=== PATIENT | male | born 1960 | race Caucasian/White ===

== ENCOUNTER 2017-08-26 15:30 | Outpatient (CLI) | payer MEDICAID ==
[~2017-08-26] VITALS: Ht 188 cm; Wt 138.8 kg
[~2017-08-26 15:30] MED LIST: ATEN100T88 PO; DCS100C PO; GLIM4TAB PO; HYDR-3454 PO; LEVO100C2 PO; LISI40TA PO; METF-380 PO
[2017-08-26] MEDS ORDERED: LISI40TA PO (16:13)
[2017-08-26] MEDS ORDERED: HYDR-3820 PO (16:13)
[2017-08-26] MEDS ORDERED: LEVO125T6 PO (16:13)
[2017-08-26] MEDS ORDERED: METF1000 PO (16:13)
[2017-08-26] MEDS ORDERED: DICL75TA2 PO (16:13)
[2017-08-26] MEDS ORDERED: GABA600T2 PO (16:13)
[2017-08-26] MEDS ORDERED: ATEN100T PO (16:13)
[2017-08-26] MEDS ORDERED: GLIM4TAB PO (16:13)
[2017-08-26] MEDS ORDERED: SIMV20TA3 PO (16:13)
== END 2017-08-26 16:14 ==
LOC: PREOP 15:30
PROVIDERS: ATTEND Surgery
DX: Z01.818 Encounter for other preprocedural examination (principal); K92.1 Melena

== ENCOUNTER 2017-08-31 08:32 | Day surgery (SDC) | payer MEDICAID ==
[~2017-08-31] VITALS: Ht 188 cm; Wt 138.8 kg
[~2017-08-31 08:32] MED LIST changes: +ATEN100T PO; +DICL75TA2 PO; +GABA600T2 PO; +HYDR-3820 PO; +LEVO125T6 PO; +METF1000 PO; +SIMV20TA3 PO
[2017-08-31 08:55] VITALS: BP 145/86
[2017-08-31] MEDS ORDERED: NS IV 500 ML 500 ML IV ONE (09:00)
[2017-08-31] MEDS ORDERED: MIDAZOLAM 2 MG/2 ML (VERSED) VIAL ONE ×4 (09:28)
[2017-08-31] MEDS ORDERED: fentaNYL INJECTION 100 MCG/2 ML AMP ONE ×2 (09:28→09:37)
[2017-08-31] MEDS: MIDAZOLAM 2 MG/2 ML (VERSED) VIAL IVP PRN ×4 (09:30→09:39)
[2017-08-31] MEDS: fentaNYL INJECTION 100 MCG/2 ML AMP IVP PRN ×2 (09:31→09:35)
--- NOTE | 2017-08-31 09:32 | Conscious Sedation/ASA ---
Conscious Sedation Pre-Proced Time Reviewed: 09:32 ASA Class: 2 Airway Mallampati Classification: ([place] appropriate class) I. II. III, IV Lungs Heart ASA score ASA 1: a normal healthy patient ASA 2: a patient with a mild systemic disease (mid diabetes, controlled hypertension, obesity ASA 3: a patient with a severe systemic disease that limits activity (angina , COPD, prior Myocardial infarction) ASA 4: a patient with an incapacitating disease that is a constant threat to life (CHF, renal failure) ASA 5: a moribund patient not expected to survive 24 hrs. (ruptured aneurysm) ASA 6: a declared brain patient whose organs are being harvested. For emergent operations, add the letter E after the classification Grade 2 Sedation Plan: Discussed options with patient/fam Note The patient is an appropriate candidate to undergo the planned procedure, sedation, and anesthesia. The patient immediately re-assessed prior to indication. KRISTY LANE MD Aug 31, 2017 9:32 am
--- NOTE | 2017-08-31 09:32 | History & Physicial ---
History of Present Illness History of Present Illness Reason for visit/HPI to undergo colonoscopy regarding heme-positive stools Date of Admission 08/31/17 Date Seen by Provider: Aug 31, 2017 Time Seen by Provider: 09:30 I consulted on this patient on 08/31/17 09:[address] MD Admitting Physician No,Local Physician Consult Allergies and Home Medications Allergies Coded Allergies: No Known Drug Allergies (Unverified , 08/26/17) Home Medications Atenolol 100 Mg Tablet, 100 MG PO DAILY, (Reported) Diclofenac Sodium 75 Mg Tablet.dr, 75 MG PO BID PRN for PAIN-MILD TO MODERATE, ( Reported) Gabapentin 600 Mg Tablet, 600 MG PO TID, (Reported) Glimepiride 4 Mg Tablet, 4 MG PO BID, (Reported) Hydrocodone/Acetaminophen 1 Each Tablet, 1 EACH PO TID PRN for PAIN-MILD TO MODERATE, (Reported) Levothyroxine Sodium 125 Mcg Tablet, 125 MCG PO DAILY, (Reported) Lisinopril 40 Mg Tablet, 40 MG PO DAILY, (Reported) Metformin HCl 1,000 Mg Tablet, 1,000 MG PO BID, (Reported) Simvastatin 20 Mg Tablet, 20 MG PO DAILY, (Reported) Past G[place]wyi-Ifksho-Foy[place] Hx Patient Social History Marrital Status: single Employed/Student: unemployed Type Used: Cigarettes Recent Foreign Travel: No Contact w/other who traveled: No Recent Hopitalizations: No Immunizations Up To Date Date of Influenza Vaccine: Jun 01, 2017 Seasonal Allergies Seasonal Allergies: Yes Surgeries No Respiratory Yes Chronic Bronchitis Cardiovascular Yes Hypertension Neurological No Reproductive System Hx Reproductive Disorders: No Sexually Transmitted Disease: No HIV/AIDS: No Gastrointestinal Yes Gastroesophageal Reflux Musculoskeletal Yes Arthritis, Chronic Back Pain Endocrine History of Endocrine Disorders: No HEENT Loss of Vision: Bilateral Hearing Impairment: Denies Cancer No Psychosocial History of Psychiatric Problem: Yes Behavioral Health Disorders: Anxiety Blood Transfusions Adverse Reaction to a Blood Tr: No Constitutional: no symptoms reported EENTM: no symptoms reported Respiratory: cough Cardiovascular: no symptoms reported Gastrointestinal: see HPI Genitourinary: hematuria Musculoskeletal: no symptoms reported Skin: no symptoms reported Psychiatric/Neurological: Anxiety Physical Exam Vital Signs Capillary Refill : General Appearance: Anxious HEENT: Normal ENT Inspection Neck: Normal Inspection Respiratory: Lungs Clear Cardiovascular: Regular Rate, Rhythm Gastrointestinal: Non Tender, Soft Rectal: Deferred Back: Normal Inspection Extremity: Normal Inspection Neurologic/Psychiatric: Alert, Oriented x3 Skin: Warm/Dry Assessment/Plan Assessment and Plan gentleman with heme-positive stools. No family history of colon cancer. For colonoscopy. Problems: KRISTY LANE MD Aug 31, 2017 9:32 am
--- NOTE | 2017-08-31 09:55 | Endo Procedure Record ---
Endo Procedure Report Date of Procedure Aug 31, 2017 Surgeon (s) KRISTY LANE MD Post Procedure/Op Diagnosis Internal hemorrhoids. Very few sigmoid diverticula Procedure Performed Colonoscopy to cecum Description of Procedure Anesthesia Type: Conscious Sedation Specimen(s) collected/removed none Description of the Procedure Indication for procedure: This gentleman came in for colonoscopy to evaluate heme-positive stools. He denied any family history of colon cancer. Informed consent was obtained after reviewing the procedure in detail. Description of the procedure: He was placed in left lateral decubitus position and his vital signs were monitored. Conscious sedation was achieved using Versed and fentanyl. Examination of the perianal area revealed skin tags and some anal condylomata. The colonoscope was then introduced into the rectum and advanced all the way up to the cecum.the scope was then withdrawn slowly and the mucosa examined in a systematic fashion. Findings: 1. Internal hemorrhoids with some prominent submucosal veins within the distal rectum. There was no active bleeding. 2. Very few sigmoid diverticula. He tolerated the procedure well and was taken back to the nursing area in a stable condition. Impression: Heme-positive stools. Hemorrhoids. No polyps. Note: During the pre-colonoscopy visit, the patient reported noticing blood in his urine. I have therefore recommended that he follows up with his primary care provider with several arrangements for a urology evaluation. Copies To: CORY IGLESIAS MD, XAVIER M MD Aug 31, 2017 9:54 am
[2017-08-31 10:05] VITALS: BP 143/93
[2017-08-31 10:40] VITALS: BP 127/80
[2017-08-31 10:50] VITALS: BP 127/80
== END 2017-08-31 10:50 | disposition home or self-care (01) ==
LOC: ENDO 08:32
PROVIDERS: ATTEND Surgery
DX: K64.8 Other hemorrhoids (principal); K57.30 Diverticulosis of large intestine without perforation or abscess without bleeding; R31.9 Hematuria, unspecified; I10 Essential (primary) hypertension; K21.9 Gastro-esophageal reflux disease without esophagitis; F17.210 Nicotine dependence, cigarettes, uncomplicated; Z79.899 Other long term (current) drug therapy
CPT/HCPCS: 82962

== ENCOUNTER 2018-01-29 15:18 | Emergency (ER) | payer MEDICAID ==
[~2018-01-29] VITALS: Ht 185.4 cm; Wt 135.2 kg
[~2018-01-29 15:18] MED LIST changes: -METF1000 PO; +METF10002 PO
--- OUTSIDE RECORDS SUMMARY | 2018-01-29 15:23 | XMS REPORT ---
Author Author GLADIS KESSLER Organization [facility] Address [address] [place] [address] Care Team Providers Care Stiff Leg Operator Name Role Phone GLADIS KESSLER Unavailable PROBLEMS Type Condition ICD9-CM Code VUY20-HY Code Onset Dates Condition Status SNOMED Code Problem Anxiety disorder, unspecified F41.9 Active 779510419 Problem Other chronic pain G89.29 Active 15888330 Problem Diabetes E11.9 Active 700568826 Problem Hypercholesterolemia E78.00 Active 86211609 Problem Type 2 diabetes mellitus with diabetic autonomic neuropathy, without long-term current use of insulin E11.43 Active 86244889 Problem Essential hypertension I10 Active 97954800 Problem Acute recurrent maxillary sinusitis J01.01 Active 79712092 Problem Cough R05 Active 67150882 Problem Hypothyroidism, unspecified E03.9 Active 69405849 Problem COPD exacerbation J44.1 Active 157946940 Problem Cannabis use disorder, moderate, dependence F12.20 Active 03761239 Problem Type 2 diabetes mellitus with complication E11.8 Active 314028393 ALLERGIES Substance Reaction Event Type Date Status Meloxicam urinary problems Drug Allergy May, Active Diclofenac Sodium urinary problems Drug Allergy May, Active Crestor Unknown reaction Came from previous clinic Drug Allergy May, Active Actos kidney pain Drug Allergy May, Active Niaspan Extended-release Unknown reaction. Came from previous clinic Non Drug Allergy May, Active ENCOUNTERS Encounter Location Date Diagnosis [facility] [address] [facility] [id number] [address] Jan, [facility] [id number] [address] Nov, Seasonal allergic rhinitis, unspecified trigger J30.2 and BMI 40.0-44.9, adult Z68.41 [facility] [id number] [place] [address] Nov, Acute recurrent maxillary sinusitis J01.01 ; Cough R05 and BMI 40.0-44.9, adult Z68.41 [facility] [address] [place] [address] Oct, Cannabis use disorder, moderate, dependence F12.20 [facility] [address] [place] [address] Oct, Cannabis use disorder, moderate, dependence F12.20 [facility] [address] [place] [address] Oct, Cannabis use disorder, moderate, dependence F12.20 [facility] [address] [place] [address] Oct, Cannabis use disorder, moderate, dependence F12.20 [facility] [address] [place] [address] Oct, Cannabis use disorder, moderate, dependence F12.20 [facility] [address] [place] [address] Sep, Cannabis use disorder, moderate, dependence F12.20 [facility] [address] [id number] [place] [address] Sep, Anxiety disorder, unspecified F41.9 and Other chronic pain G89.29 [facility] [address] [place] [id number] [place] [address] Sep, Bronchitis J40 [facility] [address] [place] [address] Sep, Cannabis use disorder, moderate, dependence F12.20 [facility] [address] [place] [address] Sep, Cannabis use disorder, moderate, dependence F12.20 [facility] [address] [place] [id number] [place] [address] Aug, Other chronic pain G89.29 [facility] [address] [place] [address] Aug, Cannabis use disorder, moderate, dependence F12.20 [facility] [address] [place] [address] Aug, Cannabis use disorder, moderate, dependence F12.20 [facility] [address] [place] [address] Aug, Cannabis use disorder, moderate, dependence F12.20 [facility] [address] [place] [address] Aug, Cannabis use disorder, moderate, dependence F12.20 [facility] [address] [id number] [place] [address] Aug, Anxiety disorder, unspecified F41.9 [facility] [address] [address] Jul, Other chronic pain G89.29 [facility] [place] [address] [place] [address] Jul, Cannabis use disorder, moderate, dependence F12.20 [facility] [address] [place] [address] Jul, Cannabis use disorder, moderate, dependence F12.20 [place] [address] [address] Jul, Diabetes E11.9 ; Blood in stool K92.1 ; Arthralgia, unspecified joint M25.50 and BMI 40.0-44.9, adult Z68.[address] [address] Jun, Other chronic pain G89.29 [place] [address] [address] Jun, [facility] [address] [place] [address] Jun, [facility] [address] [address] Jun, Other chronic pain G89.29 [place] [address] [address] Jun, [facility] [address] [place] [address] Jun, Cannabis use disorder, moderate, dependence F12.20 [place] [address] [address] May, Anxiety disorder, unspecified F41.9 [facility] [address] [place] [address] May, Cannabis use disorder, moderate, dependence F12.20 [facility] [id number] [place] [address] May, [facility] [address] [place] [address] May, Cannabis use disorder, moderate, dependence F12.20 [facility] [address] [place] [address] May, [facility] [address] [place] [address] May, [facility] [address] [place] [address] May, [facility] [address] [place] [address] May, Other chronic pain G89.29 [facility] [address] [place] [address] May, [facility] [address] [place] [address] May, Type 2 diabetes mellitus with complication E11.8 and Encounter for immunization Z23 [facility] [place] [address] [place] [address] May, Cannabis use disorder, moderate, dependence F12.20 [facility] [id number] [place] [address] May, Essential hypertension I10 [facility] [address] [place] [id number] [place] [address] 30 Apr, 2017 Essential hypertension I10 [facility] [address] [place] [address] 29 Apr, 2017 Diabetes E11.9 [facility] [address] [place] [address]73[address] 59[address] 18 Apr, 2017 [facility] [address] [address] 15 Apr, 2017 [facility] [id number] [place] [address] 15 Apr, 2017 [facility] [address] [place] [address] 13 Apr, 2017 Other psychoactive substance abuse, uncomplicated F19.10 [facility] [address] [place] [address] 13 Apr, 2017 [facility] [id number] [place] [address] 6[address] 12 Apr, 2017 [facility] [id number] [place] [address]33- 8436 12 Apr, 2017 Anxiety disorder, unspecified F41.9 [facility] [address] [place] [id number] [place] [address] 23090- 3652 08 Apr, 2017 [facility] [id number] [place] [address] 89905- [address] 06 Apr, 2017 Diabetes E11.9 and [facility] (current) use of opiate analgesic Z79.891 [facility] [address] [id number] [place] [address]59- 74[address] 16 Mar, 2017 Other chronic pain G89.29 and Diabetes E11.9 [facility] [address] [place] [address]78- 9887 14 Mar, 2017 Diabetes E11.9 [facility] [id number] [place] [address]90[address] Feb, Anxiety disorder, unspecified F41.9 [facility] [id number] [place] [address]47 Jan, [facility] [id number] [place] [address]30- 5985 Jan, [facility] [address] [place] [address] 46[address]- 4[address] December, Anxiety disorder, unspecified F41.9 [facility] [id number] [place] [address]60[address] Oct, Diabetes E11.9 and Hypothyroidism, unspecified E03.9 [place] [address] [id number] [place] [address] Oct, Anxiety disorder, unspecified F41.9 [facility] [id number] [place] [address] Aug, Bronchitis J40 and Shortness of breath R06.02 [place] [address] [place] [id number] [place] [address] 85972- 6899 Jul, [place] [address] [address] Jul, Back pain, unspecified back location, unspecified back pain laterality, unspecified chronicity M54.9 [place] [address] [address] Jul, Anxiety disorder, unspecified F41.9 [place] [address] [place] [id number] [place] [address] 01590- 9115 Jul, Essential hypertension I10 [place] [address] [address]- [address] Jun, [facility] [id number] [place] [address] Jun, Bronchitis J40 [place] [address] [place] [id number] [place] [address] 19468- 5466 Jun, [place] [address] [address] [id number] [place] [address] 69435- 0578 Jun, Diabetes E11.9 ; Dorsalgia, unspecified M54.9 ; Other chronic pain G89.29 and 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 [place] [address] [place] [id number] [place] [address] 70249- 8485 May, Anxiety disorder, unspecified F41.9 [place] [address] [place] [id number] [place] [address] 44148- 1533 Apr, Type 2 diabetes mellitus with complication E11.8 ; Essential hypertension I10 ; Tooth pain K08.8 and Back pain, unspecified back location, unspecified back pain laterality, unspecified chronicity M54.9 [place] [address] [place] [id number] [place] [address] 17686- 6047 Feb, Anxiety disorder, unspecified F41.9 [place] [address] [id number] [place] [address] 44254- 4676 December, [place] [address] [place] [id number] [place] [address] 95597- 8576 December, [place] [address] [place] [id number] [place] [address] 60335- 3443 December, Diabetes E11.9 ; Insect bite (nonvenomous) of abdominal wall , initial encounter S30.861A and Bitten or stung by nonvenomous insect and other nonvenomous arthropods, initial encounter W57.XXXA [place] [address] [address] [id number] [place] [address] 18176- 3148 Nov, [place] [address] [place] [id number] [place] [address] 33875- 9616 Sep, Genital warts A63.0 [place] [address] [place] [address] 40257- 5457 Aug, [place] [address] [place] [id number] [place] [id number] Aug, Diabetes type 2, uncontrolled 250.02 and Hypothyroid 244.9 [place] [address] [place] [id number] [place] [address] 50733- 7967 Jul, Anogenital (venereal) warts A63.0 [place] [address] [place] [id number] [place] [address] 94355- 7149 Jul, [place] [address] [place] [id number] [place] [address] 54744- 8025 Jul, Diabetes E11.9 [facility] [address] [address] Jun, Genital warts A63.0 [facility] [address] [address] Jun, [facility] [address] [place] [address] 25318- 4306 Jun, [facility] [address] [address] May, [facility] [address] [place] [address] 73519- 3542 May, [facility] [address] [address] May, Type 2 diabetes mellitus with complication E11.8 and Upper respiratory tract infection, unspecified upper respiratory infection J06.9 [facility] [address] [address] 55[address] Apr, Genital warts 078.11 [facility] [address] [address] Feb, Hypothyroid 244.9 and Diabetes type 2, uncontrolled 250.02 [place] [id number] [id number] Feb, Diabetes type 2, uncontrolled 250.02 and Hypothyroid 244.9 [facility] [address] [id number] [address] Feb, Diabetes type 2, uncontrolled 250.02 and Hypothyroid 244.9 [facility] [address] [address] 2555 Jan, [facility] [address] [address] Jan, [facility] [address] [address] 4[address] Nov, [facility] [place] [facility] [address] [id number] [place] [address]- 1553 Nov, [facility] [place] [facility] [address] [facility] [id number] [place] [address]- 8084 Nov, [facility] [place] [facility] [address] [facility] [id number] [place] [address]- 5700 Oct, [facility] [place] [facility] [address] [facility] [id number] [place] [address]- 3646 Oct, [facility] [place] [facility] [address] [facility] [id number] [place] [address]- 0147 Oct, [facility] [place] [facility] [address] [facility] [id number] [place] [address]- 1096 Sep, [facility] [place] [facility] [address] [facility] [id number] [place] [address]- 2919 Sep, [facility] [place] [facility] [address] [id number] [place] [address]- 7137 Sep, [facility] [place] [facility] [address] [facility] [id number] [place] [address]- 3535 Sep, [facility] [place] [facility] [address] [facility] [id number] [place] [address]- 3722 Sep, [facility] [place] [facility] [address] [facility] [id number] [place] [address]- 7461 Sep, [facility] [place] [facility] [address] [facility] [id number] [place] [address]- 9627 Aug, [facility] [place] [facility] [address] [id number] [place] [address]- 5228 Aug, [facility] [place] [facility] [address] [facility] [id number] [place] [address]- 0686 Aug, [facility] [place] [facility] [address] [facility] [id number] [place] [address]- 2838 Aug, [facility] [place] [facility] [address] [id number] [place] [address]- 1377 Aug, [facility] [place] [facility] [address] [id number] [place] [address]- 0187 Aug, [facility] [place] [facility] [address] [id number] [place] [address]- 8742 Aug, [facility] [place] [facility] [address] [id number] [place] [address]- 4937 Aug, [facility] [place] [facility] [address] [id number] [place] [address]- 3076 Jun, [facility] [place] [facility] [address] [id number] [place] [address]- 6929 Jun, [facility] [place] [facility] [address] [id number] [place] [address]- 0881 Jun, [facility] [place] [facility] [address] [id number] [place] [address]- 5668 Jun, [facility] [place] [facility] [address] [id number] [place] [address]- 1814 Jun, [facility] [place] [facility] [address] [id number] [place] [address]- 7717 May, [facility] [place] [facility] [address] [id number] [place] [address]- 1355 May, [facility] [place] [facility] [address] [id number] [place] [address]- 7222 Apr, [facility] [place] [facility] [address] [id number] [place] [address]- 4255 Apr, [facility] [place] [facility] [address] [id number] [place] [address]- 2222 Apr, [facility] [place] [facility] [address] [id number] [place] [address]- 2285 Apr, [facility] [place] [facility] [address] [id number] [place] [address]- 8108 Mar, [facility] [place] [facility] [address] [id number] [place] [address]- 9842 Mar, [facility] [place] [facility] [address] [id number] [place] [address]- 0832 Mar, [facility] [place] [facility] [address] [id number] [place] [address]- 8975 Mar, [facility] [place] [facility] [address] [id number] [place] [address]- 9313 Mar, [facility] [place] [facility] [address] [id number] [place] [address]- 5288 Mar, [facility] [place] [facility] [address] [id number] [place] [address]- 2319 Feb, [facility] [place] [facility] [address] [id number] [place] [address]- 1421 Feb, [facility] [place] [facility] [address] [id number] [place] [address]- 2109 Jan, [facility] [place] [facility] [address] [id number] [place] [address]- 0197 Jan, [facility] [place] [facility] [address] [id number] [place] [address]- 5641 Jan, [facility] [place] [facility] [address] [id number] [place] [address]- 7884 Jan, [facility] [place] [facility] [address] [id number] [place] [address]- 9330 December, [facility] [place] [facility] [address] [id number] [place] [address]- 8726 December, [facility] [place] [facility] [address] [id number] [place] [address]- 6356 December, [facility] [place] [facility] [address] [id number] [place] [address]- 8338 December, [facility] [place] [facility] [address] [id number] [place] [address]- 8762 December, [facility] [place] [facility] [address] [id number] [place] [address]- 4722 Nov, [facility] [place] [facility] [address] [id number] [place] [address]- 9029 Nov, [facility] [place] [facility] [address] [id number] [place] [address]- 6468 Oct, [facility] [place] [facility] [address] [id number] [place] [address]- 1355 Oct, [facility] [place] [facility] [address] [id number] [place] [address] Oct, [facility] [place] [facility] [address] [id number] [place] [address]- 3034 Oct, [facility] [place] [facility] [address] [id number] [place] [address]- 6548 Oct, [facility] [place] [facility] [address] [id number] [place] [address]- 5606 Oct, [facility] [place] [facility] [address] [id number] [place] [address]- 1149 Sep, [facility] [place] [facility] [address] [id number] [place] [address]- 7822 Sep, [facility] [place] [facility] [address] [id number] [place] [address]- 2983 Jul, [facility] [place] [facility] [address] [id number] [place] [address]- 9941 Jul, [facility] [place] [facility] [address] [id number] [place] [address]- 1209 Jul, [facility] [place] [facility] [address] [id number] [place] [address]- 7015 Jul, [facility] [place] [facility] [address] [id number] [place] [address]- 5979 Jun, [facility] [id number] [address]- 2546 Jun, [facility] [address], [place] [address]- 9266 Jun, [facility] [address] [address]- 2546 Jun, [facility] [id number] [address]- 2543 Jun, [facility] [address] [address]- 2540 Jun, [facility] [address] [address]- [address] May, [facility] [address] [address]- 7456 May, [facility] [address], [place] [address]- 8796 Mar, IMMUNIZATIONS Vaccine Route Administration Date Status FLUARIX QUAD (3 AND UP) 2016 IM Intramuscular May 27, 2017 Administered SOCIAL HISTORY Never Assessed REASON FOR VISIT Diabetes, no new concerns- Dany [facility] PLAN OF CARE Activity Details Follow Up 3 Months Reason:DM and pain mgmt VITAL SIGNS Height 71 in 2017-05-27 Weight 304.5 lbs 2017-05-27 Temperature 97.7 degrees Fahrenheit 2017-05-27 Heart Rate 76 bpm 2017-05-27 Respiratory Rate 20 2017-05-27 BMI 42.46 kg/m2 2017-05-27 Blood pressure systolic 140 mmHg 2017-05-27 Blood pressure diastolic 82 mmHg 2017-05-27 MEDICATIONS Medication Instructions Dosage Frequency Start Date End Date Duration Status Hydrocodone-Acetaminophen 10-325 MG Orally 3 times a day 1 tablet as needed 8h Mar, 28 days Active Metoprolol Tartrate 50 MG Orally Twice a day (Replacing Atenolol during shortage) 1 tablet with food May, 30 days Active Norvasc 10 mg Orally Once a day 1 tablet 24h 21 Apr, 2016 90 days Active Atenolol 100 MG Orally Once a day 1 tablet 24h 90 days Active Glucophage 1000 MG TAKE 1 TABLET BY ORAL ROUTE 2 TIMES PER DAY WITH MORNING AND EVENING MEALS 90 Active pantoprazole 40 mg take 1 tablet (40 mg) by oral route once daily Mar, Active [place]-3 Fatty Acids 500 mg 3 Capsule 1 time per day Jan, Active Ativan 0.5 MG Orally Twice a day 1 tablet as needed 12h 28 days Active Levothyroxine Sodium 125 MCG 1 TABLET BY ORAL ROUTE 1 TIME PER DAY 90 Active Gabapentin 600 MG Orally Three times a day 1 tablet 8h 16 Mar, 2017 30 days Active Vitamin D3 1,000 unit 1 Capsule 1 time per day Jun, Active Lisinopril 40 MG Orally Once a day 1 tablet 24h 90 days Active Amaryl 4 MG Orally 2 times a day 1 tablet with meals 12h 90 days Active Vitamin E 1,000 unit 1 Capsule 1 time per day Jun, Active Cyclobenzaprine HCl 10 mg Orally every 8 hours, PRN 1 tablet Apr, 30 Active RESULTS No Results PROCEDURES Procedure Date Ordered Result Body Site FLUARIX QUAD (3 & UP)-[id number] May 27, 2017 SINGLE IMMUNIZATION ADMIN May 27, 2017 INSTRUCTIONS MEDICATIONS ADMINISTERED No Known Medications MEDICAL (GENERAL) HISTORY Type Description Date Medical History hypertension Medical History gastroesophageal reflux disease (GERD) Medical History erectile dysfunction Medical History hyperlipidemia Medical History thyroid disorder-hypothyroid Medical History type II diabetes Medical History chronic pain-multiple accidents when younger Medical History Other psychoactive substance abuse, uncomplicated Surgical History wart removal
--- OUTSIDE RECORDS SUMMARY | 2018-01-29 15:23 | XMS REPORT ---
Author Author GLADIS KESSLER Organization [facility] Address [address] [place] [address] Care Team Providers Care Transportation Department Supervisor Name Role Phone GLADIS KESSLER Unavailable PROBLEMS Type Condition ICD9-CM Code TTM45-XS Code Onset Dates Condition Status SNOMED Code Problem Anxiety disorder, unspecified F41.9 Active 173135218 Problem Other chronic pain G89.29 Active 46445089 Problem Diabetes E11.9 Active 069928857 Problem Hypercholesterolemia E78.00 Active 51064649 Problem Type 2 diabetes mellitus with diabetic autonomic neuropathy, without long-term current use of insulin E11.43 Active 54963446 Problem Essential hypertension I10 Active 60625788 Problem Acute recurrent maxillary sinusitis J01.01 Active 83486538 Problem Cough R05 Active 41857950 Problem Hypothyroidism, unspecified E03.9 Active 08122735 Problem COPD exacerbation J44.1 Active 530904696 Problem Cannabis use disorder, moderate, dependence F12.20 Active 38055793 Problem Type 2 diabetes mellitus with complication E11.8 Active [id number] ALLERGIES No Information ENCOUNTERS Encounter Location Date Diagnosis [facility] [address], [place] [address] Jan, [facility] [address] [place] [address] 16 Nov, 2017 Acute recurrent maxillary sinusitis J01.01 ; Cough R05 and BMI 40.0-44.9, adult Z68.41 [facility] [address] [place] [address] Oct, Cannabis use disorder, moderate, dependence F12.20 [facility] [address] [place] [address] Oct, Cannabis use disorder, moderate, dependence F12.20 [facility] [address] [place] [address] Oct, Cannabis use disorder, moderate, dependence F12.20 [facility] [address] [place] [address] Oct, Cannabis use disorder, moderate, dependence F12.20 [facility] [address] [place] [address] Oct, Cannabis use disorder, moderate, dependence F12.20 [facility] [address] [place] [address] Sep, Cannabis use disorder, moderate, dependence F12.20 [facility] [address] [place] [address] Sep, Anxiety disorder, unspecified F41.9 and Other chronic pain G89.29 [facility] [address] [place] [address] Sep, Bronchitis J40 [facility] [address] [place] [id number] Sep, Cannabis use disorder, moderate, dependence F12.20 [facility] [address] [place] [address] Sep, Cannabis use disorder, moderate, dependence F12.20 [facility] [address] [place] [address] Aug, Other chronic pain G89.29 [facility] [address] [place] [address] Aug, Cannabis use disorder, moderate, dependence F12.20 [facility] [address] [place] [address] Aug, Cannabis use disorder, moderate, dependence F12.20 [facility] [address] [place] [address] Aug, Cannabis use disorder, moderate, dependence F12.20 [facility] [address] [place] [address] Aug, Cannabis use disorder, moderate, dependence F12.20 [facility] [address] [place] [address] Aug, Anxiety disorder, unspecified F41.9 [facility] [address] [place] [address] Jul, Other chronic pain G89.29 [facility] [address] [place] [address] Jul, Cannabis use disorder, moderate, dependence F12.20 [facility] [address] [place] [address] Jul, Cannabis use disorder, moderate, dependence F12.20 [facility] [address] [place] [address] Jul, Diabetes E11.9 ; Blood in stool K92.1 ; Arthralgia, unspecified joint M25.50 and BMI 40.0-44.9, adult Z68.[address] [address] Jun, Other chronic pain G89.[address] [address] Jun, [facility] [address] [place] [address] Jun, [facility] [address] [place] [address] Jun, Other chronic pain G89.[address] [address] Jun, [facility] [address] [place] [address] Jun, Cannabis use disorder, moderate, dependence F12.[address] [address] May, Anxiety disorder, unspecified F41.9 [facility] [address] [place] [address] May, Cannabis use disorder, moderate, dependence F12.[address] [address] May, [facility] [address] [place] [address] May, Cannabis use disorder, moderate, dependence F12.20 [facility] [address] [place] [address] May, [facility] [address] [place] [address] May, [facility] [address] [place] [address] May, [facility] [address] [id number] [place] [address] May, Other chronic pain G89.29 [facility] [address] [address] May, [facility] [address] [address] May, Type 2 diabetes mellitus with complication E11.8 and Encounter for immunization Z23 [facility] [address] [place] [address] May, Cannabis use disorder, moderate, dependence F12.20 [facility] [address] [address] 02 May, 2017 Essential hypertension I10 [facility] [address] [address] 30 Sep, 2016 Essential hypertension I10 [facility] [address] [address] 29 Sep, 2016 Diabetes E11.9 [facility] [address] [address] 18 Sep, 2016 [facility] [address] [address] 15 Apr, 2016 [facility] [address] [address] 15 Sep, 2016 [facility] [address] [place] [address] 13 Sep, 2017 Other psychoactive substance abuse, uncomplicated F19.10 [facility] [id number] [place] [address] 13 Apr, 2016 [facility] [address] [address] Apr, [facility] [address], [place] [address] Apr, Anxiety disorder, unspecified F41.9 [facility] [id number] [place] [address] 08 Apr, 2017 [facility] [id number] [place] [address] Apr, Diabetes E11.9 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 [facility] [id number] [place] [address] 16 Mar, 2017 Other chronic pain G89.29 and Diabetes E11.9 [facility] [address] [place] [address] [id number] [place] [address] Mar, Diabetes E11.9 [facility] [address] [id number] [place] [address] Feb, Anxiety disorder, unspecified F41.9 [facility] [id number] [place] [address] Jan, [facility] [address] [id number] [place] [address] 27[address] Jan, [facility] [address] [place] [address] December, Anxiety disorder, unspecified F41.9 [facility] [id number] [place] [address] Oct, Diabetes E11.9 and Hypothyroidism, unspecified E03.9 [facility] [id number] [place] [address] Oct, Anxiety disorder, unspecified F41.9 [facility] [address], [place] [address] Aug, Bronchitis J40 and Shortness of breath R06.02 [facility] [id number] [place] [address] Jul, [facility] [id number] [place] [address] 06994[address] Jul, Back pain, unspecified back location, unspecified back pain laterality, unspecified chronicity M54.9 [place] [id number] [place] [address]- 8687 Jul, Anxiety disorder, unspecified F41.9 [facility] [address] [id number] [place] [address] 71478- 8[address] Jul, Essential hypertension I10 [place] [address] [address] Jun, [facility] [id number] [place] [address] Jun, Bronchitis J40 [place] [address] [address] Jun, [place] [address] [place] [id number] [place] [address] 76035- 9357 Jun, Diabetes E11.9 ; Dorsalgia, unspecified M54.9 ; Other chronic pain G89.29 and 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 [place] [address] [id number] [place] [address] 89006[address] 4734 May, Anxiety disorder, unspecified F41.9 [place] [address] [place] [id number] [place] [address] 03464- 5237 Apr, Type 2 diabetes mellitus with complication E11.8 ; Essential hypertension I10 ; Tooth pain K08.8 and Back pain, unspecified back location, unspecified back pain laterality, unspecified chronicity M54.9 [place] [address] [place] [id number] [place] [address] 82537- 0828 Feb, Anxiety disorder, unspecified F41.9 [place] [address] [place] [id number] [place] [address] 32982- 9805 December, [facility] [address] [place] [address] 63924- 2211 December, [facility] [address] [place] [address] [id number] [place] [address] 03622- 8630 December, Diabetes E11.9 ; Insect bite (nonvenomous) of abdominal wall , initial encounter S30.861A and Bitten or stung by nonvenomous insect and other nonvenomous arthropods, initial encounter W57.XXXA [facility] [id number] [place] [address] 75457- 7676 Nov, [facility] [address] [id number] [place] [address] 21215- 1777 Sep, Genital warts A63.0 [facility] [address] [id number] [place] [address] 69592- 6764 Aug, [place] [address] [id number] [place] [id number] Aug, Diabetes type 2, uncontrolled 250.02 and Hypothyroid 244.9 [facility] [id number] [place] [address] 15006- 0703 Jul, Anogenital (venereal) warts A63.0 [facility] [address] [place] [address] 48749- 9502 Jul, [facility] [id number] [place] [address] 64030- 9458 Jul, Diabetes E11.9 [facility] [address] [place] [address] 87411- 6456 Jun, Genital warts A63.0 [facility] [address] [id number] [place] [address] 27006- 9135 Jun, [facility] [address] [place] [address] 61488- 3737 Jun, [facility] [address] [place] [address]- 18[address] May, [facility] [address] [place] [address] 76079- 7878 May, [facility] [address] May, Type 2 diabetes mellitus with complication E11.8 and Upper respiratory tract infection, unspecified upper respiratory infection J06.9 [facility] [address] [place] [address] 11146- 7811 Apr, Genital warts 078.11 [facility] [address] [place] [address] 71787- 4303 Feb, Hypothyroid 244.9 and Diabetes type 2, uncontrolled 250.02 [address] [address] Feb, Diabetes type 2, uncontrolled 250.02 and Hypothyroid 244.9 [facility] [address] [place] [address] 97406- 6004 Feb, Diabetes type 2, uncontrolled 250.02 and Hypothyroid 244.9 [facility] [address] [place] [address] 01755- 1891 Jan, [facility] [address], [place] [address] Jan, [facility] [address], [place] [address] 1657 Nov, [facility] [address] [place] [address] 85101- 7646 Nov, [facility] [address] [id number] [place] [address] 19377- 4006 Nov, [facility] [address] [address] Oct, [facility] [address] [place] [address] 23578- 1314 Oct, [facility] [place] [facility] [address] [id number] [place] [address]- 1675 Oct, [facility] [place] [facility] [address] [id number] [place] [address]- 4437 Sep, [facility] [place] [facility] [address] [id number] [place] [address] Sep, [facility] [place] [facility] [address] [id number] [place] [address]- 1606 Sep, [facility] [place] [facility] [address] [id number] [place] [address]- 4638 Sep, [facility] [place] [facility] [address] [id number] [place] [address]- 8758 Sep, [facility] [place] [facility] [address] [id number] [place] [address]- 3395 Sep, [facility] [place] [facility] [address] [id number] [place] [address]- 0349 Aug, [facility] [place] [facility] [address] [id number] [place] [address]- 6265 Aug, [facility] [place] [facility] [address] [id number] [place] [address]- 2947 Aug, [facility] [place] [facility] [address] [id number] [place] [address]- 6912 Aug, [facility] [place] [facility] [address] [id number], [place] [address]- 6873 Aug, [facility] [place] [facility] [address] [id number] [place] [address]- 1655 Aug, [facility] [place] [facility] [address] [id number] [place] [address]- 4521 Aug, [facility] [place] [facility] [address] [id number] [place] [address]- 4207 Aug, [facility] [place] [facility] [address] [id number] [place] [address]- 4569 Jun, [facility] [place] [facility] [address] [id number] [place] [address]- 6355 Jun, [facility] [place] [facility] [address] [id number] [place] [address]- 3567 Jun, [facility] [place] [facility] [address] [id number] [place] [address]- 8993 Jun, [facility] [place] [facility] [address] [id number] [place] [address]- 3720 Jun, [facility] [place] [facility] [address] [id number] [place] [address]- 3386 May, [facility] [place] [facility] [address] [id number] [place] [address]- 0463 May, [facility] [place] [facility] [address] [id number] [place] [address]- 2587 Apr, [facility] [place] [facility] [address] [id number] [place] [address]- 8745 Apr, [facility] [place] [facility] [address] [id number] [place] [address]- 4511 Apr, [facility] [place] [facility] [address] [id number] [place] [address]- 1480 Apr, [facility] [place] [facility] [address] [id number] [place] [address]- 4892 Mar, [facility] [place] [facility] [address] [id number] [place] [address]- 9457 Mar, [facility] [place] [facility] [address] [id number] [place] [address]- 9830 Mar, [facility] [place] [facility] [address] [id number] [place] [address]- 0318 Mar, [facility] [place] [facility] [address] [id number] [place] [address]- 5247 Mar, [facility] [place] [facility] [address] [id number] [place] [address]- 8182 Mar, [facility] [place] [facility] [address] [id number] [place] [address]- 7510 Feb, [facility] [place] [facility] [address] [id number] [place] [address]- 1096 Feb, [facility] [place] [facility] [address] [id number] [place] [address]- 1942 Jan, [facility] [place] [facility] [address] [id number] [place] [address]- 1517 Jan, [facility] [place] [facility] [address] [id number] [place] [address]- 7308 Jan, [facility] [place] [facility] [address] [id number] [place] [address]- 4980 Jan, [facility] [place] [facility] [address] [id number] [place] [address]- 3481 December, [facility] [place] [facility] [address] [id number] [place] [address]- 5490 December, [facility] [place] [facility] [address] [id number] [place] [address]- 5704 December, [facility] [place] [facility] [address] [id number] [place] [address]- 9796 December, [facility] [place] [facility] [address] [id number] [place] [address]- 8810 December, [facility] [place] [facility] [address] [id number] [place] [address]- 6027 Nov, [facility] [place] [facility] [address] [id number] [place] [address]- 2690 Nov, [facility] [place] [facility] [address] [id number] [place] [address]- 7059 Oct, [facility] [place] [facility] [address] [id number], [place] [address]- 1143 Oct, [facility] [place] [facility] [address] [id number] [place] [address]- 2318 Oct, [facility] [place] [facility] [address] [id number] [place] [address]- 0288 Oct, [facility] [place] [facility] [address] [facility] [id number] [place] [address]- 4986 Oct, [facility] [place] [facility] [address] [id number] [place] [address]- 4170 Oct, [facility] [place] [facility] [address] [id number] [place] [address]- 2041 Sep, [facility] [place] [facility] [address] [id number] [place] [address]- 9591 Sep, [facility] [address] [facility] [id number] [place] [address]- 1562 Jul, [facility] [place] [facility] [address] [id number] [place] [address]- 6927 Jul, [facility] [place] [facility] [address] [facility] [id number] [place] [address]- 9638 Jul, [facility] [place] [facility] [address] [facility] [id number] [place] [address]- 4689 Jul, [facility] [place] [facility] [address] [facility] [id number], [place] [address]- 5597 Jun, [facility] [place] [facility] [address] [facility] [id number], [place] [address]- 2229 Jun, [facility] [place] [facility] [address] [id number] [place] [address]- 7035 Jun, [facility] [place] [facility] [address] [facility] [id number] [place] [address]- 7485 Jun, [facility] [place] [facility] [address] [facility] [id number], [place] [address]- 3780 Jun, [facility] [place] [facility] [address] [facility] [id number] [place] [address]- 6486 Jun, [facility] [address] [facility] [id number], [place] [address]- 0736 May, [facility] [address] [facility] [id number] [place] [address]- 0351 May, [facility] [address] [facility] [id number], [place] [address]- 9923 Mar, IMMUNIZATIONS No Known Immunizations SOCIAL HISTORY Never Assessed REASON FOR VISIT Refill request PLAN OF CARE VITAL SIGNS MEDICATIONS Unknown Medications RESULTS No Results PROCEDURES No Known procedures INSTRUCTIONS MEDICATIONS ADMINISTERED No Known Medications MEDICAL (GENERAL) HISTORY Type Description Date Medical History hypertension Medical History gastroesophageal reflux disease (GERD) Medical History erectile dysfunction Medical History hyperlipidemia Medical History thyroid disorder-hypothyroid Medical History type II diabetes Medical History chronic pain-multiple accidents when younger Medical History Other psychoactive substance abuse, uncomplicated Surgical History wart removal
--- OUTSIDE RECORDS SUMMARY | 2018-01-29 15:24 | XMS REPORT ---
Author Author GLADIS KESSLER Organization [employer] Address Unknown Phone Unavailable Care Team Providers Care Butter Printer Name Role Phone GLADIS KESSLER CP Unavailable Allergies No Known Allergies Problems Problem Type Condition Code Onset Dates Condition Status Problem Other and unspecified hyperlipidemia 272.4 Active Problem Unspecified hereditary and idiopathic peripheral neuropathy 356.9 Active Problem Diabetes mellitus without mention of complication, type II or unspecified type, not stated as uncontrolled 250.00 Active Problem Anxiety state, unspecified 300.00 Active Problem Condyloma acuminatum 078.11 Active Problem Diabetes mellitus without mention of complication, type II or unspecified type, uncontrolled 250.02 Active Problem Pure hypercholesterolemia 272.0 Active Problem Generalized anxiety disorder 300.02 Active Problem Essential hypertension, benign 401.1 Active Medications Medication Code System Code Instructions Start Date End Date Status Dosage Guillermina [facility] [address]-56 2 MG Subcutaneous Once a week Jun 13, 2015 as directed Results No Known Results Summary Purpose [employer] Submission
--- OUTSIDE RECORDS SUMMARY | 2018-01-29 15:24 | XMS REPORT ---
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 Name Role Phone GLADIS KESSLER Unavailable PROBLEMS Type Condition ICD9-CM Code XPH88-EE Code Onset Dates Condition Status SNOMED Code Problem Anxiety disorder, unspecified F41.9 Active 781570505 Problem Other chronic pain G89.29 Active 88434265 Problem Diabetes E11.9 Active 563944984 Problem Hypercholesterolemia E78.00 Active 78244121 Problem Type 2 diabetes mellitus with diabetic autonomic neuropathy, without long-term current use of insulin E11.43 Active 81969302 Problem Essential hypertension I10 Active 85581025 Problem Acute recurrent maxillary sinusitis J01.01 Active 75851754 Problem Cough R05 Active 07273372 Problem Hypothyroidism, unspecified E03.9 Active 81957999 Problem COPD exacerbation J44.1 Active 319018328 Problem Cannabis use disorder, moderate, dependence F12.20 Active 18665526 Problem Type 2 diabetes mellitus with complication E11.8 Active [id number] ALLERGIES No Information ENCOUNTERS Encounter Location Date Diagnosis [facility] [address], [place] [address] Jan, [facility] [address], [place] [address] 16 Nov, 2017 Acute recurrent maxillary sinusitis J01.01 ; Cough R05 and BMI 40.0-44.9, adult Z68.41 [facility] [address] [place] [address] Oct, Cannabis use disorder, moderate, dependence F12.20 [facility] [address] [place] [address] Oct, Cannabis use disorder, moderate, dependence F12.20 [facility] [address] [place] [address] Oct, Cannabis use disorder, moderate, dependence F12.20 [facility] [place] [address] [place] [address] Oct, Cannabis use disorder, moderate, dependence F12.20 [facility] [address] [place] [address] Oct, Cannabis use disorder, moderate, dependence F12.20 [facility] [address] [place] [address] Sep, Cannabis use disorder, moderate, dependence F12.20 [facility] [address] [place] [address] Sep, Anxiety disorder, unspecified F41.9 and Other chronic pain G89.29 [facility] [address] [place] [address] Sep, Bronchitis J40 [facility] [place] [address] [place] [id number] Sep, Cannabis use disorder, moderate, dependence F12.20 [facility] [address] [place] [address] Sep, Cannabis use disorder, moderate, dependence F12.20 [facility] [address] [place] [address] Aug, Other chronic pain G89.29 [facility] [place] [address] [place] [address] Aug, Cannabis use disorder, moderate, dependence F12.20 [facility] [address] [place] [address] Aug, Cannabis use disorder, moderate, dependence F12.20 [facility] [address] [place] [address] Aug, Cannabis use disorder, moderate, dependence F12.20 [facility] [address] [place] [address] Aug, Cannabis use disorder, moderate, dependence F12.20 [facility] [address] [place] [address] Aug, Anxiety disorder, unspecified F41.9 [facility] [address] [place] [address] Jul, Other chronic pain G89.29 [facility] [place] [address] [place] [address] Jul, Cannabis use disorder, moderate, dependence F12.20 [facility] [place] [address] [place] [address] Jul, Cannabis use disorder, moderate, dependence F12.20 [facility] [address] [place] [address] Jul, Diabetes E11.9 ; Blood in stool K92.1 ; Arthralgia, unspecified joint M25.50 and BMI 40.0-44.9, adult Z68.[address] [address] Jun, Other chronic pain G89.[address] [address] Jun, [facility] [place] [address] [place] [address] Jun, [facility] [address] [place] [address] Jun, Other chronic pain G89.[address] [address] Jun, [facility] [place] [address] [place] [address] Jun, Cannabis use disorder, moderate, dependence F12.[address] [address] May, Anxiety disorder, unspecified F41.9 [facility] [place] [address] [place] [address] May, Cannabis use disorder, moderate, dependence F12.[address] [address] May, [facility] [address] [place] [address] May, Cannabis use disorder, moderate, dependence F12.20 [facility] [place] [address] [place] [address] May, [facility] [place] [address] [place] [address] May, [facility] [address] [place] [address] May, [facility] [address] [place] [place] [id number] [place] [address] May, Other chronic pain G89.29 [facility] [address] [address] May, [facility] [address] [address] May, Type 2 diabetes mellitus with complication E11.8 and Encounter for immunization Z23 [facility] [place] [address] [place] [address] May, Cannabis use disorder, moderate, dependence F12.20 [facility] [address] [address] 02 May, 2017 Essential hypertension I10 [facility] [address] [address] 30 Sep, 2016 Essential hypertension I10 [facility] [address] [address] 29 Sep, 2016 Diabetes E11.9 [facility] [address] [address] 18 Sep, 2016 [facility] [address] [address] 15 Apr, 2016 [facility] [address] [address] 15 Sep, 2016 [facility] [address] [place] [address] 13 Sep, 2017 Other psychoactive substance abuse, uncomplicated F19.10 [facility] [address] [place] [id number] [place] [address] 13 Apr, 2016 [facility] [address] [address] Apr, [facility] [address], [place] [address] Apr, Anxiety disorder, unspecified F41.9 [facility] [id number] [place] [address] 08 Apr, 2017 [facility] [id number] [place] [address] Apr, Diabetes E11.9 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 [facility] [id number] [place] [address] 16 Mar, 2017 Other chronic pain G89.29 and Diabetes E11.9 [facility] [address] [place] [id number] [place] [address] Mar, Diabetes E11.9 [facility] [address] [place] [place] [id number] [place] [address] Feb, Anxiety disorder, unspecified F41.9 [facility] [id number] [place] [address] Jan, [facility] [address] [place] [place] [id number] [place] [address] 54[address] Jan, [facility] [address] [place] [address] December, Anxiety disorder, unspecified F41.9 [facility] [id number] [place] [address] Oct, Diabetes E11.9 and Hypothyroidism, unspecified E03.9 [facility] [address] [id number] [place] [address] 116[address] Oct, Anxiety disorder, unspecified F41.9 [facility] [address], [place] [address] Aug, Bronchitis J40 and Shortness of breath R06.02 [facility] [id number] [place] [address] Jul, [facility] [id number] [place] [address] 87[address] Jul, Back pain, unspecified back location, unspecified back pain laterality, unspecified chronicity M54.9 [place] [address] [id number] [place] [address] 8570 Jul, Anxiety disorder, unspecified F41.9 [facility] [address] [id number] [place] [address] 20810- 3183 Jul, Essential hypertension I10 [place] [address] [address]- [address] Jun, [facility] [address] [id number] [place] [address] Jun, Bronchitis J40 [place] [address] [address]- [address] Jun, [place] [address] [place] [id number] [place] [address] 15643- 3982 Jun, Diabetes E11.9 ; Dorsalgia, unspecified M54.9 ; Other chronic pain G89.29 and 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 [place] [address] [place] [id number] [place] [address] 88345- 2423 May, Anxiety disorder, unspecified F41.9 [place] [address] [id number] [place] [address] 36528- 2552 Apr, Type 2 diabetes mellitus with complication E11.8 ; Essential hypertension I10 ; Tooth pain K08.8 and Back pain, unspecified back location, unspecified back pain laterality, unspecified chronicity M54.9 [place] [address] [place] [id number] [place] [address] 70395- 5832 Feb, Anxiety disorder, unspecified F41.9 [place] [address] [place] [id number] [place] [address] 23789- 0104 December, [facility] [address] [place] [address] 75316- 0538 December, [facility] [address] [place] [id number] [place] [address] 60261- 5208 December, Diabetes E11.9 ; Insect bite (nonvenomous) of abdominal wall , initial encounter S30.861A and Bitten or stung by nonvenomous insect and other nonvenomous arthropods, initial encounter W57.XXXA [facility] [id number] [place] [address] 89871- 4077 Nov, [facility] [address] [place] [id number] [place] [address] 02949- 4567 Sep, Genital warts A63.0 [facility] [address] [place] [id number] [place] [address] 15169- 7324 Aug, [place] [address] [place] [id number] [place] [id number] Aug, Diabetes type 2, uncontrolled 250.02 and Hypothyroid 244.9 [facility] [address] [place] [id number] [place] [address] 90053- 0599 Jul, Anogenital (venereal) warts A63.0 [facility] [address] [place] [address] 18159- 9675 Jul, [facility] [id number] [place] [address] 54537- 0947 Jul, Diabetes E11.9 [facility] [address] [place] [address] 40934- 6203 Jun, Genital warts A63.0 [facility] [address] [id number] [place] [address] 27165- 4490 Jun, [facility] [address] [place] [address] 40686- 4231 Jun, [facility] [address] [place] [address]- 8[address] May, [facility] [address] [place] [address] 24856- 8312 May, [facility] [address] May, Type 2 diabetes mellitus with complication E11.8 and Upper respiratory tract infection, unspecified upper respiratory infection J06.9 [facility] [address] [place] [address] 09659- 2933 Apr, Genital warts 078.11 [facility] [address] [place] [address] 22188- 8946 Feb, Hypothyroid 244.9 and Diabetes type 2, uncontrolled 250.02 [address] [address] Feb, Diabetes type 2, uncontrolled 250.02 and Hypothyroid 244.9 [facility] [address] [place] [address] 71606- 8908 Feb, Diabetes type 2, uncontrolled 250.02 and Hypothyroid 244.9 [facility] [address] [place] [address] 00567- 1295 Jan, [facility] [address], [place] [address]- 5086 Jan, [facility] [address], [place] [address]- 9348 Nov, [facility] [address] [place] [address] 40937- 7702 Nov, [facility] [id number] [place] [address] 59562- 0851 Nov, [facility] [address]1 Oct, [facility] [address] [place] [address] 06740- 5871 Oct, [facility] [place] [facility] [address] [id number] [place] [address]- [address]32 Oct, [facility] [place] [facility] [address] [id number] [place] [address]- 3864 Sep, [facility] [place] [facility] [address] [id number] [place] [address] Sep, [facility] [place] [facility] [address] [id number] [place] [address]- 1268 Sep, [facility] [place] [facility] [address] [id number] [place] [address]- 8041 Sep, [facility] [place] [facility] [address] [id number] [place] [address]- 7754 Sep, [facility] [place] [facility] [address] [id number] [place] [address]- 0223 Sep, [facility] [place] [facility] [address] [id number] [place] [address]- 8564 Aug, [facility] [place] [facility] [address] [id number] [place] [address]- 4224 Aug, [facility] [place] [facility] [address] [id number] [place] [address]- 1636 Aug, [facility] [place] [facility] [address] [id number] [place] [address]- 9977 Aug, [facility] [place] [facility] [address] [id number], [place] [address]- 4233 Aug, [facility] [place] [facility] [address] [id number] [place] [address]- 7798 Aug, [facility] [place] [facility] [address] [id number] [place] [address]- 4756 Aug, [facility] [place] [facility] [address] [id number] [place] [address]- 2571 Aug, [facility] [place] [facility] [address] [id number] [place] [address]- 7644 Jun, [facility] [place] [facility] [address] [id number] [place] [address]- 5346 Jun, [facility] [place] [facility] [address] [id number] [place] [address]- 9638 Jun, [facility] [place] [facility] [address] [id number] [place] [address]- 2083 Jun, [facility] [place] [facility] [address] [id number] [place] [address]- 2003 Jun, [facility] [place] [facility] [address] [id number] [place] [address]- 7636 May, [facility] [place] [facility] [address] [id number] [place] [address]- 8772 May, [facility] [place] [facility] [address] [id number] [place] [address]- 9147 Apr, [facility] [place] [facility] [address] [id number] [place] [address]- 1405 Apr, [facility] [place] [facility] [address] [id number] [place] [address]- 7070 Apr, [facility] [place] [facility] [address] [id number] [place] [address]- 2704 Apr, [facility] [place] [facility] [address] [id number] [place] [address]- 0963 Mar, [facility] [place] [facility] [address] [id number] [place] [address]- 3131 Mar, [facility] [place] [facility] [address] [id number] [place] [address]- 2446 Mar, [facility] [place] [facility] [address] [id number] [place] [address]- 5562 Mar, [facility] [place] [facility] [address] [id number] [place] [address]- 8849 Mar, [facility] [place] [facility] [address] [id number] [place] [address]- 7803 Mar, [facility] [place] [facility] [address] [id number] [place] [address]- 2702 Feb, [facility] [place] [facility] [address] [id number] [place] [address]- 1104 Feb, [facility] [place] [facility] [address] [id number] [place] [address]- 0081 Jan, [facility] [place] [facility] [address] [id number] [place] [address]- 1437 Jan, [facility] [place] [facility] [address] [id number] [place] [address]- 8557 Jan, [facility] [place] [facility] [address] [id number] [place] [address]- 4026 Jan, [facility] [place] [facility] [address] [id number] [place] [address]- 7627 December, [facility] [place] [facility] [address] [id number] [place] [address]- 5969 December, [facility] [place] [facility] [address] [id number] [place] [address]- 5830 December, [facility] [place] [facility] [address] [id number] [place] [address]- 8791 December, [facility] [place] [facility] [address] [id number] [place] [address]- 5785 December, [facility] [place] [facility] [address] [id number] [place] [address]- 0501 Nov, [facility] [place] [facility] [address] [id number] [place] [address]- 5222 Nov, [facility] [place] [facility] [address] [id number] [place] [address]- 3607 Oct, [facility] [place] [facility] [address] [id number], [place] [address]- 5764 Oct, [facility] [place] [facility] [address] [id number] [place] [address]- 8608 Oct, [facility] [place] [facility] [address] [id number] [place] [address]- 1702 Oct, [facility] [place] [facility] [address] [facility] [id number] [place] [address]- 9867 Oct, [facility] [place] [facility] [address] [id number] [place] [address]- 2108 Oct, [facility] [place] [facility] [address] [id number] [place] [address]- 8757 Sep, [facility] [place] [facility] [address] [id number] [place] [address]- 9176 Sep, [facility] [address] [facility] [id number] [place] [address]- 4377 Jul, [facility] [place] [facility] [address] [id number] [place] [address]- 8972 Jul, [facility] [place] [facility] [address] [facility] [id number] [place] [address]- 8771 Jul, [facility] [place] [facility] [address] [facility] [id number] [place] [address]- 4823 Jul, [facility] [place] [facility] [address] [facility] [id number], [place] [address]- 1855 Jun, [facility] [place] [facility] [address] [facility] [id number], [place] [address]- 9167 Jun, [facility] [place] [facility] [address] [id number] [place] [address]- 7420 Jun, [facility] [place] [facility] [address] [facility] [id number] [place] [address]- 6591 Jun, [facility] [place] [facility] [address] [facility] [id number], [place] [address]- 1189 Jun, [facility] [place] [facility] [address] [facility] [id number] [place] [address]- 8606 Jun, [facility] [address] [facility] [id number], [place] [address]- 5635 May, [facility] [address] [facility] [id number][place] [address] 2259 May, [facility] [address] [facility] [id number][place] [address]- [address]056 Mar, IMMUNIZATIONS No Known Immunizations SOCIAL HISTORY Never Assessed REASON FOR VISIT [place] PA/Denied PLAN OF CARE VITAL SIGNS MEDICATIONS Unknown [...]
--- OUTSIDE RECORDS SUMMARY | 2018-01-29 15:24 | XMS REPORT ---
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 Name Role Phone GLADIS KESSLER Unavailable PROBLEMS Type Condition ICD9-CM Code SGW18-ZQ Code Onset Dates Condition Status SNOMED Code Problem Anxiety disorder, unspecified F41.9 Active 210807566 Problem Other chronic pain G89.29 Active 95151934 Problem Diabetes E11.9 Active 588192194 Problem Hypercholesterolemia E78.00 Active 64262625 Problem Type 2 diabetes mellitus with diabetic autonomic neuropathy, without long-term current use of insulin E11.43 Active 54686837 Problem Essential hypertension I10 Active 58837165 Problem Acute recurrent maxillary sinusitis J01.01 Active 41223600 Problem Cough R05 Active 77828604 Problem Hypothyroidism, unspecified E03.9 Active 79580679 Problem COPD exacerbation J44.1 Active 691861809 Problem Cannabis use disorder, moderate, dependence F12.20 Active 08930819 Problem Type 2 diabetes mellitus with complication E11.8 Active 815979021 ALLERGIES No Information ENCOUNTERS Encounter Location Date Diagnosis [facility] [id number], [place] [address] Jan, [facility] [id number] [place] [address] 16566- 5229 December, [facility] [id number] [place] [address]290 [address]148 Nov, Seasonal allergic rhinitis, unspecified trigger J30.2 and BMI 40.0-44.9, adult Z68.41 [facility] [id number] [place] [address] 89988 -8642 16 Nov, 2017 Acute recurrent maxillary sinusitis J01.01 ; Cough R05 and BMI 40.0-44.9, adult Z68.41 [facility] [address] [id number] Oct, Cannabis use disorder, moderate, dependence F12.20 [facility] [address] [address] Oct, Cannabis use disorder, moderate, dependence F12.20 [facility] [address] [id number] Oct, Cannabis use disorder, moderate, dependence F12.20 [facility] [address] [address]365[address] Oct, Cannabis use disorder, moderate, dependence F12.20 [facility] [address] [place] [address] Oct, Cannabis use disorder, moderate, dependence F12.20 [facility] [address] Sep, Cannabis use disorder, moderate, dependence F12.20 [facility] [address] [place] [address] 05961- [address] Sep, Anxiety disorder, unspecified F41.9 and Other chronic pain G89.29 [facility] [address] [place] [address] 90689- 8879 Sep, Bronchitis J40 [facility] [address] [address] Sep, Cannabis use disorder, moderate, dependence F12.20 [facility] [address] [place] [address] Sep, Cannabis use disorder, moderate, dependence F12.20 [facility] [address] [place] [address] 42286- 9071 Aug, Other chronic pain G89.29 [facility] [address] [place] [address] Aug, Cannabis use disorder, moderate, dependence F12.20 [facility] [address] [place] [address] Aug, Cannabis use disorder, moderate, dependence F12.20 [facility] [address] [place] [address] Aug, Cannabis use disorder, moderate, dependence F12.20 [facility] [address] [id number] Aug, Cannabis use disorder, moderate, dependence F12.20 [facility] [address] [address]- [address]36 Aug, Anxiety disorder, unspecified F41.9 [facility] [address] 63154- 8353 Jul, Other chronic pain G89.29 [facility] [address] [place] [address] Jul, Cannabis use disorder, moderate, dependence F12.20 [facility] [address] [place] [address] Jul, Cannabis use disorder, moderate, dependence F12.20 [place] [address] [address] 2354 Jul, Diabetes E11.9 ; Blood in stool K92.1 ; Arthralgia, unspecified joint M25.50 and BMI 40.0-44.9, adult Z68.41 [facility] [address] [address]- 1162 Jun, Other chronic pain G89.29 [place] [address] 04456- 2905 Jun, [facility] [place] [address] [place] [address] Jun, [place] [address] 14030- 6542 Jun, Other chronic pain G89.29 [facility] [address] 43898- 3517 Jun, [facility] [address] [place] [address] Jun, Cannabis use disorder, moderate, dependence F12.20 [facility] [address] 81865- 5539 May, Anxiety disorder, unspecified F41.9 [facility] [address] [place] [address] May, Cannabis use disorder, moderate, dependence F12.20 [facility] [id number] [place] [address] 95556- 2718 May, [facility] [address] [place] [address] May, Cannabis use disorder, moderate, dependence F12.20 [facility] [address] [place] [address] May, [facility] [address] [place] [address] May, [facility] [address] [place] [address] May, [facility] [address] 33761- 3717 May, Other chronic pain G89.29 [facility] [address] 21637- 5386 May, [facility] [address] 48714- 4417 May, Type 2 diabetes mellitus with complication E11.8 and Encounter for immunization Z23 [facility] [place] [address] [place] [address] May, Cannabis use disorder, moderate, dependence F12.20 [facility] [id number] [place] [address] 34840- 5945 May, Essential hypertension I10 [facility] [id number] [place] [address] 90844- 2636 30 Apr, 2017 Essential hypertension I10 [facility] [id number] [place] [address] 17639- 5226 29 Apr, 2017 Diabetes E11.9 [facility] [address] 90773- 7535 18 Apr, 2017 [facility] [id number] [place] [address] 76917- 7081 15 Apr, 2017 [facility] [address] 09547- 5117 15 Apr, 2017 [facility] [address] [place] [address] 13 Apr, 2017 Other psychoactive substance abuse, uncomplicated F19.10 [facility] [id number] [place] [address] 66477- 2729 13 Apr, 2017 [facility] [id number] [place] [address] 65501- 5364 12 Apr, 2017 [facility] [id number] [place] [address] 58226- 9398 12 Apr, 2017 Anxiety disorder, unspecified F41.9 [facility] [id number] [place] [address] 75112- 8815 08 Apr, 2017 [place] [id number] [place] [address] 82662- 5496 06 Apr, 2017 Diabetes E11.9 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 [place] [id number] [place] [address] 25635- 1732 Mar, Other chronic pain G89.29 and Diabetes E11.9 [place] [id number] [place] [address] 18185- 4449 Mar, Diabetes E11.9 [facility] [id number] [place] [address] 35065- 6078 Feb, Anxiety disorder, unspecified F41.9 [facility] [id number] [place] [address] 89785- 4678 Jan, [facility] [id number] [place] [address] 81585- 0920 Jan, [facility] [id number] [place] [address] 13136- 5833 December, Anxiety disorder, unspecified F41.9 [facility] [id number] [place] [address] 23864- 5620 Oct, Diabetes E11.9 and Hypothyroidism, unspecified E03.9 [facility] [id number] [place] [address] 75941- 9459 Oct, Anxiety disorder, unspecified F41.9 [facility] [address] 06978 [address]9980 Aug, Bronchitis J40 and Shortness of breath R06.02 [place] [address] 35378- 2709 Jul, [place] [address] 50162- 2468 Jul, Back pain, unspecified back location, unspecified back pain laterality, unspecified chronicity M54.9 [place] [address] 67685- 5556 Jul, Anxiety disorder, unspecified F41.9 [place] [address] 40307- 1575 Jul, Essential hypertension I10 [place] [address] 08241- 5826 Jun, [facility] [address] 44219 -4181 Jun, Bronchitis J40 [place] [address] 32250- 9111 Jun, [place] [address] 12640- 0424 Jun, Diabetes E11.9 ; Dorsalgia, unspecified M54.9 ; Other chronic pain G89.29 and 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 [place] [address] 23147- 3013 May, Anxiety disorder, unspecified F41.9 [place] [id number] [place] [address] 04639- 7704 Apr, Type 2 diabetes mellitus with complication E11.8 ; Essential hypertension I10 ; Tooth pain K08.8 and Back pain, unspecified back location, unspecified back pain laterality, unspecified chronicity M54.9 [place] [id number] [place] [address] 05946- 0097 Feb, Anxiety disorder, unspecified F41.9 [place] [id number] [place] [address] 08048- 6659 December, [place] [address] 83741- 3062 December, [place] [id number] [place] [address] 40039- 3130 December, Diabetes E11.9 ; Insect bite (nonvenomous) of abdominal wall , initial encounter S30.861A and Bitten or stung by nonvenomous insect and other nonvenomous arthropods, initial encounter W57.XXXA [place] [id number] [place] [address] 09809- 1476 Nov, [place] [id number] [place] [address] 41718- 6399 Sep, Genital warts A63.0 [place] [id number] [place] [address] 28336- 1654 Aug, [facility] [id number] [place] [address] [id number] Aug, Diabetes type 2, uncontrolled 250.02 and Hypothyroid 244.9 [place] [id number] [place] [address] 69914- 4298 Jul, Anogenital (venereal) warts A63.[address] 36811- 9101 Jul, [place] [id number] [place] [address] 69573- 5993 Jul, Diabetes E11.9 [place] [address] 60139- 9457 Jun, Genital warts A63.0 [facility] [address], [place] [address]- 4016 Jun, [facility] [address], [place] [address]- 9410 Jun, [facility] [address], [place] [address]- 7724 May, [facility] [address] [place] [address] 35753- 8436 May, [facility] [address], [place] [address]- 4174 May, Type 2 diabetes mellitus with complication E11.8 and Upper respiratory tract infection, unspecified upper respiratory infection J06.9 [facility] [address], [place] [address]- 0781 Apr, Genital warts 078.11 [facility] [address], [place] [address]- 0811 Feb, Hypothyroid 244.9 and Diabetes type 2, uncontrolled 250.02 [address] [id number] Feb, Diabetes type 2, uncontrolled 250.02 and Hypothyroid 244.9 [facility] [id number] [address]- 5320 Feb, Diabetes type 2, uncontrolled 250.02 and Hypothyroid 244.9 [facility] [address], [place] [address]- 4291 Jan, [facility] [address], [place] [address]- 9438 Jan, [facility] [address], [place] [address]- 3228 Nov, [facility] [address], [place] [address]- 9660 Nov, [facility] [place] [facility] [address] [id number] [place] [address]- 0732 Nov, [facility] [place] [facility] [address] [id number] [place] [address]- 9557 Oct, [facility] [place] [facility] [address] [id number] [place] [address]- 5608 Oct, [facility] [place] [facility] [address] [id number] [place] [address]- 3232 Oct, [facility] [place] [facility] [address] [id number] [place] [address]- 8115 Sep, [facility] [place] [facility] [address] [id number] [place] [address]- 6355 Sep, [facility] [place] [facility] [address] [id number] [place] [address]- 8717 Sep, [facility] [place] [facility] [address] [id number] [place] [address]- 2326 Sep, [facility] [place] [facility] [address] [id number] [place] [address]- 6072 Sep, [facility] [place] [facility] [address] [id number] [place] [address]- 5292 Sep, [facility] [place] [facility] [address] [id number] [place] [address]- 1820 Aug, [facility] [place] [facility] [address] [id number] [place] [address]- 5981 Aug, [facility] [place] [facility] [address] [id number] [place] [address]- 0557 Aug, [facility] [place] [facility] [address] [id number] [place] [address]- 9248 Aug, [facility] [place] [facility] [address] [id number] [place] [address]- 1008 Aug, [facility] [place] [facility] [address] [id number], [place] [address]- 3751 Aug, [facility] [place] [facility] [address] [id number] [place] [address]- 4970 Aug, [facility] [place] [facility] [address] [id number] [place] [address]- 7609 Aug, [facility] [place] [facility] [address] [id number] [place] [address]- 3184 Jun, [facility] [place] [facility] [address] [id number] [place] [address]- 6880 Jun, [facility] [place] [facility] [address] [id number] [place] [address]- 0889 Jun, [facility] [place] [facility] [address] [id number] [place] [address]- 5538 Jun, [facility] [place] [facility] [address] [id number] [place] [address]- 0786 Jun, [facility] [place] [facility] [address] [id number] [place] [address]- 1894 May, [facility] [place] [facility] [address] [id number] [place] [address]- 2527 May, [facility] [place] [facility] [address] [id number] [place] [address]- 1636 Apr, [facility] [place] [facility] [address] [id number] [place] [address]- 2479 Apr, [facility] [place] [facility] [address] [id number], [place] [address]- 1436 Apr, [facility] [place] [facility] [address] [id number] [place] [address]- 9312 Apr, [facility] [place] [facility] [address] [id number], [place] [address]- 8111 Mar, [facility] [place] [facility] [address] [id number], [place] [address]- 3575 Mar, [facility] [place] [facility] [address] [id number] [place] [address]- 2858 Mar, [facility] [place] [facility] [address] [id number] [place] [address]- 8269 Mar, [facility] [place] [facility] [address] [id number] [place] [address]- 3027 Mar, [facility] [place] [facility] [address] [id number] [place] [address]- 1885 Mar, [facility] [place] [facility] [address] [id number] [place] [address]- 7851 Feb, [facility] [place] [facility] [address] [id number] [place] [address]- 8559 Feb, [facility] [place] [facility] [address] [id number] [place] [address]- 0880 Jan, [facility] [place] [facility] [address] [id number] [place] [address]- 4356 Jan, [facility] [place] [facility] [address] [id number] [place] [address]- 0273 Jan, [facility] [place] [facility] [address] [id number] [place] [address]- 9653 Jan, [facility] [place] [facility] [address] [id number] [place] [address]- 8138 December, [facility] [place] [facility] [address] [id number] [place] [address]- 0120 December, [facility] [place] [facility] [address] [id number] [place] [address]- 1249 December, [facility] [place] [facility] [address] [id number] [place] [address]- 2042 December, [facility] [place] [facility] [address] [id number] [place] [address]- 5348 December, [facility] [place] [facility] [address] [id number] [place] [address]- 1438 Nov, [facility] [place] [facility] [address] [id number] [place] [address]- 8743 Nov, [facility] [place] [facility] [address] [id number] [place] [address]- 7710 Oct, [facility] [place] [facility] [address] [facility] [id number] [place] [address]- 1420 Oct, [facility] [place] [facility] [address] [id number] [place] [address]- 6422 Oct, [facility] [place] [facility] [address] [id number] [place] [address]- 6106 Oct, [facility] [place] [facility] [address] [id number] [place] [address]- 2103 Oct, [facility] [place] [facility] [address] [id number] [place] [address]- 9586 Oct, [facility] [place] [facility] [address] [id number] [place] [address]- 8920 Sep, [facility] [place] [facility] [address] [id number] [place] [address]- 3511 Sep, [facility] [place] [facility] [address] [id number] [place] [address]- 4779 Jul, [facility] [place] [facility] [address] [id number], [place] [address]- 6664 Jul, [facility] [place] [facility] [address] [id number], [place] [address]- 4964 Jul, [facility] [place] [facility] [address] [id number] [place] [address]80 Jul, [facility] [place] [facility] [address] [facility] [id number] [place] [address]- 8496 Jun, [facility] [place] [facility] [address] [facility] [id number] [place] [address]- 9161 Jun, [facility] [place] [facility] [address] [facility] [id number], [place] [address]- 2546 Jun, [facility] [id number], [place] [address]- 0206 Jun, [facility] [id number], [place] [address]- 2546 Jun, [facility] [id number], [place] [address]- 0536 Jun, [facility] [id number], [place] [address]- 6006 May, [facility] [address], [place] [address]- 3250 May, [facility] [id number], [place] [address]- 2726 Mar, IMMUNIZATIONS No Known Immunizations SOCIAL HISTORY Never Assessed REASON FOR VISIT Controlled Med Refill-07/24/17 PLAN OF CARE VITAL SIGNS MEDICATIONS Medication Instructions Dosage Frequency Start Date End Date Duration Status Hydrocodone-Acetaminophen 10-325 MG Orally 3 times a day 1 tablet as needed 8h Jun, 28 days Active RESULTS No Results PROCEDURES No Known procedures [...]
--- OUTSIDE RECORDS SUMMARY | 2018-01-29 15:25 | XMS REPORT ---
Author Author GLADIS KESSLER Organization [facility] Address [address] [place] [address] Care Team Providers Care Accounts Payable Clerk Name Role Phone GLADIS KESSLER Unavailable PROBLEMS Type Condition ICD9-CM Code AFQ67-AR Code Onset Dates Condition Status SNOMED Code Problem Anxiety disorder, unspecified F41.9 Active 531868295 Problem Other chronic pain G89.29 Active 69691201 Problem Diabetes E11.9 Active 072766846 Problem Hypercholesterolemia E78.00 Active 81923147 Problem Type 2 diabetes mellitus with diabetic autonomic neuropathy, without long-term current use of insulin E11.43 Active 42400192 Problem Essential hypertension I10 Active 28938974 Problem Acute recurrent maxillary sinusitis J01.01 Active 07446152 Problem Cough R05 Active 69824250 Problem Hypothyroidism, unspecified E03.9 Active 24364513 Problem COPD exacerbation J44.1 Active 413300850 Problem Cannabis use disorder, moderate, dependence F12.20 Active 68611355 Problem Type 2 diabetes mellitus with complication E11.8 Active 395437853 ALLERGIES No Information ENCOUNTERS Encounter Location Date Diagnosis [facility] [id number] [place] [address]29[address]696 Jan, [facility] [id number] [place] [address]13 [address] 30 Nov, 2017 Seasonal allergic rhinitis, unspecified trigger J30.2 and BMI 40.0-44.9, adult Z68.41 [facility] [address] [address] 16 Nov, 2017 Acute recurrent maxillary sinusitis J01.01 ; Cough R05 and BMI 40.0-44.9, adult Z68.41 [facility] [address] [place] [address] Oct, Cannabis use disorder, moderate, dependence F12.20 [facility] [address] [place] [address] Oct, Cannabis use disorder, moderate, dependence F12.20 [facility] [address] [place] [address] Oct, Cannabis use disorder, moderate, dependence F12.20 [facility] [address] [place] [address] 08 Oct, 2017 Cannabis use disorder, moderate, dependence F12.20 [facility] [address] [address] Oct, Cannabis use disorder, moderate, dependence F12.20 [facility] [address] [place] [address] Sep, Cannabis use disorder, moderate, dependence F12.20 [facility] [address] [place] [address]2632- 450 Sep, Anxiety disorder, unspecified F41.9 and Other chronic pain G89.29 [facility] [address] [place] [id number] [place] [address] 881012- 276 Sep, Bronchitis J40 [facility] [address] [place] [address] 08 Sep, 2017 Cannabis use disorder, moderate, dependence F12.20 [facility] [address] [place] [address] Sep, Cannabis use disorder, moderate, dependence F12.20 [facility] [address] [place] [id number] [place] [address] 28833- 476 Aug, Other chronic pain G89.29 [facility] [address] [place] [address] Aug, Cannabis use disorder, moderate, dependence F12.20 [facility] [address] [place] [address] Aug, Cannabis use disorder, moderate, dependence F12.20 [facility] [address] [place] [address] Aug, Cannabis use disorder, moderate, dependence F12.20 [facility] [address] [place] [address] Aug, Cannabis use disorder, moderate, dependence F12.20 [facility] [address] [place] [id number] [place] [address]93- 0611 Aug, Anxiety disorder, unspecified F41.[address] [address]58 Jul, Other chronic pain G89.29 [facility] [address] [place] [address] Jul, Cannabis use disorder, moderate, dependence F12.20 [facility] [address] [place] [address] Jul, Cannabis use disorder, moderate, dependence F12.[address] [address] Jul, Diabetes E11.9 ; Blood in stool K92.1 ; Arthralgia, unspecified joint M25.50 and BMI 40.0-44.9, adult Z68.[address] [address] Jun, Other chronic pain G89.[address] [address] Jun, [facility] [place] [address] [place] [address] Jun, [address] [address] 2691 Jun, Other chronic pain G89.[address] [address]1338- 0826 Jun, [facility] [place] [address] [place] [address] Jun, Cannabis use disorder, moderate, dependence F12.[address] 17765- 3369 May, Anxiety disorder, unspecified F41.9 [facility] [address] [place] [address] May, Cannabis use disorder, moderate, dependence F12.[address] [address]76- 9444 May, [facility] [address] [place] [address] May, Cannabis use disorder, moderate, dependence F12.20 [facility] [address] [place] [address] May, [facility] [address] [place] [address] May, [facility] [address] [place] [address] May, [facility] [id number] [place] [address] 77060- 5925 May, Other chronic pain G89.29 [facility] [address] [address]- [address] May, [facility] [id number] [place] [address]77- 2533 May, Encounter for immunization Z23 and Type 2 diabetes mellitus with complication E11.8 [facility] [address] [place] [address] 04 May, 2017 Cannabis use disorder, moderate, dependence F12.20 [facility] [id number] [place] [address] 67627- 5720 02 May, 2017 Essential hypertension I10 [facility] [id number] [place] [address] 60724- 4306 30 Apr, 2017 Essential hypertension I10 [facility] [address] 29348- 9504 29 Apr, 2016 Diabetes E11.9 [facility] [id number] [place] [address] 96543- 9774 18 Apr, 2017 [facility] [address] 47709- 9008 15 Apr, 2017 [facility] [id number] [place] [address] 96874- 5568 15 Apr, 2017 [facility] [address] [place] [address] 13 Apr, 2016 Other psychoactive substance abuse, uncomplicated F19.10 [facility] [address] [place] [address] 13 Apr, 2017 [facility] [id number] [place] [address] 07442- 9774 12 Apr, 2017 [facility] [id number] [place] [address] 38909- 7412 12 Apr, 2017 Anxiety disorder, unspecified F41.9 [facility] [id number] [place] [address] 47062- 2184 08 Apr, 2017 [facility] [id number] [place] [address] 59072- 5926 06 Apr, 2017 Diabetes E11.9 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 [place] [id number] [place] [address] 18058- 1464 16 Mar, 2017 Other chronic pain G89.29 and Diabetes E11.9 [facility] [id number] [place] [address] 89603- 1977 Mar, Diabetes E11.9 [facility] [id number] [place] [address] 33380- 3887 Feb, Anxiety disorder, unspecified F41.9 [facility] [id number] [place] [address] 70916- 9188 Jan, [facility] [id number] [place] [address] 68968- 7794 Jan, [facility] [address] [place] [address] 75999- 9834 December, Anxiety disorder, unspecified F41.9 [facility] [id number] [place] [address] 23866- 0717 Oct, Diabetes E11.9 and Hypothyroidism, unspecified E03.9 [facility] [id number] [place] [address] 07560- 6030 Oct, Anxiety disorder, unspecified F41.9 [facility] [id number] [place] [address] 52785 [address]8643 Aug, Bronchitis J40 and Shortness of breath R06.02 [place] [place] [id number] [place] [address] 63488- 4306 Jul, [address] [address] 21551- 6165 Jul, Back pain, unspecified back location, unspecified back pain laterality, unspecified chronicity M54.9 [address] [address] 38266- 4199 Jul, Anxiety disorder, unspecified F41.9 [place] [address] 06357- 9851 Jul, Essential hypertension I10 [place] [address] 63534- 0268 Jun, 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 [place] [id number] [place] [address] 33804- 9400 May, Anxiety disorder, unspecified F41.9 [place] [id number] [place] [address] 01659- 5476 Apr, Type 2 diabetes mellitus with complication E11.8 ; Essential hypertension I10 ; Tooth pain K08.8 and Back pain, unspecified back location, unspecified back pain laterality, unspecified chronicity M54.9 [place] [address] [address]- 4296 Feb, Anxiety disorder, unspecified F41.9 [facility] [address] [place] [address] 07553- 3228 December, [facility] [address] [place] [address] 36238- 1610 December, [facility] [id number] [place] [address] 07237- 1911 December, Diabetes E11.9 ; Insect bite (nonvenomous) of abdominal wall , initial encounter S30.861A and Bitten or stung by nonvenomous insect and other nonvenomous arthropods, initial encounter W57.XXXA [facility] [address] [place] [address] 03525- 0569 Nov, [facility] [id number] [place] [address] 05749- 4929 Sep, Genital warts A63.0 [facility] [address] [place] [address]- 9833 Aug, [place] [id number] [place] [address] [id number] Aug, Diabetes type 2, uncontrolled 250.02 and Hypothyroid 244.9 [facility] [address] [place] [address]- 4536 Jul, Anogenital (venereal) warts A63.0 [facility] [address] [place] [address]- 6607 Jul, [facility] [id number] [place] [address] 17582- 4555 Jul, Diabetes E11.9 [facility] [address] [place] [address]- 8232 Jun, Genital warts A63.0 [facility] [id number] [place] [address] 43652- 1861 Jun, [facility] [address] [place] [address]- 3582 Jun, [facility] [address] [place] [address]- 5146 May, [facility] [address] [place] [address]- 0049 May, [facility] [address] [place] [address] 14993- 2657 May, Type 2 diabetes mellitus with complication E11.8 and Upper respiratory tract infection, unspecified upper respiratory infection J06.9 [facility] [address] [place] [address]- 0498 Apr, Genital warts 078.11 [facility] [address] [place] [address]- 6923 Feb, Hypothyroid 244.9 and Diabetes type 2, uncontrolled 250.02 [address] [id number] Feb, Diabetes type 2, uncontrolled 250.02 and Hypothyroid 244.9 [facility] [address] [place] [address]- 7445 Feb, Diabetes type 2, uncontrolled 250.02 and Hypothyroid 244.9 [facility] [address] [place] [address]- 3319 Jan, [facility] [address] [place] [address]- 5895 Jan, [facility] [address] [place] [address]- 0734 Nov, [facility] [address] [place] [address]- 6872 Nov, [facility] [address] [place] [address]- 4110 Nov, [facility] [place] [facility] [address] [id number] [place] [address]- 3902 Oct, [facility] [place] [facility] [address] [id number] [place] [address]- 3013 Oct, [facility] [place] [facility] [address] [id number] [place] [address]- 5485 Oct, [facility] [place] [facility] [address] [id number] [place] [address]- 5576 Sep, [facility] [place] [facility] [address] [id number] [place] [address]- 6929 Sep, [facility] [place] [facility] [address] [id number] [place] [address]- 2730 Sep, [facility] [place] [facility] [address] [id number] [place] [address]- 1560 Sep, [facility] [place] [facility] [address] [id number] [place] [address]- 4003 Sep, [facility] [place] [facility] [address] [id number] [place] [address]- 3293 Sep, [facility] [place] [facility] [address] [id number] [place] [address]- 8533 Aug, [facility] [place] [facility] [address] [id number] [place] [address]- 4844 Aug, [facility] [place] [facility] [address] [id number] [place] [address]- 6318 Aug, [facility] [place] [facility] [address] [id number] [place] [address]- 9356 Aug, [facility] [place] [facility] [address] [id number] [place] [address]- 4569 Aug, [facility] [place] [facility] [address] [id number] [place] [address]- 1458 Aug, [facility] [place] [facility] [address] [id number] [place] [address]- 4026 Aug, [facility] [place] [facility] [address] [id number] [place] [address]- 3436 Aug, [facility] [place] [facility] [address] [id number] [place] [address]- 2777 Jun, [facility] [place] [facility] [address] [id number] [place] [address]- 6710 Jun, [facility] [place] [facility] [address] [id number] [place] [address]- 2190 Jun, [facility] [place] [facility] [address] [id number] [place] [address]- 1009 Jun, [facility] [place] [facility] [address] [id number] [place] [address]- 3771 Jun, [facility] [place] [facility] [address] [id number] [place] [address]- 3877 May, [facility] [place] [facility] [address] [id number] [place] [address]- 9584 May, [facility] [place] [facility] [address] [id number] [place] [address]- 9688 Apr, [facility] [place] [facility] [address] [id number] [place] [address]- 9898 Apr, [facility] [place] [facility] [address] [id number] [place] [address]- 4209 Apr, [facility] [place] [facility] [address] [id number], [place] [address]- 5025 Apr, [facility] [place] [facility] [address] [id number] [place] [address]- 1042 Mar, [facility] [place] [facility] [address] [id number] [place] [address]- 7350 Mar, [facility] [place] [facility] [address] [id number] [place] [address]- 1377 Mar, [facility] [place] [facility] [address] [id number] [place] [address]- 1482 Mar, [facility] [place] [facility] [address] [id number] [place] [address]- 6375 Mar, [facility] [place] [facility] [address] [id number] [place] [address]- 8244 Mar, [facility] [place] [facility] [address] [id number] [place] [address]- 7432 Feb, [facility] [place] [facility] [address] [id number] [place] [address]- 4314 Feb, [facility] [place] [facility] [address] [id number] [place] [address]- 7061 Jan, [facility] [place] [facility] [address] [id number] [place] [address]- 3943 Jan, [facility] [place] [facility] [address] [id number] [place] [address]- 5499 Jan, [facility] [place] [facility] [address] [id number] [place] [address]- 6133 Jan, [facility] [place] [facility] [address] [id number] [place] [address]- 9566 December, [facility] [place] [facility] [address] [id number] [place] [address]- 6441 December, [facility] [place] [facility] [address] [id number] [place] [address]- 9958 December, [facility] [place] [facility] [address] [id number] [place] [address]- 3084 December, [facility] [place] [facility] [address] [id number] [place] [address]- 9617 December, [facility] [place] [facility] [address] [id number] [place] [address]- 7061 Nov, [facility] [place] [facility] [address] [id number] [place] [address]- 7011 Nov, [facility] [place] [facility] [address] [id number] [place] [address]- 6900 Oct, [facility] [place] [facility] [address] [id number] [place] [address]- 7331 Oct, [facility] [place] [facility] [address] [facility] [id number] [place] [address]- 2613 Oct, [facility] [place] [facility] [address] [id number] [place] [address]- 5604 Oct, [facility] [place] [facility] [address] [id number] [place] [address]- 6375 Oct, [facility] [place] [facility] [address] [id number] [place] [address]- 9952 Oct, [facility] [place] [facility] [address] [facility] [id number] [place] [address]- 0238 Sep, [facility] [place] [facility] [address] [id number] [place] [address]- 7718 Sep, [facility] [place] [facility] [address] [id number] [place] [address]- 4718 Jul, [facility] [place] [facility] [address] [id number] [place] [address]- 0484 Jul, [facility] [place] [facility] [address] [id number], [place] [address]- 3826 Jul, [facility] [place] [facility] [address] [id number], [place] [address]- 6428 Jul, [facility] [place] [facility] [address] [id number] [place] [address]- 2422 Jun, [facility] [place] [facility] [address] [facility] [id number] [place] [address]- 3170 Jun, [facility] [place] [facility] [address] [facility] [id number] [place] [address]- 8766 Jun, [facility] [place] [facility] [address] [facility] [id number] [place] [address]- 2546 Jun, [facility] [id number] [address]- 6126 Jun, [facility] [id number], [place] [address]- 2546 Jun, [facility] [address] [facility] [id number], [place] [address]- 2546 May, [facility] [id number], [place] [address]- 3806 May, [facility] [id number], [place] [address]- 3442 Mar, IMMUNIZATIONS No Known Immunizations SOCIAL HISTORY Never Assessed REASON FOR VISIT Refill request PLAN OF CARE VITAL SIGNS MEDICATIONS Medication Instructions Dosage Frequency Start Date End Date Duration Status Toprol XL 50 MG Orally Once a day (Replacing Atenolol during shortage) 1 tablet May, 30 days Active RESULTS No Results PROCEDURES No [...]
--- OUTSIDE RECORDS SUMMARY | 2018-01-29 15:25 | XMS REPORT ---
Author Author GLADIS KESSLER Organization [facility] Address [address] [place] [address] Care Team Providers Care Drying And Winding Supervisor Name Role Phone GLADIS KESSLER Unavailable PROBLEMS Type Condition ICD9-CM Code TCI50-AJ Code Onset Dates Condition Status SNOMED Code Problem Anxiety disorder, unspecified F41.9 Active 962051133 Problem Other chronic pain G89.29 Active 00570903 Problem Diabetes E11.9 Active 747075221 Problem Hypercholesterolemia E78.00 Active 24532293 Problem Type 2 diabetes mellitus with diabetic autonomic neuropathy, without long-term current use of insulin E11.43 Active 39629282 Problem Essential hypertension I10 Active 41258505 Problem Acute recurrent maxillary sinusitis J01.01 Active 67524475 Problem Cough R05 Active 23894382 Problem Hypothyroidism, unspecified E03.9 Active 07837787 Problem COPD exacerbation J44.1 Active 150519881 Problem Cannabis use disorder, moderate, dependence F12.20 Active 95159224 Problem Type 2 diabetes mellitus with complication E11.8 Active 574818040 ALLERGIES No Information ENCOUNTERS Encounter Location Date Diagnosis [facility] [id number] [place] [address]66- 6334 Jan, [facility] [id number] [place] [address]66 [address]6660 30 Nov, 2017 Seasonal allergic rhinitis, unspecified trigger J30.2 and BMI 40.0-44.9, adult Z68.41 [facility] [address] [address] 16 Nov, 2017 Acute recurrent maxillary sinusitis J01.01 ; Cough R05 and BMI 40.0-44.9, adult Z68.41 [facility] [address] [place] [address] Oct, Cannabis use disorder, moderate, dependence F12.20 [facility] [address] [place] [address] Oct, Cannabis use disorder, moderate, dependence F12.20 [facility] [address] [place] [address] Oct, Cannabis use disorder, moderate, dependence F12.20 [facility] [address] [place] [address] 08 Oct, 2017 Cannabis use disorder, moderate, dependence F12.20 [facility] [address] [address] Oct, Cannabis use disorder, moderate, dependence F12.20 [facility] [address] [place] [address] Sep, Cannabis use disorder, moderate, dependence F12.20 [facility] [address] [place] [address]3240- 595 Sep, Anxiety disorder, unspecified F41.9 and Other chronic pain G89.29 [facility] [address] [place] [id number] [place] [address] 703678- 850 Sep, Bronchitis J40 [facility] [address] [place] [address] 08 Sep, 2017 Cannabis use disorder, moderate, dependence F12.20 [facility] [address] [place] [address] Sep, Cannabis use disorder, moderate, dependence F12.20 [facility] [address] [place] [id number] [place] [address] 89286- 098 Aug, Other chronic pain G89.29 [facility] [address] [place] [address] Aug, Cannabis use disorder, moderate, dependence F12.20 [facility] [address] [place] [address] Aug, Cannabis use disorder, moderate, dependence F12.20 [facility] [address] [place] [address] Aug, Cannabis use disorder, moderate, dependence F12.20 [facility] [address] [place] [address] Aug, Cannabis use disorder, moderate, dependence F12.20 [facility] [address] [place] [id number] [place] [address] 44756- 1019 Aug, Anxiety disorder, unspecified F41.[address] [address] Jul, Other chronic pain G89.29 [facility] [address] [place] [address] Jul, Cannabis use disorder, moderate, dependence F12.20 [facility] [address] [place] [address] Jul, Cannabis use disorder, moderate, dependence F12.[address] [address]279 Jul, Diabetes E11.9 ; Blood in stool K92.1 ; Arthralgia, unspecified joint M25.50 and BMI 40.0-44.9, adult Z68.[address] [address] Jun, Other chronic pain G89.[address] [address]- 8486 Jun, [facility] [address] [place] [address] Jun, [address] [address] 8138 Jun, Other chronic pain G89.[address] [address]- 8146 Jun, [facility] [address] [place] [address] Jun, Cannabis use disorder, moderate, dependence F12.[address] [address]46- 6378 May, Anxiety disorder, unspecified F41.9 [facility] [address] [place] [address] May, Cannabis use disorder, moderate, dependence F12.[address] [address]- [address]234 May, [facility] [address] [place] [address] May, Cannabis use disorder, moderate, dependence F12.20 [facility] [address] [place] [address] May, [facility] [address] [place] [address] May, [facility] [address] [place] [address] May, [facility] [id number] [place] [address]5848- 7465 May, Other chronic pain G89.29 [facility] [address] 082304- 5513 May, [facility] [id number] [place] [address] 34157- 8432 May, Type 2 diabetes mellitus with complication E11.8 and Encounter for immunization Z23 [facility] [address] [place] [address] May, Cannabis use disorder, moderate, dependence F12.20 [facility] [id number] [place] [address] 69006- 5291 02 May, 2017 Essential hypertension I10 [facility] [id number] [place] [address] 64312- 0885 30 Apr, 2017 Essential hypertension I10 [facility] [address] 46667- 9873 29 Apr, 2016 Diabetes E11.9 [facility] [id number] [place] [address] 45567- 3185 18 Apr, 2017 [facility] [address] 53957- 1553 15 Apr, 2017 [facility] [id number] [place] [address] 47259- 1117 15 Apr, 2016 [facility] [address] [place] [address] 13 Apr, 2016 Other psychoactive substance abuse, uncomplicated F19.10 [facility] [address] [address] 25[address] 13 Apr, 2017 [facility] [id number] [place] [address] 44069- 8725 12 Apr, 2017 [facility] [id number] [place] [address] 79370- 0933 12 Apr, 2017 Anxiety disorder, unspecified F41.9 [facility] [id number] [place] [address] 64392- 2005 08 Apr, 2017 [facility] [id number] [place] [address] 53793- 8447 06 Apr, 2017 Diabetes E11.9 and 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 [place] [id number] [place] [address] 91281- 6006 16 Mar, 2017 Other chronic pain G89.29 and Diabetes E11.9 [facility] [id number] [place] [address] 49547- 8426 Mar, Diabetes E11.9 [facility] [id number] [place] [address] 62552- 5522 Feb, Anxiety disorder, unspecified F41.9 [facility] [id number] [place] [address] 50380- 7425 Jan, [facility] [id number] [place] [address] 56842- 0314 Jan, [facility] [address] [place] [address] 74580- 3776 December, Anxiety disorder, unspecified F41.9 [facility] [id number] [place] [address] 66077- 0214 Oct, Diabetes E11.9 and Hypothyroidism, unspecified E03.9 [facility] [id number] [place] [address] 46246- 5217 Oct, Anxiety disorder, unspecified F41.9 [facility] [id number] [place] [address]60 [address]4183 Aug, Bronchitis J40 and Shortness of breath R06.02 [place] [id number] [place] [address] 18857- 0037 Jul, [place] [address] 83714- 1285 Jul, Back pain, unspecified back location, unspecified back pain laterality, unspecified chronicity M54.9 [place] [address] 33123- 1885 Jul, Anxiety disorder, unspecified F41.9 [place] [address] 94043- 1563 Jul, Essential hypertension I10 [place] [address] 85117- 5001 Jun, [facility] [id number] [place] [address] 16571 -6221 Jun, Bronchitis J40 [place] [address] 02805- 2722 Jun, [place] [id number] [place] [address] 99321- 1654 Jun, Diabetes E11.9 ; Dorsalgia, unspecified M54.9 ; Other chronic pain G89.29 and 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 [place] [id number] [place] [address] 44218- 3577 May, Anxiety disorder, unspecified F41.9 [place] [id number] [place] [address] 44066- 6725 Apr, Type 2 diabetes mellitus with complication E11.8 ; Essential hypertension I10 ; Tooth pain K08.8 and Back pain, unspecified back location, unspecified back pain laterality, unspecified chronicity M54.9 [place] [address] [address]- 9748 Feb, Anxiety disorder, unspecified F41.9 [facility] [address] [place] [address] 30974- 4953 December, [facility] [address] [place] [address] 65430- 0669 December, [facility] [id number] [place] [address] 80728- 8987 December, Diabetes E11.9 ; Insect bite (nonvenomous) of abdominal wall , initial encounter S30.861A and Bitten or stung by nonvenomous insect and other nonvenomous arthropods, initial encounter W57.XXXA [facility] [address] [place] [address] 95273- 6728 Nov, [facility] [id number] [place] [address] 29091- 6527 Sep, Genital warts A63.0 [facility] [address] [address]- 3638 Aug, [place] [id number] [place] [id number] Aug, Diabetes type 2, uncontrolled 250.02 and Hypothyroid 244.9 [facility] [address] [address]- 3271 Jul, Anogenital (venereal) warts A63.0 [facility] [address] [address]- 3752 Jul, [facility] [id number] [place] [address] 18260- 2962 Jul, Diabetes E11.9 [facility] [address] [address]- 5982 Jun, Genital warts A63.0 [facility] [id number] [place] [address] 63229- 9596 Jun, [facility] [address] [address]- 7977 Jun, [facility] [address] [address]- 9030 May, [facility] [address] [address]- 4234 May, [facility] [address] [place] [address] 33379- 4160 May, Type 2 diabetes mellitus with complication E11.8 and Upper respiratory tract infection, unspecified upper respiratory infection J06.9 [facility] [address] [address]- 7768 Apr, Genital warts 078.11 [facility] [address] [address]- 1041 Feb, Hypothyroid 244.9 and Diabetes type 2, uncontrolled 250.02 [address] [address] Feb, Diabetes type 2, uncontrolled 250.02 and Hypothyroid 244.9 [facility] [address] [address]- 3423 Feb, Diabetes type 2, uncontrolled 250.02 and Hypothyroid 244.9 [facility] [address] [address]- 4154 Jan, [facility] [address] [address]- 8575 Jan, [facility] [address] [address]- 5247 Nov, [facility] [address] [address]- 5974 Nov, [facility] [address] [address]- 9141 Nov, [facility] [place] [facility] [address] [id number] [place] [address]- 0466 Oct, [facility] [place] [facility] [address] [id number] [place] [address]- 0816 Oct, [facility] [place] [facility] [address] [id number] [place] [address]- 8330 Oct, [facility] [place] [facility] [address] [id number] [place] [address]- 8605 Sep, [facility] [place] [facility] [address] [id number] [place] [address]- 6144 Sep, [facility] [place] [facility] [address] [id number] [place] [address]- 9928 Sep, [facility] [place] [facility] [address] [id number] [place] [address]- 2362 Sep, [facility] [place] [facility] [address] [id number] [place] [address]- 9128 Sep, [facility] [place] [facility] [address] [id number] [place] [address]- 0934 Sep, [facility] [place] [facility] [address] [id number] [place] [address]- 3149 Aug, [facility] [place] [facility] [address] [id number] [place] [address]- 2746 Aug, [facility] [place] [facility] [address] [id number] [place] [address]- 2339 Aug, [facility] [place] [facility] [address] [id number] [place] [address]- 3128 Aug, [facility] [place] [facility] [address] [id number] [place] [address]- 2343 Aug, [facility] [place] [facility] [address] [id number] [place] [address]- 3296 Aug, [facility] [place] [facility] [address] [id number] [place] [address]- 0651 Aug, [facility] [place] [facility] [address] [id number] [place] [address]- 8724 Aug, [facility] [place] [facility] [address] [id number] [place] [address]- 1815 Jun, [facility] [place] [facility] [address] [id number] [place] [address]- 3593 Jun, [facility] [place] [facility] [address] [id number] [place] [address]- 3764 Jun, [facility] [place] [facility] [address] [id number] [place] [address]- 3195 Jun, [facility] [place] [facility] [address] [id number] [place] [address]- 5205 Jun, [facility] [place] [facility] [address] [id number] [place] [address]- 6861 May, [facility] [place] [facility] [address] [id number] [place] [address]- 2710 May, [facility] [place] [facility] [address] [id number] [place] [address]- 0332 Apr, [facility] [place] [facility] [address] [id number] [place] [address]- 0863 Apr, [facility] [place] [facility] [address] [id number] [place] [address]- 7862 Apr, [facility] [place] [facility] [address] [id number] [place] [address]- 8742 Apr, [facility] [place] [facility] [address] [id number] [place] [address]- 9372 Mar, [facility] [place] [facility] [address] [id number] [place] [address]- 1527 Mar, [facility] [place] [facility] [address] [id number] [place] [address]- 1426 Mar, [facility] [place] [facility] [address] [id number] [place] [address]- 5394 Mar, [facility] [place] [facility] [address] [id number] [place] [address]- 4276 Mar, [facility] [place] [facility] [address] [id number] [place] [address]- 4644 Mar, [facility] [place] [facility] [address] [id number] [place] [address]- 8030 Feb, [facility] [place] [facility] [address] [id number] [place] [address]- 4006 Feb, [facility] [place] [facility] [address] [id number] [place] [address]- 8682 Jan, [facility] [place] [facility] [address] [id number] [place] [address]- 0461 Jan, [facility] [place] [facility] [address] [id number] [place] [address]- 4531 Jan, [facility] [place] [facility] [address] [id number] [place] [address]- 4275 Jan, [facility] [place] [facility] [address] [id number] [place] [address]- 5606 December, [facility] [place] [facility] [address] [id number] [place] [address]- 4118 December, [facility] [place] [facility] [address] [id number] [place] [address]- 6654 December, [facility] [place] [facility] [address] [id number] [place] [address]- 7372 December, [facility] [place] [facility] [address] [id number] [place] [address]- 0398 December, [facility] [place] [facility] [address] [id number] [place] [address]- 4787 Nov, [facility] [place] [facility] [address] [id number] [place] [address]- 6908 Nov, [facility] [place] [facility] [address] [id number] [place] [address]- 4980 Oct, [facility] [place] [facility] [address] [id number] [place] [address]- 6963 Oct, [facility] [place] [facility] [address] [facility] [id number] [place] [address]- 6252 Oct, [facility] [place] [facility] [address] [id number] [place] [address]- 0338 Oct, [facility] [place] [facility] [address] [id number] [place] [address]- 4365 Oct, [facility] [place] [facility] [address] [id number] [place] [address]- 5402 Oct, [facility] [place] [facility] [address] [facility] [id number] [place] [address]- 7667 Sep, [facility] [place] [facility] [address] [id number] [place] [address]- 8511 Sep, [facility] [place] [facility] [address] [id number] [place] [address]- 3837 Jul, [facility] [place] [facility] [address] [id number] [place] [address]- 1976 Jul, [facility] [place] [facility] [address] [id number] [address]- 2161 Jul, [facility] [place] [facility] [address] [id number] [place] [address]- 5488 Jul, [facility] [place] [facility] [address] [id number] [place] [address]- 7780 Jun, [facility] [place] [facility] [address] [facility] [id number] [place] [address]- 8666 Jun, [facility] [place] [facility] [address] [facility] [id number] [place] [address]- 3456 Jun, [facility] [place] [facility] [address] [facility] [id number] [place] [address]- 2546 Jun, [facility] [id number] [address]- 0266 Jun, [facility] [id number] [address]- 2546 Jun, [facility] [address] [facility] [id number] [address]- 2546 May, [facility] [id number] [address]- 0365 May, [facility] [id number] [address]- 3363 Mar, IMMUNIZATIONS No Known Immunizations SOCIAL HISTORY Never Assessed REASON FOR VISIT Controlled Med Refill 05/29/2017 PLAN OF CARE VITAL SIGNS MEDICATIONS Medication Instructions Dosage Frequency Start Date End Date Duration Status Hydrocodone-Acetaminophen 10-325 MG Orally 3 times a day 1 tablet as needed 8h May, 28 days Active RESULTS No Results PROCEDURES [...]
--- OUTSIDE RECORDS SUMMARY | 2018-01-29 15:26 | XMS REPORT ---
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 Name Role Phone GLADIS KESSLER Unavailable PROBLEMS Type Condition ICD9-CM Code QFE95-HG Code Onset Dates Condition Status SNOMED Code Problem Anxiety disorder, unspecified F41.9 Active 362432321 Problem Other chronic pain G89.29 Active 39916465 Problem Diabetes E11.9 Active 598265477 Problem Hypercholesterolemia E78.00 Active 75054141 Problem Type 2 diabetes mellitus with diabetic autonomic neuropathy, without long-term current use of insulin E11.43 Active 19253778 Problem Essential hypertension I10 Active 19900057 Problem Acute recurrent maxillary sinusitis J01.01 Active 51120274 Problem Cough R05 Active 41581024 Problem Hypothyroidism, unspecified E03.9 Active 61349963 Problem COPD exacerbation J44.1 Active 041482337 Problem Cannabis use disorder, moderate, dependence F12.20 Active 74900685 Problem Type 2 diabetes mellitus with complication E11.8 Active 313303874 ALLERGIES No Information ENCOUNTERS Encounter Location Date Diagnosis [facility] [address] [address] Jan, [facility] [id number] [place] [address]2657- [address]32 December, [facility] [id number] [place] [address]2358 -[address]35 Nov, Seasonal allergic rhinitis, unspecified trigger J30.2 and BMI 40.0-44.9, adult Z68.41 [facility] [id number] [place] [address] 78380 -2912 16 Nov, 2017 Acute recurrent maxillary sinusitis J01.01 ; Cough R05 and BMI 40.0-44.9, adult Z68.41 [facility] [address] [id number] Oct, Cannabis use disorder, moderate, dependence F12.20 [facility] [address] [address] Oct, Cannabis use disorder, moderate, dependence F12.20 [facility] [address] [id number] Oct, Cannabis use disorder, moderate, dependence F12.20 [facility] [address] [address]16[address] Oct, Cannabis use disorder, moderate, dependence F12.20 [facility] [address] [place] [address] Oct, Cannabis use disorder, moderate, dependence F12.20 [facility] [address] Sep, Cannabis use disorder, moderate, dependence F12.20 [facility] [address] [place] [address]29- 557 Sep, Anxiety disorder, unspecified F41.9 and Other chronic pain G89.29 [facility] [address] [place] [address] 88626- 7622 Sep, Bronchitis J40 [facility] [address] [address]16[address] Sep, Cannabis use disorder, moderate, dependence F12.20 [facility] [address] [place] [address] Sep, Cannabis use disorder, moderate, dependence F12.20 [facility] [address] [place] [address] 21051- 5802 Aug, Other chronic pain G89.29 [facility] [address] [place] [address] Aug, Cannabis use disorder, moderate, dependence F12.20 [facility] [address] [place] [address] Aug, Cannabis use disorder, moderate, dependence F12.20 [facility] [address] [place] [address] Aug, Cannabis use disorder, moderate, dependence F12.20 [facility] [address] [id number] Aug, Cannabis use disorder, moderate, dependence F12.20 [facility] [address] [address] Aug, Anxiety disorder, unspecified F41.9 [facility] [address] [address]86- 5038 Jul, Other chronic pain G89.29 [facility] [address] [place] [address] Jul, Cannabis use disorder, moderate, dependence F12.20 [facility] [address] [place] [address] Jul, Cannabis use disorder, moderate, dependence F12.20 [place] [address] [address]- 7281 Jul, Diabetes E11.9 ; Blood in stool K92.1 ; Arthralgia, unspecified joint M25.50 and BMI 40.0-44.9, adult Z68.41 [facility] [address] 8[address]- 1009 Jun, Other chronic pain G89.29 [place] [address] 9[address]00- 5980 Jun, [facility] [address] [place] [address] Jun, [place] [address] [address]63 Jun, Other chronic pain G89.29 [facility] [address] 15571- 7461 Jun, [facility] [address] [place] [address] Jun, Cannabis use disorder, moderate, dependence F12.20 [facility] [address] [address]- 4420 May, Anxiety disorder, unspecified F41.9 [facility] [place] [address] [place] [address] May, Cannabis use disorder, moderate, dependence F12.20 [facility] [id number] [place] [address] 25055- 5713 May, [facility] [address] [place] [address] May, Cannabis use disorder, moderate, dependence F12.20 [facility] [address] [place] [address] May, [facility] [address] [place] [address] May, [facility] [address] [place] [address] May, [facility] [address] 29939- 1694 May, Other chronic pain G89.29 [facility] [address] 42683- 2656 May, [facility] [address] 50091- 0379 May, Type 2 diabetes mellitus with complication E11.8 and Encounter for immunization Z23 [facility] [address] [place] [address] May, Cannabis use disorder, moderate, dependence F12.20 [facility] [id number] [place] [address] 08939- 9791 May, Essential hypertension I10 [facility] [id number] [place] [address] 24374- 1500 30 Apr, 2017 Essential hypertension I10 [facility] [id number] [place] [address] 16867- 9110 29 Apr, 2017 Diabetes E11.9 [facility] [address] 75794- 0288 18 Apr, 2017 [facility] [id number] [place] [address] 31218- 0968 15 Apr, 2017 [facility] [address] 29794- 5918 15 Apr, 2017 [facility] [address] [place] [address] 13 Apr, 2017 Other psychoactive substance abuse, uncomplicated F19.10 [facility] [id number] [place] [address] 68377- 0671 13 Apr, 2017 [facility] [id number] [place] [address] 45435- 2191 12 Apr, 2017 [facility] [id number] [place] [address] 93077- 4530 12 Apr, 2017 Anxiety disorder, unspecified F41.9 [facility] [id number] [place] [address] 59737- 2150 08 Apr, 2017 [place] [id number] [place] [address] 95367- 2211 06 Apr, 2017 Diabetes E11.9 and meterman (current) use of opiate analgesic Z79.891 [place] [id number] [place] [address] 10608- 2508 Mar, Other chronic pain G89.29 and Diabetes E11.9 [place] [id number] [place] [address] 60151- 3745 Mar, Diabetes E11.9 [facility] [id number] [place] [address] 44616- 4695 Feb, Anxiety disorder, unspecified F41.9 [facility] [id number] [place] [address] 88278- 6855 Jan, [facility] [id number] [place] [address] 76858- 0289 Jan, [facility] [id number] [place] [address] 28280- 3671 December, Anxiety disorder, unspecified F41.9 [facility] [id number] [place] [address] 08581- 6702 Oct, Diabetes E11.9 and Hypothyroidism, unspecified E03.9 [facility] [id number] [place] [address] 55556- 2232 Oct, Anxiety disorder, unspecified F41.9 [facility] [address] 78429 [address]200 Aug, Bronchitis J40 and Shortness of breath R06.02 [place] [address] 91159- 1466 Jul, [place] [address] 36294- 2460 Jul, Back pain, unspecified back location, unspecified back pain laterality, unspecified chronicity M54.9 [place] [address] 54085- 9674 Jul, Anxiety disorder, unspecified F41.9 [place] [address] 90357- 0491 Jul, Essential hypertension I10 [place] [address] 41497- 4995 Jun, [facility] [address] 03392 -5391 Jun, Bronchitis J40 [place] [address] 61863- 9003 Jun, [place] [address] 73841- 0794 Jun, Diabetes E11.9 ; Dorsalgia, unspecified M54.9 ; Other chronic pain G89.29 and 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 [place] [address] 50024- 1120 May, Anxiety disorder, unspecified F41.9 [place] [id number] [place] [address] 40092- 5482 Apr, Type 2 diabetes mellitus with complication E11.8 ; Essential hypertension I10 ; Tooth pain K08.8 and Back pain, unspecified back location, unspecified back pain laterality, unspecified chronicity M54.9 [place] [id number] [place] [address] 46907- 5751 Feb, Anxiety disorder, unspecified F41.9 [place] [id number] [place] [address] 26205- 1585 December, [place] [address] 83501- 0675 December, [place] [id number] [place] [address] 33964- 6241 December, Diabetes E11.9 ; Insect bite (nonvenomous) of abdominal wall , initial encounter S30.861A and Bitten or stung by nonvenomous insect and other nonvenomous arthropods, initial encounter W57.XXXA [place] [id number] [place] [address] 87033- 9120 Nov, [place] [id number] [place] [address] 25955- 5601 Sep, Genital warts A63.0 [place] [id number] [place] [address] 16146- 8490 Aug, [facility] [id number] [place] [address] [id number] Aug, Diabetes type 2, uncontrolled 250.02 and Hypothyroid 244.9 [place] [id number] [place] [address] 59130- 5112 Jul, Anogenital (venereal) warts A63.[address] 24611- 3322 Jul, [place] [id number] [place] [address] 78604- 9453 Jul, Diabetes E11.9 [place] [address] 01796- 4626 Jun, Genital warts A63.0 [facility] [address] [address]- 8590 Jun, [facility] [address] [address]- 0186 Jun, [facility] [address] [address]- 8436 May, [facility] [address] [place] [address] 96958- 5376 May, [facility] [address] [address]- 4662 May, Type 2 diabetes mellitus with complication E11.8 and Upper respiratory tract infection, unspecified upper respiratory infection J06.9 [facility] [address] [address]- 3455 Apr, Genital warts 078.11 [facility] [address] [address]- 1945 Feb, Hypothyroid 244.9 and Diabetes type 2, uncontrolled 250.02 [address] [id number] Feb, Diabetes type 2, uncontrolled 250.02 and Hypothyroid 244.9 [facility] [id number] [address]- 3450 Feb, Diabetes type 2, uncontrolled 250.02 and Hypothyroid 244.9 [facility] [address] [address]- 8110 Jan, [facility] [address] [address]- 2755 Jan, [facility] [address] [address]- 8104 Nov, [facility] [address] [address]- 6088 Nov, [facility] [place] [facility] [address] [id number] [place] [address]- 8052 Nov, [facility] [place] [facility] [address] [id number] [place] [address]- 3221 Oct, [facility] [place] [facility] [address] [id number] [place] [address]- 2978 Oct, [facility] [place] [facility] [address] [id number] [place] [address]- 9646 Oct, [facility] [place] [facility] [address] [id number] [place] [address]- 8079 Sep, [facility] [place] [facility] [address] [id number] [place] [address]- 8026 Sep, [facility] [place] [facility] [address] [id number] [place] [address]- 2061 Sep, [facility] [place] [facility] [address] [id number] [place] [address]- 0329 Sep, [facility] [place] [facility] [address] [id number] [place] [address]- 6697 Sep, [facility] [place] [facility] [address] [id number] [place] [address]- 4419 Sep, [facility] [place] [facility] [address] [id number] [place] [address]- 9815 Aug, [facility] [place] [facility] [address] [id number] [place] [address]- 5125 Aug, [facility] [place] [facility] [address] [id number] [place] [address]- 8232 Aug, [facility] [place] [facility] [address] [id number] [place] [address]- 6285 Aug, [facility] [place] [facility] [address] [id number] [place] [address]- 6937 Aug, [facility] [place] [facility] [address] [id number] [address]- 1637 Aug, [facility] [place] [facility] [address] [id number] [place] [address]- 1892 Aug, [facility] [place] [facility] [address] [id number] [place] [address]- 4079 Aug, [facility] [place] [facility] [address] [id number] [place] [address]- 5977 Jun, [facility] [place] [facility] [address] [id number] [place] [address]- 1164 Jun, [facility] [place] [facility] [address] [id number] [place] [address]- 0552 Jun, [facility] [place] [facility] [address] [id number] [place] [address]- 7003 Jun, [facility] [place] [facility] [address] [id number] [place] [address]- 8557 Jun, [facility] [place] [facility] [address] [id number] [place] [address]- 2413 May, [facility] [place] [facility] [address] [id number] [place] [address]- 5520 May, [facility] [place] [facility] [address] [id number] [place] [address]- 9856 Apr, [facility] [place] [facility] [address] [id number] [place] [address]- 4722 Apr, [facility] [place] [facility] [address] [id number] [place] [address]- 6361 Apr, [facility] [place] [facility] [address] [id number] [place] [address]- 4544 Apr, [facility] [place] [facility] [address] [id number] [place] [address]- 2862 Mar, [facility] [place] [facility] [address] [id number] [place] [address]- 4902 Mar, [facility] [place] [facility] [address] [id number] [place] [address]- 4738 Mar, [facility] [place] [facility] [address] [id number] [place] [address]- 9881 Mar, [facility] [place] [facility] [address] [id number] [place] [address]- 7021 Mar, [facility] [place] [facility] [address] [id number] [place] [address]- 6991 Mar, [facility] [place] [facility] [address] [id number] [place] [address]- 0684 Feb, [facility] [place] [facility] [address] [id number] [place] [address]- 3413 Feb, [facility] [place] [facility] [address] [id number] [place] [address]- 1758 Jan, [facility] [place] [facility] [address] [id number] [place] [address]- 2940 Jan, [facility] [place] [facility] [address] [id number] [place] [address]- 7466 Jan, [facility] [place] [facility] [address] [id number] [place] [address]- 5342 Jan, [facility] [place] [facility] [address] [id number] [place] [address]- 5087 December, [facility] [place] [facility] [address] [id number] [place] [address]- 7619 December, [facility] [place] [facility] [address] [id number] [place] [address]- 1583 December, [facility] [place] [facility] [address] [id number] [place] [address]- 3516 December, [facility] [place] [facility] [address] [id number] [place] [address]- 0232 December, [facility] [place] [facility] [address] [id number] [place] [address]- 9728 Nov, [facility] [place] [facility] [address] [id number] [place] [address]- 7605 Nov, [facility] [place] [facility] [address] [id number] [place] [address]- 6593 Oct, [facility] [place] [facility] [address] [facility] [id number] [place] [address]- 9865 Oct, [facility] [place] [facility] [address] [id number] [place] [address]- 4629 Oct, [facility] [place] [facility] [address] [id number] [place] [address]- 3854 Oct, [facility] [place] [facility] [address] [id number] [place] [address]- 9349 Oct, [facility] [place] [facility] [address] [id number] [place] [address]- 0790 Oct, [facility] [place] [facility] [address] [id number] [place] [address]- 8089 Sep, [facility] [place] [facility] [address] [id number] [place] [address]- 9361 Sep, [facility] [place] [facility] [address] [id number] [place] [address]- 7724 Jul, [facility] [place] [facility] [address] [id number] [place] [address]- 4483 Jul, [facility] [place] [facility] [address] [id number] [place] [address]- 5909 Jul, [facility] [place] [facility] [address] [id number] [place] [address] Jul, [facility] [place] [facility] [address] [facility] [id number] [place] [address]- 8274 Jun, [facility] [place] [facility] [address] [facility] [id number] [place] [address]- 0573 Jun, [facility] [place] [facility] [id number] [address]- 1906 Jun, [facility] [id number] [address]- 4934 Jun, [facility] [address] [address]- 0577 Jun, [facility] [address] 9097 Jun, [facility] [address] [address]- 3007 May, [facility] [address] [address]- 8628 May, [facility] [id number] [address]- 2115 Mar, IMMUNIZATIONS No Known Immunizations SOCIAL HISTORY Never Assessed REASON FOR VISIT PS f/u PLAN OF CARE VITAL SIGNS MEDICATIONS Unknown Medications RESULTS No Results PROCEDURES Procedure Date Ordered Result Body Site Alcohol and/or drug services Jun 25, 2017 INSTRUCTIONS MEDICATIONS ADMINISTERED No Known Medications MEDICAL (GENERAL) HISTORY Type Description Date Medical History hypertension Medical History gastroesophageal reflux disease (GERD) Medical History erectile dysfunction Medical History hyperlipidemia Medical History thyroid disorder-hypothyroid Medical History type II diabetes Medical History chronic pain-multiple accidents when younger Medical History Other psychoactive substance abuse, uncomplicated Surgical History wart removal
--- OUTSIDE RECORDS SUMMARY | 2018-01-29 15:26 | XMS REPORT ---
Author Author ABIGAIL DENNIS [facility] Address [address] [place] [address] Care Team Providers Care Distribution Operation Supervisor Name Role Phone ABIGAIL DENNIS Unavailable PROBLEMS Type Condition ICD9-CM Code UUB94-YX Code Onset Dates Condition Status SNOMED Code Problem Anxiety disorder, unspecified F41.9 Active 583058409 Problem Other chronic pain G89.29 Active 38284560 Problem Diabetes E11.9 Active 556872310 Problem Hypercholesterolemia E78.00 Active 85728484 Problem Type 2 diabetes mellitus with diabetic autonomic neuropathy, without long-term current use of insulin E11.43 Active 86841618 Problem Essential hypertension I10 Active 66243131 Problem Acute recurrent maxillary sinusitis J01.01 Active 90816030 Problem Cough R05 Active 12641215 Problem Hypothyroidism, unspecified E03.9 Active 92159491 Problem COPD exacerbation J44.1 Active 326028640 Problem Cannabis use disorder, moderate, dependence F12.20 Active 30732759 Problem Type 2 diabetes mellitus with complication E11.8 Active 721800600 ALLERGIES No Information ENCOUNTERS Encounter Location Date Diagnosis [place] [id number] [place] [address]38- 8681 Jan, [facility] [address] [address] December, [facility] [id number] [place] [address]209 [address] 30 Nov, 2017 Seasonal allergic rhinitis, unspecified trigger J30.2 and BMI 40.0-44.9, adult Z68.41 [facility] [id number] [place] [address] 9[address]10 [address]8593 16 Nov, 2017 Acute recurrent maxillary sinusitis J01.01 ; Cough R05 and BMI 40.0-44.9, adult Z68.41 [facility] [address] [place] [address] Oct, Cannabis use disorder, moderate, dependence F12.20 [facility] [address] [place] [address] Oct, Cannabis use disorder, moderate, dependence F12.20 [facility] [address] [address] Oct, Cannabis use disorder, moderate, dependence F12.20 [facility] [address] [place] [address] Oct, Cannabis use disorder, moderate, dependence F12.20 [facility] [address] [place] [address] Oct, Cannabis use disorder, moderate, dependence F12.20 [facility] [address] [place] [address] Sep, Cannabis use disorder, moderate, dependence F12.20 [facility] [address] [place] [address]99- 9476 Sep, Anxiety disorder, unspecified F41.9 and Other chronic pain G89.29 [facility] [address] [place] [address] 62336- 573 Sep, Bronchitis J40 [facility] [address] [place] [address] 08 Sep, 2017 Cannabis use disorder, moderate, dependence F12.20 [facility] [address] [place] [address] Sep, Cannabis use disorder, moderate, dependence F12.20 [facility] [address] [place] [address] 61016- 2470 Aug, Other chronic pain G89.29 [facility] [address] [place] [address] Aug, Cannabis use disorder, moderate, dependence F12.20 [facility] [address] [place] [address] Aug, Cannabis use disorder, moderate, dependence F12.20 [facility] [address] [place] [address] Aug, Cannabis use disorder, moderate, dependence F12.20 [facility] [address] [place] [address] Aug, Cannabis use disorder, moderate, dependence F12.20 [facility] [id number] [place] [address] 65358- 2803 Aug, Anxiety disorder, unspecified F41.9 [facility] [id number] [place] [address] 81057- 2370 Jul, Other chronic pain G89.29 [facility] [address] [place] [address] Jul, Cannabis use disorder, moderate, dependence F12.20 [facility] [address] [place] [address] Jul, Cannabis use disorder, moderate, dependence F12.[address] [address] Jul, Diabetes E11.9 ; Blood in stool K92.1 ; Arthralgia, unspecified joint M25.50 and BMI 40.0-44.9, adult Z68.[address] [address] Jun, Other chronic pain G89.[address] [address] Jun, [facility] [address] [place] [address] Jun, [address] [address] 6[address] Jun, Other chronic pain G89.29 [facility] [id number] [place] [address] 82203- 6407 Jun, [facility] [address] [place] [address] Jun, Cannabis use disorder, moderate, dependence F12.20 [facility] [id number] [place] [address] 25821- 9347 May, Anxiety disorder, unspecified F41.9 [facility] [address] [place] [address] May, Cannabis use disorder, moderate, dependence F12.20 [facility] [id number] [place] [address] 99973- 0105 May, [facility] [address] [place] [address] May, Cannabis use disorder, moderate, dependence F12.20 [facility] [address] [place] [address] May, [facility] [address] [place] [address] May, [facility] [address] [place] [address] May, [facility] [address] [address] May, Other chronic pain G89.29 [facility] [address] [address]2083[address] 4689 May, [facility] [address] [place] [address] May, Type 2 diabetes mellitus with complication E11.8 and Encounter for immunization Z23 [facility] [address] [place] [address] May, Cannabis use disorder, moderate, dependence F12.20 [facility] [id number] [place] [address] 99730- 0658 02 May, 2017 Essential hypertension I10 [facility] [address] [place] [address] 80782- 6055 30 Apr, 2017 Essential hypertension I10 [facility] [address] [address] 3[address] 29 Apr, 2017 Diabetes E11.9 [facility] [address] [address]30- 8982 18 Apr, 2017 [facility] [address] 69531- 7436 15 Apr, 2017 [facility] [address] 51289- 7892 15 Apr, 2017 [facility] [address] [place] [address] 13 Apr, 2017 Other psychoactive substance abuse, uncomplicated F19.10 [facility] [id number] [place] [address] 32742- 7454 13 Apr, 2017 [facility] [id number] [place] [address] 08124- 5051 Apr, [facility] [id number] [place] [address] 06730- 7168 Apr, Anxiety disorder, unspecified F41.9 [facility] [id number] [place] [address] 76936- 6563 08 Apr, 2017 [place] [id number] [place] [address] 62475- 5903 Apr, Diabetes E11.9 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 [place] [id number] [place] [address] 31469- 0529 Mar, Other chronic pain G89.29 and Diabetes E11.9 [place] [id number] [place] [address] 38740- 1449 Mar, Diabetes E11.9 [facility] [id number] [place] [address] 85506- 7986 Feb, Anxiety disorder, unspecified F41.9 [facility] [id number] [place] [address] 06787- 2594 Jan, [facility] [id number] [place] [address] 67264- 9443 Jan, [facility] [id number] [place] [address] 72474- 6169 December, Anxiety disorder, unspecified F41.9 [facility] [id number] [place] [address] 66930- 0287 Oct, Diabetes E11.9 and Hypothyroidism, unspecified E03.9 [facility] [id number] [place] [address] 60397- 4182 Oct, Anxiety disorder, unspecified F41.9 [facility] [address] [address] Aug, Bronchitis J40 and Shortness of breath R06.02 [facility] [address] 41815- 8521 Jul, [place] [address] 77657- 5555 Jul, Back pain, unspecified back location, unspecified back pain laterality, unspecified chronicity M54.9 [place] [address] 59915- 5069 Jul, Anxiety disorder, unspecified F41.9 [place] [address] 18124- 7200 Jul, Essential hypertension I10 [place] [address] 87003- 9745 Jun, [facility] [address] 02[address] Jun, Bronchitis J40 [place] [id number] [place] [address] 13835- 7495 Jun, [place] [address] 91675- 1659 Jun, Diabetes E11.9 ; Dorsalgia, unspecified M54.9 ; Other chronic pain G89.29 and 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 [place] [address] 41330- 9720 May, Anxiety disorder, unspecified F41.9 [place] [id number] [place] [address] 59910- 9442 Apr, Type 2 diabetes mellitus with complication E11.8 ; Essential hypertension I10 ; Tooth pain K08.8 and Back pain, unspecified back location, unspecified back pain laterality, unspecified chronicity M54.9 [place] [id number] [place] [address] 52426- 4495 Feb, Anxiety disorder, unspecified F41.9 [place] [id number] [place] [address] 92339- 5669 December, [place] [address] 45824- 1385 December, [place] [id number] [place] [address] 87083- 5305 December, Diabetes E11.9 ; Insect bite (nonvenomous) of abdominal wall , initial encounter S30.861A and Bitten or stung by nonvenomous insect and other nonvenomous arthropods, initial encounter W57.XXXA [place] [id number] [place] [address] 59401- 1817 Nov, [place] [id number] [place] [address] 27072- 4752 Sep, Genital warts A63.0 [place] [id number] [place] [address] 66153- 0437 Aug, [address] [place] [id number] Aug, Diabetes type 2, uncontrolled 250.02 and Hypothyroid 244.9 [place] [id number] [place] [address] 63887- 4379 Jul, Anogenital (venereal) warts A63.0 [place] [id number] [place] [address] 56977- 7498 Jul, [place] [id number] [place] [address] 67300- 2817 Jul, Diabetes E11.9 [place] [address] 74026- 2264 Jun, Genital warts A63.0 [facility] [address] [address]- 3829 Jun, [facility] [address] [address]- 7780 Jun, [facility] [address] [address]- 7650 May, [facility] [address] [place] [address] 26226- 4276 May, [facility] [address] [address]- 2384 May, Type 2 diabetes mellitus with complication E11.8 and Upper respiratory tract infection, unspecified upper respiratory infection J06.9 [facility] [address] [address]- 2545 Apr, Genital warts 078.11 [facility] [address] [place] [address]- 6962 Feb, Hypothyroid 244.9 and Diabetes type 2, uncontrolled 250.02 [address] [address] Feb, Diabetes type 2, uncontrolled 250.02 and Hypothyroid 244.9 [facility] [address] [address]- 7365 Feb, Diabetes type 2, uncontrolled 250.02 and Hypothyroid 244.9 [facility] [address], [place] [address]- 0221 Jan, [facility] [address] [address]- 2116 Jan, [facility] [address], [place] [address]- 2491 Nov, [facility] [address] [place] [address]- 1352 Nov, [facility] [place] [facility] [address] [facility] [id number] [place] [address]- 7209 Nov, [facility] [place] [facility] [address] [id number] [place] [address]- 9471 Oct, [facility] [place] [facility] [address] [id number] [place] [address]- 3786 Oct, [facility] [place] [facility] [address] [id number] [place] [address]- 2147 Oct, [facility] [place] [facility] [address] [id number] [place] [address]- 4900 Sep, [facility] [place] [facility] [address] [id number] [place] [address]- 8658 Sep, [facility] [place] [facility] [address] [facility] [id number] [place] [address]- 2029 Sep, [facility] [place] [facility] [address] [id number] [place] [address]- 5466 Sep, [facility] [place] [facility] [address] [id number] [place] [address]- 4172 Sep, [facility] [place] [facility] [address] [facility] [id number] [place] [address]- 9699 Sep, [facility] [place] [facility] [address] [facility] [id number] [place] [address]- 8168 Aug, [facility] [place] [facility] [address] [id number] [place] [address]- 8514 Aug, [facility] [place] [facility] [address] [id number] [place] [address]- 4078 Aug, [facility] [place] [facility] [address] [id number] [place] [address]- 0605 Aug, [facility] [place] [facility] [address] [id number] [place] [address]- 2939 Aug, [facility] [place] [facility] [address] [id number] [place] [address]- 5683 Aug, [facility] [place] [facility] [address] [id number] [place] [address]- 3024 Aug, [facility] [place] [facility] [address] [id number] [place] [address]- 3803 Aug, [facility] [place] [facility] [address] [id number] [place] [address]- 8274 Jun, [facility] [place] [facility] [address] [id number] [place] [address]- 8838 Jun, [facility] [place] [facility] [address] [id number] [place] [address]- 5050 Jun, [facility] [place] [facility] [address] [id number] [place] [address]- 7266 Jun, [facility] [place] [facility] [address] [id number] [place] [address]- 0710 Jun, [facility] [place] [facility] [address] [id number] [place] [address]- 0308 May, [facility] [place] [facility] [address] [id number] [place] [address]- 9013 May, [facility] [place] [facility] [address] [id number] [place] [address]- 6602 Apr, [facility] [place] [facility] [address] [id number] [place] [address]- 0277 Apr, [facility] [place] [facility] [address] [id number] [place] [address]- 4922 Apr, [facility] [place] [facility] [address] [id number] [place] [address]- 6216 Apr, [facility] [place] [facility] [address] [id number] [place] [address]- 4993 Mar, [facility] [place] [facility] [address] [id number] [place] [address]- 5789 Mar, [facility] [place] [facility] [address] [id number] [place] [address]- 6531 Mar, [facility] [place] [facility] [address] [id number] [place] [address]- 3102 Mar, [facility] [place] [facility] [address] [id number] [place] [address]- 8928 Mar, [facility] [place] [facility] [address] [id number] [place] [address]- 3531 Mar, [facility] [place] [facility] [address] [id number] [place] [address]- 3894 Feb, [facility] [place] [facility] [address] [id number] [place] [address]- 8291 Feb, [facility] [place] [facility] [address] [id number] [place] [address]- 9816 Jan, [facility] [place] [facility] [address] [id number] [place] [address]- 3495 Jan, [facility] [place] [facility] [address] [id number] [place] [address]- 3003 Jan, [facility] [place] [facility] [address] [id number] [place] [address]- 6636 Jan, [facility] [place] [facility] [address] [id number] [place] [address]- 6926 December, [facility] [place] [facility] [address] [id number] [place] [address]- 6523 December, [facility] [place] [facility] [address] [id number] [place] [address]- 9447 December, [facility] [place] [facility] [address] [id number] [place] [address]- 3169 December, [facility] [place] [facility] [address] [id number] [place] [address]- 6074 December, [facility] [place] [facility] [address] [id number] [place] 3113 Nov, [facility] [address] [id number] [place] [address]- 6165 Nov, [facility] [place] [facility] [address] [id number] [place] [address]- 2705 Oct, [facility] [place] [facility] [address] [id number] [place] [address]- 4626 Oct, [facility] [place] [facility] [address] [id number] [place] [address]- 4808 Oct, [facility] [place] [facility] [address] [id number] [place] [address]- 8476 Oct, [facility] [place] [facility] [address] [id number] [place] [address]- 6750 Oct, [facility] [place] [facility] [address] [id number] [place] [address]- 1104 Oct, [facility] [place] [facility] [address] [id number] [place] [address]- 7702 Sep, [facility] [place] [facility] [address] [id number] [place] [address]- 8477 Sep, [facility] [place] [facility] [address] [id number] [place] [address]- 7948 Jul, [facility] [place] [facility] [address] [id number] [place] [address]- 1359 Jul, [facility] [place] [facility] [address] [id number], [place] [address]- 1665 Jul, [facility] [place] [facility] [address] [id number] [place] [address]- 9791 Jul, [facility] [place] [facility] [address] [id number] [place] [address]- 0640 Jun, [facility] [place] [facility] [address] [id number] [place] [address]- 2806 Jun, [facility] [place] [facility] [address] [facility] [id number], [place] [address]- 2546 Jun, [facility] [id number], [place] [address]- 7099 Jun, [facility] [id number], [place] [address]- 5539 Jun, [facility] [id number], [place] [address]- 2546 Jun, [facility] [id number], [place] [address]- 0971 May, [facility] [id number], [place] [address]- 6848 May, [facility] [id number], [place] [address]- 9334 Mar, IMMUNIZATIONS No Known Immunizations SOCIAL HISTORY Never Assessed REASON FOR VISIT [facility] Assessment PLAN OF CARE Activity Details Follow Up 1 Week Reason: VITAL SIGNS MEDICATIONS Unknown Medications RESULTS No Results PROCEDURES Procedure Date Ordered Result Body Site ALCOHOL AND/OR DRUG ASSESSMENT Jun 15, 2017 INSTRUCTIONS MEDICATIONS ADMINISTERED No Known Medications MEDICAL (GENERAL) HISTORY Type Description Date Medical History hypertension Medical History gastroesophageal reflux disease (GERD) Medical History erectile dysfunction Medical History hyperlipidemia Medical History thyroid disorder-hypothyroid Medical History type II diabetes Medical History chronic pain-multiple accidents when younger Medical History Other psychoactive substance abuse, uncomplicated Surgical History wart removal
--- OUTSIDE RECORDS SUMMARY | 2018-01-29 15:26 | XMS REPORT ---
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 Name Role Phone GLADIS KESSLER Unavailable PROBLEMS Type Condition ICD9-CM Code LFE62-AV Code Onset Dates Condition Status SNOMED Code Problem Anxiety disorder, unspecified F41.9 Active 039777932 Problem Other chronic pain G89.29 Active 09778913 Problem Diabetes E11.9 Active 149273470 Problem Hypercholesterolemia E78.00 Active 55007069 Problem Type 2 diabetes mellitus with diabetic autonomic neuropathy, without long-term current use of insulin E11.43 Active 52387603 Problem Essential hypertension I10 Active 52825251 Problem Acute recurrent maxillary sinusitis J01.01 Active 75570023 Problem Cough R05 Active 85362870 Problem Hypothyroidism, unspecified E03.9 Active 28172109 Problem COPD exacerbation J44.1 Active 177065490 Problem Cannabis use disorder, moderate, dependence F12.20 Active 75963857 Problem Type 2 diabetes mellitus with complication E11.8 Active 026227679 ALLERGIES No Information ENCOUNTERS Encounter Location Date Diagnosis [facility] [address] [address] Jan, [facility] [id number] [place] [address]197[address] 9557 December, [facility] [id number] [place] [address]07 [address]182 Nov, Seasonal allergic rhinitis, unspecified trigger J30.2 and BMI 40.0-44.9, adult Z68.41 [facility] [id number] [place] [address]52 [address]57 16 Nov, 2017 Acute recurrent maxillary sinusitis J01.01 ; Cough R05 and BMI 40.0-44.9, adult Z68.41 [facility] [address] [id number] Oct, Cannabis use disorder, moderate, dependence F12.20 [facility] [address] [address] Oct, Cannabis use disorder, moderate, dependence F12.20 [facility] [address] [id number] Oct, Cannabis use disorder, moderate, dependence F12.20 [facility] [address] [address] Oct, Cannabis use disorder, moderate, dependence F12.20 [facility] [address] [place] [address] Oct, Cannabis use disorder, moderate, dependence F12.20 [facility] [address] Sep, Cannabis use disorder, moderate, dependence F12.20 [facility] [address] [place] [address]- [address] Sep, Anxiety disorder, unspecified F41.9 and Other chronic pain G89.29 [facility] [address] [place] [address] 12055- 1074 Sep, Bronchitis J40 [facility] [address] [address] Sep, Cannabis use disorder, moderate, dependence F12.20 [facility] [address] [place] [address] Sep, Cannabis use disorder, moderate, dependence F12.20 [facility] [address] [place] [address]681- 3055 Aug, Other chronic pain G89.29 [facility] [address] [place] [address] Aug, Cannabis use disorder, moderate, dependence F12.20 [facility] [address] [place] [address] Aug, Cannabis use disorder, moderate, dependence F12.20 [facility] [address] [place] [address] Aug, Cannabis use disorder, moderate, dependence F12.20 [facility] [address] [id number] Aug, Cannabis use disorder, moderate, dependence F12.20 [facility] [address] [address] Aug, Anxiety disorder, unspecified F41.9 [facility] [address] [address] Jul, Other chronic pain G89.29 [facility] [address] [place] [address] Jul, Cannabis use disorder, moderate, dependence F12.20 [facility] [address] [place] [address] Jul, Cannabis use disorder, moderate, dependence F12.20 [place] [address] [address] Jul, Diabetes E11.9 ; Blood in stool K92.1 ; Arthralgia, unspecified joint M25.50 and BMI 40.0-44.9, adult Z68.41 [facility] [address] [address]1905- 8981 Jun, Other chronic pain G89.29 [place] [address] 17185- 5047 Jun, [facility] [address] [place] [address] Jun, [place] [address] [address]- 5746 Jun, Other chronic pain G89.29 [facility] [address] [address]337- 1712 Jun, [facility] [address] [place] [address] Jun, Cannabis use disorder, moderate, dependence F12.20 [facility] [address] [address]- 2214 May, Anxiety disorder, unspecified F41.9 [facility] [address] [place] [address] May, Cannabis use disorder, moderate, dependence F12.20 [facility] [id number] [place] [address] 90572- 2089 May, [facility] [address] [place] [address] May, Cannabis use disorder, moderate, dependence F12.20 [facility] [address] [place] [address] May, [facility] [address] [place] [address] May, [facility] [address] [place] [address] May, [facility] [address] [address]10 May, Other chronic pain G89.29 [facility] [address] 84539- 1009 May, [facility] [address] 02345- 0896 May, Type 2 diabetes mellitus with complication E11.8 and Encounter for immunization Z23 [facility] [address] [place] [address] May, Cannabis use disorder, moderate, dependence F12.20 [facility] [id number] [place] [address] 40481- 4457 May, Essential hypertension I10 [facility] [id number] [place] [address] 31200- 9374 30 Apr, 2017 Essential hypertension I10 [facility] [id number] [place] [address] 11061- 8078 29 Apr, 2017 Diabetes E11.9 [facility] [address] 7[address]89- 5963 18 Apr, 2017 [facility] [id number] [place] [address] 28242- 4336 15 Apr, 2017 [facility] [address] 21818- 0711 15 Apr, 2017 [facility] [address] [place] [address] 13 Apr, 2017 Other psychoactive substance abuse, uncomplicated F19.10 [facility] [id number] [place] [address] 08214- 4555 13 Apr, 2017 [facility] [id number] [place] [address] 49219- 4293 12 Apr, 2017 [facility] [id number] [place] [address] 24381- 9542 12 Apr, 2017 Anxiety disorder, unspecified F41.9 [facility] [id number] [place] [address] 61967- 7564 08 Apr, 2017 [place] [id number] [place] [address] 92839- 8809 06 Apr, 2017 Diabetes E11.9 and 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 [place] [id number] [place] [address] 94337- 3518 Mar, Other chronic pain G89.29 and Diabetes E11.9 [place] [id number] [place] [address] 03459- 8859 Mar, Diabetes E11.9 [facility] [id number] [place] [address] 81116- 9955 Feb, Anxiety disorder, unspecified F41.9 [facility] [id number] [place] [address] 17494- 6835 Jan, [facility] [id number] [place] [address] 76148- 5591 Jan, [facility] [id number] [place] [address] 18457- 6583 December, Anxiety disorder, unspecified F41.9 [facility] [id number] [place] [address] 95827- 2144 Oct, Diabetes E11.9 and Hypothyroidism, unspecified E03.9 [facility] [id number] [place] [address] 12572- 2813 Oct, Anxiety disorder, unspecified F41.9 [facility] [address] [address] Aug, Bronchitis J40 and Shortness of breath R06.02 [place] [address] 16273- 1011 Jul, [place] [address] 67090- 9114 Jul, Back pain, unspecified back location, unspecified back pain laterality, unspecified chronicity M54.9 [place] [address] 26478- 4070 Jul, Anxiety disorder, unspecified F41.9 [place] [address] 09930- 0883 Jul, Essential hypertension I10 [place] [address] 63384- 3827 Jun, [facility] [address] 17203 -0763 Jun, Bronchitis J40 [place] [address] 33018- 2465 Jun, [place] [address] 37282- 7020 Jun, Diabetes E11.9 ; Dorsalgia, unspecified M54.9 ; Other chronic pain G89.29 and 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 [place] [address] 18606- 4825 May, Anxiety disorder, unspecified F41.9 [place] [id number] [place] [address] 93017- 3740 Apr, Type 2 diabetes mellitus with complication E11.8 ; Essential hypertension I10 ; Tooth pain K08.8 and Back pain, unspecified back location, unspecified back pain laterality, unspecified chronicity M54.9 [place] [id number] [place] [address] 83662- 0776 Feb, Anxiety disorder, unspecified F41.9 [place] [id number] [place] [address] 05929- 9411 December, [place] [address] 91238- 5391 December, [place] [id number] [place] [address] 04315- 8130 December, Diabetes E11.9 ; Insect bite (nonvenomous) of abdominal wall , initial encounter S30.861A and Bitten or stung by nonvenomous insect and other nonvenomous arthropods, initial encounter W57.XXXA [place] [id number] [place] [address] 26908- 8566 Nov, [place] [id number] [place] [address] 91990- 6816 Sep, Genital warts A63.0 [place] [id number] [place] [address] 75296- 5256 Aug, [facility] [id number] [place] [address] [id number] Aug, Diabetes type 2, uncontrolled 250.02 and Hypothyroid 244.9 [place] [id number] [place] [address] 01435- 8620 Jul, Anogenital (venereal) warts A63.[address] 81600- 0020 Jul, [place] [id number] [place] [address] 05606- 4164 Jul, Diabetes E11.9 [place] [address] 97553- 9212 Jun, Genital warts A63.0 [facility] [address] [address]- 9744 Jun, [facility] [address] [address]- 0708 Jun, [facility] [address] [address]- 9590 May, [facility] [address] [place] [address] 89535- 0886 May, [facility] [address] [address]- 2815 May, Type 2 diabetes mellitus with complication E11.8 and Upper respiratory tract infection, unspecified upper respiratory infection J06.9 [facility] [address] [address]- 8230 Apr, Genital warts 078.11 [facility] [address] [address]- 1176 Feb, Hypothyroid 244.9 and Diabetes type 2, uncontrolled 250.02 [address] [id number] Feb, Diabetes type 2, uncontrolled 250.02 and Hypothyroid 244.9 [facility] [id number] [address]- 8091 Feb, Diabetes type 2, uncontrolled 250.02 and Hypothyroid 244.9 [facility] [address] [address]- 1714 Jan, [facility] [address] [address]- 9394 Jan, [facility] [address] [address]- 4774 Nov, [facility] [address] [address]- 0295 Nov, [facility] [place] [facility] [address] [id number] [place] [address]- 3574 Nov, [facility] [place] [facility] [address] [id number] [place] [address]- 3444 Oct, [facility] [place] [facility] [address] [id number] [place] [address]- 5617 Oct, [facility] [place] [facility] [address] [id number] [place] [address]- 9922 Oct, [facility] [place] [facility] [address] [id number] [place] [address]- 8317 Sep, [facility] [place] [facility] [address] [id number] [place] [address]- 8696 Sep, [facility] [place] [facility] [address] [id number] [place] [address]- 2748 Sep, [facility] [place] [facility] [address] [id number] [place] [address]- 7467 Sep, [facility] [place] [facility] [address] [id number] [place] [address]- 2704 Sep, [facility] [place] [facility] [address] [id number] [place] [address]- 4516 Sep, [facility] [place] [facility] [address] [id number] [place] [address]- 3891 Aug, [facility] [place] [facility] [address] [id number] [place] [address]- 7927 Aug, [facility] [place] [facility] [address] [id number] [place] [address]- 4515 Aug, [facility] [place] [facility] [address] [id number] [place] [address]- 9658 Aug, [facility] [place] [facility] [address] [id number] [place] [address]- 8024 Aug, [facility] [place] [facility] [address] [id number] [address]- 0527 Aug, [facility] [place] [facility] [address] [id number] [place] [address]- 9058 Aug, [facility] [place] [facility] [address] [id number] [place] [address]- 8268 Aug, [facility] [place] [facility] [address] [id number] [place] [address]- 6056 Jun, [facility] [place] [facility] [address] [id number] [place] [address]- 5561 Jun, [facility] [place] [facility] [address] [id number] [place] [address]- 7343 Jun, [facility] [place] [facility] [address] [id number] [place] [address]- 4284 Jun, [facility] [place] [facility] [address] [id number] [place] [address]- 2378 Jun, [facility] [place] [facility] [address] [id number] [place] [address]- 3686 May, [facility] [place] [facility] [address] [id number] [place] [address]- 3782 May, [facility] [place] [facility] [address] [id number] [place] [address]- 6022 Apr, [facility] [place] [facility] [address] [id number] [place] [address]- 1734 Apr, [facility] [place] [facility] [address] [id number] [address]- 8179 Apr, [facility] [place] [facility] [address] [id number] [place] [address]- 4618 Apr, [facility] [place] [facility] [address] [id number] [address]- 8581 Mar, [facility] [place] [facility] [address] [id number] [address]- 4812 Mar, [facility] [place] [facility] [address] [id number] [place] [address]- 6631 Mar, [facility] [place] [facility] [address] [id number] [place] [address]- 5296 Mar, [facility] [place] [facility] [address] [id number] [place] [address]- 2568 Mar, [facility] [place] [facility] [address] [id number] [place] [address]- 7559 Mar, [facility] [place] [facility] [address] [id number] [place] [address]- 7261 Feb, [facility] [place] [facility] [address] [id number] [place] [address]- 4767 Feb, [facility] [place] [facility] [address] [id number] [place] [address]- 3202 Jan, [facility] [place] [facility] [address] [id number] [place] [address]- 6208 Jan, [facility] [place] [facility] [address] [id number] [place] [address]- 3793 Jan, [facility] [place] [facility] [address] [id number] [place] [address]- 2074 Jan, [facility] [place] [facility] [address] [id number] [place] [address]- 7973 December, [facility] [place] [facility] [address] [id number] [place] [address]- 1376 December, [facility] [place] [facility] [address] [id number] [place] [address]- 0277 December, [facility] [place] [facility] [address] [id number] [place] [address]- 2728 December, [facility] [place] [facility] [address] [id number] [place] [address]- 0849 December, [facility] [place] [facility] [address] [id number] [place] [address]- 1410 Nov, [facility] [place] [facility] [address] [id number] [place] [address]- 9976 Nov, [facility] [place] [facility] [address] [id number] [place] [address]- 4285 Oct, [facility] [place] [facility] [address] [facility] [id number] [place] [address]- 8351 Oct, [facility] [place] [facility] [address] [id number] [place] [address]- 6622 Oct, [facility] [place] [facility] [address] [id number] [place] [address]- 5940 Oct, [facility] [place] [facility] [address] [id number] [place] [address]- 9920 Oct, [facility] [place] [facility] [address] [id number] [place] [address]- 2067 Oct, [facility] [place] [facility] [address] [id number] [place] [address]- 9041 Sep, [facility] [place] [facility] [address] [id number] [place] [address]- 0586 Sep, [facility] [place] [facility] [address] [id number] [place] [address]- 4809 Jul, [facility] [place] [facility] [address] [id number] [address]- 4430 Jul, [facility] [place] [facility] [address] [id number] [address]- 3844 Jul, [facility] [place] [facility] [address] [id number] [place] 4868 Jul, [facility] [place] [facility] [address] [facility] [id number] [place] [address]- 7470 Jun, [facility] [place] [facility] [address] [facility] [id number] [place] [address]- 9933 Jun, [facility] [place] [facility] [address] [facility] [id number] [address]- 2546 Jun, [facility] [id number] [address]- 0232 Jun, [facility] [id number] [address]- 5503 Jun, [facility] [id number] [address]- 5252 Jun, [facility] [id number] [address]- 2739 May, [facility] [address] [address]- 7479 May, [facility] [id number] [address]- 1909 Mar, IMMUNIZATIONS No Known Immunizations SOCIAL HISTORY Never Assessed REASON FOR VISIT Controlled Med Refill 06/26/2017 PLAN OF CARE VITAL SIGNS MEDICATIONS Medication [...]
--- OUTSIDE RECORDS SUMMARY | 2018-01-29 15:27 | XMS REPORT ---
Author Author GLADIS KESSLER Organization [employer] Address Unknown Phone Unavailable Care Team Providers Care Senior Sql Developer Name Role Phone GLADIS KESSLER CP Unavailable [...] Instructions Start Date End Date [facility] D[facility] [address]13 0.5 MG Orally Twice a day 1 tablet as needed Results No Known Results Summary Purpose [employer] Submission
--- OUTSIDE RECORDS SUMMARY | 2018-01-29 15:27 | XMS REPORT ---
Author Author GLADIS KESSLER Organization [employer] Address Unknown Phone Unavailable Care Team Providers Care Assembler Name Role Phone GLADIS KESSLER CP Unavailable [...] Instructions Start Date End Date Status Dosage Promethazine-Codeine [facility] [address]-81 6.25-10 MG/5ML Orally every 6 hrs Jun 19, 2015 5-10 ml as needed Gabapentin [facility] [address]-07 300 MG Orally at HS for 7 days the 2 times a day Jun 19, 2015 1 capsule Results No Known Results Summary Purpose [employer] Submission
--- OUTSIDE RECORDS SUMMARY | 2018-01-29 15:27 | XMS REPORT ---
Author Author ABIGAIL DENNIS [facility] Address [address] [place] [address] Care Team Providers Care Rice Field Worker Name Role Phone ABIGAIL DENNIS Unavailable PROBLEMS Type Condition ICD9-CM Code UDO46-EG Code Onset Dates Condition Status SNOMED Code Problem Anxiety disorder, unspecified F41.9 Active 309517130 Problem Other chronic pain G89.29 Active 65237060 Problem Diabetes E11.9 Active 924645648 Problem Hypercholesterolemia E78.00 Active 06457475 Problem Type 2 diabetes mellitus with diabetic autonomic neuropathy, without long-term current use of insulin E11.43 Active 48922953 Problem Essential hypertension I10 Active 14829355 Problem Acute recurrent maxillary sinusitis J01.01 Active 89581413 Problem Cough R05 Active 26013963 Problem Hypothyroidism, unspecified E03.9 Active 23035347 Problem COPD exacerbation J44.1 Active 952032197 Problem Cannabis use disorder, moderate, dependence F12.20 Active 06843811 Problem Type 2 diabetes mellitus with complication E11.8 Active 801400911 ALLERGIES No Information ENCOUNTERS Encounter Location Date Diagnosis [facility] [address] [address] Jan, [facility] [address] [address] 30 Nov, 2017 Seasonal allergic rhinitis, unspecified trigger J30.2 and BMI 40.0-44.9, adult Z68.41 [facility] [address] [address] 16 Nov, 2017 Acute recurrent maxillary sinusitis J01.01 ; Cough R05 and BMI 40.0-44.9, adult Z68.41 [facility] [address] [place] [address] Oct, Cannabis use disorder, moderate, dependence F12.20 [facility] [address] [place] [address] Oct, Cannabis use disorder, moderate, dependence F12.20 [facility] [address] [place] [address] Oct, Cannabis use disorder, moderate, dependence F12.20 [facility] [address] [place] [address] Oct, Cannabis use disorder, moderate, dependence F12.20 [facility] [address] [place] [address] Oct, Cannabis use disorder, moderate, dependence F12.20 [facility] [address] [place] [address] Sep, Cannabis use disorder, moderate, dependence F12.[address] [facility] [address] [place] [address] Sep, Anxiety disorder, unspecified F41.9 and Other chronic pain G89.29 [facility] [address] [place] [address] Sep, Bronchitis J40 [facility] [address] [place] [address] 08 Sep, 2017 Cannabis use disorder, moderate, dependence F12.20 [facility] [address] [place] [address] Sep, Cannabis use disorder, moderate, dependence F12.20 [facility] [address] [place] [address] Aug, Other chronic pain G89.29 [facility] [address] [place] [address] Aug, Cannabis use disorder, moderate, dependence F12.20 [facility] [address] [place] [address] Aug, Cannabis use disorder, moderate, dependence F12.20 [facility] [address] [place] [address] Aug, Cannabis use disorder, moderate, dependence F12.20 [facility] [address] [place] [address] Aug, Cannabis use disorder, moderate, dependence F12.20 [facility] [address] [place] [address] [address] Aug, Anxiety disorder, unspecified F41.9 [place] [facility] [address] [address] Jul, Other chronic pain G89.29 [facility] [address] [place] [address] Jul, Cannabis use disorder, moderate, dependence F12.20 [facility] [address] [place] [address] Jul, Cannabis use disorder, moderate, dependence F12.20 [place] [facility] [address] [address] Jul, Diabetes E11.9 ; Blood in stool K92.1 ; Arthralgia, unspecified joint M25.50 and BMI 40.0-44.9, adult Z68.[address] [address] Jun, Other chronic pain G89.29 [place] [address] [address] Jun, [facility] [address] [place] [address] Jun, [place] [address] [address] Jun, Other chronic pain G89.[address] [address] Jun, [facility] [address] [place] [address] Jun, Cannabis use disorder, moderate, dependence F12.20 [place] [address] [address] May, Anxiety disorder, unspecified F41.9 [facility] [address] [place] [address] May, Cannabis use disorder, moderate, dependence F12.20 [place] [address] [address] May, [facility] [address] [place] [address] May, Cannabis use disorder, moderate, dependence F12.20 [facility] [address] [place] [address] May, [facility] [address] [place] [address] May, [facility] [address] [place] [address] May, [facility] [address] [address] May, Other chronic pain G89.29 [facility] [address] [address] May, [facility] [address] [address] May, Type 2 diabetes mellitus with complication E11.8 and Encounter for immunization Z23 [facility] [address] [place] [address] May, Cannabis use disorder, moderate, dependence F12.20 [facility] [address] [address] 02 May, 2017 Essential hypertension I10 [facility] [address] [address] 30 Apr, 2017 Essential hypertension I10 [facility] [address] [address] 29 Apr, 2016 Diabetes E11.9 [facility] [address] [place] [address] [id number] [place] [address] 18 Apr, 2016 [facility] [address] [address] 15 Apr, 2017 [facility] [address] [address] 15 Apr, [address] [facility] [address] [place] [address] 13 Apr, 2016 Other psychoactive substance abuse, uncomplicated F19.10 [facility] [address] [address] 13 Apr, 2017 [facility] [id number] [place] [address] 12 Apr, 2017 [facility] [id number] [place] [address] 12 Apr, 2017 Anxiety disorder, unspecified F41.9 [facility] [id number] [place] [address] 08 Apr, 2017 [facility] [id number] [place] [address] 06 Apr, 2017 Diabetes E11.9 and 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 [facility] [address] [id number] [place] [address] 16 Mar, 2017 Other chronic pain G89.29 and Diabetes E11.9 [facility] [id number] [place] [address] Mar, Diabetes E11.9 [facility] [address] [id number] [place] [address] Feb, Anxiety disorder, unspecified F41.9 [place] [address] [place] [address] Jan, [place] [address] [place] [id number] [place] [address] Jan, [facility] [address] [place] [address] December, Anxiety disorder, unspecified F41.9 [facility] [id number] [place] [address] Oct, Diabetes E11.9 and Hypothyroidism, unspecified E03.9 [facility] [address] [address] Oct, Anxiety disorder, unspecified F41.9 [facility] [address] [place] [address] Aug, Bronchitis J40 and Shortness of breath R06.02 [facility] [id number] [place] [address] Jul, [facility] [id number] [place] [address] Jul, Back pain, unspecified back location, unspecified back pain laterality, unspecified chronicity M54.9 [facility] [address] [id number] [place] [address]- [address] Jul, Anxiety disorder, unspecified F41.9 [place] [address] [place] [id number] [place] [address] 110[address] Jul, Essential hypertension I10 [place] [address] [place] [id number] [place] [address]- 3[address] Jun, 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 [place] [address] [id number] [place] [address] 8730 May, Anxiety disorder, unspecified F41.9 [place] [address] [id number] [place] [address]- 87[address] Apr, Type 2 diabetes mellitus with complication E11.8 ; Essential hypertension I10 ; Tooth pain K08.8 and Back pain, unspecified back location, unspecified back pain laterality, unspecified chronicity M54.9 [place] [address] [id number] [place] [address]40- 2004 Feb, Anxiety disorder, unspecified F41.9 [facility] [id number] [place] [address] 20784- [address] December, [facility] [id number] [place] [address]- 3554 December, [facility] [address] [id number] [place] [address] 42382- 3816 December, Diabetes E11.9 ; Insect bite (nonvenomous) of abdominal wall , initial encounter S30.861A and Bitten or stung by nonvenomous insect and other nonvenomous arthropods, initial encounter W57.XXXA [facility] [id number] [place] [address]20- 5831 Nov, [place] [address] [place] [id number] [place] [address]53- 0152 Sep, Genital warts A63.0 [facility] [address] [place] [address]89- 7290 Aug, [facility] [id number] [place] [id number] Aug, Diabetes type 2, uncontrolled 250.02 and Hypothyroid 244.9 [facility] [address] [place] [address] 95191- 8397 Jul, Anogenital (venereal) warts A63.0 [facility] [address] [place] [address]29- 0256 Jul, [facility] [address] [place] [id number] [place] [address] 53870- 7733 Jul, Diabetes E11.9 [facility] [address] [place] [id number] [place] [address] 91050- 3594 Jun, Genital warts A63.0 [facility] [address] [place] [id number] [place] [address] 23245- 9852 Jun, [facility] [address] [id number] [address] Jun, [facility] [address] [address] May, [facility] [address] [address] May, [facility] [address] [address] May, Type 2 diabetes mellitus with complication E11.8 and Upper respiratory tract infection, unspecified upper respiratory infection J06.9 [facility] [address] [address] 480[address] Apr, Genital warts 078.11 [facility] [address] [address]- 65[address] Feb, Hypothyroid 244.9 and Diabetes type 2, uncontrolled 250.02 [address] [id number] Feb, Diabetes type 2, uncontrolled 250.02 and Hypothyroid 244.9 [facility] [address] [address]- 46[address] Feb, Diabetes type 2, uncontrolled 250.02 and Hypothyroid 244.9 [facility] [address] [id number] [address] Jan, [facility] [id number] [address] 1799 Jan, [facility] [address] [address]- 7007 Nov, [facility] [address] [address]- [address] Nov, [facility] [id number] [address]- 6983 Nov, [facility] [address] [facility] [id number] [place] [address]- [address] Oct, [facility] [place] [facility] [address] [id number] [place] [address]- 6959 Oct, [facility] [place] [facility] [address] [id number] [place] [address]- 9844 Oct, [facility] [place] [facility] [address] [id number] [place] [address]- 5055 Sep, [facility] [place] [facility] [address] [id number] [place] [address]- 1759 Sep, [facility] [place] [facility] [address] [id number] [place] [address]- 2464 Sep, [facility] [place] [facility] [address] [id number] [place] [address]- 0621 Sep, [facility] [place] [facility] [address] [id number] [place] [address]- 4488 Sep, [facility] [place] [facility] [address] [id number] [place] [address]- 8803 Sep, [facility] [place] [facility] [address] [facility] [id number] [place] [address]- 9663 Aug, [facility] [place] [facility] [address] [id number] [place] [address]- 1924 Aug, [facility] [place] [facility] [address] [id number] [place] [address]- 0726 Aug, [facility] [place] [facility] [address] [id number] [place] [address]- 3169 Aug, [facility] [place] [facility] [address] [id number] [place] [address]- 5671 Aug, [facility] [place] [facility] [address] [id number] [place] [address]- 9201 Aug, [facility] [place] [facility] [address] [id number] [place] [address]- 6866 Aug, [facility] [place] [facility] [address] [id number] [place] [address]- 6812 Aug, [facility] [place] [facility] [address] [id number] [place] [address]- 9736 Jun, [facility] [place] [facility] [address] [id number] [place] [address]- 2898 Jun, [facility] [place] [facility] [address] [id number] [place] [address]- 0779 Jun, [facility] [place] [facility] [address] [id number] [place] [address]- 5099 Jun, [facility] [place] [facility] [address] [id number] [place] [address]- 3996 Jun, [facility] [place] [facility] [address] [id number] [place] [address]- 6760 May, [facility] [place] [facility] [address] [id number] [place] [address]- 6966 May, [facility] [place] [facility] [address] [id number] [place] [address]- 6975 Apr, [facility] [place] [facility] [address] [id number] [place] [address]- 4374 Apr, [facility] [place] [facility] [address] [id number] [place] [address]- 5064 Apr, [facility] [place] [facility] [address] [id number] [place] [address]- 6370 Apr, [facility] [place] [facility] [address] [id number] [place] [address]- 3678 Mar, [facility] [place] [facility] [address] [id number] [place] [address]- 1240 Mar, [facility] [place] [facility] [address] [id number] [place] [address]- 6139 Mar, [facility] [place] [facility] [address] [id number] [place] [address]- 6952 Mar, [facility] [address] [id number] [place] [address]- 5864 Mar, [facility] [place] [facility] [address] [id number] [place] [address]- 7204 Mar, [facility] [place] [facility] [address] [id number] [place] [address]- 5167 Feb, [facility] [place] [facility] [address] [id number] [place] [address]- 8459 Feb, [facility] [place] [facility] [address] [id number] [place] [address]- 0453 Jan, [facility] [place] [facility] [address] [id number] [place] [address]- 7246 Jan, [facility] [place] [facility] [address] [id number] [place] [address]- 9896 Jan, [facility] [address] [id number] [place] [address]- 3892 Jan, [facility] [place] [facility] [address] [id number] [place] [address]- 7022 December, [facility] [address] [id number] [place] [address]- 0261 December, [facility] [place] [facility] [address] [id number] [place] [address]- 7843 December, [facility] [place] [facility] [address] [id number] [place] [address]- 3125 December, [facility] [place] [facility] [address] [id number] [place] [address]- 3181 December, [facility] [place] [facility] [address] [id number] [place] [address]- 5108 Nov, [facility] [place] [facility] [address] [id number] [place] [address] Nov, [facility] [address] [id number] [place] [address]- 4647 Oct, [facility] [place] [facility] [address] [id number] [place] [address]- 3367 Oct, [facility] [place] [facility] [address] [id number] [place] [address]- 8371 Oct, [facility] [place] [facility] [address] [id number] [place] [address]- 9857 Oct, [facility] [place] [facility] [address] [id number] [place] [address]- 8012 Oct, [facility] [place] [facility] [address] [id number] [place] [address]- 2187 Oct, [facility] [place] [facility] [address] [id number] [place] [address]- 2589 Sep, [facility] [place] [facility] [address] [id number] [place] [address]- 4866 Sep, [facility] [place] [facility] [address] [id number] [place] [address]- 2942 Jul, [facility] [place] [facility] [address] [id number] [place] [address]- 2680 Jul, [facility] [place] [facility] [address] [id number] [place] [address]- 4151 Jul, [facility] [place] [facility] [address] [id number] [address]- 0495 Jul, [facility] [place] [facility] [address] [id number] [place] [address]- 5937 Jun, [facility] [place] [facility] [address] [id number] [place] [address]- 3250 Jun, [facility] [place] [facility] [address] [id number] [place] [address] Jun, [facility] [place] [facility] [address] [facility] [id number] [address]- 2546 Jun, [facility] [address] [id number] [address]- 0166 Jun, [facility] [id number] [address] 2546 Jun, [facility] [id number] [address] 2547 May, [facility] [id number] [address]- 5464 May, [facility] [id number] [address]- 6305 Mar, IMMUNIZATIONS No Known Immunizations SOCIAL HISTORY Never Assessed REASON FOR VISIT Inform Pt. of prescription, [facility] tx PLAN OF CARE VITAL SIGNS MEDICATIONS Unknown [...]
--- OUTSIDE RECORDS SUMMARY | 2018-01-29 15:27 | XMS REPORT ---
Author Author GLADIS KESSLER [facility] eClinical[employer] Address Unknown Phone Unavailable Care Team Providers Care Rickshaw Driver Name Role Phone GLADIS KESSLER CP Unavailable Allergies, Adverse Reactions, Alerts Substance Reaction Event Type Crestor Unknown reaction Came from previous clinic Drug Allergy Niaspan Extended-release Unknown reaction. Came from previous clinic Non Drug Allergy Problems Problem Type Condition Code Onset Dates Condition Status Assessment Diabetes E11.9 Active Problem Other and unspecified hyperlipidemia 272.4 Active [...] Instructions Start Date End Date Status Dosage pantoprazole ND 0 40 mg Apr 19, 2013 take 1 tablet (40 mg) by oral route once daily Vitamin E [facility] [address] 1,000 unit Jun 27, 2013 1 Capsule 1 time per day Bydureon [facility] [address]-41 2 MG Subcutaneous Once a week Jun 13, 2015 as directed Imiquimod [facility] [address]-78 5 % Externally twice weekly with 3 days between shampoos Jul 17, 2015 1 application to affected area at bedtime Lipitor [facility] [address]-61 40 MG Orally Once a day March 23, [address] [facility] 21032321480 1000 MG TAKE 1 TABLET BY ORAL ROUTE 2 TIMES PER DAY WITH MORNING AND EVENING MEALS Gabapentin [facility] [address]-16 300 MG Orally at HS for 7 days the 2 times a day Jun 19, 2015 [address] [facility] 50414639273 40 MG TAKE 1 TABLET BY ORAL ROUTE 1 TIME PER DAY Amaryl [facility] [address]-51 4 MG 2 times a day 1 TABLET BY ORAL ROUTE Neurontin [facility] [address]-71 300 MG Orally Three times a day 1 capsule Levothyroxine Sodium [facility] [address]-68 125 MCG Orally 1 TABLET BY ORAL ROUTE 1 TIME PER DAY Ativan [facility] [address]-36 0.5 MG Orally Twice a day 1 tablet as needed Vitamin D3 [facility] 27866-[address]19 1,000 unit Jun 27, 2013 1 Capsule 1 time per day Atenolol [facility] 00998844956 100 Orally Once a day 1 tablet Procedures Procedure Coding System Code Date Office Visit, Est Pt., Level 3 CPT-4 98624 Jul 26, 2015 MICROALBUMIN, SEMIQUANT CPT-4 44415 Jul 26, 2015 Vital Signs Date/Time: Jul 26, 2015 Temperature 97.5 F Weight 301.6 lbs Height 71 in BMI 42.06 Index Blood Pressure Diastolic 76 mmHg Blood Pressure Systolic 140 mmHg Cardiac Monitoring Heart Rate 88 bpm Results No Known Results Summary Purpose eClinicalWorks Submission
--- OUTSIDE RECORDS SUMMARY | 2018-01-29 15:27 | XMS REPORT ---
Author THONY Chavez [facility] eClinicalWorks Address Unknown Phone Unavailable Care Team Providers Care Sanitation Officer Name Role Phone THONY PEREZ CP Unavailable Allergies, Adverse Reactions, Alerts Substance Reaction Event Type Crestor Unknown reaction Came from previous clinic Drug Allergy Niaspan Extended-release Unknown reaction. Came from previous clinic Non Drug Allergy Problems Problem Type Condition Code Onset Dates Condition Status Assessment Anogenital (venereal) warts A63.0 Active Problem Other and unspecified hyperlipidemia 272.4 [...] Instructions Start Date End Date Status Dosage Ativan [facility] [address]-63 0.5 MG Orally Twice a day 1 tablet as needed Glucophage [facility] 92386537845 1000 MG TAKE 1 TABLET BY ORAL ROUTE 2 TIMES PER DAY WITH MORNING AND EVENING MEALS [place]-3 Fatty Acids NDC 0 500 mg January 30, 2014 3 Capsule 1 time per day Levothyroxine Sodium [facility] [address]-20 125 MCG Orally 1 TABLET BY ORAL ROUTE 1 TIME PER DAY Vitamin E [facility] 18238-99871 1,000 unit Jun 27, 2013 1 Capsule 1 time per day Imiquimod [facility] [address]-25 5 % Externally twice weekly with 3 days between shampoos Jul 17, 2015 1 application to affected area at bedtime Vitamin D3 [facility] 48887-[address]2320 1,000 unit Jun 27, 2013 1 Capsule 1 time per day Lipitor [facility] [address]-54 40 MG Orally Once a day March 23, 2015 1 tablet pantoprazole [place] 0 40 mg Apr 19, 2013 take 1 tablet (40 mg) by oral route once daily Lisinopril [facility] 24290811231 40 MG TAKE 1 TABLET BY ORAL ROUTE 1 TIME PER DAY Gabapentin [facility] [address]-21 300 MG Orally 2 times a day Jun 19, 2015 1 capsule Atenolol [facility] 36114436082 100 Orally Once a day 1 tablet Amaryl [facility] [address]-29 4 MG 2 times a day 1 TABLET BY ORAL ROUTE Bydureon [facility] [address]-85 2 MG Subcutaneous Once a week Jun 13, 2015 as directed Procedures Procedure Coding System Code Date DESTRUCT LESION, 09-06 CPT-4 52239 Aug 21, 2015 Vital Signs Date/Time: Aug 21, 2015 Temperature 97.6 F Weight 306.7 lbs Height 71 in BMI 42.77 Index Blood Pressure Diastolic 82 mmHg Blood Pressure Systolic 160 mmHg Cardiac Monitoring Heart Rate 80 bpm Results Name Result Date Reference Range Unit Abnormality Flag WART DESTRUCT 09-06 ([facility]) Summary Purpose eClinicalWorks Submission
--- OUTSIDE RECORDS SUMMARY | 2018-01-29 15:27 | XMS REPORT ---
Author THONY Chavez [facility] eClinical[employer] Address Unknown Phone Unavailable Care Team Providers Care Purchasing Contracting Clerk Name Role Phone THONY PEREZ CP Unavailable Allergies, Adverse Reactions, Alerts Substance Reaction Event Type Crestor Unknown reaction Came from previous clinic Drug Allergy Actos kidney pain Drug Allergy Niaspan Extended-release Unknown reaction. Came from previous clinic Non Drug Allergy Problems Problem Type Condition Code Onset Dates Condition Status Problem Pure hypercholesterolemia 272.0 Active Problem Essential hypertension, benign 401.1 Active Problem Diabetes mellitus without mention of complication, type II or unspecified type, uncontrolled 250.02 Active Problem Other chronic pain G89.29 Active Problem Anxiety disorder, unspecified F41.9 Active Problem Diabetes E11.9 Active Problem Anxiety state, unspecified 300.00 Active Problem Generalized anxiety disorder 300.02 Active Problem Condyloma acuminatum 078.11 Active Problem Diabetes mellitus without mention of complication, type II or unspecified type, not stated as uncontrolled 250.00 Active Assessment Bronchitis J40 Active Problem Unspecified hereditary and idiopathic peripheral neuropathy 356.9 Active Problem Other and unspecified hyperlipidemia 272.4 Active Medications Medication Code System Code Instructions Start Date End Date Status Dosage pantoprazole NDC 0 40 mg Apr 19, 2013 take 1 tablet (40 mg) by oral route once daily Gabapentin [facility] 47523372923 300 TAKE 1 CAPSULE BY MOUTH EVERY NIGHT AT BEDTIME FOR 7 DAYS, THEN TAKE 1 CAPSULE BY MOUTH TWICE DAILY Glucophage [facility] 06381056707 1000 MG TAKE 1 TABLET BY ORAL ROUTE 2 TIMES PER DAY WITH MORNING AND EVENING MEALS Amaryl [facility] 00446214846 4 MG 2 times a day 1 TABLET BY ORAL ROUTE 1 TIME PER DAY Atenolol [facility] [address]-56 100 TAKE 1 TABLET BY MOUTH DAILY Vitamin E [facility] [address]67 1,000 unit Jun 27, 2013 1 Capsule 1 time per day Cyclobenzaprine HCl [facility] [address]-99 10 mg Orally every 8 hours, PRN May 14, 2016 1 tablet Levothyroxine Sodium [facility] 80384001387 125 MCG Orally 1 TABLET BY ORAL ROUTE 1 TIME PER DAY Ativan [facility] [address]-77 0.5 MG Orally Twice a day 1 tablet as needed Actos [facility] [address]-46 30 MG Orally Once a day May 14, 2016 1 tablet Lipitor [facility] [address]-90 40 MG Orally Once a day March 23, 2015 1 tablet PredniSONE [facility] [address]-77 20 mg Orally Once a day Jul 19, 2016 Jul 24, 2016 2 tablets Lisinopril [facility] 51199527576 40 MG TAKE 1 TABLET BY ORAL ROUTE 1 TIME PER DAY Amoxicillin [facility] [address]-34 500 MG Orally 3 times a day Jul 19, 2016 Jul 29, 2016 1 capsule Glentana-3 Fatty Acids [facility] 0 500 mg January 30, 2014 3 Capsule 1 time per day Vitamin D3 [facility] 65471-[address]42 1,000 unit Jun 27, 2013 1 Capsule 1 time per day Norvasc [facility] [address]-92 10 mg Orally Once a day May 14, 2016 1 tablet Procedures Procedure Coding System Code Date Office Visit, Est Pt., Level 3 CPT-4 32616 Jul 19, 2016 Vital Signs Date/Time: Jul 19, 2016 Cardiac Monitoring Heart Rate 88 bpm Weight 301.4 lbs Height 71 in BMI 42.03 Index Blood Pressure Diastolic 84 mmHg Blood Pressure Systolic 142 mmHg Results No Known Results Summary Purpose eClinicalWorks Submission
--- OUTSIDE RECORDS SUMMARY | 2018-01-29 15:28 | XMS REPORT ---
Author Author ABIGAIL DENNIS [facility] Address [address] [place] [address] Care Team Providers Care Surgery Aide Name Role Phone ABIGAIL DENNIS Unavailable PROBLEMS Type Condition ICD9-CM Code XIM74-RX Code Onset Dates Condition Status SNOMED Code Problem Anxiety disorder, unspecified F41.9 Active 785260902 Problem Other chronic pain G89.29 Active 98232306 Problem Diabetes E11.9 Active 305368316 Problem Hypercholesterolemia E78.00 Active 40867604 Problem Type 2 diabetes mellitus with diabetic autonomic neuropathy, without long-term current use of insulin E11.43 Active 85204537 Problem Essential hypertension I10 Active 04631507 Problem Acute recurrent maxillary sinusitis J01.01 Active 31031871 Problem Cough R05 Active 70729508 Problem Hypothyroidism, unspecified E03.9 Active 43247546 Problem COPD exacerbation J44.1 Active 832007877 Problem Cannabis use disorder, moderate, dependence F12.20 Active 95720973 Problem Type 2 diabetes mellitus with complication E11.8 Active 111409682 ALLERGIES No Information ENCOUNTERS Encounter Location Date Diagnosis [facility] [address] [address] Jan, [facility] [address] [address] 30 Nov, 2017 Seasonal allergic rhinitis, unspecified trigger J30.2 and BMI 40.0-44.9, adult Z68.41 [facility] [address] [address] 16 Nov, 2017 Acute recurrent maxillary sinusitis J01.01 ; Cough R05 and BMI 40.0-44.9, adult Z68.41 [facility] [address] [place] [address] Oct, Cannabis use disorder, moderate, dependence F12.20 [facility] [address] [place] [address] Oct, Cannabis use disorder, moderate, dependence F12.20 [facility] [address] [place] [address] Oct, Cannabis use disorder, moderate, dependence F12.20 [facility] [address] [place] [address] Oct, Cannabis use disorder, moderate, dependence F12.20 [facility] [address] [place] [address] Oct, Cannabis use disorder, moderate, dependence F12.20 [facility] [address] [place] [address] Sep, Cannabis use disorder, moderate, dependence F12.20 [facility] [address] [place] [address] Sep, Anxiety disorder, unspecified F41.9 and Other chronic pain G89.29 [facility] [address] [place] [address] Sep, Bronchitis J40 [facility] [address] [place] [address] 08 Sep, 2017 Cannabis use disorder, moderate, dependence F12.20 [facility] [address] [place] [address] Sep, Cannabis use disorder, moderate, dependence F12.20 [facility] [address] [place] [address] Aug, Other chronic pain G89.29 [facility] [address] [place] [address] Aug, Cannabis use disorder, moderate, dependence F12.20 [facility] [address] [place] [address] Aug, Cannabis use disorder, moderate, dependence F12.20 [facility] [address] [place] [address] Aug, Cannabis use disorder, moderate, dependence F12.20 [facility] [address] [place] [address] Aug, Cannabis use disorder, moderate, dependence F12.20 [facility] [address] [place] [address] [address] Aug, Anxiety disorder, unspecified F41.9 [place] [address] [address] Jul, Other chronic pain G89.29 [facility] [address] [place] [address] Jul, Cannabis use disorder, moderate, dependence F12.20 [facility] [address] [place] [address] Jul, Cannabis use disorder, moderate, dependence F12.20 [facility] [facility] [address] [address] Jul, Diabetes E11.9 ; Blood in stool K92.1 ; Arthralgia, unspecified joint M25.50 and BMI 40.0-44.9, adult Z68.[address] [address] Jun, Other chronic pain G89.29 [place] [address] [address] Jun, [facility] [address] [place] [address] Jun, [place] [address] [address] Jun, Other chronic pain G89.[address] [address] Jun, [facility] [address] [place] [address] Jun, Cannabis use disorder, moderate, dependence F12.20 [place] [address] [address] May, Anxiety disorder, unspecified F41.9 [facility] [address] [place] [address] May, Cannabis use disorder, moderate, dependence F12.20 [place] [address] [address] May, [facility] [address] [place] [address] May, Cannabis use disorder, moderate, dependence F12.20 [facility] [address] [place] [address] May, [facility] [address] [place] [address] May, [facility] [address] [place] [address] May, [facility] [address] [address] May, Other chronic pain G89.29 [facility] [address] [address] May, [facility] [address] [address] May, Type 2 diabetes mellitus with complication E11.8 and Encounter for immunization Z23 [facility] [address] [place] [address] May, Cannabis use disorder, moderate, dependence F12.20 [facility] [address] [address] 02 May, 2017 Essential hypertension I10 [facility] [address] [address] 30 Apr, 2017 Essential hypertension I10 [facility] [address] [address] 29 Apr, 2016 Diabetes E11.9 [facility] [id number] [place] [address] 18 Apr, 2016 [facility] [address] [address] 15 Apr, 2017 [facility] [address] [address] 15 Apr, 2016 [facility] [address] [place] [address] 13 Apr, 2016 Other psychoactive substance abuse, uncomplicated F19.10 [facility] [address] [address] 13 Apr, 2017 [facility] [id number] [place] [address] 12 Apr, 2017 [facility] [id number] [place] [address] 270[address] 12 Apr, 2017 Anxiety disorder, unspecified F41.9 [facility] [id number] [place] [address] 08 Apr, 2017 [facility] [address] [id number] [place] [address] 06 Apr, 2017 Diabetes E11.9 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 [facility] [facility] [id number] [place] [address] 16 Mar, 2017 Other chronic pain G89.29 and Diabetes E11.9 [facility] [id number] [place] [address] Mar, Diabetes E11.9 [facility] [id number] [place] [address] Feb, Anxiety disorder, unspecified F41.9 [place] [address] [place] [address] Jan, [facility] [id number] [place] [address] Jan, [facility] [address] [place] [address] December, Anxiety disorder, unspecified F41.9 [facility] [id number] [place] [address]- 2558 Oct, Diabetes E11.9 and Hypothyroidism, unspecified E03.9 [facility] [address] [address] Oct, Anxiety disorder, unspecified F41.9 [facility] [address] [place] [address] Aug, Bronchitis J40 and Shortness of breath R06.02 [facility] [id number] [place] [address] Jul, [facility] [id number] [place] [address] Jul, Back pain, unspecified back location, unspecified back pain laterality, unspecified chronicity M54.9 [facility] [id number] [place] [address]- 0627 Jul, Anxiety disorder, unspecified F41.9 [facility] [id number] [place] [address]- 5467 Jul, Essential hypertension I10 [place] [id number] [place] [address]- 2604 Jun, [facility] [id number] [place] [address] Jun, Bronchitis J40 [facility] [id number] [place] [address] 13085- 6361 Jun, [facility] [id number] [place] [address] 80[address]- 8381 Jun, Diabetes E11.9 ; Dorsalgia, unspecified M54.9 ; Other chronic pain G89.29 and 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 [facility] [id number] [place] [address] 3630 May, Anxiety disorder, unspecified F41.9 [facility] [id number] [place] [address]- 2397 Apr, Type 2 diabetes mellitus with complication E11.8 ; Essential hypertension I10 ; Tooth pain K08.8 and Back pain, unspecified back location, unspecified back pain laterality, unspecified chronicity M54.9 [place] [id number] [place] [address] 71767- 0865 Feb, Anxiety disorder, unspecified F41.9 [facility] [id number] [place] [address] 30775- 5[address] December, [facility] [id number] [place] [address] 57729- 6376 December, [facility] [id number] [place] [address] 90552- 8960 December, Diabetes E11.9 ; Insect bite (nonvenomous) of abdominal wall , initial encounter S30.861A and Bitten or stung by nonvenomous insect and other nonvenomous arthropods, initial encounter W57.XXXA [facility] [id number] [place] [address] 42420- 2310 Nov, [facility] [id number] [place] [address] 6[address]- 8538 Sep, Genital warts A63.0 [facility] [address] [place] [address] 47861- 9681 Aug, [facility] [id number] [place] [id number] Aug, Diabetes type 2, uncontrolled 250.02 and Hypothyroid 244.9 [facility] [address] [place] [address] 98427- 7127 Jul, Anogenital (venereal) warts A63.0 [facility] [address] [place] [address] 82825- 7995 Jul, [facility] [address] [place] [address] [id number] [place] [address] 15736- 7071 Jul, Diabetes E11.9 [facility] [address] [id number] [place] [address] 92001- 1011 Jun, Genital warts A63.0 [facility] [address] [address] [id number] [place] [address] 18266- 7051 Jun, [facility] [id number] [address] Jun, [facility] [address] [address] May, [facility] [address] [address]- [address] May, [facility] [address] [address] May, Type 2 diabetes mellitus with complication E11.8 and Upper respiratory tract infection, unspecified upper respiratory infection J06.9 [facility] [address] [address] Apr, Genital warts 078.11 [facility] [address] [address] Feb, Hypothyroid 244.9 and Diabetes type 2, uncontrolled 250.02 [address] [id number] Feb, Diabetes type 2, uncontrolled 250.02 and Hypothyroid 244.9 [facility] [address] [address]- 0[address] Feb, Diabetes type 2, uncontrolled 250.02 and Hypothyroid 244.9 [facility] [id number] [address]- [address] Jan, [facility] [id number] [address]- [address] Jan, [facility] [address] [place] [address] Nov, [facility] [address] [address]- [address] Nov, [facility] [id number] [address]- [address] Nov, [facility] [address] [facility] [id number] [place] [address] Oct, [facility] [place] [facility] [address] [id number] [place] [address]- 7451 Oct, [facility] [place] [facility] [address] [id number] [place] [address]- 4451 Oct, [facility] [place] [facility] [address] [id number] [place] [address]- 5175 Sep, [facility] [place] [facility] [address] [id number] [place] [address]- 0165 Sep, [facility] [place] [facility] [address] [id number] [place] [address]- 4013 Sep, [facility] [place] [facility] [address] [id number] [place] [address]- 2055 Sep, [facility] [place] [facility] [address] [id number] [place] [address]- 6089 Sep, [facility] [place] [facility] [address] [id number] [place] [address]- 1769 Sep, [facility] [place] [facility] [address] [facility] [id number] [place] [address]- 5343 Aug, [facility] [place] [facility] [address] [id number] [place] [address]- 1718 Aug, [facility] [place] [facility] [address] [id number] [place] [address]- 6319 Aug, [facility] [place] [facility] [address] [id number] [place] [address]- 6604 Aug, [facility] [place] [facility] [address] [id number] [place] [address]- 4357 Aug, [facility] [place] [facility] [address] [id number] [place] [address]- 8737 Aug, [facility] [place] [facility] [address] [id number] [place] [address]- 4762 Aug, [facility] [place] [facility] [address] [id number] [place] [address]- 2587 Aug, [facility] [place] [facility] [address] [id number] [place] [address]- 2719 Jun, [facility] [place] [facility] [address] [id number] [place] [address]- 8975 Jun, [facility] [place] [facility] [address] [id number] [place] [address]- 0306 Jun, [facility] [place] [facility] [address] [id number] [place] [address]- 0920 Jun, [facility] [place] [facility] [address] [id number] [place] [address]- 9978 Jun, [facility] [place] [facility] [address] [id number] [place] [address]- 4179 May, [facility] [place] [facility] [address] [id number] [place] [address]- 7837 May, [facility] [place] [facility] [address] [id number] [place] [address]- 3362 Apr, [facility] [place] [facility] [address] [id number] [place] [address]- 8494 Apr, [facility] [place] [facility] [address] [id number] [place] [address]- 4176 Apr, [facility] [place] [facility] [address] [id number] [place] [address]- 9922 Apr, [facility] [place] [facility] [address] [id number] [place] [address]- 3795 Mar, [facility] [place] [facility] [address] [id number] [place] [address]- 7675 Mar, [facility] [place] [facility] [address] [id number] [place] [address]- 3753 Mar, [facility] [place] [facility] [address] [id number] [place] [address]- 1042 Mar, [facility] [address] [id number] [place] [address]- 8084 Mar, [facility] [place] [facility] [address] [id number] [place] [address]- 5673 Mar, [facility] [place] [facility] [address] [id number] [place] [address]- 6326 Feb, [facility] [place] [facility] [address] [id number] [place] [address]- 5651 Feb, [facility] [place] [facility] [address] [id number] [place] [address]- 1628 Jan, [facility] [place] [facility] [address] [id number] [place] [address]- 7825 Jan, [facility] [place] [facility] [address] [id number] [place] [address]- 5329 Jan, [facility] [address] [id number] [place] [address]- 5168 Jan, [facility] [place] [facility] [address] [id number] [place] [address]- 0173 December, [facility] [address] [id number] [place] [address]- 6471 December, [facility] [place] [facility] [address] [id number] [place] [address]- 6335 December, [facility] [place] [facility] [address] [id number] [place] [address]- 5093 December, [facility] [place] [facility] [address] [id number] [place] [address]- 5602 December, [facility] [place] [facility] [address] [id number] [place] [address]- 6302 Nov, [facility] [place] [facility] [address] [id number] [place] 132[address] Nov, [facility] [address] [id number] [place] [address]- 8308 Oct, [facility] [place] [facility] [address] [id number] [place] [address]- 1457 Oct, [facility] [place] [facility] [address] [id number] [place] [address]- 9164 Oct, [facility] [place] [facility] [address] [id number] [place] [address]- 4120 Oct, [facility] [place] [facility] [address] [id number] [place] [address]- 3315 Oct, [facility] [place] [facility] [address] [id number] [place] [address]- 9440 Oct, [facility] [place] [facility] [address] [id number] [place] [address]- 3050 Sep, [facility] [place] [facility] [address] [id number] [place] [address]- 3756 Sep, [facility] [place] [facility] [address] [id number] [place] [address]- 7471 Jul, [facility] [place] [facility] [address] [id number] [place] [address]- 2568 Jul, [facility] [place] [facility] [address] [id number] [place] [address]- 8495 Jul, [facility] [place] [facility] [address] [id number], [place] [address]- 6902 Jul, [facility] [place] [facility] [address] [id number] [place] [address]- 4506 Jun, [facility] [place] [facility] [address] [id number] [place] [address]- 3288 Jun, [facility] [place] [facility] [address] [id number] [place] [id number] Jun, [facility] [place] [facility] [address] [facility] [place] [id number], [place] [address] Jun, [facility] [address] [id number] [address] Jun, [facility] [address] [id number], [place] [address] Jun, [facility] [address] [facility] [id number], [place] [address] May, [facility] [address] [id number], [place] [address] May, [facility] [address] [id number], [place] [address] Mar, IMMUNIZATIONS No Known Immunizations SOCIAL HISTORY Never Assessed REASON FOR VISIT SUBAB INTAKE PLAN OF CARE Activity Details Follow Up 1 Week Reason: VITAL SIGNS MEDICATIONS Unknown Medications RESULTS No Results PROCEDURES Procedure Date Ordered Result Body Site Alcohol and/or drug services May 27, 2017 INSTRUCTIONS MEDICATIONS ADMINISTERED No [...]
--- OUTSIDE RECORDS SUMMARY | 2018-01-29 15:28 | XMS REPORT ---
Author Author ABIGAIL DENNIS [facility] Address [address] [place] [address] Care Team Providers Care Statistics Professor Name Role Phone ABIGAIL DENNIS Unavailable PROBLEMS Type Condition ICD9-CM Code TUY10-WN Code Onset Dates Condition Status SNOMED Code Problem Anxiety disorder, unspecified F41.9 Active 668974686 Problem Other chronic pain G89.29 Active 65834909 Problem Diabetes E11.9 Active 603858715 Problem Hypercholesterolemia E78.00 Active 36721634 Problem Type 2 diabetes mellitus with diabetic autonomic neuropathy, without long-term current use of insulin E11.43 Active 69092673 Problem Essential hypertension I10 Active 82370161 Problem Acute recurrent maxillary sinusitis J01.01 Active 24606440 Problem Cough R05 Active 94807357 Problem Hypothyroidism, unspecified E03.9 Active 28112571 Problem COPD exacerbation J44.1 Active 832955232 Problem Cannabis use disorder, moderate, dependence F12.20 Active 61042315 Problem Type 2 diabetes mellitus with complication E11.8 Active 993905650 ALLERGIES No Information ENCOUNTERS Encounter Location Date Diagnosis [facility] [address] [address] Jan, [facility] [address] [address] 30 Nov, 2017 Seasonal allergic rhinitis, unspecified trigger J30.2 and BMI 40.0-44.9, adult Z68.41 [facility] [address] [address] 16 Nov, 2017 Acute recurrent maxillary sinusitis J01.01 ; Cough R05 and BMI 40.0-44.9, adult Z68.41 [facility] [address] [place] [address] Oct, Cannabis use disorder, moderate, dependence F12.20 [facility] [address] [place] [address] Oct, Cannabis use disorder, moderate, dependence F12.20 [facility] [address] [place] [address] Oct, Cannabis use disorder, moderate, dependence F12.20 [facility] [address] [place] [address] Oct, Cannabis use disorder, moderate, dependence F12.20 [facility] [address] [place] [address] Oct, Cannabis use disorder, moderate, dependence F12.20 [facility] [address] [place] [address] Sep, Cannabis use disorder, moderate, dependence F12.20 [facility] [address] [place] [address] Sep, Anxiety disorder, unspecified F41.9 and Other chronic pain G89.29 [facility] [address] [place] [address] Sep, Bronchitis J40 [facility] [address] [place] [address] 08 Sep, 2017 Cannabis use disorder, moderate, dependence F12.20 [facility] [address] [place] [address] Sep, Cannabis use disorder, moderate, dependence F12.20 [facility] [address] [place] [address] Aug, Other chronic pain G89.29 [facility] [address] [place] [address] Aug, Cannabis use disorder, moderate, dependence F12.20 [facility] [address] [place] [address] Aug, Cannabis use disorder, moderate, dependence F12.20 [facility] [address] [place] [address] Aug, Cannabis use disorder, moderate, dependence F12.20 [facility] [address] [place] [address] Aug, Cannabis use disorder, moderate, dependence F12.20 [facility] [address] [place] [address] [address] Aug, Anxiety disorder, unspecified F41.9 [facility] [address] [address] Jul, Other chronic pain G89.29 [facility] [address] [place] [address] Jul, Cannabis use disorder, moderate, dependence F12.20 [facility] [address] [place] [address] Jul, Cannabis use disorder, moderate, dependence F12.20 [facility] [address] [address] Jul, Diabetes E11.9 ; Blood in stool K92.1 ; Arthralgia, unspecified joint M25.50 and BMI 40.0-44.9, adult Z68.[address] [address] Jun, Other chronic pain G89.29 [facility] [address] [address] Jun, [facility] [address] [place] [address] Jun, [facility] [address] [address] Jun, Other chronic pain G89.[address] [address] Jun, [facility] [address] [place] [address] Jun, Cannabis use disorder, moderate, dependence F12.20 [facility] [address] [address] May, Anxiety disorder, unspecified F41.9 [facility] [address] [place] [address] May, Cannabis use disorder, moderate, dependence F12.20 [facility] [address] [address] May, [facility] [address] [place] [address] May, Cannabis use disorder, moderate, dependence F12.20 [facility] [address] [place] [address] May, [facility] [address] [place] [address] May, [facility] [address] [place] [address] May, [facility] [address] [address] May, Other chronic pain G89.29 [facility] [address] [address] May, [facility] [address] [address] May, Type 2 diabetes mellitus with complication E11.8 and Encounter for immunization Z23 [facility] [address] [place] [address] May, Cannabis use disorder, moderate, dependence F12.20 [facility] [address] [address] 02 May, 2017 Essential hypertension I10 [facility] [address] [address] 30 Apr, 2017 Essential hypertension I10 [facility] [address] [address] 29 Apr, 2016 Diabetes E11.9 [facility] [address] [place] [id number] [place] [address] 18 Apr, 2016 [facility] [address] [address] 15 Apr, 2017 [facility] [address] [address] 15 Apr, 2016 [facility] [address] [place] [address] 13 Apr, 2016 Other psychoactive substance abuse, uncomplicated F19.10 [facility] [address] [address] 13 Apr, 2017 [facility] [address] [place] [id number] [place] [address] 12 Apr, 2017 [facility] [address] [id number] [place] [address] 12 Apr, 2017 Anxiety disorder, unspecified F41.9 [facility] [address] [place] [id number] [place] [address] 08 Apr, 2017 [facility] [address] [place] [id number] [place] [address] 06 Apr, 2017 Diabetes E11.9 and emt intermediate (current) use of opiate analgesic Z79.891 [facility] [address] [place] [id number] [place] [address] 16 Mar, 2017 Other chronic pain G89.29 and Diabetes E11.9 [facility] [address] [place] [id number] [place] [address] Mar, Diabetes E11.9 [facility] [address] [place] [id number] [place] [address] Feb, Anxiety disorder, unspecified F41.9 [facility] [address] [place] [address] Jan, [facility] [address] [place] [id number] [place] [address] Jan, [facility] [address] [place] [address] December, Anxiety disorder, unspecified F41.9 [facility] [address] [place] [id number] [place] [address]96[address] Oct, Diabetes E11.9 and Hypothyroidism, unspecified E03.9 [facility] [address], [place] [address] Oct, Anxiety disorder, unspecified F41.9 [facility] [address] [place] [address] Aug, Bronchitis J40 and Shortness of breath R06.02 [facility] [address] [place] [id number] [place] [address] 279[address] Jul, [facility] [address] [place] [id number] [place] [address]88- [address] Jul, Back pain, unspecified back location, unspecified back pain laterality, unspecified chronicity M54.9 [facility] [address] [place] [id number] [place] [address]- 4[address] Jul, Anxiety disorder, unspecified F41.9 [facility] [address] [place] [id number] [place] [address]42[address] 89[address] Jul, Essential hypertension I10 [facility] [address] [place] [id number] [place] [address] 55208- [address]227 Jun, [facility] [address] [id number] [place] [address] Jun, Bronchitis J40 [facility] [address] [place] [id number] [place] [address] 84255- 5687 Jun, [facility] [address] [place] [address] [place] [address] 55054- 1716 Jun, Diabetes E11.9 ; Dorsalgia, unspecified M54.9 ; Other chronic pain G89.29 and 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 [facility] [address] [place] [id number] [place] [address] 80[address]- 20[address] May, Anxiety disorder, unspecified F41.9 [facility] [address] [place] [address] [place] [address] 78656- 4071 Apr, Type 2 diabetes mellitus with complication E11.8 ; Essential hypertension I10 ; Tooth pain K08.8 and Back pain, unspecified back location, unspecified back pain laterality, unspecified chronicity M54.9 [facility] [address] [place] [place] [id number] [place] [address] 47746- 6792 Feb, Anxiety disorder, unspecified F41.9 [facility] [address] [place] [id number] [place] [address] 8[address]40- 1206 December, [facility] [address] [place] [id number] [place] [address] 46902- 3339 December, [facility] [address] [place] [address] [place] [address] 47270- 9660 December, Diabetes E11.9 ; Insect bite (nonvenomous) of abdominal wall , initial encounter S30.861A and Bitten or stung by nonvenomous insect and other nonvenomous arthropods, initial encounter W57.XXXA [facility] [address] [place] [address] [place] [address] 67679- 7941 Nov, [facility] [address] [place] [id number] [place] [address] 77463- 6009 Sep, Genital warts A63.0 [facility] [address] [place] [address] 13720- 5447 Aug, [facility] [id number] [place] [id number] Aug, Diabetes type 2, uncontrolled 250.02 and Hypothyroid 244.9 [facility] [address] [place] [address] 92934- 9490 Jul, Anogenital (venereal) warts A63.0 [facility] [address] [place] [address] 11838- 9945 Jul, [facility] [address] [place] [id number] [place] [address] 34859- 0420 Jul, Diabetes E11.9 [facility] [address] [place] [id number] [place] [address] 29787- 7598 Jun, Genital warts A63.0 [facility] [address] [place] [id number] [place] [address] 95815- 7418 Jun, [facility] [address] [id number], [place] [address] Jun, [facility] [address], [place] [address] May, [facility] [address], [place] [address]- [address] May, [facility] [address] [address] May, Type 2 diabetes mellitus with complication E11.8 and Upper respiratory tract infection, unspecified upper respiratory infection J06.9 [facility] [address], [place] [address]- 8361 Apr, Genital warts 078.11 [facility] [address], [place] [address] 5[address] Feb, Hypothyroid 244.9 and Diabetes type 2, uncontrolled 250.02 [address] [address] Feb, Diabetes type 2, uncontrolled 250.02 and Hypothyroid 244.9 [facility] [address], [place] [address]- 2620 Feb, Diabetes type 2, uncontrolled 250.02 and Hypothyroid 244.9 [facility] [address] [id number] [address] Jan, [facility] [id number] [address]- 8[address] Jan, [facility] [address], [place] [address]- 750[address] Nov, [facility] [address], [place] [address]- 0[address] Nov, [facility] [address] [address] [id number], [place] [address] 1439 Nov, [facility] [address] [facility] [id number] [place] [address]- [address] Oct, [facility] [place] [facility] [address] [id number] [place] [address]- 9794 Oct, [facility] [place] [facility] [address] [id number] [place] [address]- 3895 Oct, [facility] [place] [facility] [address] [id number] [place] [address]- 3035 Sep, [facility] [place] [facility] [address] [id number] [place] [address]- 1759 Sep, [facility] [place] [facility] [address] [id number] [place] [address]- 8543 Sep, [facility] [place] [facility] [address] [id number] [place] [address]- 8522 Sep, [facility] [place] [facility] [address] [id number] [place] [address]- 4502 Sep, [facility] [place] [facility] [address] [id number] [place] [address]- 2919 Sep, [facility] [place] [facility] [address] [facility] [id number] [place] [address]- 3620 Aug, [facility] [place] [facility] [address] [id number] [place] [address]- 7024 Aug, [facility] [place] [facility] [address] [id number] [place] [address]- 6587 Aug, [facility] [place] [facility] [address] [id number] [place] [address]- 6303 Aug, [facility] [place] [facility] [address] [id number] [place] [address]- 0683 Aug, [facility] [place] [facility] [address] [id number] [place] [address]- 2271 Aug, [facility] [place] [facility] [address] [id number] [place] [address]- 9774 Aug, [facility] [place] [facility] [address] [id number] [place] [address]- 8081 Aug, [facility] [place] [facility] [address] [id number] [place] [address]- 8526 Jun, [facility] [place] [facility] [address] [id number] [place] [address]- 0680 Jun, [facility] [place] [facility] [address] [id number] [place] [address]- 3178 Jun, [facility] [place] [facility] [address] [id number] [place] [address]- 5494 Jun, [facility] [place] [facility] [address] [id number] [place] [address]- 6740 Jun, [facility] [place] [facility] [address] [id number] [place] [address]- 1868 May, [facility] [place] [facility] [address] [id number] [place] [address]- 5436 May, [facility] [place] [facility] [address] [id number] [place] [address]- 5240 Apr, [facility] [place] [facility] [address] [id number] [place] [address]- 3422 Apr, [facility] [place] [facility] [address] [id number] [place] [address]- 5424 Apr, [facility] [place] [facility] [address] [id number] [place] [address]- 1683 Apr, [facility] [place] [facility] [address] [id number] [place] [address]- 1953 Mar, [facility] [place] [facility] [address] [id number] [place] [address]- 6014 Mar, [facility] [place] [facility] [address] [id number] [place] [address]- 3016 Mar, [facility] [place] [facility] [address] [id number] [place] [address]- 8208 Mar, [facility] [address] [id number] [place] [address]- 6730 Mar, [facility] [place] [facility] [address] [id number] [place] [address]- 0355 Mar, [facility] [place] [facility] [address] [id number] [place] [address]- 8381 Feb, [facility] [place] [facility] [address] [id number] [place] [address]- 8097 Feb, [facility] [place] [facility] [address] [id number] [place] [address]- 8882 Jan, [facility] [place] [facility] [address] [id number] [place] [address]- 4961 Jan, [facility] [place] [facility] [address] [id number] [place] [address]- 1810 Jan, [facility] [address] [id number] [place] [address]- 2408 Jan, [facility] [place] [facility] [address] [id number] [place] [address]- 5743 December, [facility] [address] [id number] [place] [address]- 5068 December, [facility] [place] [facility] [address] [id number] [place] [address]- 4448 December, [facility] [place] [facility] [address] [id number] [place] [address]- 2939 December, [facility] [place] [facility] [address] [id number] [place] [address]- 9378 December, [facility] [place] [facility] [address] [id number] [place] [address]- 7454 Nov, [facility] [place] [facility] [address] [id number] [place] [address] Nov, [facility] [address] [id number] [place] [address]- 0404 Oct, [facility] [place] [facility] [address] [id number] [place] [address]- 5782 Oct, [facility] [place] [facility] [address] [id number] [place] [address]- 7809 Oct, [facility] [place] [facility] [address] [id number] [place] [address]- 4650 Oct, [facility] [place] [facility] [address] [id number] [place] [address]- 7127 Oct, [facility] [place] [facility] [address] [id number] [place] [address]- 2905 Oct, [facility] [place] [facility] [address] [id number] [place] [address]- 3573 Sep, [facility] [place] [facility] [address] [id number] [place] [address]- 8910 Sep, [facility] [place] [facility] [address] [id number] [place] [address]- 3575 Jul, [facility] [place] [facility] [address] [id number] [place] [address]- 4703 Jul, [facility] [place] [facility] [address] [id number] [place] [address]- 2944 Jul, [facility] [place] [facility] [address] [id number] [address]- 8416 Jul, [facility] [place] [facility] [address] [id number] [place] [address]- 5917 Jun, [facility] [place] [facility] [address] [id number] [place] [address]- 7370 Jun, [facility] [place] [facility] [address] [id number] [place] [address]27 Jun, [facility] [place] [facility] [address] [facility] [id number], [place] [address]- 2546 Jun, [facility] [id number], [place] [address]- 4826 Jun, [facility] [id number], [place] [address]- 2546 Jun, [facility] [id number], [place] [address]- 2546 May, [facility] [id number], [place] [address]- 7321 May, [facility] [id number], [place] [address] 1990 Mar, IMMUNIZATIONS No Known Immunizations SOCIAL HISTORY Never Assessed REASON FOR VISIT Rx information, schedule for next eric't. PLAN OF CARE VITAL SIGNS MEDICATIONS Unknown [...]
--- OUTSIDE RECORDS SUMMARY | 2018-01-29 15:28 | XMS REPORT ---
Author Author GLADIS KESSLER [facility] [employer] Address Unknown Phone Unavailable Care Team Providers Care Press Washer Name Role Phone GLADIS KESSLER CP Unavailable Allergies No Known Allergies Problems Problem Type Condition Code Onset Dates Condition Status Problem Unspecified hereditary and idiopathic peripheral neuropathy 356.9 Active Problem Pure hypercholesterolemia 272.0 Active Problem Other and unspecified hyperlipidemia 272.4 Active Assessment Anxiety disorder, unspecified F41.9 Active Problem Condyloma acuminatum 078.11 Active Problem Diabetes mellitus without mention of complication, type II or unspecified type, not stated as uncontrolled 250.00 Active Problem Anxiety disorder, unspecified F41.9 Active Problem Essential hypertension, benign 401.1 Active Problem Diabetes mellitus without mention of complication, type II or unspecified type, uncontrolled 250.02 Active Problem Anxiety state, unspecified 300.00 Active Problem Generalized anxiety disorder 300.02 Active Medications Medication Code System Code Instructions Start Date End Date Status Dosage Atenolol [facility] 60913675075 100 Orally Once a day 1 tablet Gabapentin [facility] 09813066668 300 TAKE 1 CAPSULE BY MOUTH EVERY NIGHT AT BEDTIME FOR 7 DAYS, THEN TAKE 1 CAPSULE BY MOUTH TWICE DAILY pantoprazole [facility] 0 40 mg Apr 19, 2013 take 1 tablet (40 mg) by oral route once daily Levothyroxine Sodium [facility] 14356190456 125 MCG Orally 1 TABLET BY ORAL ROUTE 1 TIME PER DAY Lipitor [facility] [address]-07 40 MG Orally Once a day March 23, 2015 1 tablet Atenolol [facility] 78998287508 100 MG Orally Once a day 1 tablet Amaryl [facility] [address]-36 4 MG 2 times a day 1 TABLET BY ORAL ROUTE Ativan [facility] [address]-43 0.5 MG Orally Twice a day 1 tablet as needed Invokana [facility] [address]-88 100 MG Orally Once a day January 22, 2016 Apr 21, 2016 1 tablet Lisinopril [facility] [id number] 40 MG TAKE 1 TABLET BY ORAL ROUTE 1 TIME PER DAY Vitamin E [facility] 31221-[address]70 1,000 unit Jun 27, 2013 1 Capsule 1 time per day Vitamin D3 [facility] 27446-[address]423 1,000 unit Jun 27, 2013 1 Capsule 1 time per day Glucophage [facility] [id number] 1000 MG TAKE 1 TABLET BY ORAL ROUTE 2 TIMES PER DAY WITH MORNING AND EVENING MEALS Gabapentin [facility] [address]-78 300 MG Orally 2 times a day January 07, 2016 1 capsule [place]-3 Fatty Acids [facility] 0 500 mg January 30, 2014 3 Capsule 1 time per day Results No Known Results Summary Purpose eClinicalWorks Submission
--- OUTSIDE RECORDS SUMMARY | 2018-01-29 15:29 | XMS REPORT ---
Author Author GLADIS KESSLER Organization [facility] Address [address] [place] [address] Care Team Providers Care Office Technologist Name Role Phone GLADIS KESSLER Unavailable PROBLEMS Type Condition ICD9-CM Code DSA93-WE Code Onset Dates Condition Status SNOMED Code Problem Anxiety disorder, unspecified F41.9 Active 056699958 Problem Other chronic pain G89.29 Active 76124398 Problem Diabetes E11.9 Active 104611558 Problem Hypercholesterolemia E78.00 Active 36741714 Problem Type 2 diabetes mellitus with diabetic autonomic neuropathy, without long-term current use of insulin E11.43 Active 08800598 Problem Essential hypertension I10 Active 85969723 Problem Acute recurrent maxillary sinusitis J01.01 Active 72763741 Problem Cough R05 Active 83115517 Problem Hypothyroidism, unspecified E03.9 Active 88995526 Problem COPD exacerbation J44.1 Active 088421737 Problem Cannabis use disorder, moderate, dependence F12.20 Active 34047691 Problem Type 2 diabetes mellitus with complication E11.8 Active 184295184 ALLERGIES No Information ENCOUNTERS Encounter Location Date Diagnosis [facility] [id number] [place] [address]93- 0482 Jan, [facility] [id number] [place] [address] 83487 -8764 30 Nov, 2017 Seasonal allergic rhinitis, unspecified trigger J30.2 and BMI 40.0-44.9, adult Z68.41 [facility] [address] [address] 16 Nov, 2017 Acute recurrent maxillary sinusitis J01.01 ; Cough R05 and BMI 40.0-44.9, adult Z68.41 [facility] [address] [place] [address] Oct, Cannabis use disorder, moderate, dependence F12.20 [facility] [address] [place] [address] Oct, Cannabis use disorder, moderate, dependence F12.20 [facility] [address] [place] [address] Oct, Cannabis use disorder, moderate, dependence F12.20 [facility] [address] [place] [address] 08 Oct, 2017 Cannabis use disorder, moderate, dependence F12.20 [facility] [address] [address] Oct, Cannabis use disorder, moderate, dependence F12.20 [facility] [address] [place] [address] Sep, Cannabis use disorder, moderate, dependence F12.20 [facility] [address] [place] [address]356- 966 Sep, Anxiety disorder, unspecified F41.9 and Other chronic pain G89.29 [facility] [address] [place] [id number] [place] [address] 484699- 595 Sep, Bronchitis J40 [facility] [address] [place] [address] 08 Sep, 2017 Cannabis use disorder, moderate, dependence F12.20 [facility] [address] [place] [address] Sep, Cannabis use disorder, moderate, dependence F12.20 [facility] [address] [place] [id number] [place] [address]117- 091 Aug, Other chronic pain G89.29 [facility] [address] [place] [address] Aug, Cannabis use disorder, moderate, dependence F12.20 [facility] [address] [place] [address] Aug, Cannabis use disorder, moderate, dependence F12.20 [facility] [address] [place] [address] Aug, Cannabis use disorder, moderate, dependence F12.20 [facility] [address] [place] [address] Aug, Cannabis use disorder, moderate, dependence F12.20 [facility] [address] [place] [address] [place] [address]384- 9770 Aug, Anxiety disorder, unspecified F41.[address] [address]42 Jul, Other chronic pain G89.29 [facility] [address] [place] [address] Jul, Cannabis use disorder, moderate, dependence F12.20 [facility] [address] [place] [address] Jul, Cannabis use disorder, moderate, dependence F12.[address] [address]149 Jul, Diabetes E11.9 ; Blood in stool K92.1 ; Arthralgia, unspecified joint M25.50 and BMI 40.0-44.9, adult Z68.[address] [address] 2631 Jun, Other chronic pain G89.[address] [address]- [address]79 Jun, [facility] [place] [address] [place] [address] Jun, [address] [address]012 Jun, Other chronic pain G89.[address] [address]- 1375 Jun, [facility] [place] [address] [place] [address] Jun, Cannabis use disorder, moderate, dependence F12.[address] 20[address] 9931 May, Anxiety disorder, unspecified F41.9 [facility] [address] [place] [address] May, Cannabis use disorder, moderate, dependence F12.[address] 67256- 8743 May, [facility] [address] [place] [address] May, Cannabis use disorder, moderate, dependence F12.20 [facility] [address] [place] [address] May, [facility] [address] [place] [address] May, [facility] [address] [place] [address] May, [facility] [id number] [place] [address] 41769- 8496 May, Other chronic pain G89.29 [facility] [address] 083987- 7563 May, [facility] [id number] [place] [address] 81417- 8034 May, Type 2 diabetes mellitus with complication E11.8 and Encounter for immunization Z23 [facility] [address] [place] [address] May, Cannabis use disorder, moderate, dependence F12.20 [facility] [id number] [place] [address] 23663- 7471 02 May, 2017 Essential hypertension I10 [facility] [address] [place] [address] 62739- 5959 30 Apr, 2017 Essential hypertension I10 [facility] [address] 18061- 2804 29 Apr, 2016 Diabetes E11.9 [facility] [id number] [place] [address] 39750- 9387 18 Apr, 2017 [facility] [address] 36176- 8576 15 Apr, 2017 [facility] [address] [place] [address] 20736- 7991 15 Apr, 2016 [facility] [address] [place] [address] 13 Apr, 2016 Other psychoactive substance abuse, uncomplicated F19.10 [facility] [address] [address] 13 Apr, 2017 [facility] [address] [place] [address] 26079- 3445 12 Apr, 2017 [facility] [address] [place] [address] 04692- 8410 12 Apr, 2017 Anxiety disorder, unspecified F41.9 [facility] [address] [place] [address] 43731- 3507 08 Apr, 2017 [facility] [address] [place] [address] 28835- 6828 06 Apr, 2017 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 [place] [address] [place] [address] 46818- 8810 16 Mar, 2017 Other chronic pain G89.29 and Diabetes E11.9 [facility] [address] [place] [address] 18854- 3678 Mar, Diabetes E11.9 [facility] [address] [place] [address] 01343- 5057 Feb, Anxiety disorder, unspecified F41.9 [facility] [address] [place] [address] 93175- 9906 Jan, [facility] [address] [place] [address] 39046- 1309 Jan, [facility] [address] [place] [address] 80584- 1630 December, Anxiety disorder, unspecified F41.9 [facility] [address] [place] [address] 57738- 2526 Oct, Diabetes E11.9 and Hypothyroidism, unspecified E03.9 [facility] [address] [place] [address] 29211- 6534 Oct, Anxiety disorder, unspecified F41.9 [facility] [address] [place] [address] 16264 [address]1062 Aug, Bronchitis J40 and Shortness of breath R06.02 [place] [address] [place] [address] 53351- 7968 Jul, [place] [address] 83507- 4544 Jul, Back pain, unspecified back location, unspecified back pain laterality, unspecified chronicity M54.9 [place] [address] 50632- 2567 Jul, Anxiety disorder, unspecified F41.9 [place] [address] 00477- 3168 Jul, Essential hypertension I10 [place] [address] 21268- 8149 Jun, [facility] [address] [place] [address]402 [address]53[address] Jun, Bronchitis J40 [place] [address] 24309- 2952 Jun, [place] [address] [place] [address] 67982- 9420 Jun, Diabetes E11.9 ; Dorsalgia, unspecified M54.9 ; Other chronic pain G89.29 and 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 [place] [address] [place] [address] 40539- 5869 May, Anxiety disorder, unspecified F41.9 [place] [address] [place] [address] 38676- 6540 Apr, Type 2 diabetes mellitus with complication E11.8 ; Essential hypertension I10 ; Tooth pain K08.8 and Back pain, unspecified back location, unspecified back pain laterality, unspecified chronicity M54.9 [place] [address] [address]- 2151 Feb, Anxiety disorder, unspecified F41.9 [facility] [address] [place] [address] 85611- 6092 December, [facility] [address] [place] [address] 69304- 1733 December, [facility] [address] [place] [address] 75725- 3856 December, Diabetes E11.9 ; Insect bite (nonvenomous) of abdominal wall , initial encounter S30.861A and Bitten or stung by nonvenomous insect and other nonvenomous arthropods, initial encounter W57.XXXA [facility] [address] [place] [address] 08112- 5492 Nov, [facility] [address] [place] [address] 59404- 3996 Sep, Genital warts A63.0 [facility] [address] [address]- 3046 Aug, [place] [id number] [place] [address] [id number] Aug, Diabetes type 2, uncontrolled 250.02 and Hypothyroid 244.9 [facility] [address] [address]- 5671 Jul, Anogenital (venereal) warts A63.0 [facility] [address] [address]- 5753 Jul, [facility] [address] [place] [address] 49890- 4195 Jul, Diabetes E11.9 [facility] [address] [address]- 0644 Jun, Genital warts A63.0 [facility] [id number] [place] [address] 11284- 5542 Jun, [facility] [address], [place] [address]- 5443 Jun, [facility] [address] [address]- 7419 May, [facility] [address] [address]- 6517 May, [facility] [address] [place] [address] 65048- 6125 May, Type 2 diabetes mellitus with complication E11.8 and Upper respiratory tract infection, unspecified upper respiratory infection J06.9 [facility] [address] [address]- 1578 Apr, Genital warts 078.11 [facility] [address] [address]- 8317 Feb, Hypothyroid 244.9 and Diabetes type 2, uncontrolled 250.02 [address] [address] Feb, Diabetes type 2, uncontrolled 250.02 and Hypothyroid 244.9 [facility] [address] [address]- 8579 Feb, Diabetes type 2, uncontrolled 250.02 and Hypothyroid 244.9 [facility] [address] [address]- 1581 Jan, [facility] [address] [address]- 8985 Jan, [facility] [address], [place] [address]- 5891 Nov, [facility] [address] [address]- 9077 Nov, [facility] [address] [address]- 0327 Nov, [facility] [place] [facility] [address] [id number] [place] [address]- 1506 Oct, [facility] [place] [facility] [address] [id number] [place] [address]- 7808 Oct, [facility] [place] [facility] [address] [id number] [place] [address]- 6895 Oct, [facility] [place] [facility] [address] [id number] [place] [address]- 0523 Sep, [facility] [place] [facility] [address] [id number] [place] [address]- 7738 Sep, [facility] [place] [facility] [address] [id number] [place] [address]- 3621 Sep, [facility] [place] [facility] [address] [id number] [place] [address]- 6668 Sep, [facility] [place] [facility] [address] [id number] [place] [address]- 2857 Sep, [facility] [place] [facility] [address] [id number] [place] [address]- 7822 Sep, [facility] [place] [facility] [address] [id number] [place] [address]- 0108 Aug, [facility] [place] [facility] [address] [id number] [place] [address]- 4315 Aug, [facility] [place] [facility] [address] [id number] [place] [address]- 1648 Aug, [facility] [place] [facility] [address] [id number] [place] [address]- 9362 Aug, [facility] [place] [facility] [address] [id number] [place] [address]- 2085 Aug, [facility] [place] [facility] [address] [id number] [place] [address]- 5485 Aug, [facility] [place] [facility] [address] [id number] [place] [address]- 7987 Aug, [facility] [place] [facility] [address] [id number] [place] [address]- 4830 Aug, [facility] [place] [facility] [address] [id number] [place] [address]- 0838 Jun, [facility] [place] [facility] [address] [id number] [place] [address]- 1678 Jun, [facility] [place] [facility] [address] [id number] [place] [address]- 8901 Jun, [facility] [place] [facility] [address] [id number] [place] [address]- 8168 Jun, [facility] [place] [facility] [address] [id number] [place] [address]- 4530 Jun, [facility] [place] [facility] [address] [id number] [place] [address]- 0063 May, [facility] [place] [facility] [address] [id number] [place] [address]- 9462 May, [facility] [place] [facility] [address] [id number] [place] [address]- 0352 Apr, [facility] [place] [facility] [address] [id number] [place] [address]- 5895 Apr, [facility] [place] [facility] [address] [id number] [place] [address]- 1790 Apr, [facility] [place] [facility] [address] [id number], [place] [address]- 1113 Apr, [facility] [place] [facility] [address] [id number] [place] [address]- 3949 Mar, [facility] [place] [facility] [address] [id number] [place] [address]- 4108 Mar, [facility] [place] [facility] [address] [id number] [place] [address]- 3198 Mar, [facility] [place] [facility] [address] [id number] [place] [address]- 2255 Mar, [facility] [place] [facility] [address] [id number] [place] [address]- 1673 Mar, [facility] [place] [facility] [address] [id number] [place] [address]- 0708 Mar, [facility] [place] [facility] [address] [id number] [place] [address]- 4606 Feb, [facility] [place] [facility] [address] [id number] [place] [address]- 6351 Feb, [facility] [place] [facility] [address] [id number] [place] [address]- 0697 Jan, [facility] [place] [facility] [address] [id number] [place] [address]- 8271 Jan, [facility] [place] [facility] [address] [id number] [place] [address]- 3144 Jan, [facility] [place] [facility] [address] [id number] [place] [address]- 7060 Jan, [facility] [place] [facility] [address] [id number] [place] [address]- 8309 December, [facility] [place] [facility] [address] [id number] [place] [address]- 9481 December, [facility] [place] [facility] [address] [id number] [place] [address]- 8879 December, [facility] [place] [facility] [address] [id number] [place] [address]- 9277 December, [facility] [place] [facility] [address] [id number] [place] [address]- 6132 December, [facility] [place] [facility] [address] [id number] [place] [address]- 5443 Nov, [facility] [place] [facility] [address] [id number] [place] [address]- 1084 Nov, [facility] [place] [facility] [address] [id number] [place] [address]- 2646 Oct, [facility] [place] [facility] [address] [id number] [place] [address]- 4874 Oct, [facility] [place] [facility] [address] [facility] [id number] [place] [address]- 3971 Oct, [facility] [place] [facility] [address] [id number] [place] [address]- 7797 Oct, [facility] [place] [facility] [address] [id number] [place] [address]- 0150 Oct, [facility] [place] [facility] [address] [id number] [place] [address]- 1211 Oct, [facility] [place] [facility] [address] [facility] [id number] [place] [address]- 2430 Sep, [facility] [place] [facility] [address] [id number] [place] [address]- 2058 Sep, [facility] [place] [facility] [address] [id number] [place] [address]- 2384 Jul, [facility] [place] [facility] [address] [id number] [place] [address]- 8955 Jul, [facility] [place] [facility] [address] [id number], [place] [address]- 4616 Jul, [facility] [place] [facility] [address] [id number], [place] [address]- 5080 Jul, [facility] [place] [facility] [address] [id number] [place] [address]- 1607 Jun, [facility] [place] [facility] [address] [facility] [id number] [place] [address]- 9677 Jun, [facility] [place] [facility] [address] [facility] [id number] [place] [address]- 4155 Jun, [facility] [place] [facility] [address] [facility] [id number], [place] [address]- 2546 Jun, [facility] [address] [facility] [id number], [place] [address]- 2898 Jun, [facility] [id number] [address]- 2546 Jun, [facility] [address] [facility] [id number], [place] [address]- 6163 May, [facility] [id number], [place] [address]- 7476 May, [facility] [address] [facility] [id number], [place] [address]- 4316 Mar, IMMUNIZATIONS No Known Immunizations SOCIAL HISTORY Never Assessed REASON FOR VISIT TOPROL XL note/change PLAN OF CARE VITAL SIGNS MEDICATIONS Medication Instructions Dosage Frequency Start Date End Date Duration Status Metoprolol Tartrate 50 MG Orally Twice a day (Replacing Atenolol during shortage) 1 tablet with food May, 30 days Active RESULTS No Results [...]
--- OUTSIDE RECORDS SUMMARY | 2018-01-29 15:29 | XMS REPORT ---
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
--- OUTSIDE RECORDS SUMMARY | 2018-01-29 15:29 | XMS REPORT ---
Author Author THONY PEREZ [facility] [employer] Address Unknown Phone Unavailable Care Team Providers Care [employer] Name Role Phone THONY PEREZ CP Unavailable Allergies, Adverse Reactions, Alerts Substance Reaction Event Type Crestor Unknown reaction Came from previous clinic Drug Allergy Niaspan Extended-release Unknown reaction. Came from previous clinic Non Drug Allergy Problems Problem Type Condition Code Onset Dates Condition Status Assessment Genital warts A63.0 Active Problem Other and unspecified [...] Instructions Start Date End Date Status Dosage Glucophage [facility] 48563347631 1000 MG TAKE 1 TABLET BY ORAL ROUTE 2 TIMES PER DAY WITH MORNING AND EVENING MEALS Ativan [facility] [address]-15 0.5 MG Orally Twice a day 1 tablet as needed Vitamin D3 [facility] [address]79-[address]80 1,000 unit Jun 27, 2013 1 Capsule 1 time per day Atenolol [facility] 07306049406 100 Orally Once a day 1 tablet Vitamin E [facility] [address]0831-[address]295 1,000 unit Jun 27, 2013 1 Capsule 1 time per day pantoprazole [facility] 0 40 mg Apr 19, 2013 take 1 tablet (40 mg) by oral route once daily Lipitor [facility] [address]-48 40 MG Orally Once a day March 23, 2015 1 tablet Neurontin [facility] [address]-96 300 MG Orally Three times a day 1 capsule Lisinopril [facility] 84106880811 40 MG TAKE 1 TABLET BY ORAL ROUTE 1 TIME PER DAY Levothyroxine Sodium [facility] [address]-51 125 MCG Orally 1 TABLET BY ORAL ROUTE 1 TIME PER DAY Imiquimod [facility] [address]-81 5 % Externally twice weekly with 3 days between shampoos Jul 17, 2015 1 application to affected area at bedtime Bydureon [facility] [address]-60 2 MG Subcutaneous Once a week Jun 13, 2015 as directed Amaryl [facility] [id number] 4 MG 1 TABLET BY ORAL ROUTE 1 TIME PER DAY Gabapentin [facility] [address]-93 300 MG Orally at HS for 7 days the 2 times a day Jun 19, 2015 1 capsule Procedures Procedure Coding System Code Date DESTRUCT LESION, 14 CPT-4 94235 Jul 17, 2015 Vital Signs Date/Time: Jul 17, 2015 Temperature 98.1 F Weight 302.8 lbs Height 71 in BMI 42.23 Index Blood Pressure Diastolic 80 mmHg Blood Pressure Systolic 140 mmHg Cardiac Monitoring Heart Rate 86 bpm Results Name Result Date Reference Range Unit Abnormality Flag WART DESTRUCT -14 ([facility]) Summary Purpose eClinicalWorks Submission
--- OUTSIDE RECORDS SUMMARY | 2018-01-29 15:29 | XMS REPORT ---
Author Author GLADIS KESSLER Organization [facility] Address [address] [place] [address] Care Team Providers Care Nursing Home Assistant Administrator Name Role Phone GLADIS KESSLER Unavailable PROBLEMS Type Condition ICD9-CM Code TDH89-YK Code Onset Dates Condition Status SNOMED Code Problem Anxiety disorder, unspecified F41.9 Active 179122386 Problem Other chronic pain G89.29 Active 94325118 Problem Diabetes E11.9 Active 650543918 Problem Hypercholesterolemia E78.00 Active 32923790 Problem Type 2 diabetes mellitus with diabetic autonomic neuropathy, without long-term current use of insulin E11.43 Active 39601020 Problem Essential hypertension I10 Active 55763554 Problem Acute recurrent maxillary sinusitis J01.01 Active 85283705 Problem Cough R05 Active 50480890 Problem Hypothyroidism, unspecified E03.9 Active 71353639 Problem COPD exacerbation J44.1 Active 162167905 Problem Cannabis use disorder, moderate, dependence F12.20 Active 44060868 Problem Type 2 diabetes mellitus with complication E11.8 Active [id number] ALLERGIES No Information ENCOUNTERS Encounter Location Date Diagnosis [facility] [address], [place] [address] Jan, [facility] [address] [place] [address] Nov, [facility] [id number] [place] [address] 16 Nov, 2017 Acute recurrent maxillary sinusitis J01.01 ; Cough R05 and BMI 40.0-44.9, adult Z68.41 [facility] [address] [place] [address] Oct, Cannabis use disorder, moderate, dependence F12.20 [facility] [address] [place] [address] Oct, Cannabis use disorder, moderate, dependence F12.20 [facility] [address] [place] [address] Oct, Cannabis use disorder, moderate, dependence F12.20 [facility] [address] [place] [address] Oct, Cannabis use disorder, moderate, dependence F12.20 [facility] [address] [place] [address] Oct, Cannabis use disorder, moderate, dependence F12.20 [facility] [address] [place] [address] Sep, Cannabis use disorder, moderate, dependence F12.20 [facility] [address] [place] [address] Sep, Anxiety disorder, unspecified F41.9 and Other chronic pain G89.29 [place] [id number] [place] [address] Sep, Bronchitis J40 [facility] [address] [place] [address] Sep, Cannabis use disorder, moderate, dependence F12.20 [facility] [address] [place] [address] Sep, Cannabis use disorder, moderate, dependence F12.20 [place] [id number] [place] [address] 0827 Aug, Other chronic pain G89.29 [facility] [address] [place] [address] Aug, Cannabis use disorder, moderate, dependence F12.20 [facility] [address] [place] [address] Aug, Cannabis use disorder, moderate, dependence F12.20 [facility] [address] [place] [address] Aug, Cannabis use disorder, moderate, dependence F12.20 [facility] [address] [place] [id number] Aug, Cannabis use disorder, moderate, dependence F12.20 [facility] [address] [place] [id number] [place] [address] Aug, Anxiety disorder, unspecified F41.9 [place] [id number] [place] [address]- [address]26 Jul, Other chronic pain G89.29 [facility] [address] [place] [address] Jul, Cannabis use disorder, moderate, dependence F12.20 [facility] [address] [place] [address] Jul, Cannabis use disorder, moderate, dependence F12.[address] [address] Jul, Diabetes E11.9 ; Blood in stool K92.1 ; Arthralgia, unspecified joint M25.50 and BMI 40.0-44.9, adult Z68.[address] [address] Jun, Other chronic pain G89.[address] [address] Jun, [facility] [address] [place] [address] Jun, [address] [address] Jun, Other chronic pain G89.[address] [address] Jun, [facility] [address] [place] [address] Jun, Cannabis use disorder, moderate, dependence F12.[address] [address] May, Anxiety disorder, unspecified F41.9 [facility] [address] [place] [address] May, Cannabis use disorder, moderate, dependence F12.[address] [address] May, [facility] [address] [place] [address] May, Cannabis use disorder, moderate, dependence F12.20 [facility] [address] [place] [address] May, [facility] [address] [place] [address] May, [facility] [address] [place] [address] May, [facility] [address] [address] May, Other chronic pain G89.29 [facility] [address] [address] May, [facility] [address] [address] May, Type 2 diabetes mellitus with complication E11.8 and Encounter for immunization Z23 [facility] [address] [place] [address] May, Cannabis use disorder, moderate, dependence F12.20 [facility] [address] [address] May, Essential hypertension I10 [facility] [address] [address] 30 Apr, 2017 Essential hypertension I10 [facility] [address] [address] 29 Apr, 2016 Diabetes E11.9 [facility] [address] [address] 18 Apr, 2017 [facility] [address] [place] [id number] [place] [address]- 2[address] 15 Apr, 2017 [facility] [address] [address] 15 Apr, 2017 [facility] [address] [place] [address] 13 Apr, 2017 Other psychoactive substance abuse, uncomplicated F19.10 [facility] [address] [address] 13 Apr, 2017 [facility] [address], [place] [address] Apr, [facility] [address] [place] [id number] [place] [address] 8[address] Apr, Anxiety disorder, unspecified F41.9 [facility] [address] [place] [id number] [place] [address] 78248- 3130 08 Apr, 2017 [facility] [address] [place] [id number] [place] [address] 27267- 0746 Apr, Diabetes E11.9 and 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 [place] [address] [place] [id number] [place] [address] 21272- 6905 Mar, Other chronic pain G89.29 and Diabetes E11.9 [facility] [address] [place] [id number] [place] [address] 9[address]00- 4877 Mar, Diabetes E11.9 [facility] [address] [place] [id number] [place] [address] 36150- 5750 Feb, Anxiety disorder, unspecified F41.9 [facility] [address] [place] [id number] [place] [address] 80229- 5021 Jan, [facility] [address] [place] [address] 46207- 7261 Jan, [facility] [address] [place] [id number] [place] [address] 48655- 2561 December, Anxiety disorder, unspecified F41.9 [facility] [address] [place] [id number] [place] [address] 31322- 5624 Oct, Diabetes E11.9 and Hypothyroidism, unspecified E03.9 [facility] [address] [place] [address] 53060- 0930 Oct, Anxiety disorder, unspecified F41.9 [facility] [address] [place] [address] Aug, Bronchitis J40 and Shortness of breath R06.02 [facility] [address] [place] [id number] [place] [address] 98271- 6862 Jul, [place] [address] [place] [id number] [place] [address] 95370- 0205 Jul, Back pain, unspecified back location, unspecified back pain laterality, unspecified chronicity M54.9 [place] [address] [place] [id number] [place] [address] 35613- 9511 Jul, Anxiety disorder, unspecified F41.9 [place] [address] [place] [id number] [place] [address] 86688- 7229 Jul, Essential hypertension I10 [place] [address] [place] [id number] [place] [address] 21941- 1297 Jun, [facility] [address] [place] [id number] [place] [address] 45868 -3151 Jun, Bronchitis J40 [place] [address] [place] [id number] [place] [address] 13545- 9172 Jun, [place] [address] [place] [id number] [place] [address] 56347- 6933 Jun, Diabetes E11.9 ; Dorsalgia, unspecified M54.9 ; Other chronic pain G89.29 and 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 [place] [address] [place] [id number] [place] [address] 95145- 0994 May, Anxiety disorder, unspecified F41.9 [place] [address] [place] [id number] [place] [address] 03697- 9153 Apr, Type 2 diabetes mellitus with complication E11.8 ; Essential hypertension I10 ; Tooth pain K08.8 and Back pain, unspecified back location, unspecified back pain laterality, unspecified chronicity M54.9 [place] [address] [place] [id number] [place] [address] 32108- 8070 Feb, Anxiety disorder, unspecified F41.9 [facility] [address] [place] [address] 80859- 6520 December, [facility] [address] [place] [id number] [place] [address] 33183- 8805 December, [facility] [address] [place] [id number] [place] [address] 74453- 3171 December, Diabetes E11.9 ; Insect bite (nonvenomous) of abdominal wall , initial encounter S30.861A and Bitten or stung by nonvenomous insect and other nonvenomous arthropods, initial encounter W57.XXXA [facility] [address] [place] [id number] [place] [address] 92997- 3447 Nov, [facility] [address] [place] [id number] [place] [address] 92690- 3805 Sep, Genital warts A63.0 [facility] [address] [place] [id number] [place] [address] 70127- 7199 Aug, [facility] [id number] [place] [id number] Aug, Diabetes type 2, uncontrolled 250.02 and Hypothyroid 244.9 [facility] [address] [place] [id number] [place] [address] 19267- 5368 Jul, Anogenital (venereal) warts A63.0 [facility] [address] [place] [id number] [place] [address] 65323- 2728 Jul, [facility] [address] [place] [id number] [place] [address] 58668- 1972 Jul, Diabetes E11.9 [facility] [address] [place] [id number] [place] [address] 80357- 6499 Jun, Genital warts A63.0 [facility] [address] [place] [id number] [place] [address] 21357- 1200 Jun, [facility] [address] [place] [id number] [place] [address] 95912- 9221 Jun, [facility] [address] [place] [id number] [address] 0649 May, [facility] [address] [address]84 May, [facility] [address], [place] [address]- 9249 May, Type 2 diabetes mellitus with complication E11.8 and Upper respiratory tract infection, unspecified upper respiratory infection J06.9 [facility] [address], [place] [address]- 3276 Apr, Genital warts 078.11 [facility] [address], [place] [address]- 1750 Feb, Hypothyroid 244.9 and Diabetes type 2, uncontrolled 250.02 [place] [id number] [id number] Feb, Diabetes type 2, uncontrolled 250.02 and Hypothyroid 244.9 [facility] [address], [place] [address]- 3582 Feb, Diabetes type 2, uncontrolled 250.02 and Hypothyroid 244.9 [facility] [address], [place] [address]- 6952 Jan, [facility] [address], [place] [address]- 3689 Jan, [facility] [address], [place] [address]- 2783 Nov, [facility] [address], [place] [address]- 9989 14 Nov, 2014 [facility] [address], [place] [address]- 0383 Nov, [facility] [address], [place] [address]- 3481 30 Oct, 2014 [facility] [place] [facility] [address] [id number] [place] [address]- 5846 Oct, [facility] [place] [facility] [address] [id number] [place] [address]9 Oct, [facility] [place] [facility] [address] [id number] [place] [address]- 7831 Sep, [facility] [place] [facility] [address] [id number] [place] [address]- 2512 Sep, [facility] [place] [facility] [address] [id number] [place] [address]- 4410 Sep, [facility] [place] [facility] [address] [id number] [place] [address]- 1087 Sep, [facility] [place] [facility] [address] [facility] [id number] [place] 8753 Sep, [facility] [place] [facility] [address] [facility] [id number] [place] [address]- 8360 Sep, [facility] [place] [facility] [address] [id number] [place] [address]- 2906 Aug, [facility] [place] [facility] [address] [facility] [id number] [place] [address]- 6377 Aug, [facility] [place] [facility] [address] [facility] [id number] [place] [address]- 4545 Aug, [facility] [place] [facility] [address] [id number], [place] [address]- 2081 Aug, [facility] [place] [facility] [address] [id number] [place] [address]- 7430 Aug, [facility] [place] [facility] [address] [id number] [place] [address]- 2196 Aug, [facility] [place] [facility] [address] [id number] [place] [address]- 9846 Aug, [facility] [place] [facility] [address] [id number], [place] [address]- 0054 Aug, [facility] [place] [facility] [address] [id number] [place] [address]- 0721 Jun, [facility] [place] [facility] [address] [id number] [place] [address]- 4395 Jun, [facility] [place] [facility] [address] [id number] [place] [address]- 9878 Jun, [facility] [place] [facility] [address] [id number] [place] [address]- 8669 Jun, [facility] [place] [facility] [address] [id number] [place] [address]- 0923 Jun, [facility] [place] [facility] [address] [id number] [place] [address]- 3721 May, [facility] [place] [facility] [address] [id number] [place] [address]- 2184 May, [facility] [place] [facility] [address] [id number] [place] [address]- 6761 Apr, [facility] [place] [facility] [address] [id number] [place] [address]- 8376 Apr, [facility] [place] [facility] [address] [id number] [place] [address]- 9292 Apr, [facility] [place] [facility] [address] [id number] [place] [address]- 7776 Apr, [facility] [place] [facility] [address] [id number] [place] [address]- 1118 Mar, [facility] [place] [facility] [address] [id number] [place] [address]- 4151 Mar, [facility] [place] [facility] [address] [id number] [place] [address]- 9346 Mar, [facility] [place] [facility] [address] [id number] [place] [address]- 2615 Mar, [facility] [place] [facility] [address] [id number] [place] [address]- 2405 Mar, [facility] [address] [id number] [place] [address]- 8982 Mar, [facility] [place] [facility] [address] [id number] [place] [address]- 5793 Feb, [facility] [place] [facility] [address] [id number] [place] [address]- 5424 Feb, [facility] [place] [facility] [address] [id number] [place] [address]- 5292 Jan, [facility] [place] [facility] [address] [id number] [place] [address]- 5367 Jan, [facility] [place] [facility] [address] [id number] [place] [address]- 1655 Jan, [facility] [place] [facility] [address] [id number] [place] [address]- 3238 Jan, [facility] [address] [id number] [place] [address]- 7166 December, [facility] [place] [facility] [address] [id number] [place] [address]- 9313 December, [facility] [address] [id number] [place] [address]- 0510 December, [facility] [place] [facility] [address] [id number] [place] [address]- 5766 December, [facility] [place] [facility] [address] [id number] [place] [address]- 9342 December, [facility] [place] [facility] [address] [id number] [place] [address]- 2164 Nov, [facility] [place] [facility] [address] [id number] [place] [address]- 6230 Nov, [facility] [place] [facility] [address] [id number] [place] [address]- 3490 Oct, [facility] [place] [facility] [address] [id number] [place] [address]- 7447 Oct, [facility] [place] [facility] [address] [id number] [place] [address]- 7970 Oct, [facility] [place] [facility] [address] [id number] [place] 7128 Oct, [facility] [place] [facility] [address] [id number] [place] [address]- 9259 Oct, [facility] [place] [facility] [address] [id number] [place] [address]- 1499 Oct, [facility] [place] [facility] [address] [id number] [place] [address]- 2901 Sep, [facility] [place] [facility] [address] [id number] [place] [address]- 1910 Sep, [facility] [place] [facility] [address] [id number] [place] [address]- 6638 Jul, [facility] [place] [facility] [address] [id number] [place] [address]- 0956 Jul, [facility] [place] [facility] [address] [id number] [place] [address]- 9174 Jul, [facility] [place] [facility] [address] [id number] [place] [address]- 9332 Jul, [facility] [place] [facility] [address] [id number], [place] [address]- 7953 Jun, [facility] [place] [facility] [address] [id number] [place] [address]- 9835 Jun, [facility] [place] [facility] [address] [id number] [place] [address]- 7851 Jun, [facility] [place] [facility] [address] [id number] [place] [address]- 9216 Jun, [facility] [place] [facility] [address] [facility] [id number] [place] [address] Jun, [facility] [place] [address] [facility] [id number], [place] [address] Jun, [facility] [place] [address] [facility] [id number], [place] [address] May, [facility] [place] [address] [facility] [id number], [place] [address] May, [facility] [place] [address] [facility] [id number], [place] [address] Mar, IMMUNIZATIONS No Known Immunizations SOCIAL HISTORY Never Assessed REASON FOR VISIT [employer] results PLAN OF CARE VITAL SIGNS MEDICATIONS Unknown [...]
--- OUTSIDE RECORDS SUMMARY | 2018-01-29 15:30 | XMS REPORT ---
Author Author GLADIS KESSLER Organization [facility] Address [address] [place] [address] Care Team Providers Care Systems Operator Name Role Phone GLADIS KESSLER Unavailable PROBLEMS Type Condition ICD9-CM Code VCC28-QR Code Onset Dates Condition Status SNOMED Code Problem Anxiety disorder, unspecified F41.9 Active 166296566 Problem Other chronic pain G89.29 Active 12649241 Problem Diabetes E11.9 Active 607408708 Problem Hypercholesterolemia E78.00 Active 85488037 Problem Type 2 diabetes mellitus with diabetic autonomic neuropathy, without long-term current use of insulin E11.43 Active 90867002 Problem Essential hypertension I10 Active 09813488 Problem Acute recurrent maxillary sinusitis J01.01 Active 04673953 Problem Cough R05 Active 35886160 Problem Hypothyroidism, unspecified E03.9 Active 55052712 Problem COPD exacerbation J44.1 Active 227835181 Problem Cannabis use disorder, moderate, dependence F12.20 Active 38674874 Problem Type 2 diabetes mellitus with complication E11.8 Active 347711881 ALLERGIES No Information ENCOUNTERS Encounter Location Date Diagnosis [facility] [address] [address] Jan, [facility] [address] [place] [address] Nov, [facility] [id number] [place] [address] 16 Nov, 2017 Acute recurrent maxillary sinusitis J01.01 ; Cough R05 and BMI 40.0-44.9, adult Z68.41 [facility] [address] [place] [address] Oct, Cannabis use disorder, moderate, dependence F12.20 [facility] [address] [place] [address] Oct, Cannabis use disorder, moderate, dependence F12.20 [facility] [address] [place] [address] Oct, Cannabis use disorder, moderate, dependence F12.20 [facility] [address] [place] [address] Oct, Cannabis use disorder, moderate, dependence F12.20 [facility] [address] [place] [address] Oct, Cannabis use disorder, moderate, dependence F12.20 [facility] [address] [place] [address] Sep, Cannabis use disorder, moderate, dependence F12.20 [facility] [address] [place] [address] Sep, Anxiety disorder, unspecified F41.9 and Other chronic pain G89.29 [place] [id number] [place] [address] Sep, Bronchitis J40 [facility] [address] [place] [address] Sep, Cannabis use disorder, moderate, dependence F12.20 [facility] [address] [place] [address] Sep, Cannabis use disorder, moderate, dependence F12.20 [place] [id number] [place] [address] Aug, Other chronic pain G89.29 [facility] [address] [place] [address] Aug, Cannabis use disorder, moderate, dependence F12.20 [facility] [address] [place] [address] Aug, Cannabis use disorder, moderate, dependence F12.20 [facility] [address] [place] [address] Aug, Cannabis use disorder, moderate, dependence F12.20 [facility] [address] [place] [id number] Aug, Cannabis use disorder, moderate, dependence F12.20 [facility] [address] [place] [id number] [place] [address] Aug, Anxiety disorder, unspecified F41.9 [place] [id number] [place] [address] Jul, Other chronic pain G89.29 [facility] [address] [place] [address] Jul, Cannabis use disorder, moderate, dependence F12.20 [facility] [address] [place] [address] Jul, Cannabis use disorder, moderate, dependence F12.[address] [address] Jul, Diabetes E11.9 ; Blood in stool K92.1 ; Arthralgia, unspecified joint M25.50 and BMI 40.0-44.9, adult Z68.[address] [address] Jun, Other chronic pain G89.[address] [address] Jun, [facility] [address] [place] [address] Jun, [address] [address] Jun, Other chronic pain G89.[address] [address] Jun, [facility] [address] [place] [address] Jun, Cannabis use disorder, moderate, dependence F12.[address] [address] May, Anxiety disorder, unspecified F41.9 [facility] [address] [place] [address] May, Cannabis use disorder, moderate, dependence F12.[address] [address] May, [facility] [address] [place] [address] May, Cannabis use disorder, moderate, dependence F12.20 [facility] [address] [place] [address] May, [facility] [address] [place] [address] May, [facility] [address] [place] [address] May, [facility] [address] [address] May, Other chronic pain G89.29 [facility] [address] [address] May, [facility] [address] [address] May, Type 2 diabetes mellitus with complication E11.8 and Encounter for immunization Z23 [facility] [address] [place] [address] May, Cannabis use disorder, moderate, dependence F12.20 [facility] [address] [address] May, Essential hypertension I10 [facility] [address] [address] 30 Apr, 2017 Essential hypertension I10 [facility] [address] [address] 29 Apr, 2016 Diabetes E11.9 [facility] [address] [address] 18 Apr, 2017 [facility] [address] [place] [id number] [place] [address] 15 Apr, 2017 [facility] [address] [address] 15 Apr, 2017 [facility] [address] [place] [address] 13 Apr, 2017 Other psychoactive substance abuse, uncomplicated F19.10 [facility] [address] [address] 13 Apr, 2017 [facility] [address], [place] [address] Apr, [facility] [address] [place] [id number] [place] [address] Apr, Anxiety disorder, unspecified F41.9 [facility] [address] [place] [id number] [place] [address] 08 Apr, 2017 [facility] [address] [place] [address] [id number] [place] [address]68[address] 5[address] Apr, Diabetes E11.9 and 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 Z79.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 [place] [address] [place] [id number] [place] [address] Mar, Other chronic pain G89.29 and Diabetes E11.9 [facility] [address] [place] [id number] [place] [address]1985[address] 3[address] Mar, Diabetes E11.9 [facility] [address] [place] [id number] [place] [address] 1712 Feb, Anxiety disorder, unspecified F41.9 [facility] [address] [place] [id number] [place] [address] Jan, [facility] [address] [place] [address]696[address] 5895 Jan, [facility] [address] [place] [address] [id number] [place] [address] 7628 December, Anxiety disorder, unspecified F41.9 [facility] [address] [place] [id number] [place] [address] 4[address] Oct, Diabetes E11.9 and Hypothyroidism, unspecified E03.9 [facility] [address] [place] [address] Oct, Anxiety disorder, unspecified F41.[address] [facility] [address] [place] [address] Aug, Bronchitis J40 and Shortness of breath R06.02 [facility] [address] [place] [id number] [place] [address] 74982- 6340 Jul, [place] [address] [place] [address] [id number] [place] [address] 52591- 2272 Jul, Back pain, unspecified back location, unspecified back pain laterality, unspecified chronicity M54.9 [place] [address] [place] [address] [id number] [place] [address] 72405- 6215 Jul, Anxiety disorder, unspecified F41.9 [place] [address] [place] [address] [id number] [place] [address] 60921- 4766 Jul, Essential hypertension I10 [place] [address] [place] [address] [id number] [place] [address] 75903- 6[address] Jun, [facility] [address] [place] [id number] [place] [address]31 [address]142 Jun, Bronchitis J40 [place] [address] [place] [address] [id number] [place] [address] 61442- 1160 Jun, [place] [address] [place] [id number] [place] [address] 70823- 9744 Jun, Diabetes E11.9 ; Dorsalgia, unspecified M54.9 ; Other chronic pain G89.29 and 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 [place] [address] [place] [address] [id number] [place] [address] 99734- 5627 May, Anxiety disorder, unspecified F41.9 [place] [address] [place] [address] [id number] [place] [address] 35285- 0538 Apr, Type 2 diabetes mellitus with complication E11.8 ; Essential hypertension I10 ; Tooth pain K08.8 and Back pain, unspecified back location, unspecified back pain laterality, unspecified chronicity M54.9 [place] [address] [place] [id number] [place] [address] 64847- 5378 Feb, Anxiety disorder, unspecified F41.9 [facility] [address] [place] [address] 16363- 2228 December, [facility] [address] [place] [id number] [place] [address] 04107- 6559 December, [facility] [address] [place] [id number] [place] [address] 08911- 8939 December, Diabetes E11.9 ; Insect bite (nonvenomous) of abdominal wall , initial encounter S30.861A and Bitten or stung by nonvenomous insect and other nonvenomous arthropods, initial encounter W57.XXXA [facility] [address] [place] [id number] [place] [address] 05073- 3642 Nov, [facility] [address] [place] [address] [id number] [place] [address] 07938- 9232 Sep, Genital warts A63.0 [facility] [address] [place] [id number] [place] [address] 07617- 1834 Aug, [facility] [id number] [place] [id number] Aug, Diabetes type 2, uncontrolled 250.02 and Hypothyroid 244.9 [facility] [address] [place] [id number] [place] [address] 21667- 3200 Jul, Anogenital (venereal) warts A63.0 [facility] [address] [place] [id number] [place] [address] 80776- 5086 Jul, [facility] [address] [place] [id number] [place] [address] 24337- 5988 Jul, Diabetes E11.9 [facility] [address] [place] [id number] [place] [address] 74346- 1292 Jun, Genital warts A63.0 [facility] [address] [place] [id number] [place] [address] 95981- 1806 Jun, [facility] [address] [place] [id number] [place] [address] 90793- 4560 Jun, [facility] [address] [id number] [address] 0968 May, [facility] [address] [address] May, [facility] [address], [place] [address] 119[address] May, Type 2 diabetes mellitus with complication E11.8 and Upper respiratory tract infection, unspecified upper respiratory infection J06.9 [facility] [address], [place] [address]- [address]40 Apr, Genital warts 078.11 [facility] [address], [place] [address] 8262 Feb, Hypothyroid 244.9 and Diabetes type 2, uncontrolled 250.02 [place] [id number] [place] [id number] Feb, Diabetes type 2, uncontrolled 250.02 and Hypothyroid 244.9 [facility] [address], [place] [address] Feb, Diabetes type 2, uncontrolled 250.02 and Hypothyroid 244.9 [facility] [address], [place] [address] 3852 Jan, [facility] [address], [place] [address]- 0520 Jan, [facility] [address] [address]- 2081 Nov, [facility] [address] [address] 3[address] 14 Nov, 2014 [facility] [address] [address]- 99[address] Nov, [facility] [address] [address]- 2423 30 Oct, 2014 [facility] [place] [facility] [address] [id number] [place] [address]- 0454 Oct, [facility] [place] [facility] [address] [id number] [place] [address] Oct, [facility] [place] [facility] [address] [id number] [place] [address]- 0471 Sep, [facility] [place] [facility] [address] [id number] [place] [address]- 2649 Sep, [facility] [place] [facility] [address] [id number] [place] [address]- 6975 Sep, [facility] [place] [facility] [address] [id number] [place] [address]- 3793 Sep, [facility] [place] [facility] [address] [id number] [place] [address] Sep, [facility] [place] [facility] [address] [id number] [place] [address]- 9341 Sep, [facility] [place] [facility] [address] [id number] [place] [address]- 6933 Aug, [facility] [place] [facility] [address] [id number] [place] [address]- 4348 Aug, [facility] [place] [facility] [address] [id number] [place] [address]- 0806 Aug, [facility] [place] [facility] [address] [id number] [address]- 2173 Aug, [facility] [place] [facility] [address] [id number] [place] [address]- 3390 Aug, [facility] [place] [facility] [address] [id number] [place] [address]- 7146 Aug, [facility] [place] [facility] [address] [id number] [place] [address]- 5718 Aug, [facility] [place] [facility] [address] [id number], [place] [address]- 8750 Aug, [facility] [place] [facility] [address] [id number] [place] [address]- 2483 Jun, [facility] [place] [facility] [address] [id number] [place] [address]- 1730 Jun, [facility] [place] [facility] [address] [id number] [place] [address]- 6763 Jun, [facility] [place] [facility] [address] [id number] [place] [address]- 0652 Jun, [facility] [place] [facility] [address] [id number] [place] [address]- 1723 Jun, [facility] [place] [facility] [address] [id number] [place] [address]- 4345 May, [facility] [place] [facility] [address] [id number] [place] [address]- 2092 May, [facility] [place] [facility] [address] [id number] [place] [address]- 9452 Apr, [facility] [place] [facility] [address] [id number] [place] [address]- 6747 Apr, [facility] [place] [facility] [address] [id number] [place] [address]- 4741 Apr, [facility] [place] [facility] [address] [id number] [place] [address]- 3690 Apr, [facility] [place] [facility] [address] [id number] [place] [address]- 9281 Mar, [facility] [place] [facility] [address] [id number] [place] [address]- 1061 Mar, [facility] [place] [facility] [address] [id number] [place] [address]- 6323 Mar, [facility] [place] [facility] [address] [id number] [place] [address]- 2045 Mar, [facility] [place] [facility] [address] [id number] [place] [address]- 2305 Mar, [facility] [address] [id number] [place] [address]- 0580 Mar, [facility] [place] [facility] [address] [id number] [place] [address]- 5082 Feb, [facility] [place] [facility] [address] [id number] [place] [address]- 5011 Feb, [facility] [place] [facility] [address] [id number] [place] [address]- 4127 Jan, [facility] [place] [facility] [address] [id number] [place] [address]- 6681 Jan, [facility] [place] [facility] [address] [id number] [place] [address]- 1806 Jan, [facility] [place] [facility] [address] [id number] [place] [address]- 1870 Jan, [facility] [address] [id number] [place] [address]- 0178 December, [facility] [place] [facility] [address] [id number] [place] [address]- 6185 December, [facility] [address] [id number] [place] [address]- 7049 December, [facility] [place] [facility] [address] [id number] [place] [address]- 9906 December, [facility] [place] [facility] [address] [id number] [place] [address]- 6821 December, [facility] [place] [facility] [address] [id number] [place] [address]- 9821 Nov, [facility] [place] [facility] [address] [id number] [place] [address]- 2069 Nov, [facility] [place] [facility] [address] [id number] [place] [address]- 6513 Oct, [facility] [place] [facility] [address] [id number] [place] [address]- 7307 Oct, [facility] [place] [facility] [address] [id number] [place] [address]- 3913 Oct, [facility] [place] [facility] [address] [id number] [place] 2703 Oct, [facility] [place] [facility] [address] [id number] [place] [address]- 5490 Oct, [facility] [place] [facility] [address] [id number] [place] [address]- 4922 Oct, [facility] [place] [facility] [address] [id number] [place] [address]- 9514 Sep, [facility] [place] [facility] [address] [id number] [place] [address]- 2786 Sep, [facility] [place] [facility] [address] [id number] [place] [address]- 6341 Jul, [facility] [place] [facility] [address] [id number] [place] [address]- 6042 Jul, [facility] [place] [facility] [address] [id number] [place] [address]- 4973 Jul, [facility] [place] [facility] [address] [id number] [place] [address]- 9270 Jul, [facility] [place] [facility] [address] [id number], [place] [address]- 0774 Jun, [facility] [place] [facility] [address] [id number] [place] [address]- 1335 Jun, [facility] [place] [facility] [address] [id number] [place] [address]- 7758 Jun, [facility] [place] [facility] [address] [id number] [place] [address]- 2152 Jun, [facility] [place] [facility] [address] [id number] [place] [address]- 2546 Jun, [facility] [address] [id number], [place] [address]- 2546 Jun, [facility] [address] [id number], [place] [address] 2546 May, [facility] [address] [id number], [place] [address] 2546 May, [facility] [address] [id number] [address]- 3954 Mar, IMMUNIZATIONS No Known Immunizations SOCIAL HISTORY Never Assessed REASON FOR VISIT Controlled Refill Request PLAN OF CARE VITAL SIGNS MEDICATIONS Medication Instructions Dosage Frequency Start Date End Date Duration Status Ativan 0.5 MG Orally Twice a day 1 tablet as needed 12h 28 days Active RESULTS No Results PROCEDURES [...]
--- OUTSIDE RECORDS SUMMARY | 2018-01-29 15:30 | XMS REPORT ---
Author Author GLADIS KESSLER Organization [facility] Address [address] [place] [address] Care Team Providers Care Duralumin Mechanic Name Role Phone GLADIS KESSLER Unavailable PROBLEMS Type Condition ICD9-CM Code [id number] Code Onset Dates Condition Status SNOMED Code Problem Type 2 diabetes mellitus with diabetic autonomic neuropathy, without long-term current use of insulin E11.43 Active 82494568 Problem Anxiety disorder, unspecified F41.9 Active 358366776 Problem Essential hypertension I10 Active 34673738 Problem Hypercholesterolemia E78.00 Active 22583479 Problem Cannabis use disorder, moderate, dependence F12.20 Active 25053478 Problem Type 2 diabetes mellitus with complication E11.8 Active 480591621 Problem Other chronic pain G89.29 Active 66347403 Problem Diabetes E11.9 Active 986150145 Problem Hypothyroidism, unspecified E03.9 Active 74958974 Problem COPD exacerbation J44.1 Active 713028966 ALLERGIES Substance Reaction Event Type Date Status Crestor Unknown reaction Came from previous clinic Drug Allergy Oct, Active Actos kidney pain Drug Allergy Oct, Active Niaspan Extended-release Unknown reaction. Came from previous clinic Non Drug Allergy Oct, Active SOCIAL HISTORY Never Assessed PLAN OF CARE Activity Details Follow Up 3 Months Reason:DM VITAL SIGNS Height 71 in 2016-11-12 Weight 306.2 lbs 2016-11-12 Temperature 97.7 degrees Fahrenheit 2016-11-12 Heart Rate 72 bpm 2016-11-12 Respiratory Rate 20 2016-11-12 BMI 42.70 kg/m2 2016-11-12 Blood pressure systolic 132 mmHg 2016-11-12 Blood pressure diastolic 84 mmHg 2016-11-12 MEDICATIONS Medication Instructions Dosage Frequency Start Date End Date Duration Status Actos 30 MG Orally Once a day 1 tablet 24h Apr, Active Levothyroxine Sodium 125 MCG 1 TABLET BY ORAL ROUTE 1 TIME PER DAY 90 Active Glucophage 1000 MG TAKE 1 TABLET BY ORAL ROUTE 2 TIMES PER DAY WITH MORNING AND EVENING MEALS 90 Active Lisinopril 40 MG TAKE 1 TABLET BY ORAL ROUTE 1 TIME PER DAY 90 Active Norvasc 10 mg Orally Once a day 1 tablet 24h Apr, 90 days Active Lipitor 40 MG Orally Once a day 1 tablet 24h Feb, 30 day(s) Active Ativan 0.5 MG Orally Twice a day 1 tablet as needed 12h 28 days Active Amaryl 4 MG 1 TABLET BY ORAL ROUTE 1 TIME PER DAY 12h 30 Active [place]-3 Fatty Acids 500 mg 3 Capsule 1 time per day Jan, Active Mucinex 600 MG Orally every 12 hrs 1 tablet as needed 12h Active Meloxicam 7.5 MG Orally twice a day 1 tablet 12h Jul, Active pantoprazole 40 mg take 1 tablet (40 mg) by oral route once daily Mar, Active ProAir HFA 108 (90 Base) MCG/ACT Inhalation every 4 hrs 2 puffs as needed 4h Aug, 30 days Active Cyclobenzaprine HCl 10 mg Orally every 8 hours, PRN 1 tablet Apr, 30 Active Vitamin D3 1,000 unit 1 Capsule 1 time per day Jun, Active Gabapentin 600 MG Orally Three times a day 1 tablet 8h Jul, Active Vitamin E 1,000 unit 1 Capsule 1 time per day Jun, Active Atenolol 100 TAKE 1 TABLET BY MOUTH EVERY DAY 30 Active RESULTS Name Result Date Reference Range A1C (IN HOUSE) 2016-11-12 A1C IN HOUSE 10.3 4.3 - 5.6 % Previous A1c 10.0 Lot [id number] Exp date 08/2018 TSH 2016-11-12 TSH 3.430 0.450-4.500 LIPID PANEL 2016-11-12 Cholesterol, Total 299 100-199 Triglycerides 390 0-149 HDL Cholesterol 33 >39 VLDL Cholesterol Salty 78 5-40 LDL Cholesterol Calc 188 0-99 Comment: CMP 2016-11-12 Glucose, Serum 285 65-99 BUN 15 6-24 Creatinine, Serum 1.01 0.76-1.27 eGFR If NonAfricn Am 83 >59 eGFR If Africn Am 96 >59 BUN/Creatinine Ratio 15 9-20 Sodium, Serum 136 134-144 Potassium, Serum 5.2 3.5-5.2 Chloride, Serum 97 96-106 Carbon Dioxide, Total 19 18-29 Calcium, Serum 9.5 8.7-10.2 Protein, Total, Serum 7.5 6.0-8.5 Albumin, Serum 4.4 3.5-5.5 Globulin, Total 3.1 1.5-4.5 A/G Ratio 1.4 1.2-2.2 Bilirubin, Total 0.8 0.0-1.2 Alkaline Phosphatase, S 108 39-117 AST (SGOT) 30 0-40 ALT (SGPT) 27 0-44 PROCEDURES Procedure Date Ordered Result Body Site GLYCATED HEMOGLOBIN TEST November 12, 2016 VENIPUNCT, ROUTINE* November 12, 2016 IMMUNIZATIONS No Known Immunizations MEDICAL (GENERAL) HISTORY Type Description Date Medical History hypertension Medical History gastroesophageal reflux disease (GERD) Medical History erectile dysfunction Medical History hyperlipidemia Medical History thyroid disorder-hypothyroid Medical History type II diabetes Medical History chronic pain-multiple accidents when younger Medical History Other psychoactive substance abuse, uncomplicated Surgical History wart removal
--- OUTSIDE RECORDS SUMMARY | 2018-01-29 15:30 | XMS REPORT ---
Author Author GLADIS KESSLER [facility] eClinicalWorks Address Unknown Phone Unavailable Care Team Providers Care Inventory And Pricing Associate Name Role Phone GLADIS KESSLER CP Unavailable Allergies, Adverse Reactions, Alerts Substance Reaction Event Type Crestor Unknown reaction Came from previous clinic Drug Allergy Niaspan Extended-release Unknown reaction. Came from previous clinic Non Drug Allergy Problems Problem Type Condition Code Onset Dates Condition Status Assessment Type 2 diabetes mellitus with complication E11.8 Active Problem Other and unspecified hyperlipidemia 272.4 Active Problem Unspecified hereditary and idiopathic peripheral neuropathy 356.9 Active Assessment Upper respiratory tract infection, unspecified upper respiratory infection J06.9 Active Problem Diabetes mellitus without mention of [...] Instructions Start Date End Date Status Dosage Neurontin [facility] [address]-25 300 MG Orally Three times a day 1 capsule Lipitor [facility] [address]-81 40 MG Orally Once a day March 23, 2015 1 tablet pantoprazole [facility] 0 40 mg Apr 19, 2013 take 1 tablet (40 mg) by oral route once daily Atenolol [facility] 28042494231 100 Orally Once a day 1 tablet Levothyroxine Sodium [facility] [address]-68 125 MCG Orally 1 TABLET BY ORAL ROUTE 1 TIME PER DAY Lisinopril [facility] 66106799407 40 MG TAKE 1 TABLET BY ORAL ROUTE 1 TIME PER DAY Vitamin E [facility] [place] [address] 1,000 unit Jun 27, 2013 1 Capsule 1 time per day Ativan [facility] [address]-70 0.5 MG Orally Twice a day 1 tablet as needed Vitamin D3 [facility] [place] [address] 1,000 unit Jun 27, 2013 1 Capsule 1 time per day Amaryl [facility] 87089338898 4 MG 1 TABLET BY ORAL ROUTE 1 TIME PER DAY Glucophage [facility] 92223363114 1000 MG TAKE 1 TABLET BY ORAL ROUTE 2 TIMES PER DAY WITH MORNING AND EVENING MEALS Bydureon [facility] [place] [address]-82 2 MG Subcutaneous Once a week 3 sample pens given Jun 13, 2015 as directed Procedures Procedure Coding System Code Date Office Visit, Est Pt., Level 3 CPT-4 16363 Jun 13, 2015 GLYCATED HEMOGLOBIN TEST CPT-4 64064 Jun 13, 2015 Vital Signs Date/Time: Jun 13, 2015 Temperature 97.6 F Weight 305.2 lbs Height 71 in BMI 42.56 Index Blood Pressure Diastolic 90 mmHg Blood Pressure Systolic 162 mmHg Cardiac Monitoring Heart Rate 88 bpm Results Name Result Date Reference Range Unit Abnormality Flag A1C (IN HOUSE) Summary Purpose eClinicalWorks Submission
--- OUTSIDE RECORDS SUMMARY | 2018-01-29 15:30 | XMS REPORT ---
Author Author GLADIS KESSLER Organization [employer] Address Unknown Phone Unavailable Care Team Providers Care Electrical Accessories Ii Assembler Name Role Phone GLADIS KESSLER CP [...] Instructions Start Date End Date Status Dosage Zithromax Z-Joel [facility] [address]-40 250 MG Orally Once a day Jun 16, 2015 Jun 21, 2015 2 tablets on the first day, then 1 tablet daily for 4 days Results No Known Results Summary Purpose eClinicalWorks Submission
--- OUTSIDE RECORDS SUMMARY | 2018-01-29 15:31 | XMS REPORT ---
Author Author ABIGAIL DENNIS [facility] Address [address] [place] [address] Care Team Providers Care Geosciences Faculty Member Name Role Phone ABIGAIL DENNIS Unavailable PROBLEMS Type Condition ICD9-CM Code GWS39-KQ Code Onset Dates Condition Status SNOMED Code Problem Anxiety disorder, unspecified F41.9 Active 504454533 Problem Other chronic pain G89.29 Active 72646033 Problem Diabetes E11.9 Active 216535486 Problem Hypercholesterolemia E78.00 Active 85525607 Problem Type 2 diabetes mellitus with diabetic autonomic neuropathy, without long-term current use of insulin E11.43 Active 53843135 Problem Essential hypertension I10 Active 93353342 Problem Acute recurrent maxillary sinusitis J01.01 Active 96055235 Problem Cough R05 Active 23511263 Problem Hypothyroidism, unspecified E03.9 Active 45586703 Problem COPD exacerbation J44.1 Active 945613521 Problem Cannabis use disorder, moderate, dependence F12.20 Active 02703081 Problem Type 2 diabetes mellitus with complication E11.8 Active 806357769 ALLERGIES No Information ENCOUNTERS Encounter Location Date Diagnosis [place] [id number] [place] [address] 23466[address] 4485 Jan, [facility] [address] [address] December, [facility] [id number] [place] [address] 55657 [address]7364 30 Nov, 2017 Seasonal allergic rhinitis, unspecified trigger J30.2 and BMI 40.0-44.9, adult Z68.41 [facility] [id number] [place] [address] 19876 -5437 16 Nov, 2017 Acute recurrent maxillary sinusitis J01.01 ; Cough R05 and BMI 40.0-44.9, adult Z68.41 [facility] [address] [place] [address] Oct, Cannabis use disorder, moderate, dependence F12.20 [facility] [address] [place] [address] Oct, Cannabis use disorder, moderate, dependence F12.20 [facility] [address] [address] Oct, Cannabis use disorder, moderate, dependence F12.20 [facility] [address] [place] [address] Oct, Cannabis use disorder, moderate, dependence F12.20 [facility] [address] [place] [address] Oct, Cannabis use disorder, moderate, dependence F12.20 [facility] [address] [place] [address] Sep, Cannabis use disorder, moderate, dependence F12.20 [facility] [address] [place] [address] 39530- 9736 Sep, Anxiety disorder, unspecified F41.9 and Other chronic pain G89.29 [facility] [address] [place] [address] 19424- 912 Sep, Bronchitis J40 [facility] [address] [place] [address] 08 Sep, 2017 Cannabis use disorder, moderate, dependence F12.20 [facility] [address] [place] [address] Sep, Cannabis use disorder, moderate, dependence F12.20 [facility] [address] [place] [address] 25034- 7534 Aug, Other chronic pain G89.29 [facility] [address] [place] [address] Aug, Cannabis use disorder, moderate, dependence F12.20 [facility] [address] [place] [address] Aug, Cannabis use disorder, moderate, dependence F12.20 [facility] [address] [place] [address] Aug, Cannabis use disorder, moderate, dependence F12.20 [facility] [address] [place] [address] Aug, Cannabis use disorder, moderate, dependence F12.20 [facility] [id number] [place] [address] 61324- 5790 Aug, Anxiety disorder, unspecified F41.9 [facility] [id number] [place] [address] 90584- 7242 Jul, Other chronic pain G89.29 [facility] [place] [address] [place] [address] Jul, Cannabis use disorder, moderate, dependence F12.20 [facility] [address] [place] [address] Jul, Cannabis use disorder, moderate, dependence F12.[address] [address] Jul, Diabetes E11.9 ; Blood in stool K92.1 ; Arthralgia, unspecified joint M25.50 and BMI 40.0-44.9, adult Z68.[address] [address] Jun, Other chronic pain G89.[address] [address]- 7310 Jun, [facility] [address] [place] [address] Jun, [address] [address] 08[address] Jun, Other chronic pain G89.29 [facility] [id number] [place] [address] 50583- 0823 Jun, [facility] [address] [place] [address] Jun, Cannabis use disorder, moderate, dependence F12.20 [facility] [id number] [place] [address] 32523- 6596 May, Anxiety disorder, unspecified F41.9 [facility] [address] [place] [address] May, Cannabis use disorder, moderate, dependence F12.20 [facility] [id number] [place] [address] 14053- 4169 May, [facility] [address] [place] [address] May, Cannabis use disorder, moderate, dependence F12.20 [facility] [address] [place] [address] May, [facility] [address] [place] [address] May, [facility] [address] [place] [address] May, [facility] [address] [address]- 9568 May, Other chronic pain G89.29 [facility] [address] 61240- 5676 May, [facility] [address] [place] [address] 99302- 2678 May, Type 2 diabetes mellitus with complication E11.8 and Encounter for immunization Z23 [facility] [address] [place] [address] May, Cannabis use disorder, moderate, dependence F12.20 [facility] [id number] [place] [address] 12452- 0874 02 May, 2017 Essential hypertension I10 [facility] [address] [place] [address] 41855- 7406 30 Apr, 2017 Essential hypertension I10 [facility] [address] 28084- 2838 29 Apr, 2017 Diabetes E11.9 [facility] [address] 49154- 7852 18 Apr, 2017 [facility] [address] 33907- 9252 15 Apr, 2017 [facility] [address] 56463- 9759 15 Apr, 2017 [facility] [address] [place] [address] 13 Apr, 2017 Other psychoactive substance abuse, uncomplicated F19.10 [facility] [id number] [place] [address] 00125- 9003 13 Apr, 2017 [facility] [id number] [place] [address] 59552- 5968 Apr, [facility] [id number] [place] [address] 56178- 5034 Apr, Anxiety disorder, unspecified F41.9 [facility] [id number] [place] [address] 61084- 4075 08 Apr, 2017 [place] [id number] [place] [address] 70235- 6122 Apr, Diabetes E11.9 and superintendent terminal (current) use of opiate analgesic Z79.891 [place] [id number] [place] [address] 54553- 4215 Mar, Other chronic pain G89.29 and Diabetes E11.9 [place] [id number] [place] [address] 71469- 7947 Mar, Diabetes E11.9 [facility] [id number] [place] [address] 16720- 0538 Feb, Anxiety disorder, unspecified F41.9 [facility] [id number] [place] [address] 72242- 1554 Jan, [facility] [id number] [place] [address] 44270- 8524 Jan, [facility] [id number] [place] [address] 80105- 4800 December, Anxiety disorder, unspecified F41.9 [facility] [id number] [place] [address] 81152- 6002 Oct, Diabetes E11.9 and Hypothyroidism, unspecified E03.9 [facility] [id number] [place] [address] 01516- 8393 Oct, Anxiety disorder, unspecified F41.9 [facility] [address] 36[address] Aug, Bronchitis J40 and Shortness of breath R06.02 [facility] [address] 08792- 3323 Jul, [place] [address] 00367- 3594 Jul, Back pain, unspecified back location, unspecified back pain laterality, unspecified chronicity M54.9 [place] [address] 30668- 5640 Jul, Anxiety disorder, unspecified F41.9 [place] [address] 57145- 6790 Jul, Essential hypertension I10 [place] [address] 11395- 1885 Jun, [facility] [address] 46232 [address]57[address] Jun, Bronchitis J40 [place] [id number] [place] [address] 15432- 4509 Jun, [place] [address] 24218- 8153 Jun, Diabetes E11.9 ; Dorsalgia, unspecified M54.9 ; Other chronic pain G89.29 and 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 [place] [address] 93700- 7904 May, Anxiety disorder, unspecified F41.9 [place] [id number] [place] [address] 80116- 2861 Apr, Type 2 diabetes mellitus with complication E11.8 ; Essential hypertension I10 ; Tooth pain K08.8 and Back pain, unspecified back location, unspecified back pain laterality, unspecified chronicity M54.9 [place] [id number] [place] [address] 77624- 9357 Feb, Anxiety disorder, unspecified F41.9 [place] [id number] [place] [address] 12854- 4963 December, [place] [address] 73745- 4369 December, [place] [id number] [place] [address] 94250- 7385 December, Diabetes E11.9 ; Insect bite (nonvenomous) of abdominal wall , initial encounter S30.861A and Bitten or stung by nonvenomous insect and other nonvenomous arthropods, initial encounter W57.XXXA [place] [id number] [place] [address] 59072- 3335 Nov, [place] [id number] [place] [address] 90726- 2018 Sep, Genital warts A63.0 [place] [id number] [place] [address] 96182- 5877 Aug, [address] [place] [address] [phone] Aug, Diabetes type 2, uncontrolled 250.02 and Hypothyroid 244.9 [place] [id number] [place] [address] 28384- 5976 Jul, Anogenital (venereal) warts A63.0 [place] [id number] [place] [address] 22536- 3785 Jul, [place] [id number] [place] [address] 65235- 0163 Jul, Diabetes E11.9 [place] [address] 79289- 2495 Jun, Genital warts A63.0 [facility] [address] [address]- 0[address] Jun, [facility] [address] [address]- 4960 Jun, [facility] [address] [address]- 8990 May, [facility] [address] [place] [address] 98540- 9816 May, [facility] [address] [address]- 3130 May, Type 2 diabetes mellitus with complication E11.8 and Upper respiratory tract infection, unspecified upper respiratory infection J06.9 [facility] [address] [address]- 5302 Apr, Genital warts 078.11 [facility] [address] [address]- 8878 Feb, Hypothyroid 244.9 and Diabetes type 2, uncontrolled 250.02 [address] [address] Feb, Diabetes type 2, uncontrolled 250.02 and Hypothyroid 244.9 [facility] [address] [address]- 8380 Feb, Diabetes type 2, uncontrolled 250.02 and Hypothyroid 244.9 [facility] [address] [address]- 1615 Jan, [facility] [address] [address]- 3270 Jan, [facility] [address] [address]- 1824 Nov, [facility] [address] [address]- 5612 Nov, [facility] [place] [facility] [address] [facility] [id number] [place] [address]- 7355 Nov, [facility] [place] [facility] [address] [id number] [place] [address]- 2539 Oct, [facility] [place] [facility] [address] [id number] [place] [address]- 3492 Oct, [facility] [place] [facility] [address] [id number] [place] [address]- 7219 Oct, [facility] [place] [facility] [address] [id number] [place] [address]- 2397 Sep, [facility] [place] [facility] [address] [id number] [place] [address]- 0182 Sep, [facility] [place] [facility] [address] [facility] [id number] [place] [address]- 7021 Sep, [facility] [place] [facility] [address] [id number] [place] [address]- 5094 Sep, [facility] [place] [facility] [address] [id number] [place] [address]- 7799 Sep, [facility] [place] [facility] [address] [facility] [id number] [place] [address]- 9789 Sep, [facility] [place] [facility] [address] [facility] [id number] [place] [address]- 6753 Aug, [facility] [place] [facility] [address] [id number] [place] [address]- 0054 Aug, [facility] [place] [facility] [address] [id number] [place] [address]- 6353 Aug, [facility] [place] [facility] [address] [id number] [place] [address]- 2853 Aug, [facility] [place] [facility] [address] [id number] [place] [address]- 3595 Aug, [facility] [place] [facility] [address] [id number] [place] [address]- 0690 Aug, [facility] [place] [facility] [address] [id number] [place] [address]- 2970 Aug, [facility] [place] [facility] [address] [id number] [place] [address]- 8064 Aug, [facility] [place] [facility] [address] [id number] [place] [address]- 8233 Jun, [facility] [place] [facility] [address] [id number] [place] [address]- 5745 Jun, [facility] [place] [facility] [address] [id number] [place] [address]- 0592 Jun, [facility] [place] [facility] [address] [id number] [place] [address]- 2954 Jun, [facility] [place] [facility] [address] [id number] [place] [address]- 8458 Jun, [facility] [place] [facility] [address] [id number] [place] [address]- 8874 May, [facility] [place] [facility] [address] [id number] [place] [address]- 0937 May, [facility] [place] [facility] [address] [id number] [place] [address]- 0871 Apr, [facility] [place] [facility] [address] [id number] [place] [address]- 6467 Apr, [facility] [place] [facility] [address] [id number] [place] [address]- 9973 Apr, [facility] [place] [facility] [address] [id number] [place] [address]- 1727 Apr, [facility] [place] [facility] [address] [id number] [place] [address]- 0852 Mar, [facility] [place] [facility] [address] [id number] [place] [address]- 8026 Mar, [facility] [place] [facility] [address] [id number] [place] [address]- 5493 Mar, [facility] [place] [facility] [address] [id number] [place] [address]- 2500 Mar, [facility] [place] [facility] [address] [id number] [place] [address]- 9398 Mar, [facility] [place] [facility] [address] [id number] [place] [address]- 0702 Mar, [facility] [place] [facility] [address] [id number] [place] [address]- 9108 Feb, [facility] [place] [facility] [address] [id number] [place] [address]- 9442 Feb, [facility] [place] [facility] [address] [id number] [place] [address]- 6060 Jan, [facility] [place] [facility] [address] [id number] [place] [address]- 2794 Jan, [facility] [place] [facility] [address] [id number] [place] [address]- 7019 Jan, [facility] [place] [facility] [address] [id number] [place] [address]- 9131 Jan, [facility] [place] [facility] [address] [id number] [place] [address]- 5743 December, [facility] [place] [facility] [address] [id number] [place] [address]- 5415 December, [facility] [place] [facility] [address] [id number] [place] [address]- 4887 December, [facility] [place] [facility] [address] [id number] [place] [address]- 3962 December, [facility] [place] [facility] [address] [id number] [place] [address]- 5185 December, [facility] [place] [facility] [address] [id number] [place] 5898 Nov, [facility] [address] [id number] [place] [address]- 8514 Nov, [facility] [place] [facility] [address] [id number] [place] [address]- 3306 Oct, [facility] [place] [facility] [address] [id number] [place] [address]- 3224 Oct, [facility] [place] [facility] [address] [id number] [place] [address]- 8628 Oct, [facility] [place] [facility] [address] [id number] [place] [address]- 3141 Oct, [facility] [place] [facility] [address] [id number] [place] [address]- 6183 Oct, [facility] [place] [facility] [address] [id number] [place] [address]- 7239 Oct, [facility] [place] [facility] [address] [id number] [place] [address]- 8090 Sep, [facility] [place] [facility] [address] [id number] [place] [address]- 4439 Sep, [facility] [place] [facility] [address] [id number] [place] [address]- 4631 Jul, [facility] [place] [facility] [address] [id number] [place] [address]- 1867 Jul, [facility] [place] [facility] [address] [id number] [address]- 1262 Jul, [facility] [place] [facility] [address] [id number] [place] [address]- 4960 Jul, [facility] [place] [facility] [address] [id number] [place] [address]- 7511 Jun, [facility] [place] [facility] [address] [id number] [place] [address]- 9099 Jun, [facility] [place] [facility] [id number] [address]- 2546 Jun, [facility] [id number] [address]- 0697 Jun, [facility] [id number] [address]- 1159 Jun, [facility] [id number] [address] 2541 Jun, [facility] [address] [address]- 7705 May, [facility] [address] [address]- 7947 May, [facility] [address] [address]- 9723 Mar, IMMUNIZATIONS No Known Immunizations SOCIAL HISTORY Never Assessed REASON FOR VISIT Assessment (Cont.) PLAN OF CARE Activity Details Follow Up 5 days Reason: VITAL SIGNS MEDICATIONS Unknown Medications RESULTS [...]
--- OUTSIDE RECORDS SUMMARY | 2018-01-29 15:31 | XMS REPORT ---
Author Author GLADIS KESSLER [facility] [employer] Address Unknown Phone Unavailable Care Team Providers Care Wrapper Hands Sprayer Name Role Phone GLADIS KESSLER CP Unavailable [...] Other and unspecified hyperlipidemia 272.4 Active Problem Condyloma acuminatum 078.11 Active Problem Diabetes mellitus without mention of complication, type II or unspecified type, not stated as uncontrolled 250.00 Active Problem Anxiety disorder, unspecified F41.9 Active Problem Essential hypertension, benign 401.1 Active Problem Diabetes mellitus without mention of complication, type II or unspecified type, uncontrolled 250.02 Active Problem Anxiety state, unspecified 300.00 Active Problem Generalized anxiety disorder 300.02 Active Assessment Back pain, unspecified back location, unspecified back pain laterality, unspecified chronicity M54.9 Active Assessment Tooth pain K08.8 Active Assessment Essential hypertension I10 Active Assessment Type 2 diabetes mellitus with complication E11.8 Active Medications Medication Code System Code Instructions Start Date End Date Status Dosage Cyclobenzaprine HCl [facility][NOTE 3] [address]-45 10 mg Orally every 8 hours, PRN May 14, 2016 1 tablet Actos [facility][NOTE 3] [address]-99 30 MG Orally Once a day May 14, 2016 1 tablet Gabapentin [facility][NOTE 3] 70737861617 300 TAKE 1 CAPSULE BY MOUTH EVERY NIGHT AT BEDTIME FOR 7 DAYS, THEN TAKE 1 CAPSULE BY MOUTH TWICE DAILY Vitamin D3 [facility][NOTE 3] [address]357-45457 1,000 unit Jun 27, 2013 1 Capsule 1 time per day Amaryl [facility][NOTE 3] 15922549728 4 MG 2 times a day 1 TABLET BY ORAL ROUTE 1 TIME PER DAY [place]-3 Fatty Acids [place] 0 500 mg January 30, 2014 3 Capsule 1 time per day Ativan [facility][NOTE 3] [address]-02 0.5 MG Orally Twice a day 1 tablet as needed Glucophage [facility][NOTE 3] 89367037305 1000 MG TAKE 1 TABLET BY ORAL ROUTE 2 TIMES PER DAY WITH MORNING AND EVENING MEALS Atenolol [facility]NOTE 3] 75158749398 100 MG Orally Once a day 1 tablet Amoxicillin [facility] [place]NOTE 3] [address]-41 500 MG Orally 3 times a day May 14, 2016 May 24, 2016 1 capsule Lipitor [facility] [place]NOTE 3] [address]-76 40 MG Orally Once a day March 23, 2015 1 tablet Lisinopril [facility] [place] 3] 81093727505 40 MG TAKE 1 TABLET BY ORAL ROUTE 1 TIME PER DAY Norvasc [facility] [place]NOTE 3] [address]-59 10 mg Orally Once a day May 14, 2016 1 tablet pantoprazole [facility] [place]NOTE 3] 0 40 mg Apr 19, 2013 take 1 tablet (40 mg) by oral route once daily Vitamin E [facility] [place]NOTE 3] 19908-90724 1,000 unit Jun 27, 2013 1 Capsule 1 time per day Levothyroxine Sodium [facility] [place]NOTE 3] 68971047965 125 MCG Orally 1 TABLET BY ORAL ROUTE 1 TIME PER DAY Procedures Procedure Coding System Code Date Office Visit, Est Pt., Level 3 CPT-4 32690 May 14, 2016 GLYCATED HEMOGLOBIN TEST CPT-4 94423 May 14, 2016 Vital Signs Date/Time: May 14, 2016 Cardiac Monitoring Heart Rate 76 bpm Weight 305.1 lbs Height 71 in BMI 42.55 Index Blood Pressure Diastolic 88 mmHg Blood Pressure Systolic 150 mmHg Results Name Result Date Reference Range Unit Abnormality Flag A1C (IN HOUSE) ----A1C IN HOUSE 10.0 20160514 4.3 - 5.6 % ----Previous A1c 8.3 20160514 ----Lot [id number] ----Exp date [id number] Summary Purpose eClinicalWorks Submission
--- OUTSIDE RECORDS SUMMARY | 2018-01-29 15:31 | XMS REPORT ---
Author Author GLADIS KESSLER [facility] Address [address] [place] [address] Care Team Providers Care Quality Assurance Consultant Name Role Phone GLADIS KESSLER Unavailable PROBLEMS Type Condition ICD9-CM Code [id number] Code Onset Dates Condition Status SNOMED Code Problem Diabetes mellitus without mention of complication, type II or unspecified type, uncontrolled 250.02 Active 219468400 Problem Generalized anxiety disorder 300.02 Active 36008181 Problem Essential hypertension, benign 401.1 Active 0682038 Problem Diabetes E11.9 Active 833532515 Problem Other chronic pain G89.29 Active 58008705 Problem Diabetes mellitus without mention of complication, type II or unspecified type, not stated as uncontrolled 250.00 Active 742575107 Problem Anxiety state, unspecified 300.00 Active 713011835 Problem Anxiety disorder, unspecified F41.9 Active 905139872 Problem Condyloma acuminatum 078.11 Active 874687316 Assessment Diabetes E11.9 Jun, Active 680405035 Problem Unspecified hereditary and idiopathic peripheral neuropathy 356.9 Active 366370718 Assessment 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 Came from previous clinic Non Drug Allergy Jun, Active SOCIAL HISTORY No smoking Hx information available PLAN OF CARE VITAL SIGNS Height 71 in 2016-07-07 Weight 304.1 lbs 2016-07-07 Heart Rate 80 bpm 2016-07-07 Respiratory Rate 20 2016-07-07 BMI 42.41 kg/m2 2016-07-07 Blood pressure systolic 130 mmHg 2016-07-07 Blood pressure diastolic 80 mmHg 2016-07-07 MEDICATIONS Medication Instructions Dosage Frequency Start Date End Date Duration Status pantoprazole 40 mg take 1 tablet (40 mg) by oral route once daily Mar, Active Glucophage 1000 MG TAKE 1 TABLET BY ORAL ROUTE 2 TIMES PER DAY WITH MORNING AND EVENING MEALS 90 Active Lipitor 40 MG Orally Once a day 1 tablet 24h Feb, 30 day(s) Active Vitamin E 1,000 unit 1 Capsule 1 time per day Jun, Active Atenolol 100 MG Orally Once a day 1 tablet 24h Active Cyclobenzaprine HCl 10 mg Orally every 8 hours, PRN 1 tablet Apr, Active Ativan 0.5 MG Orally Twice a day 1 tablet as needed 12h 28 days Active [place]-3 Fatty Acids 500 mg 3 Capsule 1 time per day Jan, Active Norvasc 10 mg Orally Once a day 1 tablet 24h Apr, Active Levothyroxine Sodium 125 MCG 1 TABLET BY ORAL ROUTE 1 TIME PER DAY 90 Active Amaryl 4 MG 1 TABLET BY ORAL ROUTE 1 TIME PER DAY 12h Active Gabapentin 300 TAKE 1 CAPSULE BY MOUTH EVERY NIGHT AT BEDTIME FOR 7 DAYS, THEN TAKE 1 CAPSULE BY MOUTH TWICE DAILY 17 Active Vitamin D3 1,000 unit 1 Capsule 1 time per day Jun, Active Actos 30 MG Orally Once a day 1 tablet 24h Apr, Active Lisinopril 40 MG TAKE 1 TABLET BY ORAL ROUTE 1 TIME PER DAY 90 Active RESULTS Name Result Date Reference Range HEPATITIS PROFILE 2016-07-07 Hep A Ab, IgM Negative Negative HBsAg Screen Negative Negative Hep B Core Ab, IgM Negative Negative Hep C Virus Ab <0.1 0.0-0.9 MRI : Cervical w/o Contrast MRI : Lumbar w/o contrast MRI : Thoracic w/o Contrast Xray : Spine, Thoracic 2 views (IN HOUSE) 2016-07-15 Xray : Spine, Lumbar 2-3 views (IN HOUSE) 2016-07-15 Xray : Spine, Cervical (IN HOUSE) 2016-07-15 PROCEDURES Procedure Date Ordered Related Diagnosis Body Site LAB NOT BILLED BY [facility] Jul 07, 2016 X-RAY EXAM OF NECK SPINE Jul 07, 2016 X-RAY EXAM OF LOWER SPINE Jul 07, 2016 X-RAY EXAM OF THORACIC SPINE Jul 07, 2016 Office Visit, Est Pt., Level 3 Jul 07, 2016 VENIPUNCT, ROUTINE* Jul 07, 2016 IMMUNIZATIONS No Known Immunizations
--- OUTSIDE RECORDS SUMMARY | 2018-01-29 15:32 | XMS REPORT ---
Author Author GLADIS KESSLER Organization [facility] Address [address] [place] [address] Care Team Providers Care Restaurant Area Director Name Role Phone GLADIS KESSLER Unavailable PROBLEMS Type Condition ICD9-CM Code [id number] Code Onset Dates Condition Status SNOMED Code Problem Hypercholesterolemia E78.00 Active 26778964 Problem Essential hypertension I10 Active 87185457 Problem Type 2 diabetes mellitus with diabetic autonomic neuropathy, without long-term current use of insulin E11.43 Active 09345841 Problem Other psychoactive substance abuse, uncomplicated F19.10 Active 92766265 Problem Hypothyroidism, unspecified E03.9 Active 40757139 Problem Diabetes E11.9 Active 088169559 Problem Anxiety disorder, unspecified F41.9 Active 533460006 Problem COPD exacerbation J44.1 Active 106449924 Problem Other chronic pain G89.29 Active 73424734 ALLERGIES No Information SOCIAL HISTORY Never Assessed PLAN OF CARE VITAL SIGNS MEDICATIONS Medication Instructions Dosage Frequency Start Date End Date Duration Status Ativan 0.5 MG Orally Twice a day 1 tablet as needed 12h 28 days Active RESULTS No Results PROCEDURES No Known procedures IMMUNIZATIONS No Known Immunizations MEDICAL (GENERAL) HISTORY Type Description Date Medical History hypertension Medical History gastroesophageal reflux disease (GERD) Medical History erectile dysfunction Medical History hyperlipidemia Medical History thyroid disorder-hypothyroid Medical History type II diabetes Medical History chronic pain-multiple accidents when younger Surgical History wart removal
--- OUTSIDE RECORDS SUMMARY | 2018-01-29 15:32 | XMS REPORT ---
Author Author GLADIS KESSLER [facility] Address [address] [place] [address] Care Team Providers Care Light Truck Driver Name Role Phone GLADIS KESSLER Unavailable PROBLEMS Type Condition ICD9-CM Code [id number] Code Onset Dates Condition Status SNOMED Code Problem Hypercholesterolemia E78.00 Active 74339628 Problem Type 2 diabetes mellitus with diabetic autonomic neuropathy, without long-term current use of insulin E11.43 Active 26846161 Problem Hypothyroidism, unspecified E03.9 Active 75783095 Problem COPD exacerbation J44.1 Active 217337002 Problem Anxiety disorder, unspecified F41.9 Active 881112916 Problem Essential hypertension I10 Active 80519211 Problem Diabetes E11.9 Active 118348625 Problem Other chronic pain G89.29 Active 97525123 ALLERGIES Unknown Allergies SOCIAL HISTORY No smoking Hx information available PLAN OF CARE VITAL SIGNS MEDICATIONS Medication Instructions Dosage Frequency Start Date End Date Duration Status Gabapentin 300 MG Orally 2 times a day 1 capsule 12h 90 days Active RESULTS No Results PROCEDURES No Known procedures IMMUNIZATIONS No Known Immunizations
--- OUTSIDE RECORDS SUMMARY | 2018-01-29 15:32 | XMS REPORT ---
Author Author GLADIS KESSLER [facility] eClinicalWorks Address Unknown Phone Unavailable Care Team Providers Care Ip Litigation Associate Name Role Phone GLADIS KESSLER CP [...] Problem Essential hypertension, benign 401.1 Active Medications No Known Medications Results No Known Results Summary Purpose eClinicalWorks Submission
--- OUTSIDE RECORDS SUMMARY | 2018-01-29 15:32 | XMS REPORT ---
Author Author GLADIS KESSLER Organization [facility] Address [address] [place] [address] Care Team Providers Care Director Of Software Development Name Role Phone GLADIS KESSLER Unavailable PROBLEMS Type Condition ICD9-CM Code PZP69-QX Code Onset Dates Condition Status SNOMED Code Problem Anxiety disorder, unspecified F41.9 Active 052368644 Problem Other chronic pain G89.29 Active 56846835 Problem Diabetes E11.9 Active 604064214 Problem Hypercholesterolemia E78.00 Active 22863178 Problem Type 2 diabetes mellitus with diabetic autonomic neuropathy, without long-term current use of insulin E11.43 Active 55136077 Problem Essential hypertension I10 Active 71552819 Problem Acute recurrent maxillary sinusitis J01.01 Active 03816203 Problem Cough R05 Active 43512862 Problem Hypothyroidism, unspecified E03.9 Active 87024564 Problem COPD exacerbation J44.1 Active 621905474 Problem Cannabis use disorder, moderate, dependence F12.20 Active 73398312 Problem Type 2 diabetes mellitus with complication E11.8 Active 164061339 ALLERGIES No Information ENCOUNTERS Encounter Location Date Diagnosis [facility] [address], [place] [address] Jan, [facility] [address] [address] 16 Nov, 2017 Acute recurrent maxillary sinusitis J01.01 ; Cough R05 and BMI 40.0-44.9, adult Z68.41 [facility] [address] [place] [address] Oct, Cannabis use disorder, moderate, dependence F12.20 [facility] [address] [place] [address] Oct, Cannabis use disorder, moderate, dependence F12.20 [facility] [address] [place] [address] Oct, Cannabis use disorder, moderate, dependence F12.20 [facility] [address] [place] [address] Oct, Cannabis use disorder, moderate, dependence F12.20 [facility] [address] [place] [address] Oct, Cannabis use disorder, moderate, dependence F12.20 [facility] [address] [place] [address] Sep, Cannabis use disorder, moderate, dependence F12.20 [facility] [address] [place] [address] Sep, Anxiety disorder, unspecified F41.9 and Other chronic pain G89.29 [facility] [address] [place] [address] Sep, Bronchitis J40 [facility] [address] [place] [id number] Sep, Cannabis use disorder, moderate, dependence F12.20 [facility] [address] [place] [address] Sep, Cannabis use disorder, moderate, dependence F12.20 [facility] [address] [place] [address] Aug, Other chronic pain G89.29 [facility] [address] [place], [place] [address] Aug, Cannabis use disorder, moderate, dependence F12.20 [facility] [address] [place] [address] Aug, Cannabis use disorder, moderate, dependence F12.20 [facility] [address] [place] [address] Aug, Cannabis use disorder, moderate, dependence F12.20 [facility] [address] [place] [address] Aug, Cannabis use disorder, moderate, dependence F12.20 [facility] [address] [place] [address] Aug, Anxiety disorder, unspecified F41.9 [facility] [address] [place], [place] [address] Jul, Other chronic pain G89.29 [facility] [address] [place] [address] Jul, Cannabis use disorder, moderate, dependence F12.20 [facility] [address] [place] [address] Jul, Cannabis use disorder, moderate, dependence F12.20 [facility] [address] [place] [address] Jul, Diabetes E11.9 ; Blood in stool K92.1 ; Arthralgia, unspecified joint M25.50 and BMI 40.0-44.9, adult Z68.[address] [address] Jun, Other chronic pain G89.[address] [address] Jun, [facility] [address] [place] [address] Jun, [facility] [address] [place] [address] Jun, Other chronic pain G89.[address] [address] Jun, [facility] [address] [place] [address] Jun, Cannabis use disorder, moderate, dependence F12.[address] [address] May, Anxiety disorder, unspecified F41.9 [facility] [address] [place] [address] May, Cannabis use disorder, moderate, dependence F12.[address] [address] May, [facility] [address] [place] [address] May, Cannabis use disorder, moderate, dependence F12.20 [facility] [address] [place] [address] May, [facility] [address] [place] [address] May, [facility] [address] [place] [address] May, [facility] [address] [place] [id number] [place] [address] May, Other chronic pain G89.29 [facility] [address] [address] May, [facility] [address] [address] May, Type 2 diabetes mellitus with complication E11.8 and Encounter for immunization Z23 [facility] [address] [place] [address] May, Cannabis use disorder, moderate, dependence F12.20 [facility] [address] [address] 02 May, 2017 Essential hypertension I10 [facility] [address] [address] 30 Sep, 2016 Essential hypertension I10 [facility] [address] [address] 29 Sep, 2016 Diabetes E11.9 [facility] [address] [address] 18 Sep, 2016 [facility] [address] [address] 15 Apr, 2016 [facility] [address] [address] 15 Sep, 2016 [facility] [address] [place] [address] 13 Sep, 2017 Other psychoactive substance abuse, uncomplicated F19.10 [facility] [address] [place] [place] [id number] [place] [address] 13 Apr, 2016 [facility] [address] [address] Apr, [facility] [address], [place] [address] Apr, Anxiety disorder, unspecified F41.9 [facility] [address] [place] [id number] [place] [address] 08 Apr, 2017 [facility] [address] [id number] [place] [address] Apr, Diabetes E11.9 and terminal manager (current) use of opiate analgesic Z79.891 [facility] [address] [place] [place] [id number] [place] [address] 16 Mar, 2017 Other chronic pain G89.29 and Diabetes E11.9 [facility] [address] [place] [id number] [place] [address] Mar, Diabetes E11.9 [facility] [address] [place] [id number] [place] [address] Feb, Anxiety disorder, unspecified F41.9 [facility] [address] [place] [id number] [place] [address] Jan, [facility] [address] [place] [id number] [place] [address] Jan, [facility] [address] [place] [address] December, Anxiety disorder, unspecified F41.9 [facility] [address] [place] [id number] [place] [address] Oct, Diabetes E11.9 and Hypothyroidism, unspecified E03.9 [facility] [address] [place] [place] [id number] [place] [address] Oct, Anxiety disorder, unspecified F41.9 [facility] [address], [place] [address] Aug, Bronchitis J40 and Shortness of breath R06.02 [facility] [address] [id number] [place] [address] Jul, [facility] [address] [id number] [place] [address] 39[address] Jul, Back pain, unspecified back location, unspecified back pain laterality, unspecified chronicity M54.9 [place] [address] [place] [id number] [place] [address]84[address] Jul, Anxiety disorder, unspecified F41.9 [facility] [address] [place] [id number] [place] [address] 9[address] Jul, Essential hypertension I10 [place] [address] [address] Jun, [facility] [address] [place] [address] [id number] [place] [address] Jun, Bronchitis J40 [place] [address] [address] Jun, [place] [address] [place] [id number] [place] [address] 17352[address] 7[address] Jun, Diabetes E11.9 ; Dorsalgia, unspecified M54.9 ; Other chronic pain G89.29 and 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 [place] [address] [place] [id number] [place] [address] 12[address] May, Anxiety disorder, unspecified F41.9 [place] [address] [place] [id number] [place] [address] 37409[address] 1803 Apr, Type 2 diabetes mellitus with complication E11.8 ; Essential hypertension I10 ; Tooth pain K08.8 and Back pain, unspecified back location, unspecified back pain laterality, unspecified chronicity M54.9 [place] [address] [place] [id number] [place] [address] 25173- 4654 Feb, Anxiety disorder, unspecified F41.9 [place] [address] [place] [id number] [place] [address] 16322- 2814 December, [facility] [address] [place] [address] 27[address] December, [facility] [address] [place] [id number] [place] [address] 14667- 9379 December, Diabetes E11.9 ; Insect bite (nonvenomous) of abdominal wall , initial encounter S30.861A and Bitten or stung by nonvenomous insect and other nonvenomous arthropods, initial encounter W57.XXXA [facility] [address] [id number] [place] [address] 73292- 9591 Nov, [facility] [address] [id number] [place] [address] 18402- 5695 Sep, Genital warts A63.0 [facility] [address] [place] [id number] [place] [address] 47361- 6964 Aug, [place] [address] [place] [id number] [place] [id number] Aug, Diabetes type 2, uncontrolled 250.02 and Hypothyroid 244.9 [facility] [address] [place] [id number] [place] [address] 12171- 9279 Jul, Anogenital (venereal) warts A63.0 [facility] [address] [place] [address] 59213- 5770 Jul, [facility] [id number] [place] [address] 15089- 6820 Jul, Diabetes E11.9 [facility] [address] [place] [address] 34743- 2386 Jun, Genital warts A63.0 [facility] [address] [place] [id number] [place] [address] 39386- 3531 Jun, [facility] [address] [place] [address] 51688- 2598 Jun, [facility] [address] [place] [address] May, [facility] [address] [place] [address] 52324- 0566 May, [facility] [address] May, Type 2 diabetes mellitus with complication E11.8 and Upper respiratory tract infection, unspecified upper respiratory infection J06.9 [facility] [address] [place] [address] 68688- 5143 Apr, Genital warts 078.11 [facility] [address] [place] [address] 21859- 8223 Feb, Hypothyroid 244.9 and Diabetes type 2, uncontrolled 250.02 [address] [id number] Feb, Diabetes type 2, uncontrolled 250.02 and Hypothyroid 244.9 [facility] [address] [place] [address] 39016- 5212 Feb, Diabetes type 2, uncontrolled 250.02 and Hypothyroid 244.9 [facility] [address] [place] [address] 05902- 2866 Jan, [facility] [address], [place] [address] Jan, [facility] [address], [place] [address] 3[address] Nov, [facility] [address] [place] [address] 38580- 1269 Nov, [facility] [address] [place] [id number] [place] [address] 72053- 1796 Nov, [facility] [address] Oct, [facility] [address] [place] [address] 80145- 5949 Oct, [facility] [place] [facility] [address] [id number] [place] [address] Oct, [facility] [place] [facility] [address] [id number] [place] [address]- 9254 Sep, [facility] [place] [facility] [address] [id number] [place] [address] Sep, [facility] [place] [facility] [address] [id number] [place] [address]- 9290 Sep, [facility] [place] [facility] [address] [id number] [place] [address]- 9537 Sep, [facility] [place] [facility] [address] [id number] [place] [address]- 7886 Sep, [facility] [place] [facility] [address] [id number] [place] [address]- 9644 Sep, [facility] [place] [facility] [address] [id number] [place] [address]- 7207 Aug, [facility] [place] [facility] [address] [id number] [place] [address]- 3769 Aug, [facility] [place] [facility] [address] [id number] [place] [address]- 6518 Aug, [facility] [place] [facility] [address] [id number] [place] [address]- 6122 Aug, [facility] [place] [facility] [address] [id number], [place] [address]- 5229 Aug, [facility] [place] [facility] [address] [id number] [place] [address]- 7923 Aug, [facility] [place] [facility] [address] [id number] [place] [address]- 4868 Aug, [facility] [place] [facility] [address] [id number] [place] [address]- 7917 Aug, [facility] [place] [facility] [address] [id number] [place] [address]- 9345 Jun, [facility] [place] [facility] [address] [id number] [place] [address]- 0730 Jun, [facility] [place] [facility] [address] [id number] [place] [address]- 1896 Jun, [facility] [place] [facility] [address] [id number] [place] [address]- 4070 Jun, [facility] [place] [facility] [address] [id number] [place] [address]- 1066 Jun, [facility] [place] [facility] [address] [id number] [place] [address]- 1879 May, [facility] [place] [facility] [address] [id number] [place] [address]- 7587 May, [facility] [place] [facility] [address] [id number] [place] [address]- 4930 Apr, [facility] [place] [facility] [address] [id number] [place] [address]- 1580 Apr, [facility] [place] [facility] [address] [id number] [place] [address]- 2572 Apr, [facility] [place] [facility] [address] [id number] [place] [address]- 7516 Apr, [facility] [place] [facility] [address] [id number] [place] [address]- 4256 Mar, [facility] [place] [facility] [address] [id number] [place] [address]- 1913 Mar, [facility] [place] [facility] [address] [id number] [place] [address]- 8964 Mar, [facility] [place] [facility] [address] [id number] [place] [address]- 1845 Mar, [facility] [place] [facility] [address] [id number] [place] [address]- 0815 Mar, [facility] [place] [facility] [address] [id number] [place] [address]- 0107 Mar, [facility] [place] [facility] [address] [id number] [place] [address]- 9821 Feb, [facility] [place] [facility] [address] [id number] [place] [address]- 3552 Feb, [facility] [place] [facility] [address] [id number] [place] [address]- 3702 Jan, [facility] [place] [facility] [address] [id number] [place] [address]- 2172 Jan, [facility] [place] [facility] [address] [id number] [place] [address]- 0660 Jan, [facility] [place] [facility] [address] [id number] [place] [address]- 8855 Jan, [facility] [place] [facility] [address] [id number] [place] [address]- 0061 December, [facility] [place] [facility] [address] [id number] [place] [address]- 1700 December, [facility] [place] [facility] [address] [id number] [place] [address]- 4299 December, [facility] [place] [facility] [address] [id number] [place] [address]- 6892 December, [facility] [place] [facility] [address] [id number] [place] [address]- 1750 December, [facility] [place] [facility] [address] [id number] [place] [address]- 6347 Nov, [facility] [place] [facility] [address] [id number] [place] [address]- 3873 Nov, [facility] [place] [facility] [address] [id number] [place] [address]- 9370 Oct, [facility] [place] [facility] [address] [id number], [place] [address]- 2559 Oct, [facility] [place] [facility] [address] [id number] [place] [address]- 8408 Oct, [facility] [place] [facility] [address] [id number] [place] [address]- 8696 Oct, [facility] [place] [facility] [address] [facility] [id number] [place] [address]- 1175 Oct, [facility] [place] [facility] [address] [id number] [place] [address]- 7696 Oct, [facility] [place] [facility] [address] [id number] [place] [address]- 3300 Sep, [facility] [place] [facility] [address] [id number] [place] [address]- 1555 Sep, [facility] [address] [facility] [id number] [place] [address]- 1499 Jul, [facility] [place] [facility] [address] [id number] [place] [address]- 9951 Jul, [facility] [place] [facility] [address] [facility] [id number] [place] [address]- 2096 Jul, [facility] [place] [facility] [address] [facility] [id number] [place] [address]- 3608 Jul, [facility] [place] [facility] [address] [facility] [id number], [place] [address]- 5590 Jun, [facility] [place] [facility] [address] [facility] [id number], [place] [address]- 7973 Jun, [facility] [place] [facility] [address] [id number] [place] [address]- 1950 Jun, [facility] [place] [facility] [address] [facility] [id number] [place] [address]- 4989 Jun, [facility] [place] [facility] [address] [facility] [id number], [place] [address]- 0781 Jun, [facility] [place] [facility] [address] [facility] [id number] [place] [address]- 8876 Jun, [facility] [address] [facility] [id number], [place] [address]- 2368 May, [facility] [address] [facility] [id number] [place] [address]- 3857 May, [facility] [address] [facility] [id number][place] [address] Mar, IMMUNIZATIONS No Known Immunizations SOCIAL HISTORY Never Assessed REASON FOR VISIT Lab results PLAN OF CARE VITAL SIGNS MEDICATIONS [...]
--- OUTSIDE RECORDS SUMMARY | 2018-01-29 15:32 | XMS REPORT ---
Author Author GLADIS KESSLER Organization [employer] Address Unknown Phone Unavailable Care Team Providers Care Customs Patrol Officer Name Role Phone GLADIS KESSLER CP Unavailable [...]
--- OUTSIDE RECORDS SUMMARY | 2018-01-29 15:32 | XMS REPORT ---
Author Author GLADIS KESSLER [facility] [employer] Address Unknown Phone Unavailable Care Team Providers Care Railcar Foreman Name Role Phone GLADIS KESSLER CP Unavailable Allergies No Known Allergies Problems Problem Type Condition Code Onset Dates Condition Status Problem Pure hypercholesterolemia 272.0 Active Problem Essential hypertension, benign 401.1 Active Problem Diabetes mellitus without mention of complication, type II or unspecified type, uncontrolled 250.02 Active Problem Unspecified hereditary and idiopathic peripheral neuropathy 356.9 Active Problem Other and unspecified hyperlipidemia 272.4 Active Problem Other chronic pain G89.29 Active Problem Anxiety disorder, unspecified F41.9 Active Problem Diabetes E11.9 Active Problem Anxiety state, unspecified 300.00 Active Problem Generalized anxiety disorder 300.02 Active Problem Condyloma acuminatum 078.11 Active Problem Diabetes mellitus without mention of complication, type II or unspecified type, not stated as uncontrolled 250.00 Active Medications No Known Medications Results No Known Results Summary Purpose [employer] Submission
--- OUTSIDE RECORDS SUMMARY | 2018-01-29 15:33 | XMS REPORT ---
Author Author GLADIS KESSLER Organization [facility] Address [address] [place] [address] Care Team Providers Care Fulling Mill Operator Name Role Phone GLADIS KESSLER Unavailable PROBLEMS Type Condition ICD9-CM Code [id number] Code Onset Dates Condition Status SNOMED Code Problem Type 2 diabetes mellitus with diabetic autonomic neuropathy, without long-term current use of insulin E11.43 Active 35054252 Problem Anxiety disorder, unspecified F41.9 Active 131588396 Problem Essential hypertension I10 Active 99691436 Problem Hypercholesterolemia E78.00 Active 53735405 Problem Cannabis use disorder, moderate, dependence F12.20 Active 47074007 Problem Type 2 diabetes mellitus with complication E11.8 Active 793646879 Problem Other chronic pain G89.29 Active 86528897 Problem Diabetes E11.9 Active 722945909 Problem Hypothyroidism, unspecified E03.9 Active 86597524 Problem COPD exacerbation J44.1 Active 098609055 ALLERGIES No Information SOCIAL HISTORY Never Assessed [...]
--- OUTSIDE RECORDS SUMMARY | 2018-01-29 15:33 | XMS REPORT ---
Author Author GLADIS KESSLER Organization [facility] Address [address] [place] [address] Care Team Providers Care Shorthand Teacher Name Role Phone GLADIS KESSLER Unavailable PROBLEMS Type Condition ICD9-CM Code [id number] Code Onset Dates Condition Status SNOMED Code Problem Hypercholesterolemia E78.00 Active 14482242 Problem Type 2 diabetes mellitus with diabetic autonomic neuropathy, without long-term current use of insulin E11.43 Active 02210756 Problem Hypothyroidism, unspecified E03.9 Active 98192303 Problem COPD exacerbation J44.1 Active 717433660 Problem Anxiety disorder, unspecified F41.9 Active 789247395 Problem Essential hypertension I10 Active 55324726 Problem Diabetes E11.9 Active 448749417 Problem Other chronic pain G89.29 Active 82356757 ALLERGIES Unknown Allergies SOCIAL HISTORY No smoking Hx information available PLAN OF CARE VITAL SIGNS MEDICATIONS Medication Instructions Dosage Frequency Start Date End Date Duration Status Meloxicam 7.5 MG Orally twice a day 1 tablet 12h Jul, Active Gabapentin 600 MG Orally Three times a day 1 tablet 8h Jul, Active RESULTS No Results PROCEDURES No Known procedures IMMUNIZATIONS No Known Immunizations
--- OUTSIDE RECORDS SUMMARY | 2018-01-29 15:33 | XMS REPORT ---
Author Author ABIGAIL DENNIS [facility] Address [address] [place] [address] Care Team Providers Care Technology Architect Name Role Phone ABIGAIL DENNIS Unavailable PROBLEMS Type Condition ICD9-CM Code CPV23-KE Code Onset Dates Condition Status SNOMED Code Problem Anxiety disorder, unspecified F41.9 Active 564485213 Problem Other chronic pain G89.29 Active 80748927 Problem Diabetes E11.9 Active 203451061 Problem Hypercholesterolemia E78.00 Active 27083380 Problem Type 2 diabetes mellitus with diabetic autonomic neuropathy, without long-term current use of insulin E11.43 Active 00664890 Problem Essential hypertension I10 Active 78168144 Problem Acute recurrent maxillary sinusitis J01.01 Active 95884447 Problem Cough R05 Active 48486858 Problem Hypothyroidism, unspecified E03.9 Active 34914672 Problem COPD exacerbation J44.1 Active 498768079 Problem Cannabis use disorder, moderate, dependence F12.20 Active 36649597 Problem Type 2 diabetes mellitus with complication E11.8 Active 290437655 ALLERGIES No Information ENCOUNTERS Encounter Location Date Diagnosis [facility] [address] [address] Jan, [facility] [address] [address] 30 Nov, 2017 Seasonal allergic rhinitis, unspecified trigger J30.2 and BMI 40.0-44.9, adult Z68.41 [facility] [address] [address] 16 Nov, 2017 Acute recurrent maxillary sinusitis J01.01 ; Cough R05 and BMI 40.0-44.9, adult Z68.41 [facility] [address] [place] [address] Oct, Cannabis use disorder, moderate, dependence F12.20 [facility] [address] [place] [address] Oct, Cannabis use disorder, moderate, dependence F12.20 [facility] [address] [place] [address] Oct, Cannabis use disorder, moderate, dependence F12.20 [facility] [address] [place] [address] Oct, Cannabis use disorder, moderate, dependence F12.20 [facility] [address] [place] [address] Oct, Cannabis use disorder, moderate, dependence F12.20 [facility] [address] [place] [address] Sep, Cannabis use disorder, moderate, dependence F12.20 [facility] [address] [place] [address] Sep, Anxiety disorder, unspecified F41.9 and Other chronic pain G89.29 [facility] [address] [place] [address] Sep, Bronchitis J40 [facility] [address] [place] [address] 08 Sep, 2017 Cannabis use disorder, moderate, dependence F12.20 [facility] [address] [place] [address] Sep, Cannabis use disorder, moderate, dependence F12.20 [facility] [address] [place] [address] Aug, Other chronic pain G89.29 [facility] [address] [place] [address] Aug, Cannabis use disorder, moderate, dependence F12.20 [facility] [address] [place] [address] Aug, Cannabis use disorder, moderate, dependence F12.20 [facility] [address] [place] [address] Aug, Cannabis use disorder, moderate, dependence F12.20 [facility] [address] [place] [address] Aug, Cannabis use disorder, moderate, dependence F12.20 [facility] [address] [place] [address] [address] Aug, Anxiety disorder, unspecified F41.9 [place] [address] [address] Jul, Other chronic pain G89.29 [facility] [address] [place] [address] Jul, Cannabis use disorder, moderate, dependence F12.20 [facility] [address] [place] [address] Jul, Cannabis use disorder, moderate, dependence F12.20 [place] [address] [address] Jul, Diabetes E11.9 ; Blood in stool K92.1 ; Arthralgia, unspecified joint M25.50 and BMI 40.0-44.9, adult Z68.[address] [address] Jun, Other chronic pain G89.29 [place] [address] [address] Jun, [facility] [address] [place] [address] Jun, [place] [address] [address] Jun, Other chronic pain G89.[address] [address] Jun, [facility] [address] [place] [address] Jun, Cannabis use disorder, moderate, dependence F12.20 [place] [address] [address] May, Anxiety disorder, unspecified F41.9 [facility] [address] [place] [address] May, Cannabis use disorder, moderate, dependence F12.20 [place] [address] [address] May, [facility] [address] [place] [address] May, Cannabis use disorder, moderate, dependence F12.20 [facility] [address] [place] [address] May, [facility] [address] [place] [address] May, [facility] [address] [place] [address] May, [facility] [address] [address] May, Other chronic pain G89.29 [facility] [address] [address] May, [facility] [address] [address] May, Type 2 diabetes mellitus with complication E11.8 and Encounter for immunization Z23 [facility] [address] [place] [address] May, Cannabis use disorder, moderate, dependence F12.20 [facility] [address] [address] 02 May, 2017 Essential hypertension I10 [facility] [address] [address] 30 Apr, 2017 Essential hypertension I10 [facility] [address] [address] 29 Apr, 2016 Diabetes E11.9 [facility] [address] [place] [id number] [place] [address] 18 Apr, 2016 [facility] [address] [address] 15 Apr, 2017 [facility] [address] [address] 15 Apr, 2016 [facility] [address] [place] [address] 13 Apr, 2016 Other psychoactive substance abuse, uncomplicated F19.10 [facility] [address] [address] 13 Apr, 2017 [facility] [address] [place] [id number] [place] [address] 12 Apr, 2017 [facility] [address] [place] [address] [id number] [place] [address] 12 Apr, 2017 Anxiety disorder, unspecified F41.9 [facility] [address] [place] [id number] [place] [address] 08 Apr, 2017 [facility] [address] [place] [address] [id number] [place] [address] 06 Apr, 2017 Diabetes E11.9 and 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 [place] [address] [place] [address] [id number] [place] [address] 16 Mar, 2017 Other chronic pain G89.29 and Diabetes E11.9 [facility] [address] [place] [id number] [place] [address] Mar, Diabetes E11.9 [facility] [address] [place] [id number] [place] [address] Feb, Anxiety disorder, unspecified F41.9 [place] [address] [place] [address] Jan, [place] [address] [place] [id number] [place] [address] Jan, [facility] [address] [place] [address]- [address] December, Anxiety disorder, unspecified F41.9 [facility] [address] [place] [id number] [place] [address]87 Oct, Diabetes E11.9 and Hypothyroidism, unspecified E03.9 [facility] [address] [address] Oct, Anxiety disorder, unspecified F41.9 [facility] [address] [place] [address] Aug, Bronchitis J40 and Shortness of breath R06.02 [facility] [address] [place] [address] [id number] [place] [address] Jul, [facility] [address] [place] [id number] [place] [address] 26523- 5885 Jul, Back pain, unspecified back location, unspecified back pain laterality, unspecified chronicity M54.9 [place] [address] [place] [id number] [place] [address] 9[address]62- 5462 Jul, Anxiety disorder, unspecified F41.9 [place] [address] [place] [id number] [place] [address] 31542- 4249 Jul, Essential hypertension I10 [place] [address] [place] [id number] [place] [address]326- 3639 Jun, [facility] [address] [place] [address] [id number] [place] [address] Jun, Bronchitis J40 [place] [address] [place] [id number] [place] [address] 93309- 7930 Jun, [place] [address] [place] [id number] [place] [address] 94200- 7591 Jun, Diabetes E11.9 ; Dorsalgia, unspecified M54.9 ; Other chronic pain G89.29 and 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 [place] [address] [place] [id number] [place] [address] 7[address]12- 9090 May, Anxiety disorder, unspecified F41.9 [place] [address] [place] [id number] [place] [address] 89480- 5931 Apr, Type 2 diabetes mellitus with complication E11.8 ; Essential hypertension I10 ; Tooth pain K08.8 and Back pain, unspecified back location, unspecified back pain laterality, unspecified chronicity M54.9 [place] [address] [place] [id number] [place] [address] 44964- 0325 Feb, Anxiety disorder, unspecified F41.9 [facility] [address] [place] [id number] [place] [address] 05585- 3111 December, [facility] [address] [place] [id number] [place] [address] 01043- 6412 December, [facility] [address] [place] [id number] [place] [address] 29825- 6518 December, Diabetes E11.9 ; Insect bite (nonvenomous) of abdominal wall , initial encounter S30.861A and Bitten or stung by nonvenomous insect and other nonvenomous arthropods, initial encounter W57.XXXA [facility] [address] [place] [id number] [place] [address] 84009- 7900 Nov, [place] [address] [place] [id number] [place] [address] 61404- 0199 Sep, Genital warts A63.0 [facility] [address] [place] [address] 74055- 7856 Aug, [facility] [address] [id number] [place] [id number] Aug, Diabetes type 2, uncontrolled 250.02 and Hypothyroid 244.9 [facility] [address] [place] [address] 06156- 0694 Jul, Anogenital (venereal) warts A63.0 [facility] [address] [place] [address] 07085- 2851 Jul, [facility] [address] [place] [id number] [place] [address] 61351- 5515 Jul, Diabetes E11.9 [facility] [address] [place] [id number] [place] [address]19- 1789 Jun, Genital warts A63.0 [facility] [address] [place] [id number] [place] [address] 56421- 2784 Jun, [facility] [address] [place] [id number] [address]- 1068 Jun, [facility] [address] [address]- 8[address] May, [facility] [address] [address] 387[address] May, [facility] [address] [address] May, Type 2 diabetes mellitus with complication E11.8 and Upper respiratory tract infection, unspecified upper respiratory infection J06.9 [facility] [address] [address]- 0149 Apr, Genital warts 078.11 [facility] [address] [address]- 88[address] Feb, Hypothyroid 244.9 and Diabetes type 2, uncontrolled 250.02 [address] [address] Feb, Diabetes type 2, uncontrolled 250.02 and Hypothyroid 244.9 [facility] [address] [address]- 9274 Feb, Diabetes type 2, uncontrolled 250.02 and Hypothyroid 244.9 [facility] [address] [place] [id number] [address]- 60[address] Jan, [facility] [address] [place] [id number] [address]- 3555 Jan, [facility] [address] [address]- 9543 Nov, [facility] [address], [place] [address]- 7[address] Nov, [facility] [address] [place] [id number] [address]- 7715 Nov, [facility] [address] [facility] [id number] [place] [address]- [address]281 Oct, [facility] [place] [facility] [address] [id number] [place] [address]- 8962 Oct, [facility] [place] [facility] [address] [id number] [place] [address]- 9099 Oct, [facility] [place] [facility] [address] [id number] [place] [address]- 6125 Sep, [facility] [place] [facility] [address] [id number] [place] [address]- 8614 Sep, [facility] [place] [facility] [address] [id number] [place] [address]- 0448 Sep, [facility] [place] [facility] [address] [id number] [place] [address]- 7951 Sep, [facility] [place] [facility] [address] [id number] [place] [address]- 4299 Sep, [facility] [place] [facility] [address] [id number] [place] [address]- 4097 Sep, [facility] [place] [facility] [address] [facility] [id number] [place] [address]- 8936 Aug, [facility] [place] [facility] [address] [id number] [place] [address]- 3230 Aug, [facility] [place] [facility] [address] [id number] [place] [address]- 3069 Aug, [facility] [place] [facility] [address] [id number] [place] [address]- 4996 Aug, [facility] [place] [facility] [address] [id number] [place] [address]- 4517 Aug, [facility] [place] [facility] [address] [id number] [place] [address]- 2987 Aug, [facility] [place] [facility] [address] [id number] [place] [address]- 2175 Aug, [facility] [place] [facility] [address] [id number] [place] [address]- 4158 Aug, [facility] [place] [facility] [address] [id number] [place] [address]- 4137 Jun, [facility] [place] [facility] [address] [id number] [place] [address]- 6740 Jun, [facility] [place] [facility] [address] [id number] [place] [address]- 9937 Jun, [facility] [place] [facility] [address] [id number] [place] [address]- 2230 Jun, [facility] [place] [facility] [address] [id number] [place] [address]- 5677 Jun, [facility] [place] [facility] [address] [id number] [place] [address]- 0615 May, [facility] [place] [facility] [address] [id number] [place] [address]- 3411 May, [facility] [place] [facility] [address] [id number] [place] [address]- 3202 Apr, [facility] [place] [facility] [address] [id number] [place] [address]- 8540 Apr, [facility] [place] [facility] [address] [id number] [place] [address]- 1226 Apr, [facility] [place] [facility] [address] [id number] [place] [address]- 8385 Apr, [facility] [place] [facility] [address] [id number] [place] [address]- 0375 Mar, [facility] [place] [facility] [address] [id number] [place] [address]- 3930 Mar, [facility] [place] [facility] [address] [id number] [place] [address]- 9693 Mar, [facility] [place] [facility] [address] [id number] [place] [address]- 4611 Mar, [facility] [address] [id number] [place] [address]- 4295 Mar, [facility] [place] [facility] [address] [id number] [place] [address]- 0596 Mar, [facility] [place] [facility] [address] [id number] [place] [address]- 8487 Feb, [facility] [place] [facility] [address] [id number] [place] [address]- 2705 Feb, [facility] [place] [facility] [address] [id number] [place] [address]- 4237 Jan, [facility] [place] [facility] [address] [id number] [place] [address]- 3995 Jan, [facility] [place] [facility] [address] [id number] [place] [address]- 4249 Jan, [facility] [address] [id number] [place] [address]- 9657 Jan, [facility] [place] [facility] [address] [id number] [place] [address]- 7572 December, [facility] [address] [id number] [place] [address]- 1536 December, [facility] [place] [facility] [address] [id number] [place] [address]- 5468 December, [facility] [place] [facility] [address] [id number] [place] [address]- 6460 December, [facility] [place] [facility] [address] [id number] [place] [address]- 1827 December, [facility] [place] [facility] [address] [id number] [place] [address]- 0499 Nov, [facility] [place] [facility] [address] [id number] [place] [address] Nov, [facility] [address] [id number] [place] [address]- 8474 Oct, [facility] [place] [facility] [address] [id number] [place] [address]- 0849 Oct, [facility] [place] [facility] [address] [id number] [place] [address]- 1774 Oct, [facility] [place] [facility] [address] [id number] [place] [address]- 2857 Oct, [facility] [place] [facility] [address] [id number] [place] [address]- 2083 Oct, [facility] [place] [facility] [address] [id number] [place] [address]- 2790 Oct, [facility] [place] [facility] [address] [id number] [place] [address]- 3367 Sep, [facility] [place] [facility] [address] [id number] [place] [address]- 6621 Sep, [facility] [place] [facility] [address] [id number] [place] [address]- 3636 Jul, [facility] [place] [facility] [address] [id number] [place] [address]- 7319 Jul, [facility] [place] [facility] [address] [id number] [place] [address]- 2262 Jul, [facility] [place] [facility] [address] [id number] [address]- 7335 Jul, [facility] [place] [facility] [address] [id number] [place] [address]- 9966 Jun, [facility] [place] [facility] [address] [id number] [place] [address]- 6604 Jun, [facility] [place] [facility] [address] [id number] [place] 3330 Jun, [facility] [place] [facility] [address] [facility] [id number] [address]- 2546 Jun, [facility] [id number] [address]- 2546 Jun, [facility] [id number] [address]- 2546 Jun, [facility] [id number] [address]- 2546 May, [facility] [id number] [address]- 3835 May, [facility] [id number] [address]- 0236 Mar, IMMUNIZATIONS No Known Immunizations SOCIAL HISTORY Never Assessed REASON FOR VISIT attempt to contact and schedule PLAN OF CARE VITAL SIGNS MEDICATIONS Unknown [...]
--- OUTSIDE RECORDS SUMMARY | 2018-01-29 15:33 | XMS REPORT ---
Author Author GLADIS KESSLER Organization [facility] Address [address] [place] [address] Care Team Providers Care Grade Teacher Name Role Phone GLADIS KESSLER Unavailable PROBLEMS Type Condition ICD9-CM Code EDD63-OK Code Onset Dates Condition Status SNOMED Code Problem Type 2 diabetes mellitus with diabetic autonomic neuropathy, without long-term current use of insulin E11.43 Active 60462585 Problem Anxiety disorder, unspecified F41.9 Active 293577578 Problem Essential hypertension I10 Active 36908558 Problem Hypercholesterolemia E78.00 Active 81875190 Problem Cannabis use disorder, moderate, dependence F12.20 Active 21120754 Problem Type 2 diabetes mellitus with complication E11.8 Active 217138048 Problem Other chronic pain G89.29 Active 47470169 Problem Diabetes E11.9 Active 655923104 Problem Hypothyroidism, unspecified E03.9 Active 68063380 Problem COPD exacerbation J44.1 Active 170311409 ALLERGIES No Information SOCIAL HISTORY Never Assessed PLAN OF CARE VITAL SIGNS MEDICATIONS Medication Instructions Dosage Frequency Start Date End Date Duration Status Atenolol 100 MG Orally Once a day 1 tablet 24h 90 days Active Lisinopril 40 MG Orally Once a day 1 tablet 24h 90 days Active RESULTS No Results PROCEDURES [...]
--- OUTSIDE RECORDS SUMMARY | 2018-01-29 15:33 | XMS REPORT ---
Author Author GLADIS KESSLER Organization [facility] Address [address] [place] [address] Care Team Providers Care Hand Iii Cutter Name Role Phone GLADIS KESSLER Unavailable PROBLEMS Type Condition ICD9-CM Code VRF92-ME Code Onset Dates Condition Status SNOMED Code Problem Anxiety disorder, unspecified F41.9 Active 351106459 Problem Other chronic pain G89.29 Active 31096036 Problem Diabetes E11.9 Active 175791395 Problem Hypercholesterolemia E78.00 Active 87564718 Problem Type 2 diabetes mellitus with diabetic autonomic neuropathy, without long-term current use of insulin E11.43 Active 18128990 Problem Essential hypertension I10 Active 78682061 Problem Acute recurrent maxillary sinusitis J01.01 Active 66362090 Problem Cough R05 Active 39921279 Problem Hypothyroidism, unspecified E03.9 Active 14329934 Problem COPD exacerbation J44.1 Active 949739389 Problem Cannabis use disorder, moderate, dependence F12.20 Active 25554128 Problem Type 2 diabetes mellitus with complication E11.8 Active 244391248 ALLERGIES No Information ENCOUNTERS Encounter Location Date Diagnosis [facility] [id number] [place] [address]60[address]85 Jan, [facility] [id number] [place] [address] 30 Nov, 2017 Seasonal allergic rhinitis, unspecified trigger J30.2 and BMI 40.0-44.9, adult Z68.41 [facility] [address] [address] 16 Nov, 2017 Acute recurrent maxillary sinusitis J01.01 ; Cough R05 and BMI 40.0-44.9, adult Z68.41 [facility] [address] [place] [address] Oct, Cannabis use disorder, moderate, dependence F12.20 [facility] [address] [place] [address] Oct, Cannabis use disorder, moderate, dependence F12.20 [facility] [address] [place] [address] Oct, Cannabis use disorder, moderate, dependence F12.20 [facility] [address] [place] [address] 08 Oct, 2017 Cannabis use disorder, moderate, dependence F12.20 [facility] [address] [address] Oct, Cannabis use disorder, moderate, dependence F12.20 [facility] [address] [place] [address] Sep, Cannabis use disorder, moderate, dependence F12.20 [facility] [address] [place] [address]248[address] Sep, Anxiety disorder, unspecified F41.9 and Other chronic pain G89.29 [facility] [address] [place] [id number] [place] [address] 548307- 655 Sep, Bronchitis J40 [facility] [address] [place] [address] 08 Sep, 2017 Cannabis use disorder, moderate, dependence F12.20 [facility] [address] [place] [address] Sep, Cannabis use disorder, moderate, dependence F12.20 [facility] [address] [place] [id number] [place] [address] 48613- 756 Aug, Other chronic pain G89.29 [facility] [address] [place] [address] Aug, Cannabis use disorder, moderate, dependence F12.20 [facility] [address] [place] [address] Aug, Cannabis use disorder, moderate, dependence F12.20 [facility] [address] [place] [address] Aug, Cannabis use disorder, moderate, dependence F12.20 [facility] [address] [place] [address] Aug, Cannabis use disorder, moderate, dependence F12.20 [facility] [address] [place] [id number] [place] [address]886[address] 8542 Aug, Anxiety disorder, unspecified F41.[address] [address] Jul, Other chronic pain G89.29 [facility] [address] [place] [address] Jul, Cannabis use disorder, moderate, dependence F12.20 [facility] [address] [place] [address] Jul, Cannabis use disorder, moderate, dependence F12.[address] [address] Jul, Diabetes E11.9 ; Blood in stool K92.1 ; Arthralgia, unspecified joint M25.50 and BMI 40.0-44.9, adult Z68.[address] [address] Jun, Other chronic pain G89.[address] [address] Jun, [facility] [address] [place] [address] Jun, [address] [address] Jun, Other chronic pain G89.[address] [address] 8614 Jun, [facility] [place] [address] [place] [address] Jun, Cannabis use disorder, moderate, dependence F12.[address] [address] May, Anxiety disorder, unspecified F41.9 [facility] [address] [place] [address] May, Cannabis use disorder, moderate, dependence F12.[address] [address] May, [facility] [address] [place] [address] May, Cannabis use disorder, moderate, dependence F12.20 [facility] [address] [place] [address] May, [facility] [address] [place] [address] May, [facility] [address] [place] [address] May, [facility] [id number] [place] [address]7946- 5207 May, Other chronic pain G89.29 [facility] [address] [address] May, [facility] [id number] [place] [address]46[address] 4035 May, Encounter for immunization Z23 and Type 2 diabetes mellitus with complication E11.8 [facility] [address] [place] [address] 04 May, 2017 Cannabis use disorder, moderate, dependence F12.20 [facility] [id number] [place] [address] 48384- 8820 02 May, 2017 Essential hypertension I10 [facility] [id number] [place] [address]156- 3765 30 Apr, 2017 Essential hypertension I10 [facility] [address] [address] 29 Apr, 2016 Diabetes E11.9 [facility] [id number] [place] [address] 66414- 1262 18 Apr, 2017 [facility] [address] 94392- 1075 15 Apr, 2017 [facility] [id number] [place] [address]- 1991 15 Apr, 2017 [facility] [address] [place] [address] 13 Apr, 2016 Other psychoactive substance abuse, uncomplicated F19.10 [facility] [address] [address] 13 Apr, 2017 [facility] [id number] [place] [address] 97081- 8704 12 Apr, 2017 [facility] [id number] [place] [address] 93779- 7800 12 Apr, 2017 Anxiety disorder, unspecified F41.9 [facility] [id number] [place] [address] 98634- 0053 08 Apr, 2017 [facility] [id number] [place] [address] 93173- 7998 06 Apr, 2017 Diabetes E11.9 and 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 [place] [id number] [place] [address] 78615- 6883 16 Mar, 2017 Other chronic pain G89.29 and Diabetes E11.9 [facility] [id number] [place] [address] 28506- 2670 Mar, Diabetes E11.9 [facility] [id number] [place] [address] 78437- 3936 Feb, Anxiety disorder, unspecified F41.9 [facility] [id number] [place] [address] 02844- 3923 Jan, [facility] [id number] [place] [address] 92153- 6791 Jan, [facility] [address] [place] [address] 40995- 9907 December, Anxiety disorder, unspecified F41.9 [facility] [id number] [place] [address] 98269- 9888 Oct, Diabetes E11.9 and Hypothyroidism, unspecified E03.9 [facility] [id number] [place] [address] 16248- 7033 Oct, Anxiety disorder, unspecified F41.9 [facility] [id number] [place] [address]81 [address]0881 Aug, Bronchitis J40 and Shortness of breath R06.02 [place] [id number] [place] [address] 53723- 6404 Jul, [place] [address] 43074- 5790 Jul, Back pain, unspecified back location, unspecified back pain laterality, unspecified chronicity M54.9 [place] [address] 94621- 5053 Jul, Anxiety disorder, unspecified F41.9 [address] [place] [address] 01716- 0064 Jul, Essential hypertension I10 [place] [address] 48874- 2515 Jun, [facility] [id number] [place] [address] 48617 -4266 Jun, Bronchitis J40 [place] [address] 69092- 6108 Jun, [place] [id number] [place] [address] 06236- 4528 Jun, Diabetes E11.9 ; Dorsalgia, unspecified M54.9 ; Other chronic pain G89.29 and 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 [place] [id number] [place] [address] 40184- 6354 May, Anxiety disorder, unspecified F41.9 [place] [id number] [place] [address] 51094- 2456 Apr, Type 2 diabetes mellitus with complication E11.8 ; Essential hypertension I10 ; Tooth pain K08.8 and Back pain, unspecified back location, unspecified back pain laterality, unspecified chronicity M54.9 [place] [address] [address]- 2074 Feb, Anxiety disorder, unspecified F41.9 [facility] [address] [place] [address] 82115- 7853 December, [facility] [address] [place] [address] 59853- 5349 December, [facility] [id number] [place] [address] 86704- 7512 December, Diabetes E11.9 ; Insect bite (nonvenomous) of abdominal wall , initial encounter S30.861A and Bitten or stung by nonvenomous insect and other nonvenomous arthropods, initial encounter W57.XXXA [facility] [address] [place] [address] 86444- 7456 Nov, [facility] [id number] [place] [address] 36644- 0290 Sep, Genital warts A63.0 [facility] [address] [address]- 4479 Aug, [address] [id number] [place] [id number] Aug, Diabetes type 2, uncontrolled 250.02 and Hypothyroid 244.9 [facility] [address] [address]- 6575 Jul, Anogenital (venereal) warts A63.0 [facility] [address] [address]- 9314 Jul, [facility] [id number] [place] [address] 31952- 7697 Jul, Diabetes E11.9 [facility] [address] [address]- 5519 Jun, Genital warts A63.0 [facility] [id number] [place] [address] 09249- 6807 Jun, [facility] [address] [address]- 8871 Jun, [facility] [address] [address]- 8820 May, [facility] [address] [address]- 5789 May, [facility] [address] [place] [address] 43277- 6928 May, Type 2 diabetes mellitus with complication E11.8 and Upper respiratory tract infection, unspecified upper respiratory infection J06.9 [facility] [address] [address]- 6062 Apr, Genital warts 078.11 [facility] [address] [address]- 4094 Feb, Hypothyroid 244.9 and Diabetes type 2, uncontrolled 250.02 [address] [address] Feb, Diabetes type 2, uncontrolled 250.02 and Hypothyroid 244.9 [facility] [address] [address]- 6524 Feb, Diabetes type 2, uncontrolled 250.02 and Hypothyroid 244.9 [facility] [address] [address]- 9830 Jan, [facility] [address] [address]- 6770 Jan, [facility] [address] [address]- 4552 Nov, [facility] [address] [address]- 1199 Nov, [facility] [address] [address]- 2381 Nov, [facility] [place] [facility] [address] [id number] [place] [address]- 3532 Oct, [facility] [place] [facility] [address] [id number] [place] [address]- 2447 Oct, [facility] [place] [facility] [address] [id number] [place] [address]- 2347 Oct, [facility] [place] [facility] [address] [id number] [place] [address]- 3151 Sep, [facility] [place] [facility] [address] [id number] [place] [address]- 7945 Sep, [facility] [place] [facility] [address] [id number] [place] [address]- 3130 Sep, [facility] [place] [facility] [address] [id number] [place] [address]- 3844 Sep, [facility] [place] [facility] [address] [id number] [place] [address]- 4448 Sep, [facility] [place] [facility] [address] [id number] [place] [address]- 1778 Sep, [facility] [place] [facility] [address] [id number] [place] [address]- 0385 Aug, [facility] [place] [facility] [address] [id number] [place] [address]- 8136 Aug, [facility] [place] [facility] [address] [id number] [place] [address]- 1967 Aug, [facility] [place] [facility] [address] [id number] [place] [address]- 7920 Aug, [facility] [place] [facility] [address] [id number] [place] [address]- 4075 Aug, [facility] [place] [facility] [address] [id number] [place] [address]- 6079 Aug, [facility] [place] [facility] [address] [id number] [place] [address]- 1254 Aug, [facility] [place] [facility] [address] [id number] [place] [address]- 3708 Aug, [facility] [place] [facility] [address] [id number] [place] [address]- 8830 Jun, [facility] [place] [facility] [address] [id number] [place] [address]- 8947 Jun, [facility] [place] [facility] [address] [id number] [place] [address]- 7018 Jun, [facility] [place] [facility] [address] [id number] [place] [address]- 3553 Jun, [facility] [place] [facility] [address] [id number] [place] [address]- 9414 Jun, [facility] [place] [facility] [address] [id number] [place] [address]- 3044 May, [facility] [place] [facility] [address] [id number] [place] [address]- 9454 May, [facility] [place] [facility] [address] [id number] [place] [address]- 9969 Apr, [facility] [place] [facility] [address] [id number] [place] [address]- 9456 Apr, [facility] [place] [facility] [address] [id number] [place] [address]- 7995 Apr, [facility] [place] [facility] [address] [id number] [address]- 6898 Apr, [facility] [place] [facility] [address] [id number] [place] [address]- 9902 Mar, [facility] [place] [facility] [address] [id number] [place] [address]- 0377 Mar, [facility] [place] [facility] [address] [id number] [place] [address]- 4209 Mar, [facility] [place] [facility] [address] [id number] [place] [address]- 9557 Mar, [facility] [place] [facility] [address] [id number] [place] [address]- 4270 Mar, [facility] [place] [facility] [address] [id number] [place] [address]- 6067 Mar, [facility] [place] [facility] [address] [id number] [place] [address]- 8226 Feb, [facility] [place] [facility] [address] [id number] [place] [address]- 4498 Feb, [facility] [place] [facility] [address] [id number] [place] [address]- 6652 Jan, [facility] [place] [facility] [address] [id number] [place] [address]- 6690 Jan, [facility] [place] [facility] [address] [id number] [place] [address]- 2240 Jan, [facility] [place] [facility] [address] [id number] [place] [address]- 9573 Jan, [facility] [place] [facility] [address] [id number] [place] [address]- 3680 December, [facility] [place] [facility] [address] [id number] [place] [address]- 3494 December, [facility] [place] [facility] [address] [id number] [place] [address]- 1088 December, [facility] [place] [facility] [address] [id number] [place] [address]- 8674 December, [facility] [place] [facility] [address] [id number] [place] [address]- 6529 December, [facility] [place] [facility] [address] [id number] [place] [address]- 3686 Nov, [facility] [place] [facility] [address] [id number] [place] [address]- 9303 Nov, [facility] [place] [facility] [address] [id number] [place] [address]- 8173 Oct, [facility] [place] [facility] [address] [id number] [place] [address]- 2272 Oct, [facility] [place] [facility] [address] [facility] [id number] [place] [address]- 2770 Oct, [facility] [place] [facility] [address] [id number] [place] [address]- 7945 Oct, [facility] [place] [facility] [address] [id number] [place] [address]- 7122 Oct, [facility] [place] [facility] [address] [id number] [place] [address]- 3990 Oct, [facility] [place] [facility] [address] [facility] [id number] [place] [address]- 0008 Sep, [facility] [place] [facility] [address] [id number] [place] [address]- 5927 Sep, [facility] [place] [facility] [address] [id number] [place] [address]- 2759 Jul, [facility] [place] [facility] [address] [id number] [place] [address]- 4394 Jul, [facility] [place] [facility] [address] [id number] [address]- 0908 Jul, [facility] [place] [facility] [address] [id number] [address]- 5937 Jul, [facility] [place] [facility] [address] [id number] [place] [address]- 0022 Jun, [facility] [place] [facility] [address] [facility] [id number] [place] [address]- 2730 Jun, [facility] [place] [facility] [address] [facility] [id number] [place] [address]- 7183 Jun, [facility] [place] [facility] [address] [facility] [id number] [address]- 2546 Jun, [facility] [id number] [address]- 2546 Jun, [facility] [address] [id number] [address]- 2546 Jun, [facility] [address] [facility] [id number] [address]- 2546 May, [facility] [address] [id number] [address]- 2546 May, [facility] [address] [id number] [address]- 3768 Mar, IMMUNIZATIONS No Known Immunizations SOCIAL HISTORY Never Assessed REASON FOR VISIT PALS/Trulicity PLAN OF CARE VITAL SIGNS MEDICATIONS Medication Instructions Dosage Frequency Start Date End Date Duration Status Trulicity 0.75 MG/0.5ML Subcutaneous once weekly inject 0.5 ml Apr, 90 days Active RESULTS No Results PROCEDURES [...]
--- OUTSIDE RECORDS SUMMARY | 2018-01-29 15:34 | XMS REPORT ---
Author Author GLADIS KESSLER [facility] Address [address] [place] [address] Care Team Providers Care Freelance Court Stenographer Name Role Phone GLADIS KESSLRE Unavailable PROBLEMS Type Condition ICD9-CM Code EMX71-OV Code Onset Dates Condition Status SNOMED Code Problem Hypercholesterolemia E78.00 Active 96953681 Problem Type 2 diabetes mellitus with diabetic autonomic neuropathy, without long-term current use of insulin E11.43 Active 63694762 Problem Hypothyroidism, unspecified E03.9 Active 29130156 Problem COPD exacerbation J44.1 Active 266917051 Problem Anxiety disorder, unspecified F41.9 Active 869747366 Problem Essential hypertension I10 Active 23212610 Problem Diabetes E11.9 Active 059561337 Problem Other chronic pain G89.29 Active 72665549 ALLERGIES Unknown Allergies SOCIAL HISTORY No smoking Hx information available PLAN OF CARE VITAL SIGNS MEDICATIONS Medication Instructions Dosage Frequency Start Date End Date Duration Status Ativan 0.5 MG Orally Twice a day 1 tablet as needed 12h 28 days Active RESULTS No Results PROCEDURES No Known procedures IMMUNIZATIONS No Known Immunizations
--- OUTSIDE RECORDS SUMMARY | 2018-01-29 15:34 | XMS REPORT ---
Author Author GLADIS KESSLER Organization [facility] Address [address] [place] [address] Care Team Providers Care Ramp Lead Name Role Phone GLADIS KESSLER Unavailable PROBLEMS Type Condition ICD9-CM Code RCF16-NE Code Onset Dates Condition Status SNOMED Code Problem Anxiety disorder, unspecified F41.9 Active 921220114 Problem Other chronic pain G89.29 Active 57481711 Problem Diabetes E11.9 Active 299682841 Problem Hypercholesterolemia E78.00 Active 92483016 Problem Type 2 diabetes mellitus with diabetic autonomic neuropathy, without long-term current use of insulin E11.43 Active 91739104 Problem Essential hypertension I10 Active 51918506 Problem Acute recurrent maxillary sinusitis J01.01 Active 20040610 Problem Cough R05 Active 56221527 Problem Hypothyroidism, unspecified E03.9 Active 48151670 Problem COPD exacerbation J44.1 Active 588771318 Problem Cannabis use disorder, moderate, dependence F12.20 Active 19086447 Problem Type 2 diabetes mellitus with complication E11.8 Active 742809411 ALLERGIES No Information ENCOUNTERS Encounter Location Date Diagnosis [facility] [id number] [place] [address] 71392- 7412 Jan, [facility] [id number] [place] [address]5057 30 Nov, 2017 Seasonal allergic rhinitis, unspecified trigger J30.2 and BMI 40.0-44.9, adult Z68.41 [facility] [address] [address] 16 Nov, 2017 Acute recurrent maxillary sinusitis J01.01 ; Cough R05 and BMI 40.0-44.9, adult Z68.41 [facility] [address] [place] [address] Oct, Cannabis use disorder, moderate, dependence F12.20 [facility] [address] [place] [address] Oct, Cannabis use disorder, moderate, dependence F12.20 [facility] [address] [place] [address] Oct, Cannabis use disorder, moderate, dependence F12.20 [facility] [address] [place] [address] 08 Oct, 2017 Cannabis use disorder, moderate, dependence F12.20 [facility] [address] [address] Oct, Cannabis use disorder, moderate, dependence F12.20 [facility] [address] [place] [address] Sep, Cannabis use disorder, moderate, dependence F12.20 [facility] [address] [place] [address] 89553- 513 Sep, Anxiety disorder, unspecified F41.9 and Other chronic pain G89.29 [facility] [address] [place] [id number] [place] [address] 015845- 317 Sep, Bronchitis J40 [facility] [address] [place] [address] 08 Sep, 2017 Cannabis use disorder, moderate, dependence F12.20 [facility] [address] [place] [address] Sep, Cannabis use disorder, moderate, dependence F12.20 [facility] [address] [place] [id number] [place] [address]1974- 055 Aug, Other chronic pain G89.29 [facility] [address] [place] [address] Aug, Cannabis use disorder, moderate, dependence F12.20 [facility] [address] [place] [address] Aug, Cannabis use disorder, moderate, dependence F12.20 [facility] [address] [place] [address] Aug, Cannabis use disorder, moderate, dependence F12.20 [facility] [address] [place] [address] Aug, Cannabis use disorder, moderate, dependence F12.20 [facility] [address] [place] [id number] [place] [address] 27031- 8536 Aug, Anxiety disorder, unspecified F41.[address] [address]697 Jul, Other chronic pain G89.29 [facility] [address] [place] [address] Jul, Cannabis use disorder, moderate, dependence F12.20 [facility] [address] [place] [address] Jul, Cannabis use disorder, moderate, dependence F12.[address] [address]- [address]123 Jul, Diabetes E11.9 ; Blood in stool K92.1 ; Arthralgia, unspecified joint M25.50 and BMI 40.0-44.9, adult Z68.[address] [address] 2316 Jun, Other chronic pain G89.[address] 13540- 7911 Jun, [facility] [address] [place] [address] Jun, [address] [address]- 0389 Jun, Other chronic pain G89.[address] 5[address]- 5833 Jun, [facility] [address] [place] [address] Jun, Cannabis use disorder, moderate, dependence F12.[address] 00734- 4598 May, Anxiety disorder, unspecified F41.9 [facility] [address] [place] [address] May, Cannabis use disorder, moderate, dependence F12.[address] 20[address]- 4102 May, [facility] [address] [place] [address] May, Cannabis use disorder, moderate, dependence F12.20 [facility] [address] [place] [address] May, [facility] [address] [place] [address] May, [facility] [address] [place] [address] May, [facility] [id number] [place] [address] 54586- 5633 May, Other chronic pain G89.29 [facility] [address] 664550- 7040 May, [facility] [id number] [place] [address] 58993- 6630 May, Type 2 diabetes mellitus with complication E11.8 and Encounter for immunization Z23 [facility] [address] [place] [address] May, Cannabis use disorder, moderate, dependence F12.20 [facility] [id number] [place] [address] 10105- 9453 02 May, 2017 Essential hypertension I10 [facility] [id number] [place] [address] 79165- 7569 30 Apr, 2017 Essential hypertension I10 [facility] [address] 81676- 6836 29 Apr, 2016 Diabetes E11.9 [facility] [id number] [place] [address] 00336- 5895 18 Apr, 2017 [facility] [address] 07878- 8727 15 Apr, 2017 [facility] [id number] [place] [address] 83833- 6301 15 Apr, 2016 [facility] [address] [place] [address] 13 Apr, 2016 Other psychoactive substance abuse, uncomplicated F19.10 [facility] [address] [address] 13 Apr, 2017 [facility] [id number] [place] [address] 65188- 3677 12 Apr, 2017 [facility] [id number] [place] [address] 91142- 1903 12 Apr, 2017 Anxiety disorder, unspecified F41.9 [facility] [id number] [place] [address] 15383- 7117 08 Apr, 2017 [facility] [id number] [place] [address] 95144- 3221 06 Apr, 2017 Diabetes E11.9 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 [place] [id number] [place] [address] 40255- 0504 16 Mar, 2017 Other chronic pain G89.29 and Diabetes E11.9 [facility] [id number] [place] [address] 56614- 4550 Mar, Diabetes E11.9 [facility] [id number] [place] [address] 08001- 0820 Feb, Anxiety disorder, unspecified F41.9 [facility] [id number] [place] [address] 45553- 4196 Jan, [facility] [id number] [place] [address] 14635- 6343 Jan, [facility] [address] [place] [address] 31599- 9719 December, Anxiety disorder, unspecified F41.9 [facility] [id number] [place] [address] 76440- 0000 Oct, Diabetes E11.9 and Hypothyroidism, unspecified E03.9 [facility] [id number] [place] [address] 43339- 2612 Oct, Anxiety disorder, unspecified F41.9 [facility] [id number] [place] [address] 91733 -0830 Aug, Bronchitis J40 and Shortness of breath R06.02 [place] [id number] [place] [address] 68640- 1188 Jul, [place] [address] 26640- 2167 Jul, Back pain, unspecified back location, unspecified back pain laterality, unspecified chronicity M54.9 [place] [address] 75026- 5826 Jul, Anxiety disorder, unspecified F41.9 [place] [address] 17559- 3871 Jul, Essential hypertension I10 [place] [address] 28021- 6249 Jun, [facility] [id number] [place] [address] 65837 -1422 Jun, Bronchitis J40 [place] [address] 43990- 7537 Jun, [place] [id number] [place] [address] 88936- 1614 Jun, Diabetes E11.9 ; Dorsalgia, unspecified M54.9 ; Other chronic pain G89.29 and 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 [place] [id number] [place] [address] 93617- 6563 May, Anxiety disorder, unspecified F41.9 [place] [id number] [place] [address] 48794- 7859 Apr, Type 2 diabetes mellitus with complication E11.8 ; Essential hypertension I10 ; Tooth pain K08.8 and Back pain, unspecified back location, unspecified back pain laterality, unspecified chronicity M54.9 [place] [address] [address]- 3365 Feb, Anxiety disorder, unspecified F41.9 [facility] [address] [place] [address] 67512- 5854 December, [facility] [address] [place] [address] 94623- 0627 December, [facility] [id number] [place] [address] 71523- 6034 December, Diabetes E11.9 ; Insect bite (nonvenomous) of abdominal wall , initial encounter S30.861A and Bitten or stung by nonvenomous insect and other nonvenomous arthropods, initial encounter W57.XXXA [facility] [address] [place] [address] 99626- 7509 Nov, [facility] [id number] [place] [address] 16238- 8429 Sep, Genital warts A63.0 [facility] [address] [address]- 6196 Aug, [place] [id number] [place] [address] [id number] Aug, Diabetes type 2, uncontrolled 250.02 and Hypothyroid 244.9 [facility] [address] [address]- 0974 Jul, Anogenital (venereal) warts A63.0 [facility] [address] [address]- 6010 Jul, [facility] [id number] [place] [address] 57439- 4616 Jul, Diabetes E11.9 [facility] [address], [place] [address]- 0458 Jun, Genital warts A63.0 [facility] [id number] [place] [address] 78017- 5695 Jun, [facility] [address] [address]- 4219 Jun, [facility] [address], [place] [address]- 2427 May, [facility] [address] [address]- 8996 May, [facility] [address] [place] [address] 77570- 6048 May, Type 2 diabetes mellitus with complication E11.8 and Upper respiratory tract infection, unspecified upper respiratory infection J06.9 [facility] [address], [place] [address]- 6395 Apr, Genital warts 078.11 [facility] [address] [address]- 3103 Feb, Hypothyroid 244.9 and Diabetes type 2, uncontrolled 250.02 [address] [address] Feb, Diabetes type 2, uncontrolled 250.02 and Hypothyroid 244.9 [facility] [address], [place] [address]- 2282 Feb, Diabetes type 2, uncontrolled 250.02 and Hypothyroid 244.9 [facility] [address], [place] [address]- 7447 Jan, [facility] [address], [place] [address]- 1842 Jan, [facility] [address], [place] [address]- 3557 Nov, [facility] [address], [place] [address]- 6734 Nov, [facility] [address], [place] [address]- 6217 Nov, [facility] [place] [facility] [address] [id number] [place] [address]- 6981 Oct, [facility] [place] [facility] [address] [id number] [place] [address]- 3902 Oct, [facility] [place] [facility] [address] [id number] [place] [address]- 8510 Oct, [facility] [place] [facility] [address] [id number] [place] [address]- 1322 Sep, [facility] [place] [facility] [address] [id number] [place] [address]- 8329 Sep, [facility] [place] [facility] [address] [id number] [place] [address]- 5585 Sep, [facility] [place] [facility] [address] [id number] [place] [address]- 1207 Sep, [facility] [place] [facility] [address] [id number] [place] [address]- 7500 Sep, [facility] [place] [facility] [address] [id number] [place] [address]- 2700 Sep, [facility] [place] [facility] [address] [id number] [place] [address]- 3367 Aug, [facility] [place] [facility] [address] [id number] [place] [address]- 4690 Aug, [facility] [place] [facility] [address] [id number] [place] [address]- 2998 Aug, [facility] [place] [facility] [address] [id number] [place] [address]- 1038 Aug, [facility] [place] [facility] [address] [id number] [place] [address]- 4533 Aug, [facility] [place] [facility] [address] [id number] [place] [address]- 0066 Aug, [facility] [place] [facility] [address] [id number] [place] [address]- 6797 Aug, [facility] [place] [facility] [address] [id number] [place] [address]- 2082 Aug, [facility] [place] [facility] [address] [id number] [place] [address]- 5046 Jun, [facility] [place] [facility] [address] [id number] [place] [address]- 7032 Jun, [facility] [place] [facility] [address] [id number] [place] [address]- 0721 Jun, [facility] [place] [facility] [address] [id number] [place] [address]- 2281 Jun, [facility] [place] [facility] [address] [id number] [place] [address]- 1516 Jun, [facility] [place] [facility] [address] [id number] [place] [address]- 1348 May, [facility] [place] [facility] [address] [id number] [place] [address]- 0496 May, [facility] [place] [facility] [address] [id number] [place] [address]- 9335 Apr, [facility] [place] [facility] [address] [id number] [place] [address]- 8021 Apr, [facility] [place] [facility] [address] [id number] [place] [address]- 8612 Apr, [facility] [place] [facility] [address] [id number], [place] [address]- 4742 Apr, [facility] [place] [facility] [address] [id number] [place] [address]- 9637 Mar, [facility] [place] [facility] [address] [id number] [place] [address]- 9782 Mar, [facility] [place] [facility] [address] [id number] [place] [address]- 4554 Mar, [facility] [place] [facility] [address] [id number] [place] [address]- 8112 Mar, [facility] [place] [facility] [address] [id number] [place] [address]- 0687 Mar, [facility] [place] [facility] [address] [id number] [place] [address]- 3176 Mar, [facility] [place] [facility] [address] [id number] [place] [address]- 3169 Feb, [facility] [place] [facility] [address] [id number] [place] [address]- 6306 Feb, [facility] [place] [facility] [address] [id number] [place] [address]- 9773 Jan, [facility] [place] [facility] [address] [id number] [place] [address]- 8767 Jan, [facility] [place] [facility] [address] [id number] [place] [address]- 7752 Jan, [facility] [place] [facility] [address] [id number] [place] [address]- 6475 Jan, [facility] [place] [facility] [address] [id number] [place] [address]- 2632 December, [facility] [place] [facility] [address] [id number] [place] [address]- 8667 December, [facility] [place] [facility] [address] [id number] [place] [address]- 2463 December, [facility] [place] [facility] [address] [id number] [place] [address]- 0861 December, [facility] [place] [facility] [address] [id number] [place] [address]- 0655 December, [facility] [place] [facility] [address] [id number] [place] [address]- 3105 Nov, [facility] [place] [facility] [address] [id number] [place] [address]- 6032 Nov, [facility] [place] [facility] [address] [id number] [place] [address]- 6878 Oct, [facility] [place] [facility] [address] [id number] [place] [address]- 8836 Oct, [facility] [place] [facility] [address] [facility] [id number] [place] [address]- 1095 Oct, [facility] [place] [facility] [address] [id number] [place] [address]- 8053 Oct, [facility] [place] [facility] [address] [id number] [place] [address]- 0941 Oct, [facility] [place] [facility] [address] [id number] [place] [address]- 9489 Oct, [facility] [place] [facility] [address] [facility] [id number] [place] [address]- 6145 Sep, [facility] [place] [facility] [address] [id number] [place] [address]- 2236 Sep, [facility] [place] [facility] [address] [id number] [place] [address]- 0172 Jul, [facility] [place] [facility] [address] [id number] [place] [address]- 4568 Jul, [facility] [place] [facility] [address] [id number], [place] [address]- 5860 Jul, [facility] [place] [facility] [address] [id number], [place] [address]- 4990 Jul, [facility] [place] [facility] [address] [id number] [place] [address]- 7544 Jun, [facility] [place] [facility] [address] [facility] [id number] [place] [address]- 6813 Jun, [facility] [place] [facility] [address] [facility] [id number] [place] [address]- 0956 Jun, [facility] [place] [facility] [address] [facility] [id number], [place] [address]- 2546 Jun, [facility] [id number] [address]- 5550 Jun, [facility] [address], [place] [address]- 1287 Jun, [facility] [id number] [address]- 0311 May, [facility] [address] [address] 9480 May, [facility] [id number] [address] 1872 Mar, IMMUNIZATIONS No Known Immunizations SOCIAL HISTORY Never Assessed REASON FOR VISIT Narcotics update PLAN OF CARE VITAL SIGNS MEDICATIONS Unknown [...]
--- OUTSIDE RECORDS SUMMARY | 2018-01-29 15:34 | XMS REPORT ---
Author Author GLADIS KESSLER Organization [facility] Address [address] [place] [address] Care Team Providers Care Plasterer Spray Gun Name Role Phone GLADIS KESSLER Unavailable PROBLEMS Type Condition ICD9-CM Code PST11-ZE Code Onset Dates Condition Status SNOMED Code Problem Anxiety disorder, unspecified F41.9 Active 661500126 Problem Other chronic pain G89.29 Active 42852823 Problem Diabetes E11.9 Active 041596273 Problem Hypercholesterolemia E78.00 Active 53038931 Problem Type 2 diabetes mellitus with diabetic autonomic neuropathy, without long-term current use of insulin E11.43 Active 80056866 Problem Essential hypertension I10 Active 04265340 Problem Acute recurrent maxillary sinusitis J01.01 Active 38070439 Problem Cough R05 Active 09523901 Problem Hypothyroidism, unspecified E03.9 Active 10778118 Problem COPD exacerbation J44.1 Active 928502390 Problem Cannabis use disorder, moderate, dependence F12.20 Active 99078523 Problem Type 2 diabetes mellitus with complication E11.8 Active 690198129 ALLERGIES No Information ENCOUNTERS Encounter Location Date Diagnosis [facility] [address] [address] Jan, [facility] [address] [address] 16 Nov, 2017 Acute recurrent maxillary sinusitis J01.01 ; Cough R05 and BMI 40.0-44.9, adult Z68.41 [facility] [address] [place] [address] Oct, Cannabis use disorder, moderate, dependence F12.20 [facility] [address] [place] [address] Oct, Cannabis use disorder, moderate, dependence F12.20 [facility] [address] [place] [address] Oct, Cannabis use disorder, moderate, dependence F12.20 [facility] [address] [place] [address] Oct, Cannabis use disorder, moderate, dependence F12.20 [facility] [address] [place] [address] Oct, Cannabis use disorder, moderate, dependence F12.20 [facility] [address] [place] [address] Sep, Cannabis use disorder, moderate, dependence F12.20 [facility] [address] [place] [address] Sep, Anxiety disorder, unspecified F41.9 and Other chronic pain G89.29 [facility] [address] [place] [address] Sep, Bronchitis J40 [facility] [address] [place] [id number] Sep, Cannabis use disorder, moderate, dependence F12.20 [facility] [address] [place] [address] Sep, Cannabis use disorder, moderate, dependence F12.20 [facility] [address] [place] [address] Aug, Other chronic pain G89.29 [facility] [address] [place] [address] Aug, Cannabis use disorder, moderate, dependence F12.20 [facility] [address] [place] [address] Aug, Cannabis use disorder, moderate, dependence F12.20 [facility] [address] [place] [address] Aug, Cannabis use disorder, moderate, dependence F12.20 [facility] [address] [place] [address] Aug, Cannabis use disorder, moderate, dependence F12.20 [facility] [address] [place] [address] Aug, Anxiety disorder, unspecified F41.9 [facility] [address] [place] [address] Jul, Other chronic pain G89.29 [facility] [address] [place] [address] Jul, Cannabis use disorder, moderate, dependence F12.20 [facility] [address] [place] [address] Jul, Cannabis use disorder, moderate, dependence F12.20 [facility] [address] [place] [address] Jul, Diabetes E11.9 ; Blood in stool K92.1 ; Arthralgia, unspecified joint M25.50 and BMI 40.0-44.9, adult Z68.[address] [address]33- [address] Jun, Other chronic pain G89.[address] [address] Jun, [facility] [address] [place] [address] Jun, [facility] [address] [place] [address] Jun, Other chronic pain G89.[address] [address] Jun, [facility] [address] [place] [address] Jun, Cannabis use disorder, moderate, dependence F12.[address] [address] May, Anxiety disorder, unspecified F41.9 [facility] [address] [place] [address] May, Cannabis use disorder, moderate, dependence F12.[address] [address] May, [facility] [address] [place] [address] May, Cannabis use disorder, moderate, dependence F12.20 [facility] [address] [place] [address] May, [facility] [address] [place] [address] May, [facility] [address] [place] [address] May, [facility] [address] [place] [id number] [place] [address] May, Other chronic pain G89.29 [facility] [address] [address] May, [facility] [address] [address] May, Type 2 diabetes mellitus with complication E11.8 and Encounter for immunization Z23 [facility] [address] [place] [address] May, Cannabis use disorder, moderate, dependence F12.20 [facility] [address] [address] 02 May, 2017 Essential hypertension I10 [facility] [address] [address] 30 Sep, 2016 Essential hypertension I10 [facility] [address] [address] 29 Sep, 2016 Diabetes E11.9 [facility] [address] [address] 18 Sep, 2016 [facility] [address] [address] 15 Apr, 2016 [facility] [address] [address] 15 Sep, 2016 [facility] [address] [place] [address] 13 Sep, 2017 Other psychoactive substance abuse, uncomplicated F19.10 [facility] [address] [place] [id number] [place] [address] 13 Apr, 2016 [facility] [address] [address] Apr, [facility] [address] [address] Apr, Anxiety disorder, unspecified F41.9 [facility] [address] [place] [id number] [place] [address] 08 Apr, 2017 [facility] [address] [place] [id number] [place] [address] Apr, 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 [facility] [address] [place] [id number] [place] [address] 4[address] 16 Mar, 2017 Other chronic pain G89.29 and Diabetes E11.9 [facility] [address] [place] [id number] [place] [address] 97822[address] 2971 Mar, Diabetes E11.9 [facility] [address] [place] [id number] [place] [address]- 6984 Feb, Anxiety disorder, unspecified F41.9 [facility] [address] [place] [id number] [place] [address] Jan, [facility] [address] [place] [id number] [place] [address] 48268- 4938 Jan, [facility] [address] [place] [address] 05375- 8199 December, Anxiety disorder, unspecified F41.9 [facility] [address] [place] [id number] [place] [address] 27[address] 3[address] Oct, Diabetes E11.9 and Hypothyroidism, unspecified E03.9 [facility] [address] [place] [id number] [place] [address] 39[address] 98[address] Oct, Anxiety disorder, unspecified F41.9 [facility] [address], [place] [address] Aug, Bronchitis J40 and Shortness of breath R06.02 [facility] [address] [place] [id number] [place] [address] 78290- 1131 Jul, [facility] [address] [place] [id number] [place] [address] 04115- 7370 Jul, Back pain, unspecified back location, unspecified back pain laterality, unspecified chronicity M54.9 [place] [address] [place] [id number] [place] [address] 55660- 2541 Jul, Anxiety disorder, unspecified F41.9 [facility] [address] [place] [id number] [place] [address] 10356- 8665 Jul, Essential hypertension I10 [place] [address] [address]- [address] Jun, [facility] [address] [place] [id number] [place] [address]42 [address] Jun, Bronchitis J40 [place] [address] [address]- [address]298 Jun, [place] [address] [place] [id number] [place] [address] 62419- 1735 Jun, Diabetes E11.9 ; Dorsalgia, unspecified M54.9 ; Other chronic pain G89.29 and 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 [place] [address] [place] [id number] [place] [address] 99347- 9577 May, Anxiety disorder, unspecified F41.9 [place] [address] [place] [id number] [place] [address] 43720- 7225 Apr, Type 2 diabetes mellitus with complication E11.8 ; Essential hypertension I10 ; Tooth pain K08.8 and Back pain, unspecified back location, unspecified back pain laterality, unspecified chronicity M54.9 [place] [address] [place] [id number] [place] [address] 39731- 9674 Feb, Anxiety disorder, unspecified F41.9 [place] [address] [place] [id number] [place] [address] 94547- 2227 December, [facility] [address] [place] [address] 90770- 8674 December, [facility] [address] [place] [id number] [place] [address] 89953- 4115 December, Diabetes E11.9 ; Insect bite (nonvenomous) of abdominal wall , initial encounter S30.861A and Bitten or stung by nonvenomous insect and other nonvenomous arthropods, initial encounter W57.XXXA [facility] [address] [place] [id number] [place] [address] 42863- 6715 Nov, [facility] [address] [place] [id number] [place] [address] 86874- 6135 Sep, Genital warts A63.0 [facility] [address] [place] [id number] [place] [address] 58126- 5268 Aug, [place] [address] [place] [id number] [place] [id number] Aug, Diabetes type 2, uncontrolled 250.02 and Hypothyroid 244.9 [facility] [address] [place] [id number] [place] [address] 09648- 3828 Jul, Anogenital (venereal) warts A63.0 [facility] [address] [place] [address] 18237- 2917 Jul, [facility] [address] [place] [id number] [place] [address] 33957- 4193 Jul, Diabetes E11.9 [facility] [address] [place] [address] 41251- 9862 Jun, Genital warts A63.0 [facility] [address] [place] [id number] [place] [address] 19422- 9961 Jun, [facility] [address] [place] [address] 54127- 5350 Jun, [facility] [address] [place] [address]- 97[address] May, [facility] [address] [place] [address] 35227- 1113 May, [facility] [address] May, Type 2 diabetes mellitus with complication E11.8 and Upper respiratory tract infection, unspecified upper respiratory infection J06.9 [facility] [address] [place] [address] 50720- 1263 Apr, Genital warts 078.11 [facility] [address] [place] [address] 46762- 9213 Feb, Hypothyroid 244.9 and Diabetes type 2, uncontrolled 250.[address] [id number] Feb, Diabetes type 2, uncontrolled 250.02 and Hypothyroid 244.9 [facility] [address] [place] [address] 85416- 1992 Feb, Diabetes type 2, uncontrolled 250.02 and Hypothyroid 244.9 [facility] [address] [place] [address] 12550- 1033 Jan, [facility] [address] [address]- 07[address] Jan, [facility] [address] [address]- 8[address] Nov, [facility] [address] [place] [address] 46008- 1434 Nov, [facility] [address] [place] [id number] [place] [address] 10979- 8801 Nov, [facility] [address] Oct, [facility] [address] [place] [address] 00951- 4693 Oct, [facility] [place] [facility] [address] [id number] [place] [address]- 4726 Oct, [facility] [place] [facility] [address] [id number] [place] [address]- 3636 Sep, [facility] [place] [facility] [address] [id number] [place] [address] Sep, [facility] [place] [facility] [address] [id number] [place] [address]- 7476 Sep, [facility] [place] [facility] [address] [id number] [place] [address]- 7723 Sep, [facility] [place] [facility] [address] [id number] [place] [address]- 7027 Sep, [facility] [place] [facility] [address] [id number] [place] [address]- 3814 Sep, [facility] [place] [facility] [address] [id number] [place] [address]- 4356 Aug, [facility] [place] [facility] [address] [id number] [place] [address]- 7886 Aug, [facility] [place] [facility] [address] [id number] [place] [address]- 4382 Aug, [facility] [place] [facility] [address] [id number] [place] [address]- 9256 Aug, [facility] [place] [facility] [address] [id number] [address]- 6947 Aug, [facility] [place] [facility] [address] [id number] [place] [address]- 2226 Aug, [facility] [place] [facility] [address] [id number] [place] [address]- 1777 Aug, [facility] [place] [facility] [address] [id number] [place] [address]- 4877 Aug, [facility] [place] [facility] [address] [id number] [place] [address]- 5090 Jun, [facility] [place] [facility] [address] [id number] [place] [address]- 6279 Jun, [facility] [place] [facility] [address] [id number] [place] [address]- 4070 Jun, [facility] [place] [facility] [address] [id number] [place] [address]- 0436 Jun, [facility] [place] [facility] [address] [id number] [place] [address]- 5307 Jun, [facility] [place] [facility] [address] [id number] [place] [address]- 1269 May, [facility] [place] [facility] [address] [id number] [place] [address]- 6689 May, [facility] [place] [facility] [address] [id number] [place] [address]- 4248 Apr, [facility] [place] [facility] [address] [id number] [place] [address]- 1964 Apr, [facility] [place] [facility] [address] [id number] [place] [address]- 0642 Apr, [facility] [place] [facility] [address] [id number] [place] [address]- 7968 Apr, [facility] [place] [facility] [address] [id number] [place] [address]- 2852 Mar, [facility] [place] [facility] [address] [id number] [place] [address]- 7875 Mar, [facility] [place] [facility] [address] [id number] [place] [address]- 9086 Mar, [facility] [place] [facility] [address] [id number] [place] [address]- 4534 Mar, [facility] [place] [facility] [address] [id number] [place] [address]- 7607 Mar, [facility] [place] [facility] [address] [id number] [place] [address]- 0436 Mar, [facility] [place] [facility] [address] [id number] [place] [address]- 5301 Feb, [facility] [place] [facility] [address] [id number] [place] [address]- 5354 Feb, [facility] [place] [facility] [address] [id number] [place] [address]- 5299 Jan, [facility] [place] [facility] [address] [id number] [place] [address]- 0000 Jan, [facility] [place] [facility] [address] [id number] [place] [address]- 5213 Jan, [facility] [place] [facility] [address] [id number] [place] [address]- 0041 Jan, [facility] [place] [facility] [address] [id number] [place] [address]- 1832 December, [facility] [place] [facility] [address] [id number] [place] [address]- 6512 December, [facility] [place] [facility] [address] [id number] [place] [address]- 5704 December, [facility] [place] [facility] [address] [id number] [place] [address]- 1126 December, [facility] [place] [facility] [address] [id number] [place] [address]- 8219 December, [facility] [place] [facility] [address] [id number] [place] [address]- 8040 Nov, [facility] [place] [facility] [address] [id number] [place] [address]- 5522 Nov, [facility] [place] [facility] [address] [id number] [place] [address]- 1207 Oct, [facility] [place] [facility] [address] [id number], [place] [address]- 6091 Oct, [facility] [place] [facility] [address] [id number] [place] [address]- 4183 Oct, [facility] [place] [facility] [address] [id number] [place] [address]- 0313 Oct, [facility] [place] [facility] [address] [facility] [id number] [place] [address]- 3773 Oct, [facility] [place] [facility] [address] [id number] [place] [address]- 8095 Oct, [facility] [place] [facility] [address] [id number] [place] [address]- 4049 Sep, [facility] [place] [facility] [address] [id number] [place] [address]- 3532 Sep, [facility] [address] [facility] [facility] [id number] [place] [address]- 5533 Jul, [facility] [place] [facility] [address] [id number] [place] [address]- 8837 Jul, [facility] [place] [facility] [address] [facility] [facility] [id number] [place] [address]- 2674 Jul, [facility] [place] [facility] [address] [facility] [facility] [id number] [place] [address]- 5828 Jul, [facility] [place] [facility] [address] [facility] [facility] [id number], [place] [address]- 5426 Jun, [facility] [place] [facility] [address] [facility] [facility] [id number], [place] [address]- 0553 Jun, [facility] [place] [facility] [address] [id number] [place] [address]- 7614 Jun, [facility] [place] [facility] [address] [facility] [address] [facility] [id number] [place] [address]- 3699 Jun, [facility] [place] [facility] [address] [facility] [facility] [id number], [place] [address]- 3165 Jun, [facility] [place] [facility] [address] [facility] [facility] [id number] [place] 9586 Jun, [facility] [address] [facility] [facility] [id number]- 7429 May, [facility] [address] [facility] [address] [facility] [id number] [place] [address]- 3683 May, [facility] [address] [facility] [address] [facility] [id number][place]- 7798 Mar, IMMUNIZATIONS No Known Immunizations SOCIAL HISTORY Never Assessed REASON FOR VISIT Requests return call PLAN OF CARE VITAL SIGNS MEDICATIONS Unknown [...]
--- OUTSIDE RECORDS SUMMARY | 2018-01-29 15:35 | XMS REPORT ---
Author Author GLADIS KESSLER Organization [facility] Address [address] [place] [address] Care Team Providers Care Casing Crew Name Role Phone GLADIS KESSLER Unavailable PROBLEMS Type Condition ICD9-CM Code VUY81-NC Code Onset Dates Condition Status SNOMED Code Problem Anxiety disorder, unspecified F41.9 Active 213952136 Problem Other chronic pain G89.29 Active 38098170 Problem Diabetes E11.9 Active 401158168 Problem Hypercholesterolemia E78.00 Active 81373930 Problem Type 2 diabetes mellitus with diabetic autonomic neuropathy, without long-term current use of insulin E11.43 Active 46341517 Problem Essential hypertension I10 Active 86717628 Problem Acute recurrent maxillary sinusitis J01.01 Active 71711286 Problem Cough R05 Active 90179914 Problem Hypothyroidism, unspecified E03.9 Active 91182864 Problem COPD exacerbation J44.1 Active 033750157 Problem Cannabis use disorder, moderate, dependence F12.20 Active 25365737 Problem Type 2 diabetes mellitus with complication E11.8 Active 165993908 ALLERGIES No Information ENCOUNTERS Encounter Location Date Diagnosis [facility] [address] [address] Jan, [facility] [id number] [place] [address]88- 5135 December, [facility] [id number] [place] [address]93 [address] Nov, Seasonal allergic rhinitis, unspecified trigger J30.2 and BMI 40.0-44.9, adult Z68.41 [facility] [id number] [place] [address]68 -6402 16 Nov, 2017 Acute recurrent maxillary sinusitis J01.01 ; Cough R05 and BMI 40.0-44.9, adult Z68.41 [facility] [address] [id number] Oct, Cannabis use disorder, moderate, dependence F12.20 [facility] [address] [address] Oct, Cannabis use disorder, moderate, dependence F12.20 [facility] [address] [id number] Oct, Cannabis use disorder, moderate, dependence F12.20 [facility] [address] [address] Oct, Cannabis use disorder, moderate, dependence F12.20 [facility] [address] [place] [address] Oct, Cannabis use disorder, moderate, dependence F12.20 [facility] [address] Sep, Cannabis use disorder, moderate, dependence F12.20 [facility] [place] [address] [place] [address] 72458- 626 Sep, Anxiety disorder, unspecified F41.9 and Other chronic pain G89.29 [facility] [address] [place] [address] 11078- 8821 Sep, Bronchitis J40 [facility] [address] [address] Sep, Cannabis use disorder, moderate, dependence F12.20 [facility] [address] [place] [address] Sep, Cannabis use disorder, moderate, dependence F12.20 [facility] [place] [address] [place] [address]684- 3024 Aug, Other chronic pain G89.29 [facility] [address] [place] [address] Aug, Cannabis use disorder, moderate, dependence F12.20 [facility] [address] [place] [address] Aug, Cannabis use disorder, moderate, dependence F12.20 [facility] [address] [place] [address] Aug, Cannabis use disorder, moderate, dependence F12.20 [facility] [address] [id number] Aug, Cannabis use disorder, moderate, dependence F12.20 [facility] [address] [address] 6160 Aug, Anxiety disorder, unspecified F41.9 [facility] [address] 8[address]54- 7852 Jul, Other chronic pain G89.29 [facility] [address] [place] [address] Jul, Cannabis use disorder, moderate, dependence F12.20 [facility] [address] [place] [address] Jul, Cannabis use disorder, moderate, dependence F12.20 [place] [address] [address] 8[address] Jul, Diabetes E11.9 ; Blood in stool K92.1 ; Arthralgia, unspecified joint M25.50 and BMI 40.0-44.9, adult Z68.41 [facility] [address] [address]52- 1226 Jun, Other chronic pain G89.29 [place] [address] 96791- 4648 Jun, [facility] [address] [place] [address] Jun, [place] [address] 37[address] 5703 Jun, Other chronic pain G89.29 [facility] [address] 74651[address] 0993 Jun, [facility] [address] [place] [address] Jun, Cannabis use disorder, moderate, dependence F12.20 [facility] [address] 30455[address] 6194 May, Anxiety disorder, unspecified F41.9 [facility] [address] [place] [address] May, Cannabis use disorder, moderate, dependence F12.20 [facility] [id number] [place] [address] 93035- 5219 May, [facility] [address] [place] [address] May, Cannabis use disorder, moderate, dependence F12.20 [facility] [address] [place] [address] May, [facility] [address] [place] [address] May, [facility] [address] [place] [address] May, [facility] [address] [address]275- 1388 May, Other chronic pain G89.29 [facility] [address] 20642- 9452 May, [facility] [address] 83165[address] 9912 May, Type 2 diabetes mellitus with complication E11.8 and Encounter for immunization Z23 [facility] [address] [place] [address] May, Cannabis use disorder, moderate, dependence F12.20 [facility] [id number] [place] [address] 81291- 1863 May, Essential hypertension I10 [facility] [id number] [place] [address] 77784- 5453 30 Apr, 2017 Essential hypertension I10 [facility] [id number] [place] [address] 31344- 1744 29 Apr, 2017 Diabetes E11.9 [facility] [address] 10152- 4028 18 Apr, 2017 [facility] [id number] [place] [address] 81174- 0218 15 Apr, 2017 [facility] [address] 99942- 0[address] 15 Apr, 2017 [facility] [address] [place] [address] 13 Apr, 2017 Other psychoactive substance abuse, uncomplicated F19.10 [facility] [id number] [place] [address] 54154- 3587 13 Apr, 2017 [facility] [id number] [place] [address] 35208- 3299 12 Apr, 2017 [facility] [id number] [place] [address] 65068- 2957 12 Apr, 2017 Anxiety disorder, unspecified F41.9 [facility] [id number] [place] [address] 35949- 5525 08 Apr, 2017 [place] [id number] [place] [address] 82111- 9828 06 Apr, 2017 Diabetes E11.9 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 [place] [id number] [place] [address] 61741- 5922 Mar, Other chronic pain G89.29 and Diabetes E11.9 [place] [id number] [place] [address] 30648- 3914 Mar, Diabetes E11.9 [facility] [id number] [place] [address] 57069- 5314 Feb, Anxiety disorder, unspecified F41.9 [facility] [id number] [place] [address] 17028- 6434 Jan, [facility] [id number] [place] [address] 14848- 7318 Jan, [facility] [id number] [place] [address] 00504- 3312 December, Anxiety disorder, unspecified F41.9 [facility] [id number] [place] [address] 57019- 9393 Oct, Diabetes E11.9 and Hypothyroidism, unspecified E03.9 [facility] [id number] [place] [address] 66308- 6904 Oct, Anxiety disorder, unspecified F41.9 [facility] [address] 7[address] Aug, Bronchitis J40 and Shortness of breath R06.02 [place] [address] 63960- 8760 Jul, [place] [address] 63161- 4748 Jul, Back pain, unspecified back location, unspecified back pain laterality, unspecified chronicity M54.9 [place] [address] 02367- 5962 Jul, Anxiety disorder, unspecified F41.9 [place] [address] 48897- 8054 Jul, Essential hypertension I10 [place] [address] 47079- 2444 Jun, [facility] [address] 44923 [address]0180 Jun, Bronchitis J40 [place] [address] 27314- 3436 Jun, [place] [address] 07494- 2156 Jun, Diabetes E11.9 ; Dorsalgia, unspecified M54.9 ; Other chronic pain G89.29 and 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 [place] [address] 96159- 0927 May, Anxiety disorder, unspecified F41.9 [place] [id number] [place] [address] 87684- 6437 Apr, Type 2 diabetes mellitus with complication E11.8 ; Essential hypertension I10 ; Tooth pain K08.8 and Back pain, unspecified back location, unspecified back pain laterality, unspecified chronicity M54.9 [place] [id number] [place] [address] 97565- 7923 Feb, Anxiety disorder, unspecified F41.9 [place] [id number] [place] [address] 94859- 6801 December, [place] [address] 78361- 7880 December, [place] [id number] [place] [address] 24210- 5891 December, Diabetes E11.9 ; Insect bite (nonvenomous) of abdominal wall , initial encounter S30.861A and Bitten or stung by nonvenomous insect and other nonvenomous arthropods, initial encounter W57.XXXA [place] [id number] [place] [address] 52383- 6377 Nov, [place] [id number] [place] [address] 49214- 5542 Sep, Genital warts A63.0 [place] [id number] [place] [address] 38982- 6730 Aug, [facility] [id number] [place] [address] [id number] Aug, Diabetes type 2, uncontrolled 250.02 and Hypothyroid 244.9 [place] [id number] [place] [address] 97979- 7629 Jul, Anogenital (venereal) warts A63.[address] 39987- 1249 Jul, [place] [id number] [place] [address] 22843- 7289 Jul, Diabetes E11.9 [place] [address] 73024- 0678 Jun, Genital warts A63.0 [facility] [address] [address]- 0072 Jun, [facility] [address] [address]- 3803 Jun, [facility] [address] [address]- 6232 May, [facility] [id number] [place] [address] 91084- 1484 May, [facility] [address] [address]- 9049 May, Type 2 diabetes mellitus with complication E11.8 and Upper respiratory tract infection, unspecified upper respiratory infection J06.9 [facility] [address] [address]- 5325 Apr, Genital warts 078.11 [facility] [address] [address]- 5695 Feb, Hypothyroid 244.9 and Diabetes type 2, uncontrolled 250.02 [address] [id number] Feb, Diabetes type 2, uncontrolled 250.02 and Hypothyroid 244.9 [facility] [id number] [address]- 7824 Feb, Diabetes type 2, uncontrolled 250.02 and Hypothyroid 244.9 [facility] [address] [address]- 7470 Jan, [facility] [address] [address]- 0622 Jan, [facility] [address] [address]- 1401 Nov, [facility] [address] [address]- 8870 Nov, [facility] [place] [facility] [address] [id number] [place] [address]- 9776 Nov, [facility] [place] [facility] [address] [id number] [place] [address]- 1037 Oct, [facility] [place] [facility] [address] [id number] [place] [address]- 3952 Oct, [facility] [place] [facility] [address] [id number] [place] [address]- 6327 Oct, [facility] [place] [facility] [address] [id number] [place] [address]- 6476 Sep, [facility] [place] [facility] [address] [id number] [place] [address]- 7240 Sep, [facility] [place] [facility] [address] [id number] [place] [address]- 3178 Sep, [facility] [place] [facility] [address] [id number] [place] [address]- 1563 Sep, [facility] [place] [facility] [address] [id number] [place] [address]- 4277 Sep, [facility] [place] [facility] [address] [id number] [place] [address]- 2164 Sep, [facility] [place] [facility] [address] [id number] [place] [address]- 3937 Aug, [facility] [place] [facility] [address] [id number] [place] [address]- 2174 Aug, [facility] [place] [facility] [address] [id number] [place] [address]- 9155 Aug, [facility] [place] [facility] [address] [id number] [place] [address]- 2904 Aug, [facility] [place] [facility] [address] [id number] [place] [address]- 6011 Aug, [facility] [place] [facility] [address] [id number] [address]- 3273 Aug, [facility] [place] [facility] [address] [id number] [place] [address]- 4298 Aug, [facility] [place] [facility] [address] [id number] [place] [address]- 8061 Aug, [facility] [place] [facility] [address] [id number] [place] [address]- 4867 Jun, [facility] [place] [facility] [address] [id number] [place] [address]- 1539 Jun, [facility] [place] [facility] [address] [id number] [place] [address]- 5140 Jun, [facility] [place] [facility] [address] [id number] [place] [address]- 1075 Jun, [facility] [place] [facility] [address] [id number] [place] [address]- 5285 Jun, [facility] [place] [facility] [address] [id number] [place] [address]- 1282 May, [facility] [place] [facility] [address] [id number] [place] [address]- 8586 May, [facility] [place] [facility] [address] [id number] [place] [address]- 6086 Apr, [facility] [place] [facility] [address] [id number] [place] [address]- 7284 Apr, [facility] [place] [facility] [address] [id number] [address]- 2915 Apr, [facility] [place] [facility] [address] [id number] [place] [address]- 0418 Apr, [facility] [place] [facility] [address] [id number] [address]- 3224 Mar, [facility] [place] [facility] [address] [id number] [address]- 0302 Mar, [facility] [place] [facility] [address] [id number] [place] [address]- 8404 Mar, [facility] [place] [facility] [address] [id number] [place] [address]- 8549 Mar, [facility] [place] [facility] [address] [id number] [place] [address]- 2552 Mar, [facility] [place] [facility] [address] [id number] [place] [address]- 4687 Mar, [facility] [place] [facility] [address] [id number] [place] [address]- 3591 Feb, [facility] [place] [facility] [address] [id number] [place] [address]- 9612 Feb, [facility] [place] [facility] [address] [id number] [place] [address]- 4288 Jan, [facility] [place] [facility] [address] [id number] [place] [address]- 4583 Jan, [facility] [place] [facility] [address] [id number] [place] [address]- 9082 Jan, [facility] [place] [facility] [address] [id number] [place] [address]- 9069 Jan, [facility] [place] [facility] [address] [id number] [place] [address]- 2289 December, [facility] [place] [facility] [address] [id number] [place] [address]- 4375 December, [facility] [place] [facility] [address] [id number] [place] [address]- 0164 December, [facility] [place] [facility] [address] [id number] [place] [address]- 8892 December, [facility] [place] [facility] [address] [id number] [place] [address]- 5415 December, [facility] [place] [facility] [address] [id number] [place] [address]- 7088 Nov, [facility] [place] [facility] [address] [id number] [place] [address]- 4998 Nov, [facility] [place] [facility] [address] [id number] [place] [address]- 0538 Oct, [facility] [place] [facility] [address] [facility] [id number] [place] [address]- 3112 Oct, [facility] [place] [facility] [address] [id number] [place] [address]- 2069 Oct, [facility] [place] [facility] [address] [id number] [place] [address]- 1471 Oct, [facility] [place] [facility] [address] [id number] [place] [address]- 3171 Oct, [facility] [place] [facility] [address] [id number] [place] [address]- 4071 Oct, [facility] [place] [facility] [address] [id number] [place] [address]- 2287 Sep, [facility] [place] [facility] [address] [id number] [place] [address]- 5266 Sep, [facility] [place] [facility] [address] [id number] [place] [address]- 1014 Jul, [facility] [place] [facility] [address] [id number] [address]- 2128 Jul, [facility] [place] [facility] [address] [id number] [address]- 8037 Jul, [facility] [place] [facility] [address] [id number] [place] 9361 Jul, [facility] [place] [facility] [address] [facility] [id number] [place] [address]- 0824 Jun, [facility] [place] [facility] [address] [facility] [id number] [place] [address]- 9150 Jun, [facility] [place] [facility] [id number] [address]- 2546 Jun, [facility] [id number] [address]- 7337 Jun, [facility] [address] [address]- 8096 Jun, [facility] [address] [id number] [address]- 4827 Jun, [facility] [address] [address]- 2121 May, [facility] [address] [address]- 9508 May, [facility] [address] [id number] [address]- 6673 Mar, IMMUNIZATIONS No Known Immunizations SOCIAL HISTORY Never Assessed REASON FOR VISIT SOCWK Intake PLAN OF CARE VITAL SIGNS MEDICATIONS Unknown [...]
--- OUTSIDE RECORDS SUMMARY | 2018-01-29 15:35 | XMS REPORT ---
Author Author GLADIS KESSLER Organization [facility] Address [address] [place] [address] Care Team Providers Care Assembler Lay Ups Name Role Phone GLADIS KESSLER Unavailable PROBLEMS Type Condition ICD9-CM Code MKE62-UD Code Onset Dates Condition Status SNOMED Code Problem Anxiety disorder, unspecified F41.9 Active 692405526 Problem Other chronic pain G89.29 Active 88455872 Problem Diabetes E11.9 Active 519345749 Problem Hypercholesterolemia E78.00 Active 49028315 Problem Type 2 diabetes mellitus with diabetic autonomic neuropathy, without long-term current use of insulin E11.43 Active 97317958 Problem Essential hypertension I10 Active 08009904 Problem Acute recurrent maxillary sinusitis J01.01 Active 56680423 Problem Cough R05 Active 57950319 Problem Hypothyroidism, unspecified E03.9 Active 08817500 Problem COPD exacerbation J44.1 Active 099378693 Problem Cannabis use disorder, moderate, dependence F12.20 Active 74292996 Problem Type 2 diabetes mellitus with complication E11.8 Active 346291906 ALLERGIES No Information ENCOUNTERS Encounter Location Date Diagnosis [facility] [address], [place] [address] Jan, [facility] [id number] [place] [address] December, [facility] [id number] [place] [address]6792 Nov, Seasonal allergic rhinitis, unspecified trigger J30.2 and BMI 40.0-44.9, adult Z68.41 [facility] [id number] [place] [address] 87387 [address]93 16 Nov, 2017 Acute recurrent maxillary sinusitis J01.01 ; Cough R05 and BMI 40.0-44.9, adult Z68.41 [facility] [address] [id number] Oct, Cannabis use disorder, moderate, dependence F12.20 [facility] [address] [address] Oct, Cannabis use disorder, moderate, dependence F12.20 [facility] [address] [id number] Oct, Cannabis use disorder, moderate, dependence F12.20 [facility] [address] [address] Oct, Cannabis use disorder, moderate, dependence F12.20 [facility] [address] [place] [address] Oct, Cannabis use disorder, moderate, dependence F12.20 [facility] [address] Sep, Cannabis use disorder, moderate, dependence F12.20 [facility] [address] [place] [address] 40699- 367 Sep, Anxiety disorder, unspecified F41.9 and Other chronic pain G89.29 [facility] [address] [place] [address] 17158- 7289 Sep, Bronchitis J40 [facility] [address] [address] Sep, Cannabis use disorder, moderate, dependence F12.20 [facility] [address] [place] [address] Sep, Cannabis use disorder, moderate, dependence F12.20 [facility] [address] [place] [address] 27813- 3263 Aug, Other chronic pain G89.29 [facility] [address] [place] [address] Aug, Cannabis use disorder, moderate, dependence F12.20 [facility] [address] [place] [address] Aug, Cannabis use disorder, moderate, dependence F12.20 [facility] [address] [place] [address] Aug, Cannabis use disorder, moderate, dependence F12.20 [facility] [address] [id number] Aug, Cannabis use disorder, moderate, dependence F12.20 [facility] [address] [address] Aug, Anxiety disorder, unspecified F41.9 [facility] [address] [address] 2166 Jul, Other chronic pain G89.29 [facility] [address] [place] [address] Jul, Cannabis use disorder, moderate, dependence F12.20 [facility] [address] [place] [address] Jul, Cannabis use disorder, moderate, dependence F12.20 [place] [address] [address] Jul, Diabetes E11.9 ; Blood in stool K92.1 ; Arthralgia, unspecified joint M25.50 and BMI 40.0-44.9, adult Z68.41 [facility] [address] [address] Jun, Other chronic pain G89.29 [place] [address] 27678[address] 5173 Jun, [facility] [place] [address] [place] [address] Jun, [place] [address] [address] Jun, Other chronic pain G89.29 [facility] [address] 31905[address] 9878 Jun, [facility] [address] [place] [address] Jun, Cannabis use disorder, moderate, dependence F12.20 [facility] [address] 15163- 0229 May, Anxiety disorder, unspecified F41.9 [facility] [place] [address] [place] [address] May, Cannabis use disorder, moderate, dependence F12.20 [facility] [id number] [place] [address] 59647- 0968 May, [facility] [address] [place] [address] May, Cannabis use disorder, moderate, dependence F12.20 [facility] [address] [place] [address] May, [facility] [address] [place] [address] May, [facility] [address] [place] [address] May, [facility] [address] 39046[address] 6[address] May, Other chronic pain G89.29 [facility] [address] 34651[address] 2689 May, [facility] [address] [address]369[address] 6775 May, Type 2 diabetes mellitus with complication E11.8 and Encounter for immunization Z23 [facility] [address] [place] [address] May, Cannabis use disorder, moderate, dependence F12.20 [facility] [id number] [place] [address] 31480- 5096 May, Essential hypertension I10 [facility] [id number] [place] [address] 23659- 8283 30 Apr, 2017 Essential hypertension I10 [facility] [id number] [place] [address] 20015- 6623 29 Apr, 2017 Diabetes E11.9 [facility] [address] 91494- 9470 18 Apr, 2017 [facility] [id number] [place] [address] 12535- 0681 15 Apr, 2017 [facility] [address] 81304- 365[address] 15 Apr, 2017 [facility] [address] [place] [address] 13 Apr, 2017 Other psychoactive substance abuse, uncomplicated F19.10 [facility] [id number] [place] [address] 64279- 0707 13 Apr, 2017 [facility] [id number] [place] [address] 18189- 5207 12 Apr, 2017 [facility] [id number] [place] [address] 16328- 7185 12 Apr, 2017 Anxiety disorder, unspecified F41.9 [facility] [id number] [place] [address] 66898- 3765 08 Apr, 2017 [place] [id number] [place] [address] 08742- 8211 06 Apr, 2017 Diabetes E11.9 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 [place] [id number] [place] [address] 25528- 8981 Mar, Other chronic pain G89.29 and Diabetes E11.9 [place] [id number] [place] [address] 63873- 8147 Mar, Diabetes E11.9 [facility] [id number] [place] [address] 26387- 2871 Feb, Anxiety disorder, unspecified F41.9 [facility] [id number] [place] [address] 31886- 6217 Jan, [facility] [id number] [place] [address] 00092- 8059 Jan, [facility] [id number] [place] [address] 87156- 3838 December, Anxiety disorder, unspecified F41.9 [facility] [id number] [place] [address] 30871- 4385 Oct, Diabetes E11.9 and Hypothyroidism, unspecified E03.9 [facility] [id number] [place] [address] 36414- 7477 Oct, Anxiety disorder, unspecified F41.9 [facility] [address] 82068 [address] Aug, Bronchitis J40 and Shortness of breath R06.02 [place] [address] 91262- 3708 Jul, [place] [address] 79261- 5729 Jul, Back pain, unspecified back location, unspecified back pain laterality, unspecified chronicity M54.9 [place] [address] 70448- 3414 Jul, Anxiety disorder, unspecified F41.9 [place] [address] 86806- 5794 Jul, Essential hypertension I10 [place] [address] 13254- 6783 Jun, [facility] [address] 38883 -2848 Jun, Bronchitis J40 [place] [address] 10132- 7178 Jun, [place] [address] 33782- 9470 Jun, Diabetes E11.9 ; Dorsalgia, unspecified M54.9 ; Other chronic pain G89.29 and 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 [place] [address] 96477- 8849 May, Anxiety disorder, unspecified F41.9 [place] [id number] [place] [address] 54449- 7050 Apr, Type 2 diabetes mellitus with complication E11.8 ; Essential hypertension I10 ; Tooth pain K08.8 and Back pain, unspecified back location, unspecified back pain laterality, unspecified chronicity M54.9 [place] [id number] [place] [address] 59134- 6275 Feb, Anxiety disorder, unspecified F41.9 [place] [id number] [place] [address] 65658- 1183 December, [place] [address] 29388- 6481 December, [place] [id number] [place] [address] 89599- 8498 December, Diabetes E11.9 ; Insect bite (nonvenomous) of abdominal wall , initial encounter S30.861A and Bitten or stung by nonvenomous insect and other nonvenomous arthropods, initial encounter W57.XXXA [place] [id number] [place] [address] 05740- 2825 Nov, [place] [id number] [place] [address] 29857- 8377 Sep, Genital warts A63.0 [place] [id number] [place] [address] 24133- 5895 Aug, [facility] [id number] [place] [id number] Aug, Diabetes type 2, uncontrolled 250.02 and Hypothyroid 244.9 [place] [id number] [place] [address] 23650- 2905 Jul, Anogenital (venereal) warts A63.[address] 87676- 5565 Jul, [place] [id number] [place] [address] 30557- 6107 Jul, Diabetes E11.9 [place] [address] 94972- 2023 Jun, Genital warts A63.0 [facility] [address], [place] [address] 1720 Jun, [facility] [address], [place] [address]- 7103 Jun, [facility] [address], [place] [address]- 1370 May, [facility] [address] [place] [address] 84633- 1345 May, [facility] [address], [place] [address] 2617 May, Type 2 diabetes mellitus with complication E11.8 and Upper respiratory tract infection, unspecified upper respiratory infection J06.9 [facility] [address], [place] [address]- 0957 Apr, Genital warts 078.11 [facility] [address], [place] [address]- 9809 Feb, Hypothyroid 244.9 and Diabetes type 2, uncontrolled 250.02 [address] [id number] Feb, Diabetes type 2, uncontrolled 250.02 and Hypothyroid 244.9 [facility] [id number] [address]- 2877 Feb, Diabetes type 2, uncontrolled 250.02 and Hypothyroid 244.9 [facility] [address], [place] [address]- 7245 Jan, [facility] [address], [place] [address]- 2204 Jan, [facility] [address], [place] [address]- 6311 Nov, [facility] [address], [place] [address]- 1552 Nov, [facility] [place] [facility] [address] [id number] [place] [address]- 1123 Nov, [facility] [place] [facility] [address] [id number] [place] [address]- 9431 Oct, [facility] [place] [facility] [address] [id number] [place] [address]- 1106 Oct, [facility] [place] [facility] [address] [id number] [place] [address]- 7252 Oct, [facility] [place] [facility] [address] [id number] [place] [address]- 6653 Sep, [facility] [place] [facility] [address] [id number] [place] [address]- 4019 Sep, [facility] [place] [facility] [address] [id number] [place] [address]- 4480 Sep, [facility] [place] [facility] [address] [id number] [place] [address]- 3205 Sep, [facility] [place] [facility] [address] [id number] [place] [address]- 1419 Sep, [facility] [place] [facility] [address] [id number] [place] [address]- 1603 Sep, [facility] [place] [facility] [address] [id number] [place] [address]- 2671 Aug, [facility] [place] [facility] [address] [id number] [place] [address]- 3107 Aug, [facility] [place] [facility] [address] [id number] [place] [address]- 8171 Aug, [facility] [place] [facility] [address] [id number] [place] [address]- 0583 Aug, [facility] [place] [facility] [address] [id number] [place] [address]- 4202 Aug, [facility] [place] [facility] [address] [id number], [place] [address]- 4311 Aug, [facility] [place] [facility] [address] [id number] [place] [address]- 7150 Aug, [facility] [place] [facility] [address] [id number] [place] [address]- 4700 Aug, [facility] [place] [facility] [address] [id number] [place] [address]- 0076 Jun, [facility] [place] [facility] [address] [id number] [place] [address]- 2797 Jun, [facility] [place] [facility] [address] [id number] [place] [address]- 7385 Jun, [facility] [place] [facility] [address] [id number] [place] [address]- 3301 Jun, [facility] [place] [facility] [address] [id number] [place] [address]- 6430 Jun, [facility] [place] [facility] [address] [id number] [place] [address]- 6670 May, [facility] [place] [facility] [address] [id number] [place] [address]- 6970 May, [facility] [place] [facility] [address] [id number] [place] [address]- 8964 Apr, [facility] [place] [facility] [address] [id number] [place] [address]- 8810 Apr, [facility] [place] [facility] [address] [id number], [place] [address]- 0740 Apr, [facility] [place] [facility] [address] [id number] [place] [address]- 3676 Apr, [facility] [place] [facility] [address] [id number], [place] [address]- 7294 Mar, [facility] [place] [facility] [address] [id number], [place] [address]- 9547 Mar, [facility] [place] [facility] [address] [id number] [place] [address]- 0281 Mar, [facility] [place] [facility] [address] [id number] [place] [address]- 0519 Mar, [facility] [place] [facility] [address] [id number] [place] [address]- 3485 Mar, [facility] [place] [facility] [address] [id number] [place] [address]- 0470 Mar, [facility] [place] [facility] [address] [id number] [place] [address]- 9198 Feb, [facility] [place] [facility] [address] [id number] [place] [address]- 9155 Feb, [facility] [place] [facility] [address] [id number] [place] [address]- 4081 Jan, [facility] [place] [facility] [address] [id number] [place] [address]- 8092 Jan, [facility] [place] [facility] [address] [id number] [place] [address]- 7543 Jan, [facility] [place] [facility] [address] [id number] [place] [address]- 9103 Jan, [facility] [place] [facility] [address] [id number] [place] [address]- 2588 December, [facility] [place] [facility] [address] [id number] [place] [address]- 4231 December, [facility] [place] [facility] [address] [id number] [place] [address]- 4348 December, [facility] [place] [facility] [address] [id number] [place] [address]- 3551 December, [facility] [place] [facility] [address] [id number] [place] [address]- 7725 December, [facility] [place] [facility] [address] [id number] [place] [address]- 4136 Nov, [facility] [place] [facility] [address] [id number] [place] [address]- 5062 Nov, [facility] [place] [facility] [address] [id number] [place] [address]- 6680 Oct, [facility] [place] [facility] [address] [facility] [id number] [place] [address]- 5400 Oct, [facility] [place] [facility] [address] [id number] [place] [address]- 1610 Oct, [facility] [place] [facility] [address] [id number] [place] [address]- 1600 Oct, [facility] [place] [facility] [address] [id number] [place] [address]- 2292 Oct, [facility] [place] [facility] [address] [id number] [place] [address]- 9173 Oct, [facility] [place] [facility] [address] [id number] [place] [address]- 7063 Sep, [facility] [place] [facility] [address] [id number] [place] [address]- 1331 Sep, [facility] [place] [facility] [address] [id number] [place] [address]- 6013 Jul, [facility] [place] [facility] [address] [id number], [place] [address]- 6785 Jul, [facility] [place] [facility] [address] [id number], [place] [address]- 8479 Jul, [facility] [place] [facility] [address] [id number] [place] [address] Jul, [facility] [place] [facility] [address] [facility] [id number] [place] [address]- 4639 Jun, [facility] [place] [facility] [address] [facility] [id number] [place] [address]- 1486 Jun, [facility] [place] [facility] [id number], [place] [address]- 2546 Jun, [facility] [id number], [place] [address]- 6637 Jun, [facility] [address], [place] [address]- 9974 Jun, [facility] [id number], [place] [address]- 3900 Jun, [facility] [address], [place] [address]- 7867 May, [facility] [address] [address]2 May, [facility] [id number], [place] [address]- 6288 Mar, IMMUNIZATIONS No Known Immunizations SOCIAL HISTORY Never Assessed REASON FOR VISIT PALS IN-Trulicity PLAN OF CARE VITAL SIGNS MEDICATIONS Unknown [...]
--- OUTSIDE RECORDS SUMMARY | 2018-01-29 15:36 | XMS REPORT ---
Author Author SCOTTIE CANO Organization [facility] Address [address] [place] [address] Care Team Providers Care Beamster Name Role Phone SCOTTIE CANO Unavailable PROBLEMS Type Condition ICD9-CM Code CAH58-OL Code Onset Dates Condition Status SNOMED Code Problem Type 2 diabetes mellitus with diabetic autonomic neuropathy, without long-term current use of insulin E11.43 Active 44854225 Problem Hypercholesterolemia E78.00 Active 03939766 Problem Hypothyroidism, unspecified E03.9 Active 37341983 Problem COPD exacerbation J44.1 Active 617451209 Problem Anxiety disorder, unspecified F41.9 Active 362347378 Problem Essential hypertension I10 Active 59172910 Problem Other chronic pain G89.29 Active 10003317 Problem Diabetes E11.9 Active 498974264 ALLERGIES Substance Reaction Event Type Date Status Crestor Unknown reaction Came from previous clinic Drug Allergy Aug, Active Actos kidney pain Drug Allergy Aug, Active Niaspan Extended-release Unknown reaction. Came from previous clinic Non Drug Allergy Aug, Active SOCIAL HISTORY No smoking Hx information available PLAN OF CARE Activity Details Follow Up 1 Week Reason: VITAL SIGNS Height 71 in 2016-08-26 Weight 310.2 lbs 2016-08-26 Temperature 97.9 degrees Fahrenheit 2016-08-26 Heart Rate 80 bpm 2016-08-26 Respiratory Rate 20 2016-08-26 Oximetry 95 % 2016-08-26 BMI 43.26 kg/m2 2016-08-26 Blood pressure systolic 140 mmHg 2016-08-26 Blood pressure diastolic 72 mmHg 2016-08-26 MEDICATIONS Medication Instructions Dosage Frequency Start Date End Date Duration Status Azithromycin 250 MG Orally Once a day 2 tablets on the first day, then 1 tablet daily for 4 days 24h Aug, Aug, 5 day(s) Active Gabapentin 300 MG Orally 2 times a day 1 capsule 12h 90 days Active Arapahoe-3 Fatty Acids 500 mg 3 Capsule 1 time per day Jan, Active pantoprazole 40 mg take 1 tablet (40 mg) by oral route once daily Mar, Active Ativan 0.5 MG Orally Twice a day 1 tablet as needed 12h 28 days Active PredniSONE 20 MG Orally Once a day 2 tablet 24h Aug, Aug, 5 days Active Amaryl 4 MG 1 TABLET BY ORAL ROUTE 1 TIME PER DAY 12h Active Gabapentin 600 MG Orally Three times a day 1 tablet 8h 24 Jul, 2016 Active Cyclobenzaprine HCl 10 mg Orally every 8 hours, PRN 1 tablet Apr, 30 Active Lisinopril 40 MG TAKE 1 TABLET BY ORAL ROUTE 1 TIME PER DAY 90 Active Actos 30 MG Orally Once a day 1 tablet 24h Apr, Active Vitamin E 1,000 unit 1 Capsule 1 time per day Jun, Active Vitamin D3 1,000 unit 1 Capsule 1 time per day Jun, Active Meloxicam 7.5 MG Orally twice a day 1 tablet 12h 24 Jul, 2016 Active Norvasc 10 mg Orally Once a day 1 tablet 24h Apr, 90 days Active Lipitor 40 MG Orally Once a day 1 tablet 24h Feb, 30 day(s) Active ProAir HFA 108 (90 Base) MCG/ACT Inhalation every 4 hrs 2 puffs as needed 4h Aug, 30 days Active Glucophage 1000 MG TAKE 1 TABLET BY ORAL ROUTE 2 TIMES PER DAY WITH MORNING AND EVENING MEALS 90 Active Mucinex 600 MG Orally every 12 hrs 1 tablet as needed 12h Active Levothyroxine Sodium 125 MCG 1 TABLET BY ORAL ROUTE 1 TIME PER DAY 90 Active Atenolol 100 TAKE 1 TABLET BY MOUTH DAILY 90 Active RESULTS Name Result Date Reference Range Xray : Chest (IN HOUSE) 2016-08-26 PROCEDURES Procedure Date Ordered Related Diagnosis Body Site NEBULIZER TREATMENT 2016-08-26 N/A ALBUTEROL UNIT DOSE FORM INHALED 2016-08-26 N/A Office Visit, Est Pt., Level 3 Aug 26, 2016 NEB/MDI RX INITIAL Aug 26, 2016 MEASURE BLOOD OXYGEN LEVEL Aug 26, 2016 CHEST X-RAY Aug 26, 2016 ALBUTEROL INHAL UNIT DOSE 1 MG Aug 26, 2016 IMMUNIZATIONS No Known Immunizations
--- OUTSIDE RECORDS SUMMARY | 2018-01-29 15:36 | XMS REPORT ---
Author Author GLADIS KESSLER [facility] eClinicalWorks Address Unknown Phone Unavailable Care Team Providers Care Cloth Doffer Name Role Phone GLADIS KESSLER CP Unavailable Allergies No Known Allergies Problems Problem Type Condition Code Onset Dates Condition Status Assessment Diabetes type 2, uncontrolled 250.02 Active Problem Other and unspecified hyperlipidemia 272.4 Active Problem Unspecified hereditary and idiopathic peripheral neuropathy 356.9 Active Assessment Hypothyroid 244.9 Active Problem Diabetes mellitus without mention of [...] benign 401.1 Active Medications No Known Medications Procedures Procedure Coding System Code Date ASSAY THYROID STIM HORMONE CPT-4 39725 Sep 03, 2015 VENIPUNCT, ROUTINE* CPT-4 85758 Sep 03, 2015 LIPID PANEL CPT-4 30737 Sep 03, 2015 Results Name Result Date Reference Range Unit Abnormality Flag ROUTINE VENIPUNCTURE Summary Purpose eClinicalWorks Submission
--- OUTSIDE RECORDS SUMMARY | 2018-01-29 15:36 | XMS REPORT ---
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 Name Role Phone GLADIS KESSLER Unavailable PROBLEMS Type Condition ICD9-CM Code [id number] Code Onset Dates Condition Status SNOMED Code Problem Anxiety disorder, unspecified F41.9 Active 822722443 Problem Other chronic pain G89.29 Active 49346217 Problem Diabetes E11.9 Active 795645819 Problem Hypercholesterolemia E78.00 Active 35602204 Problem Type 2 diabetes mellitus with diabetic autonomic neuropathy, without long-term current use of insulin E11.43 Active 62452137 Problem Essential hypertension I10 Active 99218889 Problem Acute recurrent maxillary sinusitis J01.01 Active 08613935 Problem Cough R05 Active 90439754 Problem Hypothyroidism, unspecified E03.9 Active 37699665 Problem COPD exacerbation J44.1 Active 882583626 Problem Cannabis use disorder, moderate, dependence F12.20 Active 43677707 Problem Type 2 diabetes mellitus with complication E11.8 Active 570634126 ALLERGIES No Information ENCOUNTERS Encounter Location Date Diagnosis [facility] [address] [address] Jan, [facility] [id number] [place] [address]46- 4392 December, [facility] [id number] [place] [address] Nov, Seasonal allergic rhinitis, unspecified trigger J30.2 and BMI 40.0-44.9, adult Z68.41 [facility] [id number] [place] [address] 16 Nov, 2017 Acute recurrent maxillary sinusitis J01.01 ; Cough R05 and BMI 40.0-44.9, adult Z68.41 [facility] [address] [id number] Oct, Cannabis use disorder, moderate, dependence F12.20 [facility] [address] [address] Oct, Cannabis use disorder, moderate, dependence F12.20 [facility] [address] [id number] Oct, Cannabis use disorder, moderate, dependence F12.20 [facility] [address] 9[address] Oct, Cannabis use disorder, moderate, dependence F12.20 [facility] [address] [place] [address] Oct, Cannabis use disorder, moderate, dependence F12.20 [facility] [address] Sep, Cannabis use disorder, moderate, dependence F12.[address] [facility] [address] [place] [address]13- [address] Sep, Anxiety disorder, unspecified F41.9 and Other chronic pain G89.29 [facility] [address] [place] [address] 31370- 4178 Sep, Bronchitis J40 [facility] [address] [address] Sep, Cannabis use disorder, moderate, dependence F12.20 [facility] [address] [place] [address] Sep, Cannabis use disorder, moderate, dependence F12.[address] [facility] [address] [place] [address] 86284- 0536 Aug, Other chronic pain G89.29 [facility] [address] [place] [address] Aug, Cannabis use disorder, moderate, dependence F12.20 [facility] [address] [place] [address] Aug, Cannabis use disorder, moderate, dependence F12.20 [facility] [address] [place] [address] Aug, Cannabis use disorder, moderate, dependence F12.20 [facility] [address] [id number] Aug, Cannabis use disorder, moderate, dependence F12.20 [facility] [address] [address] Aug, Anxiety disorder, unspecified F41.9 [facility] [address] 56858- 3116 Jul, Other chronic pain G89.29 [facility] [address] [place] [address] Jul, Cannabis use disorder, moderate, dependence F12.20 [facility] [address] [place] [address] Jul, Cannabis use disorder, moderate, dependence F12.20 [place] [address] [address] Jul, Diabetes E11.9 ; Blood in stool K92.1 ; Arthralgia, unspecified joint M25.50 and BMI 40.0-44.9, adult Z68.41 [facility] [address] 6[address]34- 7236 Jun, Other chronic pain G89.29 [place] [address] 8[address]83- 7[address] Jun, [facility] [place] [address] [place] [address] Jun, [place] [address] 91731- 7471 Jun, Other chronic pain G89.29 [facility] [address] [address] 4[address] Jun, [facility] [address] [place] [address] Jun, Cannabis use disorder, moderate, dependence F12.20 [facility] [address] [address]36[address] May, Anxiety disorder, unspecified F41.9 [facility] [place] [address] [place] [address] May, Cannabis use disorder, moderate, dependence F12.20 [facility] [id number] [place] [address] 70228- 9518 May, [facility] [address] [place] [address] May, Cannabis use disorder, moderate, dependence F12.20 [facility] [address] [place] [address] May, [facility] [address] [place] [address] May, [facility] [address] [place] [address] May, [facility] [address] [address] 9[address] May, Other chronic pain G89.29 [facility] [address] 24[address] 6[address] May, [facility] [address] [address] May, Type 2 diabetes mellitus with complication E11.8 and Encounter for immunization Z23 [facility] [address] [place] [address] May, Cannabis use disorder, moderate, dependence F12.20 [facility] [id number] [place] [address] 30106- 4[address] May, Essential hypertension I10 [facility] [id number] [place] [address] 76303- 2033 30 Apr, 2017 Essential hypertension I10 [facility] [id number] [place] [address] 58998- 0122 29 Apr, 2017 Diabetes E11.9 [facility] [address] 10297- 5159 18 Apr, 2017 [facility] [id number] [place] [address] 41387- 5709 15 Apr, 2017 [facility] [address] 01802- [address]87 15 Apr, 2017 [facility] [address] [place] [address] 13 Apr, 2017 Other psychoactive substance abuse, uncomplicated F19.10 [facility] [id number] [place] [address] 07431- 6655 13 Apr, 2017 [facility] [id number] [place] [address] 55646- 9189 12 Apr, 2017 [facility] [id number] [place] [address] 66321- 5363 12 Apr, 2017 Anxiety disorder, unspecified F41.9 [facility] [id number] [place] [address] 13882- 9818 08 Apr, 2017 [place] [id number] [place] [address] 41922- 0103 06 Apr, 2017 Diabetes E11.9 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 [place] [id number] [place] [address] 43200- 4659 Mar, Other chronic pain G89.29 and Diabetes E11.9 [place] [id number] [place] [address] 52948- 6529 Mar, Diabetes E11.9 [facility] [id number] [place] [address] 45705- 7460 Feb, Anxiety disorder, unspecified F41.9 [facility] [id number] [place] [address] 71384- 1481 Jan, [facility] [id number] [place] [address] 14282- 3429 Jan, [facility] [id number] [place] [address] 49572- 8921 December, Anxiety disorder, unspecified F41.9 [facility] [id number] [place] [address] 49502- 2949 Oct, Diabetes E11.9 and Hypothyroidism, unspecified E03.9 [facility] [id number] [place] [address] 29615- 9273 Oct, Anxiety disorder, unspecified F41.9 [facility] [address] [address] Aug, Bronchitis J40 and Shortness of breath R06.02 [place] [address] 50357- 4202 Jul, [place] [address] 43099- 7822 Jul, Back pain, unspecified back location, unspecified back pain laterality, unspecified chronicity M54.9 [place] [address] 20219- 6819 Jul, Anxiety disorder, unspecified F41.9 [place] [address] 49823- 1000 Jul, Essential hypertension I10 [place] [address] 52818- 3238 Jun, [facility] [address] 45[address] -[address] Jun, Bronchitis J40 [place] [address] 43328- 1429 Jun, [place] [address] 34639- 2296 Jun, Diabetes E11.9 ; Dorsalgia, unspecified M54.9 ; Other chronic pain G89.29 and 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 [place] [address] 41456- 8838 May, Anxiety disorder, unspecified F41.9 [place] [id number] [place] [address] 11721- 5503 Apr, Type 2 diabetes mellitus with complication E11.8 ; Essential hypertension I10 ; Tooth pain K08.8 and Back pain, unspecified back location, unspecified back pain laterality, unspecified chronicity M54.9 [place] [id number] [place] [address] 25063- 4354 Feb, Anxiety disorder, unspecified F41.9 [place] [id number] [place] [address] 02971- 1256 December, [place] [address] 28898- 4477 December, [place] [id number] [place] [address] 79312- 5477 December, Diabetes E11.9 ; Insect bite (nonvenomous) of abdominal wall , initial encounter S30.861A and Bitten or stung by nonvenomous insect and other nonvenomous arthropods, initial encounter W57.XXXA [place] [id number] [place] [address] 07627- 1011 Nov, [place] [id number] [place] [address] 55083- 6410 Sep, Genital warts A63.0 [place] [id number] [place] [address] 58734- 7360 Aug, [facility] [id number] [place] [address] [id number] Aug, Diabetes type 2, uncontrolled 250.02 and Hypothyroid 244.9 [place] [id number] [place] [address] 55634- 9212 Jul, Anogenital (venereal) warts A63.[address] [address]49- 2213 Jul, [place] [id number] [place] [address] 55231- 8444 Jul, Diabetes E11.9 [place] [address] 37708- 9849 Jun, Genital warts A63.0 [facility] [address], [place] [address]- 8512 Jun, [facility] [address], [place] [address]- 6333 Jun, [facility] [address], [place] [address]- 9458 May, [facility] [address] [place] [address] 07748- 8376 May, [facility] [address], [place] [address]- 1129 May, Type 2 diabetes mellitus with complication E11.8 and Upper respiratory tract infection, unspecified upper respiratory infection J06.9 [facility] [address], [place] [address]- 6670 Apr, Genital warts 078.11 [facility] [address], [place] [address]- 5353 Feb, Hypothyroid 244.9 and Diabetes type 2, uncontrolled 250.02 [address] [id number] Feb, Diabetes type 2, uncontrolled 250.02 and Hypothyroid 244.9 [facility] [id number] [address]- 7365 Feb, Diabetes type 2, uncontrolled 250.02 and Hypothyroid 244.9 [facility] [address], [place] [address]- 4404 Jan, [facility] [address], [place] [address]- 6463 Jan, [facility] [address], [place] [address]- 0630 Nov, [facility] [address], [place] [address]- 5738 Nov, [facility] [place] [facility] [address] [id number] [place] [address]- 5262 Nov, [facility] [place] [facility] [address] [id number] [place] [address]- 2283 Oct, [facility] [place] [facility] [address] [id number] [place] [address]- 6018 Oct, [facility] [place] [facility] [address] [id number] [place] [address]- 0616 Oct, [facility] [place] [facility] [address] [id number] [place] [address]- 1649 Sep, [facility] [place] [facility] [address] [id number] [place] [address]- 8608 Sep, [facility] [place] [facility] [address] [id number] [place] [address]- 3386 Sep, [facility] [place] [facility] [address] [id number] [place] [address]- 7083 Sep, [facility] [place] [facility] [address] [id number] [place] [address]- 6634 Sep, [facility] [place] [facility] [address] [id number] [place] [address]- 1449 Sep, [facility] [place] [facility] [address] [id number] [place] [address]- 3021 Aug, [facility] [place] [facility] [address] [id number] [place] [address]- 6593 Aug, [facility] [place] [facility] [address] [id number] [place] [address]- 6517 Aug, [facility] [place] [facility] [address] [id number] [place] [address]- 9672 Aug, [facility] [place] [facility] [address] [id number] [place] [address]- 6109 Aug, [facility] [place] [facility] [address] [id number], [place] [address]- 8278 Aug, [facility] [place] [facility] [address] [id number] [place] [address]- 4990 Aug, [facility] [place] [facility] [address] [id number] [place] [address]- 5674 Aug, [facility] [place] [facility] [address] [id number] [place] [address]- 5142 Jun, [facility] [place] [facility] [address] [id number] [place] [address]- 4453 Jun, [facility] [place] [facility] [address] [id number] [place] [address]- 1560 Jun, [facility] [place] [facility] [address] [id number] [place] [address]- 1179 Jun, [facility] [place] [facility] [address] [id number] [place] [address]- 5159 Jun, [facility] [place] [facility] [address] [id number] [place] [address]- 7199 May, [facility] [place] [facility] [address] [id number] [place] [address]- 1973 May, [facility] [place] [facility] [address] [id number] [place] [address]- 2132 Apr, [facility] [place] [facility] [address] [id number] [place] [address]- 5183 Apr, [facility] [place] [facility] [address] [id number], [place] [address]- 5920 Apr, [facility] [place] [facility] [address] [id number] [place] [address]- 4370 Apr, [facility] [place] [facility] [address] [id number], [place] [address]- 8448 Mar, [facility] [place] [facility] [address] [id number], [place] [address]- 1857 Mar, [facility] [place] [facility] [address] [id number] [place] [address]- 7488 Mar, [facility] [place] [facility] [address] [id number] [place] [address]- 5470 Mar, [facility] [place] [facility] [address] [id number] [place] [address]- 0733 Mar, [facility] [place] [facility] [address] [id number] [place] [address]- 0185 Mar, [facility] [place] [facility] [address] [id number] [place] [address]- 3252 Feb, [facility] [place] [facility] [address] [id number] [place] [address]- 6800 Feb, [facility] [place] [facility] [address] [id number] [place] [address]- 0427 Jan, [facility] [place] [facility] [address] [id number] [place] [address]- 3011 Jan, [facility] [place] [facility] [address] [id number] [place] [address]- 7928 Jan, [facility] [place] [facility] [address] [id number] [place] [address]- 5675 Jan, [facility] [place] [facility] [address] [id number] [place] [address]- 5657 December, [facility] [place] [facility] [address] [id number] [place] [address]- 2298 December, [facility] [place] [facility] [address] [id number] [place] [address]- 9000 December, [facility] [place] [facility] [address] [id number] [place] [address]- 1301 December, [facility] [place] [facility] [address] [id number] [place] [address]- 9069 December, [facility] [place] [facility] [address] [id number] [place] [address]- 6970 Nov, [facility] [place] [facility] [address] [id number] [place] [address]- 0849 Nov, [facility] [place] [facility] [address] [id number] [place] [address]- 9039 Oct, [facility] [place] [facility] [address] [facility] [id number] [place] [address]- 5526 Oct, [facility] [place] [facility] [address] [id number] [place] [address]- 9035 Oct, [facility] [place] [facility] [address] [id number] [place] [address]- 6956 Oct, [facility] [place] [facility] [address] [id number] [place] [address]- 0751 Oct, [facility] [place] [facility] [address] [id number] [place] [address]- 8947 Oct, [facility] [place] [facility] [address] [id number] [place] [address]- 6246 Sep, [facility] [place] [facility] [address] [id number] [place] [address]- 8780 Sep, [facility] [place] [facility] [address] [id number] [place] [address]- 4933 Jul, [facility] [place] [facility] [address] [id number], [place] [address]- 8913 Jul, [facility] [place] [facility] [address] [id number], [place] [address]- 8610 Jul, [facility] [place] [facility] [address] [id number] [place] [address] Jul, [facility] [place] [facility] [address] [facility] [id number] [place] [address] Jun, [facility] [place] [facility] [address] [facility] [id number] [place] [address] Jun, [facility] [place] [facility] [address] [id number], [place] [address] Jun, [facility] [address] [id number], [place] [address] Jun, [facility] [id number], [place] [address] Jun, [facility] [address] [id number], [place] [address] Jun, [facility] [id number], [place] [address] May, [facility] [id number], [place] [address] May, [facility] [address] [id number], [place] [address] Mar, IMMUNIZATIONS No Known Immunizations SOCIAL HISTORY Never Assessed REASON FOR VISIT Controlled Med Refill PLAN OF CARE VITAL SIGNS MEDICATIONS Medication [...]
[2018-01-29] MEDS ORDERED: METH-313 PO (17:07)
--- NOTE | 2018-01-29 17:07 | ED Neck-Back Pain/Injury ---
General Chief Complaint: General Problems/Pain Stated Complaint: NECK AND LOWER BACK PAIN Nursing Triage Note: PATIENT STATES HE HAS HAD NECK AND BACK PAINS FOR YEARS BUT THIS PAIN HE IS HAVING TODAY HAS LASTED 4 DAYS. IT STARTS IN HIS NECK AND RADIATES DOWN SPINE. HE SAW A CHIROPRACTOR BUT IT DID NOT HELP. HE HAS AN APPT WITH [facility] ON 02/03 BUT STATES HE CANNOT WAIT THAT LONG BECAUSE IT HURTS TOO MUCH. Nursing Sepsis Screen: No Definite Risk Source of Information: Patient Exam Limitations: No Limitations History of Present Illness Date Seen by Provider: Jan 29, 2018 Time Seen by Provider: 17:03 Initial Comments o ER with reports of neck pain. This began a few days ago and he assumed he must have slept wrong. the pain was on the right side of his neck and he felt as though he had "knots" on the back of the right shoulder. He was unable to turn his head to the right due to the pain. The next day the pain was worse so he went to see the chiropractor and states that he was adjusted but denies any improvement. He has no history of this.No tingling in his arms. No fevers or chills and no injury. Location: C-Spine Timing/Duration: 1-2 Days Severity: Moderate Allergies and Home Medications Allergies Coded Allergies: No Known Drug Allergies (Unverified , 08/26/17) Home Medications Atenolol 100 Mg Tablet, 100 MG PO DAILY, (Reported) Diclofenac Sodium 75 Mg Tablet.dr, 75 MG PO BID PRN for PAIN-MILD TO MODERATE, ( Reported) Gabapentin 600 Mg Tablet, 600 MG PO TID, (Reported) Glimepiride 4 Mg Tablet, 4 MG PO BID, (Reported) Hydrocodone/Acetaminophen 1 Each Tablet, 1 EACH PO TID PRN for PAIN-MILD TO MODERATE, (Reported) Levothyroxine Sodium 125 Mcg Tablet, 125 MCG PO DAILY, (Reported) Lisinopril 40 Mg Tablet, 40 MG PO DAILY, (Reported) Metformin HCl 1,000 Mg Tablet, 1,000 MG PO BID, (Reported) Patient Home Medication List Home Medication List Reviewed: Yes Constitutional: see HPI EENTM: see HPI Respiratory: no symptoms reported Cardiovascular: no symptoms reported Genitourinary: no symptoms reported Musculoskeletal: see HPI, neck pain Skin: no symptoms reported Psychiatric/Neurological: No Symptoms Reported Past Sysusjr-Rtmtnf-Ijgrfg Hx Patient Social History Alcohol Use: Denies Use Recreational Drug Use: Yes (MARIJUANA) Smoking Status: Current Everyday Smoker Type Used: Cigarettes 2nd Hand Smoke Exposure: Yes Recent Foreign Travel: No Contact w/Someone Who Travel: No Recent Infectious Disease Expo: No Recent Hopitalizations: No Physical Abuse: No Sexual Abuse: No Immunizations Up To Date Date of Influenza Vaccine: Jun 01, 2017 Seasonal Allergies Seasonal Allergies: Yes Past Medical History Surgeries: No Respiratory: Yes Sleep Apnea Cardiac: Yes Hypertension Neurological: No Reproductive Disorders: No Sexually Transmitted Disease: No HIV/AIDS: No Gastrointestinal: Yes Gastroesophageal Reflux Musculoskeletal: Yes Arthritis, Chronic Back Pain Endocrine: No Loss of Vision: Bilateral Hearing Impairment: Denies Cancer: No Psychosocial: Yes Anxiety Nursing Suicide Risk Score: 0 Integumentary: No Blood Disorders: No Adverse Reaction/Blood Tranf: No Physical Exam Vital Signs Vital Signs - First Documented 01/29/18 16:40 Temp 97.9 Pulse 80 Resp 18 B/P (MAP) 140/110 (120) Pulse Ox 98 Capillary Refill : Less Than 3 Seconds General Appearance: No Apparent Distress, WD/WN HEENT: PERRL/EOMI, TMs Normal Neck: Full Range of Motion, Normal Inspection Respiratory: No Accessory Muscle Use, No Respiratory Distress Gastrointestinal: Non Tender, Soft Neurologic/Psychiatric: Alert, Oriented x3 Skin: Normal Color, Warm/Dry Progress/Results/Core Measures Results/Orders My Orders Orders - LARRY HICKEY APRN Ketorolac Injection (Toradol Injection) (01/29/18 17:15) Orphenadrine Injection (Norflex Injectio (01/29/18 17:15) Vital Signs/I&O 01/29/18 16:40 Temp 97.9 Pulse 80 Resp 18 B/P (MAP) 140/110 (120) Pulse Ox 98 Blood Pressure Mean: 120 Departure Impression Primary Impression: Torticollis Disposition: 01 HOME, SELF-CARE Condition: Stable Departure-Patient Inst. Decision time for Depature: 17:05 Referrals: DANELLE,LOCAL PHYSICIAN (PCP) Primary Care Physician GLADIS KESSLER (Family) Primary Care Physician Patient Instructions: Torticollis, Adult Add. Discharge Instructions: . Heat to your neck 2. Anti-inflammatory and muscle relaxer as directed. Return to ER for any concerns.All discharge instructions reviewed with patient and/or family. Voiced understanding. Scripts Methocarbamol (Robaxin-750) 750 Mg Tablet 750 MG PO Q6H PRN for MUSCLE CRAMPS, #20 TAB Prov: LARRY HICKEY APRN 01/29/18 LARRY HICKEY APRN Jan 29, 2018 17:07
[2018-01-29] MEDS ORDERED: ORPHENADRINE 60 MG/2 ML (NORFLEX) AMP IM ONE (17:15)
[2018-01-29] MEDS ORDERED: KETOROLAC 60 MG/2 ML VIAL IM ONE (17:15)
[2018-01-29 17:40] VITALS: BP 0/0
== END 2018-01-29 17:40 | disposition home or self-care (01) ==
LOC: EDUNIT# 15:18 → ER 15:19
DX: M43.6 Torticollis (principal); G47.30 Sleep apnea, unspecified; I10 Essential (primary) hypertension; K21.9 Gastro-esophageal reflux disease without esophagitis; F41.9 Anxiety disorder, unspecified; F12.90 Cannabis use, unspecified, uncomplicated; F17.210 Nicotine dependence, cigarettes, uncomplicated; Z79.84 Long term (current) use of oral hypoglycemic drugs
CPT/HCPCS: 96372; 99284

== ENCOUNTER → 2018-07-23 | Outpatient (CLI) | payer MEDICAID ==
[~2018-07-23] MED LIST changes: +IOHEXOL 350 MG/ML 100 ML (OMNIPAQUE 350) VIAL IV ONE; +METF-399 PO; -METF10002 PO; +METH-313 PO; +NS 250 ML (IVPB) BAG IV ONE; +RECEIVED CONTRAST (Hold Metformin) IV SCH
--- NOTE | 2018-07-23 15:55 | Diagnostic Imaging Report ---
PROCEDURE: CT abdomen and pelvis with and without contrast. TECHNIQUE: Precontrast acquisitions were acquired through the abdomen and pelvis. Multiple contiguous axial images were obtained through the abdomen and pelvis after the administration of intravenous contrast. INDICATION: Hematuria, left kidney pain. COMPARISON: There are no prior studies available for comparison. FINDINGS: On the pre-intravenous contrast series, there is no evidence for nephrolithiasis. Following administration of contrast, there was excretion by both kidneys. The kidneys do not appear to be obstructed, and there is no evidence for a solid renal mass. However, the delayed axial images through the pelvis do show that there are two roughly 6 mm sessile-like defects along the bladder wall on the right. This appearance does suggest intraluminal bladder masses, and these masses could be neoplastic in nature. It would be less likely that they are due to hematoma formation. Even so, cystoscopy would be recommended for further evaluation. There is no other abnormality of the abdomen or pelvis identified. There is no pelvic mass or free fluid collection noted. The prostate gland is not enlarged. The appendix was visualized and is not abnormally thickened. There is diverticulosis of the sigmoid colon, but there is no sign of acute diverticulitis. The liver, spleen, pancreas, adrenals, gallbladder, aorta, and inferior vena cava are unremarkable for an acute abnormality. The stomach is only partially distended and consequently difficult to assess. The lung bases are clear. The bone windows show no sign of a fracture or of a destructive lesion. There is degenerative disc and bony disease throughout the lumbar spine with sparing of the L3-4 disc space. IMPRESSION: 1. There is no evidence for nephrolithiasis or for a solid renal mass. However, there do appear to be two sessile-like masses along the base of the bladder on the right. These masses are worrisome for neoplasm. Cystoscopy would be recommended for further evaluation. 2. There is no acute abnormality of the abdomen or pelvis noted. 3. There is diverticulosis of the sigmoid colon without evidence for acute diverticulitis. Dictated by: Dictated on workstation # [id number]
== END ==
LOC: RAD 09:19
PROVIDERS: ATTEND Nurse Practitioner Community Health
DX: K57.30 Diverticulosis of large intestine without perforation or abscess without bleeding (principal); R31.0 Gross hematuria
CPT/HCPCS: 74178

== ENCOUNTER 2020-10-03 11:47 | Emergency (ER) | payer MEDICAID ==
[~2020-10-03] VITALS: Ht 185.5 cm; Wt 129.3 kg
[~2020-10-03 11:47] MED LIST changes: -ACHD5005 PO; -DOXY100T2 PO
[2020-10-03 12:00] VITALS: BP 168/82
[2020-10-03] MEDS ORDERED: DOXY100T2 PO (12:22)
[2020-10-03] MEDS ORDERED: ACHD5005 PO (12:22)
--- NOTE | 2020-10-03 12:23 | ED Integumentary General ---
General Chief Complaint: Skin/Wound Problems Stated Complaint: KNOT ON BACK OF NECK Nursing Triage Note: PT AMB TO [facility] WITH COMPLAINT OF KNOT ON BACK OF NECK. STATES THOUGHT HE HAD AN INGROWN HAIR FOUR DAYS AGO AND SQUEEZED AREA THEN KNOT FORMED. Source: patient Exam Limitations: no limitations History of Present Illness Date Seen by Provider: Oct 03, 2020 Time Seen by Provider: 12:17 Initial Comments To ER with reports of a knot to the back of his neck for about 4 days. He squeezed it and got some pus out he states. No fevers chills or systemic symptoms. Timing/Duration: constant Severity: moderate Possible Cause: no cause identified Associated Symptoms: denies symptoms Allergies and Home Medications Allergies Coded Allergies: No Known Drug Allergies (Unverified , 08/26/17) Home Medications Atenolol 100 Mg Tablet, 100 MG PO DAILY, (Reported) Diclofenac Sodium 75 Mg Tablet.dr, 75 MG PO BID PRN for PAIN-MILD TO MODERATE, (Reported) Gabapentin 600 Mg Tablet, 600 MG PO TID, (Reported) Glimepiride 4 Mg Tablet, 4 MG PO BID, (Reported) Hydrocodone Bit/Acetaminophen 1 Each Tablet, 1 EACH PO TID PRN for PAIN-MILD TO MODERATE, (Reported) Levothyroxine Sodium 125 Mcg Tablet, 125 MCG PO DAILY, (Reported) Lisinopril 40 Mg Tablet, 40 MG PO DAILY, (Reported) Metformin HCl 1,000 Mg Tablet, 1,000 MG PO BID, (Reported) Methocarbamol 750 Mg Tablet, 750 MG PO Q6H PRN for MUSCLE CRAMPS Prescribed by: LARRY HICKEY on 01/29/18 2609 Patient Home Medication List Home Medication List Reviewed: Yes Review of Systems Review of Systems Constitutional: see HPI EENTM: see HPI Respiratory: no symptoms reported Cardiovascular: no symptoms reported Genitourinary: no symptoms reported Musculoskeletal: no symptoms reported Skin: see HPI Psychiatric/Neurological: No Symptoms Reported Endocrine: No Symptoms Reported Past Zbhuihn-Inzywq-Mreabd Hx Patient Social History Alcohol Use: Denies Use Smoking Status: Current Everyday Smoker Type Used: Cigarettes 2nd Hand Smoke Exposure: Yes Recent Infectious Disease Expo: No Recent Hopitalizations: No Immunizations Up To Date Tetanus Booster (TDap): Unknown PED Vaccines UTD: Yes Date of Influenza Vaccine: Jun 01, 2017 Seasonal Allergies Seasonal Allergies: Yes Past Medical History Surgeries: Yes Respiratory: Yes Sleep Apnea Cardiac: Yes Hypertension Neurological: No Reproductive Disorders: No Sexually Transmitted Disease: No HIV/AIDS: No Gastrointestinal: Yes Gastroesophageal Reflux Musculoskeletal: Yes Arthritis, Chronic Back Pain Endocrine: No Loss of Vision: Bilateral Hearing Impairment: Denies Cancer: No Psychosocial: Yes Anxiety Integumentary: No Blood Disorders: No Adverse Reaction/Blood Tranf: No Physical Exam Vital Signs Vital Signs - First Documented 10/03/20 12:00 Pulse 83 Resp 17 B/P (MAP) 168/82 (110) Pulse Ox 95 O2 Delivery Room Air Capillary Refill : Less Than 3 Seconds General Appearance: WD/WN, no apparent distress HEENT: PERRL/EOMI, normal ENT inspection Neck: non-tender, full range of motion Respiratory: no respiratory distress, no accessory muscle use Neurologic/Psychiatric: alert, normal mood/affect, oriented x 3 Skin: normal color, warm/dry Skin Problem Location: other (There is a nickel sized nodule to the posterior midline neck. There is some overlying and a small amount of surrounding erythema.) Procedures/Interventions I&D : Blade Size: 11 Packing/Drain: Idoform 1/4 Progress Overlying skin was anesthetized with 1 mL of 1% lidocaine with epinephrine. A horizontal 1 cm incision was made with an 11 blade scalpel. A small amount of purulent and curd-like material was expressed. Culture collected. Was further opened up with curved hemostats. Packed with small amount of quarter inch iodoform gauze. Progress/Results/Core Measures Results/Orders Vital Signs/I&O 10/03/20 12:00 Pulse 83 Resp 17 B/P (MAP) 168/82 (110) Pulse Ox 95 O2 Delivery Room Air Blood Pressure Mean: 110 Departure Impression Primary Impression: Inflamed sebaceous cyst Disposition: HOME, SELF-CARE Condition: Stable Departure-Patient Inst. Decision time for Depature: 12:20 Referrals: [facility]/ELIO (PCP) Primary Care Physician GLADIS KESSLER (Family) Primary Care Physician Patient Instructions: SEBACEOUS CYST-I&D Add. Discharge Instructions: 1. You can shower. Change the overlying gauze as needed. Take the antibiotics as directed. Warm compresses to the area. Pain medication as needed. Return to ER on Thursday for packing removal All discharge instructions reviewed with patient and/or family. Voiced understanding. Scripts Hydrocodone/Acetaminophen (Hydrocodone-Acetamin 5-325 mg) 1 Each Tablet 1 TAB PO Q4H PRN for PAIN-MODERATE (5-7), #10 TAB Prov: LARRY HICKEY APRN 10/03/20 Doxycycline Hyclate (Doxycycline Hyclate) 100 Mg Tablet 100 MG PO BID, #14 TAB 0 Refills Prov: LARRY HICKEY APRN 10/03/20 LARRY HICKEY APRN Oct 03, 2020 12:23
== END 2020-10-03 12:31 | disposition home or self-care (01) ==
LOC: EDUNIT# 11:47 → ER 11:48
DX: L72.3 Sebaceous cyst (principal); I10 Essential (primary) hypertension; G89.29 Other chronic pain; M54.9 Dorsalgia, unspecified; F17.210 Nicotine dependence, cigarettes, uncomplicated; Z79.891 Long term (current) use of opiate analgesic
CPT/HCPCS: 10061; 87070; 87077; 87205

== ENCOUNTER → 2020-10-03 | Outpatient (CLI) | payer MEDICAID ==
[~2020-10-03] MED LIST changes: +ACHD5005 PO; +ACHYD1T PO; +DOXY100T2 PO; -GABA600T2 PO; +GBPN600T PO; +GLIM4TAB5 PO; -HYDR-3820 PO; -IOHEXOL 350 MG/ML 100 ML (OMNIPAQUE 350) VIAL IV ONE; -NS 250 ML (IVPB) BAG IV ONE; -RECEIVED CONTRAST (Hold Metformin) IV SCH; +SIMV20TA26 PO; -SIMV20TA3 PO
[2020-10-03 09:38] LABS: BASOPHILS # (AUTO) 0.1 10^3/uL (0.0-0.1); BASOPHILS % (AUTO) 1 % (0-10); EOSINOPHILS # (AUTO) 0.4 10^3/uL (0.0-0.3); EOSINOPHILS % (AUTO) 5 % (0-10); HEMATOCRIT 47 % (40-54); HEMOGLOBIN 15.8 g/dL (13.3-17.7); LYMPHOCYTES # (AUTO) 2.2 10^3/uL (1.0-4.0); LYMPHOCYTES % (AUTO) 25 % (12-44); MEAN CORPUSCULAR HEMOGLOBIN 31 pg (25-34); MEAN CORPUSCULAR HGB CONC 34 g/dL (32-36); MEAN CORPUSCULAR VOLUME 91 fL (80-99); MONOCYTES # (AUTO) 1.2 10^3/uL (0.0-1.0); MONOCYTES % (AUTO) 14 % (0-12); NEUTROPHILS # (AUTO) 4.8 10^3/uL (1.8-7.8); NEUTROPHILS % (AUTO) 56 % (42-75); PLATELET COUNT 146 10^3/uL (130-400); WHITE BLOOD COUNT 8.7 10^3/uL (4.3-11.0)
[2020-10-03 09:58] LABS: ALANINE AMINOTRANSFERASE 27 U/L (0-55); ALBUMIN 3.8 GM/DL (3.2-4.5); ALKALINE PHOSPHATASE 111 U/L (40-136); BUN/CREATININE RATIO 15; CALCIUM 9.3 MG/DL (8.5-10.1); CARBON DIOXIDE 20 MMOL/L (21-32); CHLORIDE 105 MMOL/L (98-107); CHOLESTEROL 267 MG/DL (< 200); CREATININE SERUM 0.99 MG/DL (0.60-1.30); GFR ESTIMATED > 60; GLUCOSE 331 MG/DL (70-105); HDL CHOLESTEROL 38 MG/DL (40-60); POTASSIUM 4.2 MMOL/L (3.6-5.0); SODIUM 137 MMOL/L (135-145); TOTAL PROTEIN 7.1 GM/DL (6.4-8.2); TRIGLYCERIDES 295 MG/DL (<150); VLDL CHOLESTEROL 59 MG/DL (5-40)
[2020-10-03 10:19] LABS: FREE T4 (FREE THYROXINE) 1.39 NG/DL (0.70-1.48)
--- NOTE | 2020-10-03 12:22 | Diagnostic Imaging Report ---
PROCEDURE: US carotid duplex, bilateral. TECHNIQUE: Multiple Real-time grayscale images were obtained over the carotid arteries in various projections bilaterally. Additional spectral analysis and color Doppler duplex images were also obtained. INDICATION: Carotid bruit. FINDINGS: There is mild plaquing in both carotid bulbs and carotid bifurcations. Velocities are normal bilaterally. No velocity elevation or stenosis is identified. Both vertebral arteries demonstrate antegrade flow. IMPRESSION: Bilateral carotid plaque. There is no evidence of a hemodynamically significant stenosis. Parameters based on the consensus panel Jimenez-Scale and Doppler ultrasound criteria published June 2003, Radiology, Volume 229. DOPPLER (peak systolic velocity M/S Right Left CCA .59 .87 ICA Proximal .48 .56 ICA Mid .51 .74 ICA Distal .72 .66 RATIO 1.23 .86 ECA 1.54 1.21 VERT .35 .32 Dictated by: Dictated on workstation # [id number]
--- NOTE | 2020-10-03 12:26 | Diagnostic Imaging Report ---
PROCEDURE: US Venous Lower Ext Tristan. TECHNIQUE: Multiple Real-time grayscale images were obtained over the lower extremities in various projections, bilaterally. Additional duplex Doppler and color Doppler images were also obtained. INDICATION: Bilateral leg pain. FINDINGS: There is no evidence of right or left lower extremity DVT. Both lower extremity deep venous systems demonstrate normal compressibility with normal response to augmentation and Valsalva. No fluid collection or mass is detected. IMPRESSION: No evidence of right or left lower extremity DVT. Dictated by: Dictated on workstation # [id number]
--- NOTE | 2020-10-03 12:54 | Diagnostic Imaging Report ---
EXAM: Thoracic spine radiographs. EXAM DATE: 10/03/2020. COMPARISON: None. HISTORY: Neck and back pain without injury. TECHNIQUE: Three views of the thoracic spine including a swimmer's view. FINDINGS: No acute fracture, dislocation, or destructive osseous process. There is mild multilevel thoracic spondylosis. No significant facet hypertrophy. Vertebral body heights are maintained as visualized. Visualized lungs are clear. IMPRESSION: Mild degenerative change of the thoracic spine without acute osseous abnormality. Dictated by: Dictated on workstation # [id number]
--- NOTE | 2020-10-03 13:16 | Diagnostic Imaging Report ---
INDICATION: Neck and back pain. COMPARISON: None. FINDINGS: Frontal, lateral, and open-mouth radiographic views of the cervical spine were obtained. Cervical spine is seen down to the C6-C7 level on the lateral view. Static alignment of the cervical spine shows straightening with slight reversal of the normal lordotic curvature epicentered at the C5-C6 level. There is no significant zulma or retrolisthesis. There is no evidence of jumped facets. Open-mouth view shows normal C1-C2 alignment. Vertebral body heights are maintained. There is no acute fracture. There are degenerative changes at the C5-C6 level consisting of intervertebral disc height loss with anterior and posterior endplate osteophyte formations. Included portions of the lung apices are clear. Note is made of calcified carotid atherosclerosis. IMPRESSION: 1. No acute fracture or dislocation of the cervical spine seen down to the C6-C7 level. 2. Degenerative changes, greatest at the C5-C6 level, as above. Dictated by: Dictated on workstation # [id number]
--- NOTE | 2020-10-03 13:45 | Diagnostic Imaging Report ---
INDICATION: Back pain. COMPARISON: None. FINDINGS: Frontal and lateral views of the lumbar spine were obtained. Evaluation of the static alignment shows slight grade 1 retrolisthesis at the L1-L2 and L2-L3 levels. There is no evidence of jumped facets. The vertebral body heights are maintained. There is no acute fracture. There are moderate multilevel degenerative changes consisting of intervertebral disc height loss with anterior and posterior endplate osteophyte formations. Multilevel facet arthropathy is also noted. There is calcified aortic atherosclerosis. IMPRESSION: 1. No acute fracture or dislocation in the lumbar spine. 2. Moderate multilevel degenerative changes. Dictated by: Dictated on workstation # [id number]
--- NOTE | 2020-10-03 17:00 | Diagnostic Imaging Report ---
EXAMINATION: US Lower Extremity Arterial Duplex Bilateral. TECHNIQUE: Multiple real-time grayscale images were obtained over both lower extremities in various projections. Additional duplex Doppler and color Doppler images were also obtained. HISTORY: Pain in left leg, peripheral vascular disease. COMPARISON: None available. FINDINGS: Right lower extremity: A biphasic waveform is seen throughout the majority of right lower extremity arterial system. Monophasic waveform is seen within the dorsalis pedis artery. Mild plaquing is seen in the right lower extremity. There is abrupt decrease in velocity within the right popliteal artery. Left lower extremity: A biphasic waveform is seen throughout the majority of left lower extremity arterial system. Triphasic waveform is seen within the proximal superficial femoral artery. Monophasic waveform is seen within the dorsalis pedis artery. Mild plaquing is seen in the left lower extremity. There is abrupt decrease in velocity within the distal superficial femoral artery as well as the posterior tibial artery. IMPRESSION: 1. Atherosclerosis with abnormal biphasic waveforms seen throughout both extremity arteries. 2. Decreased velocities within the right popliteal, left distal superficial femoral, and left posterior tibial arteries all of which demonstrate biphasic flow. These could represent hemodynamically significant stenoses. 3. Abnormal monophasic flow within the bilateral dorsalis pedis arteries with mildly increased velocities which could also represent hemodynamically significant stenosis. Dictated by: Dictated on workstation # [id number]
== END ==
LOC: RAD 13:00
PROVIDERS: ATTEND Nurse Practitioner Family
DX: M47.812 Spondylosis without myelopathy or radiculopathy, cervical region (principal); M47.814 Spondylosis without myelopathy or radiculopathy, thoracic region; M47.816 Spondylosis without myelopathy or radiculopathy, lumbar region; M25.78 Osteophyte, vertebrae; I70.203 Unspecified atherosclerosis of native arteries of extremities, bilateral legs; I10 Essential (primary) hypertension; I65.23 Occlusion and stenosis of bilateral carotid arteries; E11.65 Type 2 diabetes mellitus with hyperglycemia; E03.8 Other specified hypothyroidism; E78.5 Hyperlipidemia, unspecified; R09.89 Other specified symptoms and signs involving the circulatory and respiratory systems
CPT/HCPCS: 36415; 72040; 72072; 72100; 80053; 80061; 83036; 84439; 84443; 85025; 93880; 93925; 93970

== ENCOUNTER 2020-12-20 18:35 | Emergency (ER) | payer MEDICAID ==
[~2020-12-20] VITALS: Ht 186 cm; Wt 131.5 kg
[~2020-12-20 18:35] MED LIST changes: +ACHD5005 PO; +DOXY100T2 PO; +LISI40TA9 PO
[2020-12-20] MEDS ORDERED: TETANUS,DIPTH,PERTUSS P/F (BOOSTRIX) 0.5 ML VIAL IM ONE (19:15)
--- NOTE | 2020-12-20 19:25 | ED Upper Extremity ---
General Chief Complaint: Upper Extremity Stated Complaint: R HAND SWELLING/REDNESS Nursing Triage Note: reports possible splinters in right hand x4 days. hand red/swollen Nursing Sepsis Screen: No Definite Risk Source: patient (LIMITED HISTORIAN) History of Present Illness Date Seen by Provider: Dec 20, 2020 Time Seen by Provider: 19:05 Initial Comments PT ARRIVES VIA POV FROM HOME C/O PAIN, REDNESS AND SWELLING TO RIGHT HAND X 4 DAYS STATES HE WAS PUTTING A HEAD ON A HAMMER AND IT SLIPPED AND HE MIGHT HAVE GOT SOME SPLINTERS IN HIS HAND NO KNOWN FEVER NO PARESTHESIAS OR MOTOR DEFICITS PT HAS NOT SOUGHT CARE UNTIL TONIGHT HAS NOT TAKEN ANYTHING FOR PAIN PT IS RIGHT HANDED PT STATES HE HAS BROKE THIS HAND AND FINGERS MULTIPLE TIMES, BUT NEVER SOUGHT CARE AT ANY TIME--STATES HE JUST TREATED THEM HIMSELF PT IS INSULIN DEPENDENT DIABETIC DOES NOT CHECK BLOOD GLUCOSE OR FOLLOW ANY DIET. PCP: UNKNOWN PROVIDER IN [place], [place]. ALSO GOES TO [facility] Allergies and Home Medications Allergies Coded Allergies: No Known Drug Allergies (Unverified , 08/26/17) Home Medications Atenolol 100 Mg Tablet, 100 MG PO DAILY, (Reported) Clindamycin HCl 300 Mg Capsule, 300 MG PO QID Prescribed by: STEFAN NICHOLE on 12/20/202005 Diclofenac Sodium 75 Mg Tablet.dr, 75 MG PO BID PRN for PAIN-MILD TO MODERATE, (Reported) Doxycycline Hyclate 100 Mg Tablet, 100 MG PO BID Prescribed by: LARRY HICKEY on 10/03/20 1222 Gabapentin 600 Mg Tablet, 600 MG PO TID, (Reported) Glimepiride 4 Mg Tablet, 4 MG PO BID, (Reported) Hydrocodone Bit/Acetaminophen 1 Each Tablet, 1 EACH PO TID PRN for PAIN-MILD TO MODERATE, (Reported) Hydrocodone/Acetaminophen 1 Each Tablet, 1 TAB PO Q4H PRN for PAIN-MODERATE (5- 7) Prescribed by: LRARY HICEKY on 10/03/20 1223 Levothyroxine Sodium 125 Mcg Tablet, 125 MCG PO DAILY, (Reported) Lisinopril 40 Mg Tablet, 40 MG PO DAILY, (Reported) Metformin HCl 1,000 Mg Tablet, 1,000 MG PO BID, (Reported) Methocarbamol 750 Mg Tablet, 750 MG PO Q6H PRN for MUSCLE CRAMPS Prescribed by: LARRY HICKEY on 01/29/18 1707 Naproxen 500 Mg Tablet.dr, 500 MG PO BID Prescribed by: STEFAN NICHOLE on 12/20/202005 Tramadol HCl 50 Mg Tablet, 50 MG PO Q4H Prescribed by: STEFAN NICHOLE on 12/20/202005 Patient Home Medication List Home Medication List Reviewed: Yes Review of Systems Constitutional: no symptoms reported Musculoskeletal: see HPI Skin: see HPI Psychiatric/Neurological: See HPI, Pre-Existing Deficit (PERIPHERAL NEUROPATHY IN LEGS/ FEET) Past Lkdcxbt-Hdogju-Xmvlxy Hx Past Med/Social Hx: Reviewed and Corrections made Patient Social History Alcohol Use: Past History Drug of Choice: COCAINE, THC Smoking Status: Current Everyday Smoker (1 2-2 PPD) Type Used: Cigarettes 2nd Hand Smoke Exposure: Yes Recent Infectious Disease Expo: No Recent Hopitalizations: No Substance type: Marijuana, Other (COCAINE--SNORTED) Immunizations Up To Date Tetanus Booster (TDap): Unknown PED Vaccines UTD: Yes Date of Influenza Vaccine: Jun 01, 2017 Seasonal Allergies Seasonal Allergies: Yes Past Medical History Surgeries: Yes (TUMOR RESECTION OF BLADDER; SURGICAL REMOVAL OF ANAL CONDYLOMA; COLONOSCOPY) Bladder Surgery Respiratory: Yes Sleep Apnea Cardiac: Yes High Cholesterol, Hypertension Neurological: Yes Neuropathy Reproductive Disorders: No Sexually Transmitted Disease: Yes (ANAL CONDYLOMA) HIV/AIDS: No Genitourinary: Yes (BLADDER CANCER) Gastrointestinal: Yes Gastroesophageal Reflux Musculoskeletal: Yes (CHRONIC NECK AND BACK PAIN) Degenerate Disk Disease, Arthritis, Chronic Back Pain Endocrine: Yes Diabetes, Insulin dep, Hypothyroidsim HEENT: No Loss of Vision: Bilateral Hearing Impairment: Denies Cancer: Yes Bladder Did You Recieve Any Treatments: Yes What Type of Treatment Did You: Surgical Intervention BLADDER CANCER--DX 2017 OR 2018--PT DOES NOT RECALL WHEN DX PT IS UNSURE OF TREATMENT OTHER THAN SOME TYPE OF SURGERY Psychosocial: Yes Anxiety Integumentary: No Blood Disorders: No Adverse Reaction/Blood Tranf: No Family Medical History SOCIAL HISTORY: -ETOH--HX OF ABUSE, CLAIMS NO RECENT USE -DRUGS--COCAINE--SNORTED IT, THC USE--CLAIMS NO RECENT USE -SMOKES 1 1/2-2 PPD Physical Exam Vital Signs Vital Signs - First Documented 12/20/20 19:01 Temp 36.7 Pulse 96 Resp 18 B/P (MAP) 137/72 (93) Pulse Ox 99 O2 Delivery Room Air Capillary Refill : Less Than 3 Seconds Height, Weight, BMI Height: 6'1.00" Weight: 298lbs. 0oz. 135.312762on; 38.00 BMI Method:Stated General Appearance: WD/WN, no apparent distress, other (UNKEMPT) Elbow/Forearm: normal inspection Wrist: Yes normal inspection Hand: Right (SWELLING--VERY FIRM, WITH REDNESS AND TENDERNESS TO HYPOTHENAR AND 5TH METACARPAL AREA. BOTH HANDS AND ARMS WITH MULTIPLE SORES/SCABS . NO POINTING OR DRAINAGE OR FLUCTUANCE. NO STREAKS. NO SPECIFIC WOUND OR PUNCTURE SITE DIRECTLY IN THE AFFECTED AREA. HAS FULL ROM OF HAND AND FINGERS WITHOUT DIFFICULTY OR PAIN. MOTOR/SENSORY/VASCULAR INTACT. ), infection, soft tissue tenderness, swelling Neurologic/Tendon: normal sensation, normal motor functions, normal tendon functions, other (TO RIGHT HAND) Neurologic/Psychiatric: flat knitter helper II-XII nml as tested, alert, normal mood/affect, oriented x 3 Skin: normal color, warm/dry, other ( ABOVE. ) Progress/Results/Core Measures Results/Orders Lab Results Laboratory Tests Test 12/20/20 19:20 Range/Units White Blood Count 11.5 H 4.3-11.0 10^3/uL Red Blood Count 5.15 4.30-5.52 10^6/uL Hemoglobin 16.2 13.3-17.7 g/dL Hematocrit 47 40-54 % Mean Corpuscular Volume 92 80-99 fL Mean Corpuscular Hemoglobin 32 25-34 pg Mean Corpuscular Hemoglobin Concent 34 32-36 g/dL Red Cell Distribution Width 14.1 10.0-14.5 % Platelet Count 171 130-400 10^3/uL Mean Platelet Volume 11.2 9.0-12.2 fL Immature Granulocyte % (Auto) 0 % Neutrophils (%) (Auto) 65 42-75 % Lymphocytes (%) (Auto) 19 12-44 % Monocytes (%) (Auto) 13 H 0-12 % Eosinophils (%) (Auto) 3 0-10 % Basophils (%) (Auto) 1 0-10 % Neutrophils # (Auto) 7.5 1.8-7.8 10^3/uL Lymphocytes # (Auto) 2.2 1.0-4.0 10^3/uL Monocytes # (Auto) 1.4 H 0.0-1.0 10^3/uL Eosinophils # (Auto) 0.3 0.0-0.3 10^3/uL Basophils # (Auto) 0.1 0.0-0.1 10^3/uL Immature Granulocyte # (Auto) 0.0 0.0-0.1 10^3/uL Erythrocyte Sedimentation Rate 29 0-30 MM/HR Prothrombin Time 13.3 12.2-14.7 SEC INR Comment 1.0 0.8-1.4 Activated Partial Thromboplast Time 32 24-35 SEC Sodium Level 135 135-145 MMOL/L Potassium Level 4.3 3.6-5.0 MMOL/L Chloride Level 103 98-107 MMOL/L Carbon Dioxide Level 18 L 21-32 MMOL/L Anion Gap 14 5-14 MMOL/L Blood Urea Nitrogen 19 H 7-18 MG/DL Creatinine 1.03 0.60-1.30 MG/DL Estimat Glomerular Filtration Rate > 60 BUN/Creatinine Ratio 18 Glucose Level 316 H 70-105 MG/DL Lactic Acid Level 1.82 0.50-2.00 MMOL/L Calcium Level 9.4 8.5-10.1 MG/DL Corrected Calcium 9.4 8.5-10.1 MG/DL Magnesium Level 1.7 1.6-2.4 MG/DL Total Bilirubin 1.5 H 0.1-1.0 MG/DL Aspartate Amino Transf (AST/SGOT) 24 5-34 U/L Alanine Aminotransferase (ALT/SGPT) 18 0-55 U/L Alkaline Phosphatase 127 40-136 U/L C-Reactive Protein High Sensitivity 4.42 H 0.00-0.50 MG/DL Total Protein 7.6 6.4-8.2 GM/DL Albumin 4.0 3.2-4.5 GM/DL Procalcitonin 0.09 <0.10 NG/ML My Orders Orders - STEFAN NICHOLE DO Ed Iv/Invasive Line Start (12/20/20 19:12) Hand, Right, 3 Views (12/20/20 19:12) Cbc With Automated Diff (12/20/20 19:12) Comprehensive Metabolic Panel (12/20/20 19:12) Hs C Reactive Protein (12/20/20 19:12) Erythrocyte Sedimentation Rate (12/20/20 19:12) Lactic Acid Analyzer (12/20/20 19:12) Magnesium (12/20/20 19:12) Procalcitonin (Pct) (12/20/20 19:12) Protime With Inr (12/20/20 19:12) Partial Thromboplastin Time (12/20/20 19:12) Blood Culture (12/20/20 19:12) Dipht,Pertuss(Acell),Tet Adult (Boostrix (12/20/20 19:15) Piperacillin Sodium/Tazobactam (Zosyn Vi (12/20/20 20:00) Vancomycin Injection (Vancomycin Injecti (12/20/20 20:00) Ketorolac Injection (Toradol Injection) (12/20/20 20:00) Ed Iv/Invasive Line Start (12/20/20 19:52) Ns Iv 1000 Ml (Sodium Chloride 0.9%) (12/20/20 20:00) Rx-Clindamycin Capsule (Rx-Cleocin Capsu (12/20/20 20:12) Rx-Naproxen (Rx-Naprosyn) (12/20/20 20:12) Rx-Tramadol Hcl (Rx-Ultram) (12/20/20 20:12) Medications Given in ED Current Medications Medications Dose Ordered Sig/Devyn Route Start Time Stop Time Status Last Admin Dose Admin Diphtheria/ Tetanus/Acell Pertussis 0.5 ml ONCE ONCE IM 12/20/20 19:15 12/20/20 19:16 DC 12/20/20 19:23 0.5 ML Ketorolac Tromethamine 30 mg ONCE ONCE IVP 12/20/20 20:00 12/20/20 20:01 DC 12/20/20 20:03 30 MG Piperacillin Sod/ Tazobactam Sod 4.5 gm/Sodium Chloride 100 ml @ 200 mls/hr ONCE ONCE IV 12/20/20 20:00 12/20/20 20:29 DC 12/20/20 20:04 200 MLS/HR Vital Signs/I&O 12/20/20 12/20/20 19:01 21:55 Temp 36.7 36.6 Pulse 96 89 Resp 18 18 B/P (MAP) 137/72 (93) 135/71 (93) Pulse Ox 99 100 O2 Delivery Room Air Room Air 12/21/20 00:00 Intake Total 1600 ml Balance 1600 ml Blood Pressure Mean: 93 Progress Progress Note : Progress Note GIVEN IV FLUIDS AND ANTIBIOTICS, AND PAIN MEDICATION NO DETERIORATION IN PT'S CONDITION DURING ER STAY NO EVIDENCE OF SEPSIS OR TENDON INVOLVEMENT, AND PT HAS NOT ATTEMPTED OUTPATIENT THERAPY AT THIS TIME. Diagnostic Imaging Comments XRAYS RIGHT HAND--PER RADIOLOGIST REPORT AT 1947 FINDINGS: 3 views of the hand There is soft tissue swelling dorsally. There are no underlying fractures or dislocations. Atherosclerotic disease is noted. IMPRESSION: 1. No acute osseous abnormality. Reviewed: Reviewed by Me Departure Communication (Admissions) 1951--SPOKE WITH DR. HEWITT, GENERAL SURGEON. ADVISES TO SEND HOME ON ORAL ANTIBIOTICS AND FOLLOW UP WITH ORTHOPEDICS/HAND SURGEON 1957--SPOKE WITH DR. HAJI, ORTHOPEDIC SURGEON. HE AGREES WITH SENDING HOME ON ORAL ANTIBIOTICS, AND HE WILL SEE PT IN OFFICE FOR FOLLOW UP. Impression Primary Impression: Cellulitis of right hand Additional Impressions: IDDM (insulin dependent diabetes mellitus) Kbdfipbmju-qnwmqnruf-hthzgsi (DPT) vaccination administered at current visit Disposition: 01 HOME, SELF-CARE Condition: Stable Departure-Patient Inst. Referrals: [facility] (PCP) Primary Care Physician GLADIS KESSLER (Family) Primary Care Physician CAMPOS HAJI MD Patient Instructions: Cellulitis (Skin Infection), Adult (DC), Diabetes and Infections, Diphtheria and Tetanus Toxoids, and Acellular Pertussis Vaccine Add. Discharge Instructions: SOAK IN WARM EPSOM SALTS OR WARM SOAPY WATER 2-3 TIMES A DAY DO NOT SQUEEZE, POKE AT OR PICK AT THE AREA LIMITED USE OF HAND KEEP HAND CLEAN AND DRY FOLLOW UP WITH DR. HAJI, ORTHOPEDIC SURGEON IN A FEW DAYS--CALL HIS OFFICE IN THE MORNING TO SCHEDULE APPOINTMENT. RETURN TO ER IF SYMPTOMS WORSEN All discharge instructions reviewed with patient and/or family. Voiced understanding. Scripts Tramadol HCl (Ultram) 50 Mg Tablet 50 MG PO Q4H for Pain, #20 TAB Prov: STEFAN NICHOLE DO 12/20/20 Naproxen (Naproxen) 500 Mg Tablet.dr 500 MG PO BID, #20 TAB Prov: STEFAN NICHOLE DO 12/20/20 Clindamycin HCl (Clindamycin HCl) 300 Mg Capsule 300 MG PO QID for 10 Days, #40 CAP Prov: STEFAN NICHOLE DO 12/20/20 STEFAN NICHOLE DO Dec 20, 2020 19:24
[2020-12-20 19:32] LABS: BASOPHILS # (AUTO) 0.1 10^3/uL (0.0-0.1); BASOPHILS % (AUTO) 1 % (0-10); EOSINOPHILS # (AUTO) 0.3 10^3/uL (0.0-0.3); EOSINOPHILS % (AUTO) 3 % (0-10); HEMATOCRIT 47 % (40-54); HEMOGLOBIN 16.2 g/dL (13.3-17.7); LYMPHOCYTES # (AUTO) 2.2 10^3/uL (1.0-4.0); LYMPHOCYTES % (AUTO) 19 % (12-44); MEAN CORPUSCULAR HEMOGLOBIN 32 pg (25-34); MEAN CORPUSCULAR HGB CONC 34 g/dL (32-36); MEAN CORPUSCULAR VOLUME 92 fL (80-99); MEAN PLATELET VOLUME 11.2 fL (9.0-12.2); MONOCYTES # (AUTO) 1.4 10^3/uL (0.0-1.0); MONOCYTES % (AUTO) 13 % (0-12); NEUTROPHILS # (AUTO) 7.5 10^3/uL (1.8-7.8); NEUTROPHILS % (AUTO) 65 % (42-75); PLATELET COUNT 171 10^3/uL (130-400); WHITE BLOOD COUNT 11.5 10^3/uL (4.3-11.0)
--- NOTE | 2020-12-20 19:41 | Diagnostic Imaging Report ---
INDICATION: Injury. Pain and swelling. EXAMINATION: Right hand from 12/20/2020 FINDINGS: 3 views of the hand There is soft tissue swelling dorsally. There are no underlying fractures or dislocations. Atherosclerotic disease is noted. IMPRESSION: 1. No acute osseous abnormality. Dictated by: Dictated on workstation # [id number]
[2020-12-20 19:43] LABS: PROTHROMBIN TIME PATIENT 13.3 SEC (12.2-14.7)
[2020-12-20 19:52] LABS: ALANINE AMINOTRANSFERASE 18 U/L (0-55); ALKALINE PHOSPHATASE 127 U/L (40-136); BILIRUBIN,TOTAL 1.5 MG/DL (0.1-1.0); BUN/CREATININE RATIO 18; CALCIUM 9.4 MG/DL (8.5-10.1); CARBON DIOXIDE 18 MMOL/L (21-32); CHLORIDE 103 MMOL/L (98-107); CREATININE SERUM 1.03 MG/DL (0.60-1.30); GFR ESTIMATED > 60; GLUCOSE 316 MG/DL (70-105); MAGNESIUM 1.7 MG/DL (1.6-2.4); POTASSIUM 4.3 MMOL/L (3.6-5.0); SODIUM 135 MMOL/L (135-145); TOTAL PROTEIN 7.6 GM/DL (6.4-8.2)
[2020-12-20 20:00] LABS: ERYTHROCYTE SEDIMENTATION RATE 29 MM/HR (0-30)
[2020-12-20] MEDS ORDERED: KETOROLAC 30 MG/ML VIAL IVP ONE (20:00)
[2020-12-20] MEDS ORDERED: NS IV 1000 ML 1,000 ML IV SCH (20:00)
[2020-12-20] MEDS ORDERED: PIPERACILLIN SODIUM/TAZOBACTAM 4.5 GM in NS (IVPB) 100 ML IV ONE (20:00)
[2020-12-20] MEDS: VANCOMYCIN INJECTION 1,000 MG in NS (IVPB) 250 ML IV SCH ×2 (20:04→21:05)
[2020-12-20] MEDS ORDERED: CLIN300C12 PO (20:06)
[2020-12-20] MEDS ORDERED: NAPR500T8 PO (20:06)
[2020-12-20] MEDS ORDERED: TRAM-42 PO (20:06)
[2020-12-20] MEDS ORDERED: RX-NAPROXEN (NAPROSYN) 250 MG TAB PPK#4 PO STA (20:12)
[2020-12-20] MEDS ORDERED: RX-CLINDAMYCIN 150 MG (CLEOCIN) CAP PPK#4 PO STA (20:12)
[2020-12-20 21:55] VITALS: BP 135/71
== END 2020-12-20 21:55 | disposition home or self-care (01) ==
LOC: EDUNIT# 18:35 → ER 18:37
DX: L03.113 Cellulitis of right upper limb (principal); E10.9 Type 1 diabetes mellitus without complications; I10 Essential (primary) hypertension; G89.29 Other chronic pain; M54.9 Dorsalgia, unspecified; E03.9 Hypothyroidism, unspecified; F17.210 Nicotine dependence, cigarettes, uncomplicated; Z23 Encounter for immunization; Z79.890 Hormone replacement therapy; Z79.891 Long term (current) use of opiate analgesic; Z79.899 Other long term (current) drug therapy
CPT/HCPCS: 36415; 73130; 80053; 83605; 83735; 84145; 85025; 85610; 85652; 85730; 86141; 87040; 90715

== ENCOUNTER 2021-11-15 12:04 | Emergency (ER) | payer MEDICAID ==
[~2021-11-15] VITALS: Ht 185 cm; Wt 120.0 kg
[~2021-11-15 12:04] MED LIST changes: +CLIN-144 PO; +NAPR500T8 PO; +TRAM-42 PO
--- NOTE | 2021-11-15 12:55 | ED General ---
General Chief Complaint: Cough/Cold/Flu Symptoms Stated Complaint: SOA - FEVER - COUGH - CONGESTION - VOMITING Nursing Triage Note: Pt here with cough, fever, WHITESIDE, n/v/d x 2 days. Source of Information: Patient Exam Limitations: No Limitations History of Present Illness Date Seen by Provider: Nov 15, 2021 Time Seen by Provider: 12:54 Initial Comments To ER with a 3-day history of cough fever headache nausea vomiting diarrhea. Timing/Duration: 1-2 Days Severity: Moderate Associated Systoms: Cough, Headaches, Nausea/Vomiting, Weakness Allergies and Home Medications Allergies Coded Allergies: No Known Drug Allergies (Unverified , 08/26/17) Patient Home Medication List Home Medication List Reviewed: Yes Atenolol (Atenolol) 100 Mg Tablet, 100 MG PO DAILY, (Reported) Entered as Reported by: VINCE BAEZA on 08/26/171612 Clindamycin HCl (Clindamycin HCl) 300 Mg Capsule, 300 MG PO QID Prescribed by: STEFAN NICHOLE on 12/20/202005 Diclofenac Sodium (Diclofenac Sodium) 75 Mg Tablet.dr, 75 MG PO BID PRN for PAIN-MILD TO MODERATE, (Reported) Entered as Reported by: VINCE BAEZA on 08/26/171612 Doxycycline Hyclate (Doxycycline Hyclate) 100 Mg Tablet, 100 MG PO BID Prescribed by: LARRY HICKEY on 10/03/20 1222 Gabapentin (Gabapentin) 600 Mg Tablet, 600 MG PO TID, (Reported) Entered as Reported by: VINCE BAEZA on 08/26/171612 Glimepiride (Glimepiride) 4 Mg Tablet, 4 MG PO BID, (Reported) Entered as Reported by: VINCE BAEZA on 08/26/171612 Hydrocodone Bit/Acetaminophen (HYDROcodone/APAP 10/325 TABLET) 1 Each Tablet, 1 EACH PO TID PRN for PAIN-MILD TO MODERATE, (Reported) Entered as Reported by: VINCE BAEZA on 08/26/171612 Hydrocodone/Acetaminophen (Hydrocodone-Acetamin 5-325 mg) 1 Each Tablet, 1 TAB PO Q4H PRN for PAIN-MODERATE (5-7) Prescribed by: LARRY HICKEY on 10/03/20 1223 Levothyroxine Sodium (Levothyroxine Sodium) 125 Mcg Tablet, 125 MCG PO DAILY, (Reported) Entered as Reported by: VINCE BAEZA on 08/26/17 1613 Lisinopril (Lisinopril) 40 Mg Tablet, 40 MG PO DAILY, (Reported) Entered as Reported by: VINCE BAEZA on 08/26/17 1613 Metformin HCl (Metformin HCl) 1,000 Mg Tablet, 1,000 MG PO BID, (Reported) Entered as Reported by: VINCE BAEZA on 08/26/17 1613 Methocarbamol (Robaxin-750) 750 Mg Tablet, 750 MG PO Q6H PRN for MUSCLE CRAMPS Prescribed by: LARRY HICKEY on 01/29/18 170 Naproxen (Naproxen) 500 Mg Tablet.dr, 500 MG PO BID Prescribed by: STEFAN NICHOLE on 12/20/202005 Tramadol HCl (Ultram) 50 Mg Tablet, 50 MG PO Q4H Prescribed by: STEFAN NICHOLE on 12/20/202005 Review of Systems Review of Systems Constitutional: see HPI, chills, fever, malaise, weakness EENTM: see HPI Respiratory: see HPI, cough Cardiovascular: no symptoms reported Genitourinary: no symptoms reported Musculoskeletal: no symptoms reported Skin: no symptoms reported Psychiatric/Neurological: No Symptoms Reported Hematologic/Lymphatic: No Symptoms Reported Immunological/Allergic: no symptoms reported Past Yjcyise-Kbxmny-Uhhilt Hx Patient Social History Tobacco type used: Cigarettes Smoking Status: Current Everyday Smoker Substance use?: Yes Substance type: Marijuana Alcohol Use?: No Pt feels they are or have been: No Immunizations Up To Date Tetanus Booster (TDap): Unknown PED Vaccines UTD: Yes First/Initial COVID19 Vaccinat: 11/22/2020 Seasonal Allergies Seasonal Allergies: Yes Past Medical History Surgeries: Yes (TUMOR RESECTION OF BLADDER; SURGICAL REMOVAL OF ANAL CONDYLOMA; COLONOSCOPY) Bladder Surgery Respiratory: Yes Sleep Apnea Cardiac: Yes High Cholesterol, Hypertension Neurological: Yes Neuropathy Reproductive Disorders: No Sexually Transmitted Disease: Yes (ANAL CONDYLOMA) HIV/AIDS: No Genitourinary: Yes (BLADDER CANCER) Gastrointestinal: Yes Gastroesophageal Reflux Musculoskeletal: Yes (CHRONIC NECK AND BACK PAIN) Degenerate Disk Disease, Arthritis, Chronic Back Pain Endocrine: Yes Diabetes, Insulin dep, Hypothyroidsim HEENT: No Loss of Vision: Bilateral Hearing Impairment: Denies Cancer: Yes Bladder Did You Recieve Any Treatments: Yes What Type of Treatment Did You: Surgical Intervention Psychosocial: Yes Anxiety Integumentary: No Blood Disorders: No Adverse Reaction/Blood Tranf: No Family Medical History SOCIAL HISTORY: -ETOH--HX OF ABUSE, CLAIMS NO RECENT USE -DRUGS--COCAINE--SNORTED IT, THC USE--CLAIMS NO RECENT USE -SMOKES 1 1/2-2 PPD Physical Exam Vital Signs Vital Signs - First Documented 11/15/21 12:13 Temp 36.4 Pulse 92 Resp 20 B/P (MAP) 146/83 (104) Pulse Ox 96 O2 Delivery Room Air Capillary Refill : Less Than 3 Seconds Height, Weight, BMI Height: 6'1.00" Weight: 298lbs. 0oz. 135.793221td; 35.00 BMI Method:Stated General Appearance: No Apparent Distress, WD/WN Eyes: Bilateral Eye Normal Inspection, Bilateral Eye PERRL, Bilateral Eye EOMI HEENT: PERRL/EOMI, TMs Normal Neck: Full Range of Motion, Normal Inspection Respiratory: No Accessory Muscle Use, No Respiratory Distress Cardiovascular: Regular Rate, Rhythm, Normal Peripheral Pulses Gastrointestinal: Normal Bowel Sounds, Non Tender, Soft Extremity: Normal Capillary Refill, Normal Inspection Neurologic/Psychiatric: Alert, Oriented x3 Skin: Normal Color, Warm/Dry Progress/Results/Core Measures Suspected Sepsis SIRS Temperature: Pulse: 92 Respiratory Rate: 20 Blood Pressure 146 /83 Mean: 104 Results/Orders Lab Results Laboratory Tests Test 11/15/21 12:22 Range/Units Influenza Type A (RT-PCR) Detected H Not Detecte Influenza Type B (RT-PCR) Not Detected Not Detecte SARS-CoV-2 RNA (RT-PCR) Not Detected Not Detecte My Orders Orders - LARRY HICKEY APRN Covid 19 Inhouse Test (11/15/21 12:20) Influenza A And B By Pcr (11/15/21 12:20) Vital Signs/I&O 11/15/21 12:13 Temp 36.4 Pulse 92 Resp 20 B/P (MAP) 146/83 (104) Pulse Ox 96 O2 Delivery Room Air Capillary Refill : Less Than 3 Seconds Blood Pressure Mean: 104 Departure Impression Primary Impression: Influenza Disposition: 01 HOME, SELF-CARE Condition: Stable Departure-Patient Inst. Decision time for Depature: 12:55 Referrals: NO,LOCAL PHYSICIAN (PCP/Family) Primary Care Physician Patient Instructions: Flu, Adult ED Add. Discharge Instructions: 1. Tylenol and ibuprofen for pain or fever control. Go home and rest, drink plenty fluids and return to ER for any worsening. All discharge instructions reviewed with patient and/or family. Voiced understanding. LARRY HICKEY APRN Nov 15, 2021 12:55
[2021-11-15 13:14] VITALS: BP 157/89
== END 2021-11-15 13:14 | disposition home or self-care (01) ==
LOC: EDUNIT# 12:04 → ER 12:05
DX: J11.1 Influenza due to unidentified influenza virus with other respiratory manifestations (principal); F17.210 Nicotine dependence, cigarettes, uncomplicated; Z20.822 Contact with and (suspected) exposure to COVID-19
CPT/HCPCS: 87636; 99283

== ENCOUNTER → 2022-04-16 | Outpatient (CLI) | payer MEDICAID ==
[2022-04-16 12:16] LABS: BASOPHILS # (AUTO) 0.1 10^3/uL (0.0-0.1); BASOPHILS % (AUTO) 1 % (0-10); EOSINOPHILS # (AUTO) 0.3 10^3/uL (0.0-0.3); EOSINOPHILS % (AUTO) 5 % (0-10); HEMATOCRIT 40 % (40-54); HEMOGLOBIN 13.8 g/dL (13.3-17.7); LYMPHOCYTES # (AUTO) 2.4 10^3/uL (1.0-4.0); LYMPHOCYTES % (AUTO) 36 % (12-44); MEAN CORPUSCULAR HEMOGLOBIN 31 pg (25-34); MEAN CORPUSCULAR HGB CONC 35 g/dL (32-36); MEAN CORPUSCULAR VOLUME 91 fL (80-99); MEAN PLATELET VOLUME 10.8 fL (9.0-12.2); MONOCYTES # (AUTO) 0.8 10^3/uL (0.0-1.0); MONOCYTES % (AUTO) 12 % (0-12); NEUTROPHILS # (AUTO) 3.1 10^3/uL (1.8-7.8); NEUTROPHILS % (AUTO) 46 % (42-75); PLATELET COUNT 185 10^3/uL (130-400); WHITE BLOOD COUNT 6.7 10^3/uL (4.3-11.0)
[2022-04-16 12:25] LABS: ALBUMIN 3.9 GM/DL (3.2-4.5); POTASSIUM 4.2 MMOL/L (3.6-5.0)
[2022-04-16 12:26] LABS: CALCIUM 9.7 MG/DL (8.5-10.1)
[2022-04-16 12:28] LABS: TOTAL PROTEIN 7.2 GM/DL (6.4-8.2)
[2022-04-16 12:30] LABS: BILIRUBIN,TOTAL 0.9 MG/DL (0.1-1.0)
[2022-04-16 12:31] LABS: CREATININE SERUM 0.85 MG/DL (0.60-1.30)
== END ==
LOC: LAB 11:54
PROVIDERS: ATTEND Nurse Practitioner Family
DX: Z12.5 Encounter for screening for malignant neoplasm of prostate (principal); E11.40 Type 2 diabetes mellitus with diabetic neuropathy, unspecified; E78.5 Hyperlipidemia, unspecified; E03.8 Other specified hypothyroidism
CPT/HCPCS: 36415; 80053; 80061; 83036; 84153; 84443; 85025

== ENCOUNTER → 2023-07-30 | Outpatient (CLI) | payer MEDICAID ==
[2023-07-30 09:52] LABS: BASOPHILS # (AUTO) 0.1 10^3/uL (0.0-0.1); BASOPHILS % (AUTO) 2 % (0-10); EOSINOPHILS # (AUTO) 0.5 10^3/uL (0.0-0.3); EOSINOPHILS % (AUTO) 9 % (0-10); HEMATOCRIT 38 % (40-54); HEMOGLOBIN 12.7 g/dL (13.3-17.7); LYMPHOCYTES # (AUTO) 2.3 10^3/uL (1.0-4.0); LYMPHOCYTES % (AUTO) 41 % (12-44); MEAN CORPUSCULAR HEMOGLOBIN 30 pg (25-34); MEAN CORPUSCULAR HGB CONC 33 g/dL (32-36); MEAN CORPUSCULAR VOLUME 92 fL (80-99); MEAN PLATELET VOLUME 11.2 fL (9.0-12.2); MONOCYTES # (AUTO) 0.9 10^3/uL (0.0-1.0); MONOCYTES % (AUTO) 16 % (0-12); NEUTROPHILS # (AUTO) 1.8 10^3/uL (1.8-7.8); NEUTROPHILS % (AUTO) 33 % (42-75); PLATELET COUNT 159 10^3/uL (130-400); WHITE BLOOD COUNT 5.5 10^3/uL (4.3-11.0)
[2023-07-30 10:14] LABS: POTASSIUM 4.1 MMOL/L (3.6-5.0)
[2023-07-30 10:15] LABS: ALBUMIN 3.9 GM/DL (3.2-4.5)
[2023-07-30 10:16] LABS: CALCIUM 9.2 MG/DL (8.5-10.1)
[2023-07-30 10:17] LABS: TOTAL PROTEIN 7.1 GM/DL (6.4-8.2)
[2023-07-30 10:19] LABS: BILIRUBIN,TOTAL 1.4 MG/DL (0.1-1.0)
[2023-07-30 10:21] LABS: CREATININE SERUM 0.93 MG/DL (0.60-1.30)
[2023-07-30 10:44] LABS: FREE T4 (FREE THYROXINE) 1.37 NG/DL (0.70-1.48)
== END ==
LOC: LAB 09:36
PROVIDERS: ATTEND Nurse Practitioner Family
DX: Z12.5 Encounter for screening for malignant neoplasm of prostate (principal); E11.40 Type 2 diabetes mellitus with diabetic neuropathy, unspecified; E78.5 Hyperlipidemia, unspecified; E03.8 Other specified hypothyroidism
CPT/HCPCS: 36415; 80053; 80061; 82043; 83036; 84153; 84439; 84443; 85025